=== PATIENT | female | born 1955 | race Caucasian/White ===

== ENCOUNTER 2019-03-11 16:09 | Emergency (ER) | payer MEDICARE, SELFPAY ==
[2019-03-11 16:10] VITALS: BP 128/76; PULSE 90; RESP 16; TEMP 36.8; O2SAT 97; BMI 31.4
[2019-03-11 16:19] VITALS: TEMP 36.8
--- NOTE | 2019-03-11 16:22 | ED.VIS.GEN ---
History of Present Illness Chief Complaint: Cough Detail of Chief Complaint: Respiratory illness Informant: Patient, Friend Onset: Days - Onset of symptoms March 08 Context: Sudden Onset Timing: Continuous, Waxes and wanes Quality: Nasal congestion, cough, wheezing Location: Respiratory Current Severity: Mild Maximum Severity: Moderate Worsened by: Nothing Relieved by: Nothing Associated Symptoms: Malaise Narrative: Patient is an elderly woman who presents with nasal congestion, postnasal drainage, change in voice and productive cough. She states she did not look at the sputum because that will make her sick. She also complains of wheezing. She has history of mild asthma on chronic medication. She denies chest pain of any type. She denies GI symptoms. She denies leg pain, swelling discoloration. There is no history of PE or DVT. Prior similar symptoms: Yes Recent Illness/Hospitalization: No - Past Medical History (1) History of asthma Status: Acute (2) History of hypertension Status: Acute Past Medical History - Allergies and Home Meds Allergies/Adverse Reactions: Allergies hydrochlorothiazide Adverse Reaction (Verified 03/11/19 16:15) Nausea/Vom/Diarrhea Primary Care Physician: Papa Johnson MD [Primary Care Provider] - Prior records reviewed: Yes Lives: Alone Smoking Status: Never smoker Alcohol: Rare Drugs: None Review of Systems General: Reports: Chills, Fever - Subjective fever, Malaise, Subjective. Denies: Sweats Eyes: Denies: Visual changes - bilaterally, Diplopia ENT: Reports: Rhinorrhea Cardiovascular: Denies: Chest pain, Palpitations Respiratory: Reports: Dyspnea, Cough, Sputum, Dyspnea on exertion. Denies: Orthopnea, Paroxysmal nocturnal dyspnea Gastrointestinal: Denies: Abdominal pain, Nausea, Vomiting, Diarrhea, Melena, Hematochezia Genitourinary: Denies: Dysuria, Hematuria, Frequency Musculoskeletal: Denies: Myalgias, Arthralgias, Neck pain, Back pain, Swelling, Extremity Pain Skin: Denies: Rash, Wounds Neurological: Denies: Headache, Weakness, Numbness Hematologic: Denies: Easy bruising, Easy bleeding Allergy: Denies: Uticaria, Swelling of the mouth Physical Exam Vital Signs/Narrative: Vital Signs Temp Pulse Resp BP Pulse Ox 03/11/19 16:10 98.2 F 90 16 128/76 H 97 Inital Vital Signs reviewed: Yes General: Well nourished, Well developed, No Acute Distress Head: Normocephalic, Atraumatic Eyes: Perrl, EOMI. Negative for: Pale conjunctiva, Scleral icterus ENT: Moist mucous membranes, TM's clear, Nasal congestion Neck: Supple, Nontender, No lymphadenopathy, No JVD Cardiovascular: Regular rate, Regular rhythm, No murmurs, Normal S1, Normal S2 Respiratory: No distress, Wheezing, Decreased Air Movement. Negative for: Chest nontender Abdomen: Soft, Nontender, Nondistended, Normal bowel sounds Back: Nontender, Normal Inspection Extremities: Nontender, No edema Skin: Normal color, No rash, No Trauma. Negative for: Cyanosis, Diaphoresis, Jaundice Neurological: Alert, Oriented x3, Cranial nerves II-XII grossly intact, Normal Strength, Normal Sensation, Normal Gait Psychological: Normal affect, Normal Mood Diagnostic/Tx/Re-eval Chest X-Ray - ED: 2 View, Read by ED Physician, Normal, Heart, Lungs, Mediastinum, Bony Structures, No Acute Disease 03/11/19 16:30 Chest PA and Lateral [RAD] Stat - Rhythm Strip Rhythm Strip: Sinus Rhythm Rate: 88 Ectopy: None - Medical Decision Making Patient has exacerbation of asthma in all likelihood secondary to acute viral upper restaurant infection. Will obtain chest x-ray to evaluate for pneumonia. Chest x-ray is normal. Patient was informed she has a viral upper restaurant infection. Recommended using her inhaler every 2-4 hours while awake for the next 2 to 3 days. 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 ED Disposition - Plan for ED Patient: Disposition: Home or Assisted Living Diagnosis: Acute bronchitis with asthma with acute exacerbation Instructions: BRONCHITIS with Wheezing (Adult) Referrals: Papa Johnson MD [Primary Care Provider] - 1 Week if not improving Additional Instructions: 2 puffs of your inhaler every 2-4 hours while awake for the next 2 to 3 days and every 4-6 hours as needed for cough or wheezing. You may be ill for another 7 to 10 days.
--- NOTE | 2019-03-11 16:30 | RAD_ITS ---
STUDY: X-RAY CHEST REASON FOR EXAM: Female, 63 years old. Cough and wheezing TECHNIQUE: PA and lateral views of the chest. COMPARISON: None. FINDINGS: The lungs are clear and expanded. There is no demonstrated pleural abnormality. Normal size heart. Normal mediastinum and anny. Normal visualized pulmonary arteries. Normal visualized aortic arch and descending thoracic aorta. Normal visualized thoracic spine. Normal visualized ribs, clavicles, and shoulders. There is no demonstrated abnormality of the visualized soft tissue structures of the upper abdomen. RAD/Chest PA and Lateral IMPRESSION: Normal x-ray examination of the chest. Electronically Signed: Long Gann DO at 17:10 EST Tel , Service support ,
[2019-03-11 17:09] VITALS: PULSE 87; RESP 17; O2SAT 96
== END 2019-03-11 17:10 | disposition home or self-care (01) ==
PROVIDERS: Emergency Provider Emergency Medicine; Family Provider Family Medicine; PCP Family Medicine
DX: J20.9 Acute bronchitis, unspecified (principal); J45.901 Unspecified asthma with (acute) exacerbation; I10 Essential (primary) hypertension; Z79.51 Long term (current) use of inhaled steroids; Z79.899 Other long term (current) drug therapy
CPT/HCPCS: 71046; 99282

== ENCOUNTER → 2019-11-26 | Outpatient (CLI) | payer MEDICARE, SELFPAY | END | disposition home or self-care (01) | LOC: MTDU 09:59 | PROVIDERS: PCP Family Medicine; Referring Provider Family Medicine; Visit Provider Family Medicine | DX: Z20.828 Contact with and (suspected) exposure to other viral communicable diseases (principal) | CPT/HCPCS: 87635; 94799; U0003 ==

== ENCOUNTER → 2019-11-27 | Outpatient (CLI) | payer MEDICARE, SELFPAY ==
[2019-11-26 13:37] VITALS: BMI 31.4
[2019-11-27 09:56] LABS: Mucous, Urine 0 SEEN /hpf (<or=2+)
[2019-11-27 10:06] LABS: Color, Urine Yellow (Yellow); Glucose, Dipstick Normal (Normal); Ketone-Dipstick Negative (Negative); Leukocyte Esterase-Dipstick 100 /ul (Negative); Nitrite-Dipstick Negative (Negative); Occult Blood-Urine 150 /ul (Negative); Protein-Dipstick 15 mg/dl (Negative); Specific Gravity, Urine 1.015 (1.002-1.030); Urine Bilirubin Dipstick Negative (Negative); Urine Clarity Sl. Cloudy (Clear); Urine Urobilinogen Normal (Normal)
[2019-11-27 10:14] LABS: Bacteria 1+ /hpf (None Seen); Red Blood Cells-Urine 10-25 SEEN /hpf (0-5); Squamous Epithelial Cells - UA 0-5 SEEN /hpf (5-10); White Blood Cells 10-25 SEEN /hpf (0-5)
== END | disposition home or self-care (01) ==
PROVIDERS: PCP Family Medicine; Referring Provider Physician Assistant Medical; Visit Provider Physician Assistant Medical
DX: N39.0 Urinary tract infection, site not specified (principal); R30.0 Dysuria
CPT/HCPCS: 81001; 87077; 87086; 87088; 87186

== ENCOUNTER → 2019-12-21 | Outpatient (CLI) | payer MEDICARE, SELFPAY ==
[2019-12-06 11:10] VITALS: BMI 35.4
--- NOTE | 2019-12-21 14:58 | ECHOD_ITS ---
Reason For Study: Dyspnea/SOB Procedure This was a 2D Doppler, Color Flow transthoracic echocardiogram. Exam performed in department. Left Ventricle Normal LV size. Left ventricular systolic function is normal. The estimated ejection fraction is 55 %. Stage 1 diastolic dysfunction. No regional wall motion abnormalities noted. Right Ventricle Normal RV size. Normal systolic function. Atria Normal left atrium. Normal right atrium. Mitral Valve Normal mitral valve. Tricuspid Valve Normal tricuspid valve. Mild tricuspid valve insufficiency. Aortic Valve Trisinus/trileaflet aortic valve. Pulmonic Valve The pulmonic valve is not well visualized. Great Vessels Normal aortic root. The pulmonary artery is normal size. Normal inferior vena cava. Pericardium/Pleural No pericardial effusion. MMode/2D Measurements & Calculations LVIDd: 4.7 cm IVSd: 1.0 cm Ao root diam: 2.8 cm LVIDs: 2.5 cm LVPWd: 1.0 cm RVDd: 3.3 cm FS: 46.9 % LAV(MOD-bp): 38.0 ml LVAd ap4: 19.8 cm2 SV(MOD-sp4): 30.3 ml LAV(MOD-bp) Indexed: 20.3 ml/m2 EDV(MOD-sp4): 43.7 ml LAV(MOD-sp2): 39.1 ml EDV(sp4-el): 44.1 ml LAV(MOD-sp4): 30.8 ml LVAs ap4: 9.5 cm2 ESV(MOD-sp4): 13.4 ml ESV(sp4-el): 13.5 ml EF(MOD-sp4): 69.3 % EF(sp4-el): 69.4 % SV(sp4-el): 30.6 ml LA A4 area: 13.8 cm2 LA dimension(2D): 3.9 cm RA A4 area: 11.3 cm2 Doppler Measurements & Calculations MV E max amol: 72.5 cm/sec Lat Peak E' Amol: 7.3 cm/sec Med Peak E' Amol: 6.5 cm/sec MV A max amol: 86.8 cm/sec E/E' lat: 9.9 E/E' med: 11.2 MV E/A: 0.83 Ao V2 max: 133.9 cm/sec LV V1 max: 117.4 cm/sec PA V2 max: 76.8 cm/sec Ao max P.2 mmHg LV V1 max P.5 mmHg Ao V2 mean: 90.7 cm/sec Ao mean P.6 mmHg Ao V2 VTI: 25.2 cm TR max amol: 166.6 cm/sec TR max P.1 mmHg Interpretation Summary Normal LV size. Left ventricular systolic function is normal. The estimated ejection fraction is 55 %. Stage 1 diastolic dysfunction. Mild tricuspid valve insufficiency. Ordering Physician: James Bone Referring Physician: Papa Johnson Performed By: Carline Mohr, REJI, RVT
== END | disposition home or self-care (01) ==
LOC: CVS 14:58
PROVIDERS: PCP Family Medicine; Referring Provider Internal Medicine Cardiovascular Disease; Visit Provider Internal Medicine Cardiovascular Disease
DX: I51.81 Takotsubo syndrome (principal); R06.00 Dyspnea, unspecified; R06.02 Shortness of breath
CPT/HCPCS: 93306

== ENCOUNTER 2020-09-20 23:36 | Emergency (ER) | payer MEDICARE, SELFPAY ==
[2020-09-12 13:23] VITALS: BMI 37.7
[2020-09-20 23:37] VITALS: BP 137/66; PULSE 57; RESP 18; TEMP 36.6; O2SAT 100; BMI 37.1
[2020-09-21 00:26] VITALS: RESP 16
[2020-09-21] MEDS: HYDROcodone Bitartrate/Apap 5/325 Tablet PO (00:28)
--- NOTE | 2020-09-21 03:10 | EX.ED.DYSGE1 ---
HPI History of Present Illness Chief Complaint: Ear Problem Narrative Narrative: 65-year-old female who sees Dr. Moser for hearing loss. She does wear bilateral hearing aids. She reports that she has sharp pain in her right ear that began 10 days ago. [facility] and was placed on clindamycin and Cortisporin otic drops. States that she began having pain in her left ear 1 week ago. Patient describes the pain in her ears as a sharp pain is 10-10 at worst 9-10 currently. Is worsened by chewing. She taken tramadol with minimal relief. She denies any fever or chills. She denies any sinus congestion or drainage. [facility] Medical History Acute otitis externa of right ear Acute sinusitis, unspecified Anxiety Asthma Atherosclerosis of coronary artery of [place] heart without angina pectoris Depression Difficulty balancing Essential hypertension Fatigue Fibromyalgia GERD (gastroesophageal reflux disease) Heart disease Hypothyroidism Insomnia NSTEMI (non-ST elevated myocardial infarction) (11/16/19) TADEO (obstructive sleep apnea) Right bundle branch block (RBBB) Takotsubo cardiomyopathy Urinary tract infection Vitamin D deficiency Home Medications bupropion HCl 1 tab PO BID 03/11/19 [History Last Taken Unknown] cyclobenzaprine 5 mg PO TID PRN 03/11/19 [History Last Taken Unknown] loratadine 10 mg PO DAILY 03/11/19 [History Last Taken Unknown] Lactobacillus rhamnosus GG 5 billion cell oral powder packet PO 12/05/19 [History Last Taken Unknown] albuterol sulfate 90 mcg/actuation aerosol inhaler 2 puff INHALATION Q4H PRN g 12/05/19 [History Last Taken Unknown] buspirone 15 mg tablet 15 mg PO BID 12/05/19 [History Last Taken Unknown] cholecalciferol (vitamin D3) 25 mcg (1,000 unit) tablet 25 mcg PO DAILY 12/05/19 [History Last Taken Unknown] cyanocobalamin (vitamin B-12) 1,000 mcg capsule 1,000 mcg PO DAILY 12/05/19 [History Last Taken Unknown] fluticasone propionate 50 mcg/actuation nasal spray,suspension 1 spray INTRANASAL DAILY 12/05/19 [History Last Taken Unknown] hydroxyzine HCl 25 mg tablet 25 mg PO TID PRN 12/05/19 [History Last Taken Unknown] levothyroxine 125 mcg tablet 125 mcg PO DAILY 12/05/19 [History Last Taken Unknown] montelukast 10 mg tablet 10 mg PO QHS 12/05/19 [History Last Taken Unknown] pregabalin 75 mg capsule 75 mg PO BID 12/05/19 [History Last Taken Unknown] sertraline 50 mg tablet 50 mg PO DAILY 12/05/19 [History Last Taken Unknown] sucralfate 1 gram tablet 1 g PO TID PRN tab 12/05/19 [History Last Taken Unknown] tramadol 50 mg tablet 100 mg PO Q6H PRN tab 12/05/19 [History Last Taken Unknown] omeprazole 20 mg capsule,delayed release 20 mg PO BID cap 12/06/19 [History Last Taken Unknown] trazodone 50 mg tablet 50 mg PO DAILY 12/06/19 [History Last Taken Unknown] lisinopril 5 mg tablet 5 mg PO DAILY #30 tab 02/06/20 [Rx Last Taken Unknown] metoprolol succinate 25 mg tablet,extended release 24 hr 25 mg PO DAILY #30 tab 02/06/20 [Rx Last Taken Unknown] clindamycin HCl 300 mg capsule 300 mg PO TID #30 cap 09/12/20 [Rx Last Taken Unknown] mudagpzc-vuhxysepc-glnmjofkn 3.5 mg-10,000 unit/mL-1 % ear drops,susp 4 drp OTIC (EAR) Q8H 10 Days #10 ml 09/12/20 [Rx Last Taken Unknown] ciprofloxacin-dexamethasone [Ciprodex] 4 drp EACH EAR BID 7 Days #7.5 ml 09/21/20 [Rx Last Taken Unknown] hydrocodone-acetaminophen 1 tab PO Q6H PRN 3 Days #10 tab 09/21/20 [Rx Last Taken Unknown] sennosides [senna] 8.6 mg PO DAILY #7 cap 09/21/20 [Rx Last Taken Unknown] Allergy/AdvReac Type Severity Reaction Status Date / Time adhesive tape Allergy Intermediate rash Verified 09/20/20 23:37 amoxicillin [From Augmentin] Allergy Intermediate Unknown Verified 09/20/20 23:37 carvedilol Allergy Intermediate Intense Verified 09/20/20 23:37 itching all over clavulanic acid Allergy Intermediate Unknown Verified 09/20/20 23:37 [From Augmentin] hydrochlorothiazide AdvReac Nausea/Vom/ Verified 09/20/20 23:37 Diarrhea Family History Mother Heart disease Father CAD (coronary artery disease) Heart disease Hypertension Emphysema, unspecified Grandmother CAD (coronary artery disease) Grandfather CAD (coronary artery disease) Brother Hypertension Heart disease Sister Heart disease Surgical History History of cholecystectomy History of left heart catheterization (11/17/19) History of tonsillectomy and adenoidectomy Social History Smoking Status: Never smoker alcohol intake: current alcohol intake frequency: a few times a week substance use type: does not use ROS ROS ED Constitutional Constitutional ED: Denies chills, fever(s) or sweats Eyes Eyes: Denies change in vision ENT ENT ED: Reports ear pain; Denies sore throat Cardiovascular Cardiovascular: Denies chest pain Respiratory/Chest Respiratory/Chest: Denies cough, dyspnea or dyspnea on exertion Gastrointestinal Gastrointestinal: Denies abdominal pain, diarrhea, melena, nausea or vomiting Genitourinary Genitourinary ED: Denies dysuria or urinary frequency Musculoskeletal Musculoskeletal: Denies myalgias Integumentary Denies rash Neurologic Neurologic: Denies headache(s), paresthesias or weakness EXAM Physical Exam Const Vital Signs: 09/20/20 23:37 09/21/20 00:26 Temperature 97.9 F Temperature Source Temporal Pulse Rate 57 L Respiratory Rate 18 16 Blood Pressure 137/66 H Blood Pressure Mean 89 Pulse Ox 100 Oxygen Delivery Method Room Air Positive well nourished and well developed General Appearance ED: well developed HEENT Reports normocephalic and head/scalp atraumatic HEENT Narrative: Mild pain with movement of the tragus bilaterally. There is very minimal swelling of the external auditory canal bilaterally. There is no exudate present. TMs are within normal limits bilaterally. Eyes PERRL Neck no lymphadenopathy, supple and no JVD General: Negative for tenderness Resp normal respiratory effort and clear to auscultation bilaterally Cardio regular rate, regular rhythm and no murmurs GI normal to inspection, nondistended, normoactive bowel sounds and non-tender GI Narrative: No guarding, rebound, or peritoneal signs. Palpation: soft Back/Spine Back/Spine Narrative: Nontender. Extremity General Extremety ED: Negative for edema or tenderness General Extremity: Negative for edema Neuro oriented x3, CN's II-XII intact bilaterally and no sensory deficits noted Sensorium / Orientation: alert Motor Exam: strength 5/5 throughout Psych mental status grossly normal Skin no rashes or lesions noted [facility] Treatment and Re-Evaluation Comments:: Emergency department course: Patient was treated with [place] p.o. As she has been using Cortisporin otic without relief she will be switched to Ciprodex. Treatment plan: Patient does not have otitis media. She is instructed to stop the clindamycin. She is instructed to begin Ciprodex. She is given [place] for pain. Instructed to follow-up Dr. Moser this week for repeat evaluation. Return to the emergency department for any worsening symptoms. Disposition: To home in improved and stable condition. Discharge Plan Triage Chief Complaint: Ear Problem ED Provider: Martín Esteves Dx/Rx/DC Orders Clinical Impression: Otalgia, bilateral Instructions: ED External Ear Infection (Adult) Prescriptions: New hydrocodone-acetaminophen 5-325 mg tablet 1 tab PO Q6H PRN (Reason: pain) 3 Days Qty: 10 RF: 0 senna 8.6 mg capsule 8.6 mg PO DAILY Qty: 7 RF: 0 ciprofloxacin-dexamethasone [Ciprodex] 0.3-0.1 % drops,suspension 4 drp EACH EAR BID 7 Days Qty: 7.5 RF: 0 No Action omeprazole 20 mg capsule,delayed release(DR/EC) 20 mg PO BID RF: 0 trazodone 50 mg tablet 50 mg PO DAILY RF: 0 levothyroxine 125 mcg tablet 125 mcg PO DAILY RF: 0 tramadol 50 mg tablet 100 mg PO Q6H PRNRF: 0 sucralfate 1 gram tablet 1 g PO TID PRNRF: 0 buspirone 15 mg tablet 15 mg PO BID RF: 0 pregabalin 75 mg capsule 75 mg PO BID RF: 0 fluticasone propionate [Allergy Relief (fluticasone)] 50 mcg/actuation spray,suspension 1 spray INTRANASAL DAILY RF: 0 montelukast 10 mg tablet 10 mg PO QHS RF: 0 albuterol sulfate 90 mcg/actuation HFA aerosol inhaler 2 puff INHALATION Q4H PRNRF: 0 [employer] 5 billion cell powder in packet PO RF: 0 cyanocobalamin (vitamin B-12) 1,000 mcg capsule 1,000 mcg PO DAILY RF: 0 cholecalciferol (vitamin D3) 25 mcg (1,000 unit) tablet 25 mcg PO DAILY RF: 0 hydroxyzine HCl 25 mg tablet 25 mg PO TID PRNRF: 0 sertraline 50 mg tablet 50 mg PO DAILY RF: 0 lisinopril 5 mg tablet 5 mg PO DAILY Qty: 30 RF: 11 metoprolol succinate 25 mg tablet extended release 24 hr 25 mg PO DAILY Qty: 30 RF: 11 clindamycin HCl 300 mg capsule 300 mg PO TID Qty: 30 RF: 0 ixgychjc-avpryusqb-KO 3.5-10,000-1 mg/mL-unit/mL-% drops,suspension 4 drp otic (ear) Q8H 10 Days Qty: 10 RF: 0 bupropion HCl 150 MG tablet sustained-release 12 hr 1 tab PO BID RF: 0 loratadine 10 MG tablet 10 mg PO DAILY RF: 0 cyclobenzaprine 5 MG tablet 5 mg PO TID PRN (Reason: Muscle Spasm) RF: 0 Primary Care Provider: Papa Johnson Referrals: Simon Moser MD [STAFF PHYSICIAN] - Keep Wes appointment Papa Johnson MD [Primary Care Provider] - Disposition Disposition: Home, self care Discharge Date/Time: 09/21/20 00:29
== END 2020-09-21 00:29 | disposition home or self-care (01) ==
PROVIDERS: Emergency Provider Emergency Medicine; PCP Family Medicine
DX: H92.03 Otalgia, bilateral (principal); F41.9 Anxiety disorder, unspecified; J45.909 Unspecified asthma, uncomplicated; K21.9 Gastro-esophageal reflux disease without esophagitis; E03.9 Hypothyroidism, unspecified; Z79.51 Long term (current) use of inhaled steroids; Z79.899 Other long term (current) drug therapy
CPT/HCPCS: 99283

== ENCOUNTER 2020-12-21 15:47 | Emergency (ER) | payer MEDICARE, SELFPAY ==
[2020-12-21 15:48] VITALS: TEMP 35.6; BMI 38.1
[2020-12-21 15:53] VITALS: BP 154/104; PULSE 76; RESP 22; TEMP 35.6
--- NOTE | 2020-12-21 16:18 | RAD_ITS ---
STUDY: X-RAY CHEST REASON FOR EXAM: Female, 65 years old. Chest pain TECHNIQUE: Single AP portable view of the chest. COMPARISON: 03/11/2019 FINDINGS: The lungs are clear and expanded. There is no demonstrated pleural abnormality. Normal size heart. Normal mediastinum and anny. Normal visualized pulmonary arteries. Normal visualized aortic arch and descending thoracic aorta. Normal visualized thoracic spine. Normal visualized ribs, clavicles, and shoulders. There is no demonstrated abnormality of the visualized soft tissue structures of the upper abdomen. RAD/Chest 1 View (Portable) IMPRESSION: Normal x-ray examination of the chest. Electronically Signed: Dylan Messina MD at 17:42 EDT Tel , Service support ,
--- NOTE | 2020-12-21 16:18 | CT_ITS ---
STUDY: CT BRAIN WITHOUT CONTRAST REASON FOR EXAM: Female, 65 years old. Headache RADIATION DOSAGE (If Supplied By Facility): CTDIvol = ( 44.99 ) mGy, DLP = ( 779.24 ) mGycm TECHNIQUE: Transaxial CT imaging of the brain was performed without administration of intravenous contrast material. Individualized dose optimization techniques were used for this CT. COMPARISON: No relevant priors. FINDINGS: Normal soft tissue structures. Normal calvarium. Normal size ventricles and extra-axial spaces for the patient''s age. Normal white matter tracts of the cerebral hemispheres. Normal basal ganglia and thalami. Normal brainstem. Normal cerebellum. There is no intracranial hemorrhage. There are no findings of an acute ischemic infarction. Normal visualized paranasal sinuses. CT/Brain/Head without Contrast IMPRESSION: Normal unenhanced CT scan of the brain. Electronically Signed: Dylan Messina MD at 17:40 EDT Tel , Service support ,
--- NOTE | 2020-12-21 16:19 | EKG12_ITS ---
Test Reason : DIZZINESS Blood Pressure : / mmHG Vent. Rate : 063 BPM Atrial Rate : 063 BPM P-R Int : 204 ms QRS Dur : 104 ms QT Int : 454 ms P-R-T Axes : 058 -34 041 degrees QTc Int : 464 ms Normal sinus rhythm Left axis deviation Abnormal ECG Confirmed by HEIDI PARRISH, DIRK ([id number]), publications editor GINA PANDYA ([id number]) on 12/25/2020 9:01:59 AM Referred By: HIEN Confirmed By:DIRK GORDON MD
--- NOTE | 2020-12-21 16:23 | EDS_ITS ---
HPI History of Present Illness Chief Complaint: Dizziness Informant: patient Onset/Context/Timing Onset: Today Context: Sudden Onset Timing: Continuous Quality: Off balance Location: Head Worsened by: Opening her eyes Relieved by: Closing her eyes Narrative Narrative: Patient presents with dizziness, nausea, and vomiting that began today. Patient states it began suddenly approximately 45 minutes prior to arrival. Patient states her dizziness feels like she is off balance. Patient states it is worse whenever she opens her eyes and better whenever she closes her eyes. Patient states she had similar symptoms 1 year ago in [place] and was diagnosed with stress cardiomyopathy. Patient denies any chest pain. Patient admits to some nausea and vomiting and has some epigastric pain. Patient admits to some shortness of breath but denies any cough. Patient denies any palpitations. [facility] Medical History Acute otitis externa of right ear Acute sinusitis, unspecified Anxiety Asthma Atherosclerosis of coronary artery of [place] heart without angina pectoris Depression Difficulty balancing Essential hypertension Fatigue Fibromyalgia GERD (gastroesophageal reflux disease) Heart disease History of non-ST elevation myocardial infarction (NSTEMI) (11/16/19) Hypothyroidism Insomnia TADEO (obstructive sleep apnea) Otalgia, bilateral Right bundle branch block (RBBB) Takotsubo cardiomyopathy Urinary tract infection Vitamin D deficiency Home Medications bupropion HCl 1 tab PO BID 03/11/19 [History Last Taken Unknown] cyclobenzaprine 5 mg PO TID PRN 03/11/19 [History Last Taken Unknown] loratadine 10 mg PO DAILY 03/11/19 [History Last Taken Unknown] Lactobacillus rhamnosus GG 5 billion cell oral powder packet PO 12/05/19 [History Last Taken Unknown] albuterol sulfate 90 mcg/actuation aerosol inhaler 2 puff INHALATION Q4H PRN g 12/05/19 [History Last Taken Unknown] buspirone 15 mg tablet 15 mg PO BID 12/05/19 [History Last Taken Unknown] cholecalciferol (vitamin D3) 25 mcg (1,000 unit) tablet 25 mcg PO DAILY 12/05/19 [History Last Taken Unknown] cyanocobalamin (vitamin B-12) 1,000 mcg capsule 1,000 mcg PO DAILY 12/05/19 [History Last Taken Unknown] fluticasone propionate 50 mcg/actuation nasal spray,suspension 1 spray INTRANASAL DAILY 12/05/19 [History Last Taken Unknown] hydroxyzine HCl 25 mg tablet 25 mg PO TID PRN 12/05/19 [History Last Taken Unknown] montelukast 10 mg tablet 10 mg PO QHS 12/05/19 [History Last Taken Unknown] pregabalin 75 mg capsule 75 mg PO BID 12/05/19 [History Last Taken Unknown] sertraline 50 mg tablet 50 mg PO DAILY 12/05/19 [History Last Taken Unknown] sucralfate 1 gram tablet 1 g PO TID PRN tab 12/05/19 [History Last Taken Unkno wn] tramadol 50 mg tablet 100 mg PO Q6H PRN tab 12/05/19 [History Last Taken Unknown] omeprazole 20 mg capsule,delayed release 20 mg PO BID cap 12/06/19 [History Last Taken Unknown] clindamycin HCl 300 mg capsule 300 mg PO TID #30 cap 09/12/20 [Rx Last Taken Unknown] ciprofloxacin-dexamethasone [Ciprodex] 4 drp EACH EAR BID 7 Days #7.5 ml 09/21/20 [Rx Last Taken Unknown] hydrocodone-acetaminophen 1 tab PO Q6H PRN 3 Days #10 tab 09/21/20 [Rx Last Taken Unknown] sennosides [senna] 8.6 mg PO DAILY #7 cap 09/21/20 [Rx Last Taken Unknown] levothyroxine 112 mcg tablet 112 mcg PO DAILY tab 11/19/20 [History Last Taken Unknown] lisinopril 10 mg tablet 10 mg PO DAILY #90 tab 11/19/20 [Rx Last Taken Unknown] trazodone 100 mg tablet 100 mg PO DAILY tab 11/19/20 [History Last Taken Unknown] diazepam 2 mg PO TID PRN PRN #10 tablet 12/21/20 [Rx Last Taken Unknown] Allergy/AdvReac Type Severity Reaction Status Date / Time adhesive tape Allergy Intermediate rash Verified 11/19/20 12:49 amoxicillin [From Augmentin] Allergy Intermediate Unknown Verified 11/19/20 12:49 carvedilol Allergy Intermediate Intense Verified 11/19/20 12:49 itching all over clavulanic acid Allergy Intermediate Unknown Verified 11/19/20 12:49 [From Augmentin] hydrochlorothiazide AdvReac Nausea/Vom/ Verified 11/19/20 12:49 Diarrhea Family History Mother Heart disease Father CAD (coronary artery disease) Heart disease Hypertension Emphysema, unspecified Grandmother CAD (coronary artery disease) Grandfather CAD (coronary artery disease) Brother Hypertension Heart disease Sister Heart disease Surgical History History of cholecystectomy History of left heart catheterization (11/17/19) History of tonsillectomy and adenoidectomy Social History Smoking Status: Never smoker alcohol intake: current alcohol intake frequency: a few times a week substance use type: does not use ROS ROS ED Constitutional Constitutional ED: Reports sweats; Denies chills or fever(s) Eyes Eyes: Denies blurry vision or change in vision ENT ENT ED: Reports rhinorrhea; Denies sore throat Cardiovascular Cardiovascular: Denies chest pain or palpitations Respiratory/Chest Respiratory/Chest: Reports dyspnea; Denies cough Gastrointestinal Gastrointestinal: Reports abdominal pain, nausea and vomiting Genitourinary Genitourinary ED: Denies dysuria or hematuria Musculoskeletal Musculoskeletal: Denies back pain or neck pain Integumentary Denies abscess or rash Neurologic Neurologic: Reports paresthesias; Denies headache(s) or weakness Allergic/Immunologic Allergic/Immunologic ED: Denies mouth swelling or urticaria EXAM Physical Exam Const Vital Signs: 12/21/20 15:48 12/21/20 15:53 12/21/20 17:49 Temperature 96.0 F L 96.0 F L Temperature Source Temporal Temporal Pulse Rate 76 Pulse Rate [Lying] 61 Pulse Rate [Sitting] 64 Pulse Rate [Standing] 66 Respiratory Rate 22 H Respiratory Pattern Normal Blood Pressure 154/104 H Blood Pressure [Lying] 128/57 H Blood Pressure [Sitting] 106/73 Blood Pressure [Standing] 165/76 H Blood Pressure Mean 120 Blood Pressure Mean [Lying] 80 Blood Pressure Mean [Sitting] 84 Blood Pressure Mean [Standing] 105 Pulse Ox 12/21/20 18:22 Temperature Temperature Source Pulse Rate 66 Pulse Rate [Lying] Pulse Rate [Sitting] Pulse Rate [Standing] Respiratory Rate 14 Respiratory Pattern Blood Pressure 138/104 H Blood Pressure [Lying] Blood Pressure [Sitting] Blood Pressure [Standing] Blood Pressure Mean 115 Blood Pressure Mean [Lying] Blood Pressure Mean [Sitting] Blood Pressure Mean [Standing] Pulse Ox 99 Positive well nourished, well developed and obese General Appearance ED: well developed Nutritional Appearance: obese HEENT Reports moist mucous membranes Neck supple and no JVD Resp normal respiratory effort and clear to auscultation bilaterally Cardio regular rate, regular rhythm and no murmurs GI normal to inspection, nondistended, normoactive bowel sounds and non-tender Palpation: soft Extremity normal to inspection General Extremety ED: Negative for edema or tenderness General Extremity: Negative for edema Neuro oriented x3, CN's II-XII intact bilaterally and no sensory deficits noted Sensorium / Orientation: alert Motor Exam: strength 5/5 throughout Psych mental status grossly normal Skin no rashes or lesions noted MDM MDM MDM Narrative Medical decision making narrative: Patient was given IV fluids, Zofran, and Valium. EKG was obtained. On my interpretation, it showed a normal sinus rhythm with a rate of 63. NH interval, QRS interval, and QTc intervals were all normal. There is left axis deviation at -34. There are no acute ST or T wave changes. CT scan of the brain was obtained. There is no acute intracranial abnormality. This was interpreted by the radiologist and reviewed by myself. CBC and comprehensive metabolic profile were obtained were essentially within normal limits. Creatinine was slightly elevated at 1.34 and BUN was 19. High- sensitivity troponin was normal. Portable 1 view chest x-ray was obtained. On my interpretation, lung davidson are clear. There is normal cardiac silhouette. Bony thorax is normal. There is no acute process noted. Radiologist also interpreted the x-ray and agrees. Patient is feeling better on reevaluation. Patient states her dizziness is almost completely resolved. Patient was advised that this most likely is from vertigo. Patient was given a prescription for a short course of Valium. Patient was instructed to follow-up with her primary care physician in 3 to 5 days for reevaluation. Patient understood and was agreeable with the plan. All questions were answered. Lab Data Attestation: I reviewed the patient's lab results. Labs: Laboratory Results - last 24 hr 12/21/20 12/21/20 16:00 16:00 WBC 8.7 RBC 4.44 Hgb 13.5 Hct 41.2 MCV 92.8 MCH 30.4 MCHC 32.8 RDW Std Deviation 42.9 RDW Coeff of [place] 12.5 Plt Count 299 MPV 9.2 Immature Gran % (Auto) 0.500 Neut % (Auto) 55.0 Lymph % (Auto) 31.8 [place] % (Auto) 10.8 H Eos % (Auto) 1.3 Baso % (Auto) 0.6 Absolute Neuts (auto) 4.8 Absolute Lymphs (auto) 2.76 Nucleated RBC % 0 Sodium 139 Potassium 4.0 Chloride 104 Carbon Dioxide 24.0 Anion Gap 11 BUN 19 H Creatinine 1.34 H Estim Creat Clear Calc 32.22 Est GFR (MDRD) Af Amer 51 L Est GFR (MDRD) Non-Af 42 L BUN/Creatinine Ratio 14.2 Glucose 112 H Calcium 9.0 Total Bilirubin 0.40 AST 22 ALT 22 Alkaline Phosphatase 75 Troponin I High Sens 4 Total Protein 7.1 Albumin 3.8 Globulin 3.3 Albumin/Globulin Ratio 1.2 Radiography Chest X-Ray - ED: 1 View, Read by ED Physician, Read by Radiologist and Normal Diagnostic Testing: Radiology Impression Brain CT 12/21/20 16:18 IMPRESSION: Normal unenhanced CT scan of the brain. Electronically Signed: Dylan Messina MD at 17:40 EDT Tel , Service support , Chest X-Ray 12/21/20 16:18 IMPRESSION: Normal x-ray examination of the chest. Electronically Signed: Dylan Messina MD at 17:42 EDT Tel , Service support , EKG Initial EKG: Attestation: I personally reviewed and interpreted this EKG as follows: Interpretation: Sinus Rhythm (63) and No Acute Injury Pattern Discharge Plan Triage Chief Complaint: Dizziness ED Provider: Simon Mcdaniel Dx/Rx/DC Orders Clinical Impression: Vertigo Instructions: ED Vertigo, Unspecified Prescriptions: New diazepam [diazepam] 2 MG tablet 2 mg PO TID PRN PRN (Reason: Vertigo) Qty: 10 RF: 0 No Action omeprazole 20 mg capsule,delayed release(DR/EC) 20 mg PO BID RF: 0 tramadol 50 mg tablet 100 mg PO Q6H PRNRF: 0 sucralfate 1 gram tablet 1 g PO TID PRNRF: 0 buspirone 15 mg tablet 15 mg PO BID RF: 0 pregabalin 75 mg capsule 75 mg PO BID RF: 0 fluticasone propionate [Allergy Relief (fluticasone)] 50 mcg/actuation spray,suspension 1 spray INTRANASAL DAILY RF: 0 montelukast 10 mg tablet 10 mg PO QHS RF: 0 albuterol sulfate 90 mcg/actuation HFA aerosol inhaler 2 puff INHALATION Q4H PRNRF: 0 [employer] 5 billion cell powder in packet PO RF: 0 cyanocobalamin (vitamin B-12) 1,000 mcg capsule 1,000 mcg PO DAILY RF: 0 cholecalciferol (vitamin D3) 25 mcg (1,000 unit) tablet 25 mcg PO DAILY RF: 0 hydroxyzine HCl 25 mg tablet 25 mg PO TID PRNRF: 0 sertraline 50 mg tablet 50 mg PO DAILY RF: 0 levothyroxine 112 mcg tablet 112 mcg PO DAILY RF: 0 trazodone 100 mg tablet 100 mg PO DAILY RF: 0 lisinopril 10 mg tablet 10 mg PO DAILY Qty: 90 RF: 11 clindamycin HCl 300 mg capsule 300 mg PO TID Qty: 30 RF: 0 bupropion HCl 150 MG tablet sustained-release 12 hr 1 tab PO BID RF: 0 loratadine 10 MG tablet 10 mg PO DAILY RF: 0 cyclobenzaprine 5 MG tablet 5 mg PO TID PRN (Reason: Muscle Spasm) RF: 0 hydrocodone-acetaminophen 5-325 mg tablet 1 tab PO Q6H PRN (Reason: pain) 3 Days Qty: 10 RF: 0 senna 8.6 mg capsule 8.6 mg PO DAILY Qty: 7 RF: 0 ciprofloxacin-dexamethasone [Ciprodex] 0.3-0.1 % drops,suspension 4 drp EACH EAR BID 7 Days Qty: 7.5 RF: 0 Primary Care Provider: Papa Johnson Referrals: Papa Johnson MD [Primary Care Provider] - 3-5 Days Disposition Disposition: Home, Self Care
[2020-12-21 16:36] LABS: Absolute Lymphocyte Count 2.76 X10^3/uL (0.83-4.51); Absolute Neutrophil Count 4.8 X10^3/uL (2.0-7.7); Basophil# 0.05 X10^3/uL; Basophil% 0.6 % (0-1); Eosinophil# 0.11 X10^3/uL; Eosinophils% 1.3 % (0-5); Hematocrit 41.2 % (37-47); Hemoglobin 13.5 g/dL (12.0-15.0); Lymphocyte # 2.76 X10^3/ul (0.83-4.51); Lymphocyte % 31.8 % (19-41); Mean Corp Hgb Conc 32.8 g/dL (32-36); Mean Corpuscular Hgb 30.4 pg (27.0-32.0); Mean Corpuscular Volume 92.8 fL (81-99); Mean Platelet Vol. 9.2 fl (6.2-12.0); Monocyte# 0.94 X10^3/uL; Monocyte% 10.8 % (0-10); NRBC Flagged by Analyzer 0 % (0-5); Neutrophil # 4.77 X10^3/uL (2.7-7.7); Platelet Count 299 K/mm3 (150-450); RBC Distribution Width CV 12.5 % (11.6-14.6); RBC Distribution Width SD 42.9 fl (35.1-43.9); Red Blood Count 4.44 M/mm3 (4.2-5.4); White Blood Count 8.7 K/mm3 (4.4-11.0)
[2020-12-21 16:51] LABS: ALB/GLOB Ratio 1.2 RATIO (0.9-2.4); AST(SGOT) 22 U/L (15-37); Alanine Aminotransfer ALT/SGPT 22 U/L (13-56); Albumin, Serum 3.8 g/dL (3.2-5.0); Alkaline Phosphatase 75 U/L (45-117); Anion Gap 11 (5-15); BUN 19 mg/dL (7-18); BUN/Creat Ratio 14.2 RATIO (10-20); Chloride 104 mmol/L (98-107); Creatinine, Serum 1.34 mg/dL (0.55-1.02); EST Glomerular Filtration Rate 42 mL/min (>60); Est Glom Filt Rate - Afr Amer 51 mL/min (>60); Estimated Creatinine Clearance 32.22 ml/min; Globulin 3.3 g/dL (2.2-4.2); Glucose 112 mg/dL (74-106); Protein, Total 7.1 g/dL (6.4-8.2); Sodium Level 139 mmol/L (136-145); Troponin-I HS 4 pg/mL (3.0-54.0)
[2020-12-21] MEDS: Ondansetron 4 MG/2 ML Vial IV (16:53)
[2020-12-21] MEDS: diazePAM 5 MG Tablet 2.5 MG PO (16:53)
[2020-12-21 17:49] VITALS: BP 106/73; BP 128/57; BP 165/76; PULSE 61; PULSE 64; PULSE 66
[2020-12-21 18:22] VITALS: BP 138/104; PULSE 66; RESP 14; O2SAT 99
[2020-12-21 20:26] VITALS: BP 158/75; PULSE 86; RESP 16; O2SAT 100
== END 2020-12-21 21:29 | disposition home or self-care (01) ==
PROVIDERS: Emergency Provider Emergency Medicine; PCP Family Medicine
DX: R42 Dizziness and giddiness (principal); R11.2 Nausea with vomiting, unspecified; R10.13 Epigastric pain; I25.10 Atherosclerotic heart disease of native coronary artery without angina pectoris; I25.2 Old myocardial infarction
CPT/HCPCS: 70450; 71045; 80053; 84484; 85025; 93005; 96374; 99285; J2405

== ENCOUNTER 2021-02-22 12:52 | Emergency (ER) | payer MEDICARE, SELFPAY ==
[2021-02-22 12:53] VITALS: BP 145/72; PULSE 80; RESP 16; TEMP 35.7; O2SAT 100; BMI 37.1
--- NOTE | 2021-02-22 16:03 | EDS_ITS ---
HPI History of Present Illness Chief Complaint: Upper Extremity Injury Detail of Chief Complaint: Pain radial side right wrist and thumb Informant: patient Onset/Context/Timing Onset: Today Context: Sudden Onset Timing: Continuous Quality of Pain: Dull, Aching and Throbbing Current Severity: Mild Maximum Severity: Severe Worsened by: Certain movements Relieved by: Rest Associated Symptoms Associated Symptoms: Negative for Parasthesia and Weakness Narrative Narrative: Patient is a 65-year-old [id number] woman who was sent to the emergency department because of redness noted over the radial side of the right wrist. She uses her thumb to text. There is no history of gardening. There is no history of trauma. She denies fever, chills night sweats. She is not on immunosuppressive meds. Tetanus Immunization: 5-10 years Prior similar symptoms: No Recent Illness/Hospitalization: No PFSH PFSH Medical History Acute otitis externa of right ear Acute sinusitis, unspecified Anxiety Asthma Atherosclerosis of coronary artery of [place] heart without angina pectoris Depression Difficulty balancing Essential hypertension Fatigue Fibromyalgia GERD (gastroesophageal reflux disease) Heart disease History of non-ST elevation myocardial infarction (NSTEMI) (11/16/19) Hypothyroidism Insomnia TADEO (obstructive sleep apnea) Otalgia, bilateral Right bundle branch block (RBBB) Takotsubo cardiomyopathy Urinary tract infection Vitamin D deficiency Home Medications bupropion HCl 1 tab PO BID 03/11/19 [History Last Taken Unknown] cyclobenzaprine 5 mg PO TID PRN 03/11/19 [History Last Taken Unknown] loratadine 10 mg PO DAILY 03/11/19 [History Last Taken Unknown] albuterol sulfate 90 mcg/actuation aerosol inhaler 2 puff INHALATION Q4H PRN g 12/05/19 [History Last Taken Unknown] buspirone 15 mg tablet 15 mg PO BID 12/05/19 [History Last Taken Unknown] cholecalciferol (vitamin D3) 25 mcg (1,000 unit) tablet 25 mcg PO DAILY 12/05/19 [History Last Taken Unknown] cyanocobalamin (vitamin B-12) 1,000 mcg capsule 1,000 mcg PO DAILY 12/05/19 [History Last Taken Unknown] fluticasone propionate 50 mcg/actuation nasal spray,suspension 1 spray INTRANASAL DAILY 12/05/19 [History Last Taken Unknown] montelukast 10 mg tablet 10 mg PO QHS 12/05/19 [History Last Taken Unknown] sertraline 50 mg tablet 50 mg PO DAILY 12/05/19 [History Last Taken Unknown] sucralfate 1 gram tablet 1 g PO TID PRN tab 12/05/19 [History Last Taken Unknown] tramadol 50 mg tablet 100 mg PO Q6H PRN tab 12/05/19 [History Last Taken Unknown] omeprazole 20 mg capsule,delayed release 20 mg PO BID cap 12/06/19 [History Last Taken Unknown] sennosides [senna] 8.6 mg PO DAILY #7 cap 09/21/20 [Rx Last Taken Unknown] levothyroxine 112 mcg tablet 112 mcg PO DAILY tab 11/19/20 [History Last Taken Unknown] lisinopril 10 mg tablet 10 mg PO DAILY #90 tab 11/19/20 [Rx Last Taken Unknown] trazodone 100 mg tablet 100 mg PO DAILY tab 11/19/20 [History Last Taken Unknown] diazepam 2 mg PO TID PRN PRN #10 tablet 12/21/20 [Rx Last Taken Unknown] prednisone 40 mg PO DAILY #10 tablet 02/22/21 [Rx Last Taken Unknown] Allergy/AdvReac Type Severity Reaction Status Date / Time adhesive tape Allergy Intermediate rash Verified 11/19/20 12:49 amoxicillin [From Augmentin] Allergy Intermediate Unknown Verified 11/19/20 12:49 carvedilol Allergy Intermediate Intense Verified 11/19/20 12:49 itching all over clavulanic acid Allergy Intermediate Unknown Verified 11/19/20 12:49 [From Augmentin] hydrochlorothiazide AdvReac Nausea/Vom/ Verified 11/19/20 12:49 Diarrhea Family History Mother Heart disease Father CAD (coronary artery disease) Heart disease Hypertension Emphysema, unspecified Grandmother CAD (coronary artery disease) Grandfather CAD (coronary artery disease) Brother Hypertension Heart disease Sister Heart disease Surgical History History of cholecystectomy History of left heart catheterization (11/17/19) History of tonsillectomy and adenoidectomy Social History (Updated 10/23/21 @ 16:[address] Bill Roger MD) household members: none Smoking Status: Never smoker alcohol intake: current alcohol intake frequency: a few times a week substance use type: does not use ROS ROS ED Constitutional Constitutional ED: Denies chills, fever(s), subjective, sweats or weight loss Gastrointestinal Gastrointestinal: Denies nausea or vomiting Integumentary Reports rash; Denies abscess or Abrasions Neurologic Neurologic: Denies paresthesias or weakness Hematologic/Lymphatic Hematologic/Lymphatic: Denies easy bleeding or easy bruising EXAM Physical Exam Const Vital Signs: 02/22/21 12:53 Temperature 96.3 F L Temperature Source Temporal Pulse Rate 80 Respiratory Rate 16 Blood Pressure 145/72 H Blood Pressure Mean 96 Pulse Ox 100 Oxygen Delivery Method Room Air Positive well nourished, well developed and obese General Appearance ED: well developed and NAD Nutritional Appearance: obese HEENT normocephalic and atraumatic Eyes PERRL and EOMs intact bilaterally Resp normal respiratory effort Cardio regular rate and regular rhythm Extremity Negative for normal to inspection or full ROM Extremity Narrative: There is redness over the right wrist radial side. Patient has a positive Salty test. There is pain no patient over the extensor tendon. There is no lymphangitis. There is no epitrochlear extra lymphadenopathy. There is no induration or warmth. Median, radial and ulnar function intact. There is no pain with passive flexion extension of the wrist. There is no effusion. General Extremety ED: Yes other findings; Negative for edema General Extremity: other findings; Negative for edema Neuro oriented x3 and CN's II-XII intact bilaterally Sensorium / Orientation: alert MDM MDM MDM Narrative Medical decision making narrative: Patient's history and physical exam is consistent with De[place]ivene tenosynovitis. Patient was treated with cock-up splint and since she has significant GERD she was treated with prednisone. She is to follow-up with her primary care provider Dr. Johnson and physician assistant community manager Jose Petersen. Discharge Plan Triage Chief Complaint: Upper Extremity Injury ED Provider: Bill Roger Dx/Rx/DC Orders Clinical Impression: Tenosynovitis Instructions: ED Tendonitis Prescriptions: New prednisone 20 MG tablet 40 mg PO DAILY Qty: 10 RF: 0 No Action omeprazole 20 mg capsule,delayed release(DR/EC) 20 mg PO BID RF: 0 tramadol 50 mg tablet 100 mg PO Q6H PRN (Reason: Pain) RF: 0 sucralfate 1 gram tablet 1 g PO TID PRN (Reason: Heartburn) RF: 0 buspirone 15 mg tablet 15 mg PO BID RF: 0 fluticasone propionate [Allergy Relief (fluticasone)] 50 mcg/actuation spray,suspension 1 spray INTRANASAL DAILY RF: 0 montelukast 10 mg tablet 10 mg PO QHS RF: 0 albuterol sulfate 90 mcg/actuation HFA aerosol inhaler 2 puff INHALATION Q4H PRN (Reason: Wheezing) RF: 0 cyanocobalamin (vitamin B-12) 1,000 mcg capsule 1,000 mcg PO DAILY RF: 0 cholecalciferol (vitamin D3) 25 mcg (1,000 unit) tablet 25 mcg PO DAILY RF: 0 sertraline 50 mg tablet 50 mg PO DAILY RF: 0 levothyroxine 112 mcg tablet 112 mcg PO DAILY RF: 0 trazodone 100 mg tablet 100 mg PO DAILY RF: 0 lisinopril 10 mg tablet 10 mg PO DAILY Qty: 90 RF: 11 bupropion HCl 150 MG tablet sustained-release 12 hr 1 tab PO BID RF: 0 loratadine 10 MG tablet 10 mg PO DAILY RF: 0 cyclobenzaprine 5 MG tablet 5 mg PO TID PRN (Reason: Muscle Spasm) RF: 0 senna 8.6 mg capsule 8.6 mg PO DAILY Qty: 7 RF: 0 diazepam [diazepam] 2 MG tablet 2 mg PO TID PRN PRN (Reason: Vertigo) Qty: 10 RF: 0 Primary Care Provider: Papa Johnson Referrals: Papa Johnson MD [Primary Care Provider] - 3-5 Days if not improving Activity Restrictions/Additional Instructions: 1. If you develop a temperature greater than 100 and have shaking chills return to the emergency department 2. If you develop a red streak up to your elbow return to the emergency department 3. Wear splint during the day and at work Disposition Disposition: Home, Self Care
[2021-02-22] MEDS: predniSONE 20 MG Tablet 60 MG PO (16:31)
[2021-02-22 16:34] VITALS: BP 136/85; PULSE 83; RESP 15; O2SAT 97
== END 2021-02-22 16:35 | disposition home or self-care (01) ==
PROVIDERS: Emergency Provider Emergency Medicine; PCP Family Medicine
DX: M65.9 Synovitis and tenosynovitis, unspecified (principal); F41.9 Anxiety disorder, unspecified; J45.909 Unspecified asthma, uncomplicated; I25.10 Atherosclerotic heart disease of native coronary artery without angina pectoris; F32.A Depression, unspecified; I10 Essential (primary) hypertension; M79.7 Fibromyalgia; K21.9 Gastro-esophageal reflux disease without esophagitis; E03.9 Hypothyroidism, unspecified; E66.9 Obesity, unspecified; Z79.51 Long term (current) use of inhaled steroids; Z79.899 Other long term (current) drug therapy
CPT/HCPCS: 99283

== ENCOUNTER 2021-05-09 19:35 | Emergency (ER) | payer MEDICARE, SELFPAY ==
[2021-05-09 19:37] VITALS: BP 159/70; PULSE 60; RESP 21; TEMP 36.4; O2SAT 100; BMI 38.0
[2021-05-09 19:45] VITALS: BP 154/89; PULSE 70; RESP 23; O2SAT 99
--- NOTE | 2021-05-09 20:36 | EKG12_ITS ---
Test Reason : VERTIGO Blood Pressure : / mmHG Vent. Rate : 058 BPM Atrial Rate : 058 BPM P-R Int : 204 ms QRS Dur : 108 ms QT Int : 454 ms P-R-T Axes : 059 -33 045 degrees QTc Int : 445 ms Sinus bradycardia Left axis deviation Abnormal ECG Confirmed by HEIDI PARRISH, DIRK ([id number]), tape editor GINA PANDYA ([id number]) on 05/14/2021 11:20:48 AM Referred By: ANTONIO Confirmed By:DIRK GORDON MD
[2021-05-09] MEDS: Ondansetron 4 MG/2 ML Vial IV (20:47)
[2021-05-09] MEDS: 0.9% Normal Saline 1,000 ML 150 ML IV (20:47)
[2021-05-09] MEDS: diazePAM 5 MG Tablet 2.5 MG PO (20:47)
[2021-05-09 20:55] VITALS: BP 107/90; PULSE 61; RESP 17; O2SAT 99
[2021-05-09 21:00] LABS: Absolute Neutrophil Count 6.8 X10^3/uL (2.0-7.7); Basophil# 0.06 X10^3/uL; Basophil% 0.6 % (0-1); Eosinophil# 0.19 X10^3/uL; Eosinophils% 1.9 % (0-5); Hematocrit 41.1 % (37-47); Hemoglobin 13.5 g/dL (12.0-15.0); Lymphocyte % 23.2 % (19-41); Mean Corp Hgb Conc 32.8 g/dL (32-36); Mean Corpuscular Hgb 29.4 pg (27.0-32.0); Mean Corpuscular Volume 89.5 fL (81-99); Mean Platelet Vol. 9.2 fl (6.2-12.0); Monocyte# 0.48 X10^3/uL; Monocyte% 4.8 % (0-10); NRBC Flagged by Analyzer 0 % (0-5); Neutrophil # 6.84 X10^3/uL (2.7-7.7); Platelet Count 288 K/mm3 (150-450); RBC Distribution Width SD 42.8 fl (35.1-43.9); Red Blood Count 4.59 M/mm3 (4.2-5.4); White Blood Count 9.9 K/mm3 (4.4-11.0)
--- NOTE | 2021-05-09 21:19 | EDS_ITS ---
HPI History of Present Illness Chief Complaint: Dizziness Informant: patient Onset/Context/Timing Onset: Today Context: Gradual Onset Current Severity: Mild Maximum Severity: Moderate Narrative Narrative: Patient present secondary to vertigo with nausea and vomiting. She states around 530 this evening she was on her phone texting with a friend when she started not feeling well. She states she had vertigo a year or so ago and symptoms feel the exact same. Her daughter was try to help her walk and she was staggering about. She did fall but did not injure herself. She had nausea and vomiting. She denies headache. She denies chest pain, shortness of breath, or cough. She did develop some chills after arriving to the emergency room. [facility] Medical History Acute sinusitis, unspecified Anxiety Asthma Atherosclerosis of coronary artery of [place] heart without angina pectoris Depression Difficulty balancing Essential hypertension Fatigue Fibromyalgia GERD (gastroesophageal reflux disease) Heart disease History of non-ST elevation myocardial infarction (NSTEMI) (11/16/19) Hypothyroidism Insomnia TADEO (obstructive sleep apnea) Right bundle branch block (RBBB) Takotsubo cardiomyopathy Vitamin D deficiency Home Medications bupropion HCl 1 tab PO BID 03/11/19 [History Last Taken Unknown] cyclobenzaprine 5 mg PO TID PRN 03/11/19 [History Last Taken Unknown] loratadine 10 mg PO DAILY 03/11/19 [History Last Taken Unknown] albuterol sulfate 90 mcg/actuation aerosol inhaler 2 puff INHALATION Q4H PRN g 12/05/19 [History Last Taken Unknown] buspirone 15 mg tablet 15 mg PO BID 12/05/19 [History Last Taken Unknown] cholecalciferol (vitamin D3) 25 mcg (1,000 unit) tablet 25 mcg PO DAILY 12/05/19 [History Last Taken Unknown] cyanocobalamin (vitamin B-12) 1,000 mcg capsule 1,000 mcg PO DAILY 12/05/19 [History Last Taken Unknown] fluticasone propionate 50 mcg/actuation nasal spray,suspension 1 spray INTRANASAL DAILY 12/05/19 [History Last Taken Unknown] montelukast 10 mg tablet 10 mg PO QHS 12/05/19 [History Last Taken Unknown] sertraline 50 mg tablet 50 mg PO DAILY 12/05/19 [History Last Taken Unknown] sucralfate 1 gram tablet 1 g PO TID PRN tab 12/05/19 [History Last Taken Unknown] tramadol 50 mg tablet 100 mg PO Q6H PRN tab 12/05/19 [History Last Taken Unknown] omeprazole 20 mg capsule,delayed release 20 mg PO BID cap 12/06/19 [History Last Taken Unknown] sennosides [senna] 8.6 mg PO DAILY #7 cap 09/21/20 [Rx Last Taken Unknown] levothyroxine 112 mcg tablet 112 mcg PO DAILY tab 11/19/20 [History Last Taken Unknown] lisinopril 10 mg tablet 10 mg PO DAILY #90 tab 11/19/20 [Rx Last Taken Unknown] trazodone 100 mg tablet 100 mg PO DAILY tab 11/19/20 [History Last Taken Unknown] diazepam 2 mg PO TID PRN PRN #10 tablet 12/21/20 [Rx Last Taken Unknown] prednisone 40 mg PO DAILY #10 tablet 02/22/21 [Rx Last Taken Unknown] diazepam [Valium] 2 mg PO TID PRN #20 tab 05/09/21 [Rx Last Taken Unknown] Allergy/AdvReac Type Severity Reaction Status Date / Time adhesive tape Allergy Intermediate rash Verified 11/19/20 12:49 amoxicillin [From Augmentin] Allergy Intermediate Unknown Verified 11/19/20 12:49 carvedilol Allergy Intermediate Intense Verified 11/19/20 12:49 itching all over clavulanic acid Allergy Intermediate Unknown Verified 11/19/20 12:49 [From Augmentin] hydrochlorothiazide AdvReac Nausea/Vom/ Verified 11/19/20 12:49 Diarrhea Family History Mother Heart disease Father CAD (coronary artery disease) Heart disease Hypertension Emphysema, unspecified Grandmother CAD (coronary artery disease) Grandfather CAD (coronary artery disease) Brother Hypertension Heart disease Sister Heart disease Surgical History History of cholecystectomy History of left heart catheterization (11/17/19) History of tonsillectomy and adenoidectomy Social History household members: none Smoking Status: Never smoker alcohol intake: current alcohol intake frequency: a few times a week substance use type: does not use ROS ROS ED Constitutional Constitutional ED: Reports chills; Denies fever(s) Eyes Eyes: Denies change in vision ENT ENT ED: Denies sore throat Cardiovascular Cardiovascular: Denies chest pain Respiratory/Chest Respiratory/Chest: Denies cough or dyspnea Gastrointestinal Gastrointestinal: Reports nausea and vomiting; Denies abdominal pain or diarrhea Genitourinary Genitourinary ED: Denies dysuria Musculoskeletal Musculoskeletal: Denies back pain Integumentary Denies rash Neurologic Neurologic: Denies headache(s) or weakness Allergic/Immunologic Allergic/Immunologic ED: Denies urticaria EXAM Physical Exam Const Vital Signs: 05/09/21 19:37 05/09/21 19:43 05/09/21 19:45 Temperature 97.5 F L Temperature Source Oral Pulse Rate 60 70 Respiratory Rate 21 H 23 H Respiratory Effort Normal Respiratory Pattern Normal Blood Pressure 159/70 H 154/89 H Blood Pressure Mean 99 110 Pulse Ox 100 99 Oxygen Delivery Method Room Air Room Air 05/09/21 20:55 Temperature Temperature Source Pulse Rate 61 Respiratory Rate 17 Respiratory Effort Respiratory Pattern Blood Pressure 107/90 H Blood Pressure Mean 95 Pulse Ox 99 Oxygen Delivery Method Room Air Positive well nourished and well developed General Appearance ED: well developed HEENT Reports normocephalic and head/scalp atraumatic Eyes PERRL and EOMs intact bilaterally Neck supple Chest Wall inspection of chest normal and palpation of chest normal Resp normal respiratory effort and clear to auscultation bilaterally Cardio regular rate and regular rhythm GI non-tender Auscultation: hypoactive bowel sounds Palpation: soft Extremity normal to inspection Neuro oriented x3 and no sensory deficits noted Sensorium / Orientation: alert Motor Exam: strength 5/5 throughout Psych mental status grossly normal Skin no rashes or lesions noted MDM MDM MDM Narrative Medical decision making narrative: Patient was given Zofran and p.o. Valium. Lab work and EKG obtained. Lab Data Attestation: I reviewed the patient's lab results. Labs: Laboratory Results - last 24 hr 05/09/21 05/09/21 19:50 19:50 WBC 9.9 RBC 4.59 Hgb 13.5 Hct 41.1 MCV 89.5 MCH 29.4 MCHC 32.8 RDW Std Deviation 42.8 RDW Coeff of Ana Paula 13.0 Plt Count 288 MPV 9.2 Immature Gran % (Auto) 0.500 Neut % (Auto) 69.0 Lymph % (Auto) 23.2 Wirt % (Auto) 4.8 Eos % (Auto) 1.9 Baso % (Auto) 0.6 Absolute Neuts (auto) 6.8 Absolute Lymphs (auto) 2.30 Nucleated RBC % 0 Sodium 138 Potassium 4.4 Chloride 102 Carbon Dioxide 24.0 Anion Gap 12 BUN 22 H Creatinine 1.43 H Estim Creat Clear Calc 30.19 Est GFR (MDRD) Af Amer 47 L Est GFR (MDRD) Non-Af 39 L BUN/Creatinine Ratio 15.4 Glucose 165 H Calcium 9.5 EKG Initial EKG: Attestation: I personally reviewed and interpreted this EKG as follows: Interpretation: Sinus Bradycardia (Sinus bradycardia at 58 bpm. No acute ischemia) Treatment and Re-Evaluation Comments:: On repeat evaluation patient is resting comfortably. She feels significantly improved. She is able to ambulate to the restroom and back without difficulty. She does feel that the symptoms started after she is home from work and change close. She states that after she bent over to take her shoes off she felt a little funny. We discussed the possibility of this being secondary to stroke. She believes this is all positional in nature. She has had an MRI for this in the past that was unremarkable. She would prefer not to have another stroke work-up at this time. Patient be given a prescription for Valium as needed. Return instructions are provided. Discharge Plan Triage Chief Complaint: Dizziness ED Provider: Aruna Yen Dx/Rx/DC Orders Clinical Impression: Peripheral vertigo Instructions: ED BPV Vertigo Prescriptions: New diazepam [Valium] 2 mg tablet 2 mg PO TID PRN (Reason: vertigo) Qty: 20 RF: 0 No Action omeprazole 20 mg capsule,delayed release(DR/EC) 20 mg PO BID RF: 0 tramadol 50 mg tablet 100 mg PO Q6H PRN (Reason: Pain) RF: 0 sucralfate 1 gram tablet 1 g PO TID PRN (Reason: Heartburn) RF: 0 buspirone 15 mg tablet 15 mg PO BID RF: 0 fluticasone propionate [Allergy Relief (fluticasone)] 50 mcg/actuation spray,suspension 1 spray INTRANASAL DAILY RF: 0 montelukast 10 mg tablet 10 mg PO QHS RF: 0 albuterol sulfate 90 mcg/actuation HFA aerosol inhaler 2 puff INHALATION Q4H PRN (Reason: Wheezing) RF: 0 cyanocobalamin (vitamin B-12) 1,000 mcg capsule 1,000 mcg PO DAILY RF: 0 cholecalciferol (vitamin D3) 25 mcg (1,000 unit) tablet 25 mcg PO DAILY RF: 0 sertraline 50 mg tablet 50 mg PO DAILY RF: 0 levothyroxine 112 mcg tablet 112 mcg PO DAILY RF: 0 trazodone 100 mg tablet 100 mg PO DAILY RF: 0 lisinopril 10 mg tablet 10 mg PO DAILY Qty: 90 RF: 11 bupropion HCl 150 MG tablet sustained-release 12 hr 1 tab PO BID RF: 0 loratadine 10 MG tablet 10 mg PO DAILY RF: 0 cyclobenzaprine 5 MG tablet 5 mg PO TID PRN (Reason: Muscle Spasm) RF: 0 senna 8.6 mg capsule 8.6 mg PO DAILY Qty: 7 RF: 0 diazepam [diazepam] 2 MG tablet 2 mg PO TID PRN PRN (Reason: Vertigo) Qty: 10 RF: 0 prednisone 20 MG tablet 40 mg PO DAILY Qty: 10 RF: 0 Primary Care Provider: Papa Johnson Referrals: Papa Johnson MD [Primary Care Provider] - 1-2 Weeks Disposition Disposition: Home, Self Care
[2021-05-09 21:31] LABS: Anion Gap 12 (5-15); BUN 22 mg/dL (7-18); BUN/Creat Ratio 15.4 RATIO (10-20); Calcium,Total 9.5 mg/dL (8.5-10.1); Chloride 102 mmol/L (98-107); Creatinine, Serum 1.43 mg/dL (0.55-1.02); EST Glomerular Filtration Rate 39 mL/min (>60); Est Glom Filt Rate - Afr Amer 47 mL/min (>60); Estimated Creatinine Clearance 30.19 ml/min; Glucose 165 mg/dL (74-106); Potassium 4.4 mmol/L (3.5-5.1); Sodium Level 138 mmol/L (136-145)
[2021-05-09 22:21] VITALS: BP 151/69; PULSE 85; RESP 20; O2SAT 100
== END 2021-05-09 22:56 | disposition home or self-care (01) ==
PROVIDERS: Emergency Provider Emergency Medicine; PCP Family Medicine; Visit Provider Emergency Medicine
DX: H81.399 Other peripheral vertigo, unspecified ear (principal); I25.10 Atherosclerotic heart disease of native coronary artery without angina pectoris; I10 Essential (primary) hypertension; J45.909 Unspecified asthma, uncomplicated; M79.7 Fibromyalgia; K21.9 Gastro-esophageal reflux disease without esophagitis; I25.2 Old myocardial infarction; E03.9 Hypothyroidism, unspecified; G47.33 Obstructive sleep apnea (adult) (pediatric); I51.81 Takotsubo syndrome; E55.9 Vitamin D deficiency, unspecified; Z79.899 Other long term (current) drug therapy
CPT/HCPCS: 80048; 85025; 93005; 99285; J7030; A4216; J2405

== ENCOUNTER 2022-02-01 14:02 | Emergency (ER) | payer MEDICARE, SELFPAY ==
[2022-02-01 14:03] VITALS: BP 185/72; PULSE 70; RESP 16; TEMP 35.8; O2SAT 96; BMI 34.0
--- NOTE | 2022-02-01 14:28 | EDS_ITS ---
HPI <ANKUR Adams - Last Filed: 02/01/22 16:48> History of Present Illness Chief Complaint: Dizziness Narrative Narrative: 66-year-old female with history of vertigo who has had it for the last multiple years and has had 4 separate exacerbations, hypertension, presents to the emergency department with vertigo attack. Patient states that around 2 and half hours ago, she did not feel right, she laid in her bed, was moving around to get a book and then the room started spinning, she had multiple episodes of nausea and vomiting. Patient states that she continues to have nausea vomiting with movement of her head. She has had symptoms like this before and states that this is her vertigo. She does have medication at home however she vomited them up. She denies any other injury [facility] <ANKUR Adams - Last Filed: 02/01/22 16:48> [facility] Medical History Acute sinusitis, unspecified Anxiety Asthma Atherosclerosis of coronary artery of [place] heart without angina pectoris Depression Difficulty balancing Essential hypertension Fatigue Fibromyalgia GERD (gastroesophageal reflux disease) Heart disease History of non-ST elevation myocardial infarction (NSTEMI) (11/16/19) Hypothyroidism Insomnia TADEO (obstructive sleep apnea) Right bundle branch block (RBBB) Takotsubo cardiomyopathy Vitamin D deficiency Home Medications bupropion HCl 150 mg tablet,12 hr sustained-release 1 tab PO BID 03/11/19 [History Last Taken Unknown] cyclobenzaprine 5 mg tablet 5 mg PO TID PRN Muscle Spasm 03/11/19 [History Last Taken Unknown] loratadine 10 mg tablet 10 mg PO DAILY 03/11/19 [History Last Taken Unknown] albuterol sulfate 90 mcg/actuation aerosol inhaler 2 puff inhalation Q4H PRN Wheezing 12/05/19 [History Last Taken Unknown] buspirone 15 mg tablet 15 mg PO BID 12/05/19 [History Last Taken Unknown] cholecalciferol (vitamin D3) 25 mcg (1,000 unit) tablet 25 mcg PO DAILY 12/05/19 [History Last Taken Unknown] cyanocobalamin (vitamin B-12) 1,000 mcg capsule 1,000 mcg PO DAILY 12/05/19 [History Last Taken Unknown] fluticasone propionate 50 mcg/actuation nasal spray,suspension (Allergy Relief (fluticasone)) 1 spray intranasal DAILY 12/05/19 [History Last Taken Unknown] montelukast 10 mg tablet 10 mg PO QHS 12/05/19 [History Last Taken Unknown] sertraline 50 mg tablet 50 mg PO DAILY 12/05/19 [History Last Taken Unknown] sucralfate 1 gram tablet 1 g PO TID PRN Heartburn 12/05/19 [History Last Taken Unknown] tramadol 50 mg tablet 100 mg PO Q6H PRN Pain 12/05/19 [History Last Taken Unknown] omeprazole 20 mg capsule,delayed release 20 mg PO BID 12/06/19 [History Last Taken Unknown] sennosides 8.6 mg capsule (senna) 8.6 mg PO DAILY #7 caps 09/21/20 [Rx Last Taken Unknown] levothyroxine 112 mcg tablet 112 mcg PO DAILY 11/19/20 [History Last Taken Unknown] trazodone 100 mg tablet 100 mg PO DAILY 11/19/20 [History Last Taken Unknown] lisinopril 10 mg tablet 10 mg PO DAILY #90 tabs 11/24/21 [Rx Last Taken Unknown] meclizine 25 mg chewable tablet (Bonine) 25 mg PO TID #20 tabs 02/01/22 [Rx Last Taken Unknown] ondansetron 4 mg disintegrating tablet 4 mg PO Q8H PRN nausea and vomiting #10 tabs 02/01/22 [Rx Last Taken Unknown] Allergy/AdvReac Type Severity Reaction Status Date / Time adhesive tape Allergy Intermediate rash Verified 11/19/20 12:49 amoxicillin [From Augmentin] Allergy Intermediate Unknown Verified 11/19/20 12:49 carvedilol Allergy Intermediate Intense Verified 11/19/20 12:49 itching all over clavulanic acid Allergy Intermediate Unknown Verified 11/19/20 12:49 [From Augmentin] hydrochlorothiazide AdvReac Nausea/Vom/ Verified 11/19/20 12:49 Diarrhea Family History Mother Heart disease Father CAD (coronary artery disease) Heart disease Hypertension Emphysema, unspecified Grandmother CAD (coronary artery disease) Grandfather CAD (coronary artery disease) Brother Hypertension Heart disease Sister Heart disease Surgical History History of cholecystectomy History of left heart catheterization (11/17/19) History of tonsillectomy and adenoidectomy Social History household members: none Smoking Status: Never smoker alcohol intake: current alcohol intake frequency: a few times a week substance use type: does not use ROS <ANKUR Adams - Last Filed: 02/01/22 16:48> ROS ED ROS Narrative Constitutional: Negative for fever, chills, weight loss, weakness Eyes: Negative for vision loss, vision change, double vision ENT: Negative for any sore throat, ear pain, congestion Cardiovascular: Negative for any chest pain, tightness, palpitations Respiratory: Negative for any cough, sputum production, hemoptysis, dyspnea, dyspnea on exertion, orthopnea Gastrointestinal: Negative for any abdominal pain, diarrhea, constipation, blood in stool, blood in vomit. Positive for nausea and vomiting : Negative for any urinary frequency, dysuria, retention, blood in urine Muscle skeletal: Negative for any muscle joint pain, stiffness, myalgias, arthralgias, neck pain, back pain Neurological: Negative for any headache, syncope, numbness or tingling,. Positive for a feeling of dizziness which she describes as room spinning. Skin: Negative for any rashes, lumps, itching, abrasions, lacerations Psychiatric: Negative for any depression, anxiety, stress, suicidal ideation, homicidal ideation Hematologic: Negative for any easy bruising, excessive bruising, easy bleeding Allergies: Negative for any eczema, hives, rash EXAM <ANKUR Adams - Last Filed: 02/01/22 16:48> Physical Exam Narrative Exam Narrative: Vital signs reviewed. HEET: Head normocephalic atraumatic, TMs clear bilaterally. Posterior pharynx is clear, moist mucous membranes. Nares clear bilaterally. Neck: Supple with no lymphadenopathy or tenderness. No signs of meningismus, negative jolt sign. Cardiac: Regular rate and rhythm no murmurs gallops or rubs, equal peripheral pulses bilaterally. Respiratory: Lungs clear to auscultation bilaterally. No chest tenderness. Abdomen: Soft, nontender, nondistended. No abdominal bruit or pulsatile masses. No hepatosplenomegaly Extremities: No peripheral edema, no signs of gross trauma or deformity. Active full range of motion of all extremities. Neuro: Cranial nerves II through XII intact, no focal neurological deficits. [place]-Hallpike maneuver was completed, patient did have some horizontal nystagmus for 2 to 3 seconds, this did elicit nausea and vomiting. This is consistent with benign positional peripheral vertigo Skin: Clean dry and intact with no rash, purpura, petechiae, vesicles or pustules. Backs/flank: No CVA tenderness, no midline spinal tenderness, no deformity. Psych: Normal mood and affect. No SI, HI or acute psychosis. Const Vital Signs: 02/01/22 14:03 02/01/22 15:43 Temperature 96.5 F L Temperature Source Temporal Pulse Rate 70 60 Respiratory Rate 16 14 Blood Pressure 185/72 H 141/73 H Blood Pressure Mean 109 95 Pulse Ox 96 99 Oxygen Delivery Method Room Air Room Air <Dr. Rony Guadarrama MD - Last Filed: 02/01/22 16:47> Physical Exam Const Vital Signs: 02/01/22 14:03 02/01/22 15:43 Temperature 96.5 F L Temperature Source Temporal Pulse Rate 70 60 Respiratory Rate 16 14 Blood Pressure 185/72 H 141/73 H Blood Pressure Mean 109 95 Pulse Ox 96 99 Oxygen Delivery Method Room Air Room Air MDM <ANKUR Adams - Last Filed: 02/01/22 16:48> [facility] Lab Data Labs: Laboratory Results - last 24 hr 02/01/22 02/01/22 14:30 14:30 WBC 10.0 RBC 4.56 Hgb 13.7 Hct 40.4 MCV 88.6 MCH 30.0 MCHC 33.9 RDW Std Deviation 42.1 RDW Coeff of Ana Paula 12.8 Plt Count 246 MPV 9.0 Immature Gran % (Auto) 0.200 Neut % (Auto) 77.4 H Lymph % (Auto) 14.3 L [place] % (Auto) 6.6 Eos % (Auto) 1.1 Baso % (Auto) 0.4 Absolute Neuts (auto) 7.8 H Absolute Lymphs (auto) 1.43 Nucleated RBC % 0 Sodium 142 Potassium 4.4 Chloride 108 H Carbon Dioxide 26.0 Anion Gap 8 BUN 16 Creatinine 1.13 H Estim Creat Clear Calc 44.61 Est GFR (MDRD) Af Amer 62 Est GFR (MDRD) Non-Af 51 L BUN/Creatinine Ratio 14.2 Glucose 135 H Calcium 9.1 EKG EKG shows a sinus bradycardia, rate of 58 bpm, RI interval 198 ms, QRS duration 4 ms, no acute ST elevation, no acute infarct noted.: Attestation: I personally reviewed and interpreted this EKG as follows: Treatment and Re-Evaluation Narrative: Patient appears to be in minor distress secondary to vertiginous symptoms, nausea and vomiting. Patient's physical examination is consistent with benign positional peripheral vertigo. I was able to do a [place]-Hallpike maneuver and exacerbate symptoms. Patient has had the symptoms before, I do not believe that a CT of the brain is necessary. Physical examination shows no signs or symptoms of stroke/TIA. Patient did receive some basic laboratory values which were grossly unremarkable. Patient's EKG was unremarkable. Patient was given IV fluids, IV Zofran, by mouth Antivert. After 1 hour, the patient was able to get up, walk to the bathroom, she feels much better. At this time, I believe the patient be stable for discharge, she will be instructed to take Antivert 3 times a day as needed as well as nausea medicine. She will also be followed up with ENT. Patient is happy with the plan of care and is stable for discharge. <Dr. Rony Guadarrama MD - Last Filed: 02/01/22 16:47> [facility] Narrative Medical decision making narrative: I have personally performed a face to face assessment of the patient and have reviewed the PHONG Note. I performed a substantive portion of the visit including all aspects of the following. My palmer findings include: History is [67-year-old female history of vertigo. Similar symptoms today. Associated nausea vomiting. Room spinning dizziness. No headache or chest pain. No abdominal pain. Feels similar to her prior vertigo episodes.] Exam is [66-year-old female no acute distress. Vital signs are stable afebrile. HEENT exam unremarkable. No facial droop. Normal speech. Pupils round reactive light. Lungs clear. Heart regular rhythm. Abdomen soft. Neurologic exam normal. Positive Hallpike she gets finally feel with that and starts retching.] Medical Decision Making [patient's labs were unremarkable. She was treated with nausea medication and Zofran. Antivert. She will be discharged home on An tivert. Her repeat exam she is doing well at 4:45 PM.] Other additions or changes: [None] Lab Data Attestation: I reviewed the patient's lab results. Lab results narrative: CBC unremarkable. Electrolytes unremarkable gap of 8. Normal BUN and creatinine. Glucose 135. Labs: Laboratory Results - last 24 hr 02/01/22 02/01/22 14:30 14:30 WBC 10.0 RBC 4.56 Hgb 13.7 Hct 40.4 MCV 88.6 MCH 30.0 MCHC 33.9 RDW Std Deviation 42.1 RDW Coeff of Ana Paula 12.8 Plt Count 246 MPV 9.0 Immature Gran % (Auto) 0.200 Neut % (Auto) 77.4 H Lymph % (Auto) 14.3 L [place] % (Auto) 6.6 Eos % (Auto) 1.1 Baso % (Auto) 0.4 Absolute Neuts (auto) 7.8 H Absolute Lymphs (auto) 1.43 Nucleated RBC % 0 Sodium 142 Potassium 4.4 Chloride 108 H Carbon Dioxide 26.0 Anion Gap 8 BUN 16 Creatinine 1.13 H Estim Creat Clear Calc 44.61 Est GFR (MDRD) Af Amer 62 Est GFR (MDRD) Non-Af 51 L BUN/Creatinine Ratio 14.2 Glucose 135 H Calcium 9.1 Discharge Plan Triage Chief Complaint: Dizziness ED Midlevel Provider: Umang Gómez ED Provider: Rony Guadarrama Dx/Rx/DC Orders Clinical Impression: Vertigo, Increased nausea and vomiting Instructions: Vertigo Inner Ear Problems, ED Vertigo, Unspecified Prescriptions: New meclizine [Bonine] 25 mg tablet,chewable 25 mg PO TID Qty: 20 0RF ondansetron 4 mg tablet,disintegrating 4 mg PO Q8H PRN (Reason: nausea and vomiting) Qty: 10 0RF No Action omeprazole 20 mg capsule,delayed release(DR/EC) 20 mg PO BID tramadol 50 mg tablet 100 mg PO Q6H PRN (Reason: Pain) sucralfate 1 gram tablet 1 g PO TID PRN (Reason: Heartburn) buspirone 15 mg tablet 15 mg PO BID fluticasone propionate [Allergy Relief (fluticasone)] 50 mcg/actuation spray,suspension 1 spray INTRANASAL DAILY Rx Instructions: administer into each nostril montelukast 10 mg tablet 10 mg PO QHS albuterol sulfate 90 mcg/actuation HFA aerosol inhaler 2 puff INHALATION Q4H PRN (Reason: Wheezing) cyanocobalamin (vitamin B-12) 1,000 mcg capsule 1,000 mcg PO DAILY cholecalciferol (vitamin D3) 25 mcg (1,000 unit) tablet 25 mcg PO DAILY sertraline 50 mg tablet 50 mg PO DAILY levothyroxine 112 mcg tablet 112 mcg PO DAILY trazodone 100 mg tablet 100 mg PO DAILY bupropion HCl 150 MG tablet sustained-release 12 hr 1 tab PO BID Label Comments: Take 1 tablet by mouth twice daily. loratadine 10 MG tablet 10 mg PO DAILY Label Comments: TAKE 1 TABLET EVERY DAY cyclobenzaprine 5 MG tablet 5 mg PO TID PRN (Reason: Muscle Spasm) senna 8.6 mg capsule 8.6 mg PO DAILY Qty: 7 0RF lisinopril 10 mg tablet 10 mg PO DAILY Qty: 90 11RF Primary Care Provider: Paap Johnson Referrals: Lonnie Davis MD [Med Staff - Active Staff] - Papa Johnson MD [Primary Care Provider] - Activity Restrictions/Additional Instructions: Please take medicines as prescribed. The Antivert as needed you can do to 3 times a day. Nausea medicine Disposition Disposition: Home, Self Care
[2022-02-01] MEDS: 0.9% Normal Saline 1,000 ML 1000 ML IV (14:38)
[2022-02-01] MEDS: Ondansetron 4 MG/2 ML Vial IV (14:39)
[2022-02-01] MEDS: Meclizine HCl 25 MG Tablet PO (14:40)
[2022-02-01 14:41] LABS: Absolute Lymphocyte Count 1.43 X10^3/uL (0.83-4.51); Absolute Neutrophil Count 7.8 X10^3/uL (2.0-7.7); Basophil# 0.04 X10^3/uL; Basophil% 0.4 % (0-1); Eosinophil# 0.11 X10^3/uL; Eosinophils% 1.1 % (0-5); Hematocrit 40.4 % (37-47); Hemoglobin 13.7 g/dL (12.0-15.0); Lymphocyte # 1.43 X10^3/ul (0.83-4.51); Lymphocyte % 14.3 % (19-41); Mean Corp Hgb Conc 33.9 g/dL (32-36); Mean Corpuscular Volume 88.6 fL (81-99); Monocyte# 0.66 X10^3/uL; Monocyte% 6.6 % (0-10); NRBC Flagged by Analyzer 0 % (0-5); Neutrophil # 7.76 X10^3/uL (2.7-7.7); Neutrophil % 77.4 % (47-70); Platelet Count 246 K/mm3 (150-450); RBC Distribution Width CV 12.8 % (11.6-14.6); RBC Distribution Width SD 42.1 fl (35.1-43.9); Red Blood Count 4.56 M/mm3 (4.2-5.4)
[2022-02-01 14:54] LABS: Anion Gap 8 (5-15); BUN 16 mg/dL (7-18); BUN/Creat Ratio 14.2 RATIO (10-20); Calcium,Total 9.1 mg/dL (8.5-10.1); Chloride 108 mmol/L (98-107); Creatinine, Serum 1.13 mg/dL (0.55-1.02); EST Glomerular Filtration Rate 51 mL/min (>60); Est Glom Filt Rate - Afr Amer 62 mL/min (>60); Estimated Creatinine Clearance 44.61 ml/min; Glucose 135 mg/dL (74-106); Potassium 4.4 mmol/L (3.5-5.1); Sodium Level 142 mmol/L (136-145)
[2022-02-01 15:43] VITALS: BP 141/73; PULSE 60; RESP 14; O2SAT 99
== END 2022-02-01 17:59 | disposition home or self-care (01) ==
PROVIDERS: Nurse Practitioner; Emergency Provider Emergency Medicine; PCP Family Medicine; Visit Provider Emergency Medicine
DX: R42 Dizziness and giddiness (principal); R11.2 Nausea with vomiting, unspecified; I25.10 Atherosclerotic heart disease of native coronary artery without angina pectoris; I10 Essential (primary) hypertension; F41.9 Anxiety disorder, unspecified; Z79.899 Other long term (current) drug therapy
CPT/HCPCS: 80048; 85025; 93005; 96361; 96374; 99285; J7030; A4216; J2405

== ENCOUNTER → 2022-03-03 | Outpatient (CLI) | payer MEDICARE, SELFPAY ==
--- NOTE | 2022-03-03 13:45 | MRI_ITS ---
STUDY: MRI BRAIN WITH AND WITHOUT CONTRAST REASON FOR EXAM: Female, 66 years old. DIZZINESS, HEARING LOSS TECHNIQUE: Standardized multiplanar fat and water weighted pulse sequences were obtained. IV Yes YES was administered for the contrast portion of the examination. COMPARISON: None. FINDINGS: Mild ventricular asymmetry slightly larger on the left likely normal developmental variant.. Normal white matter tracts of the supratentorial brain. Normal bilateral basal ganglia. Normal thalami. There is no extra-axial fluid accumulation. Normal flow voids within the major intracranial circulation suggesting patency by spin echo criteria however, the bilateral vertebral and basilar arteries are diminutive and could contribute to vascular insufficiency.. Normal venous enhancement. There is no enhancing intra-axial or extra-axial abnormality. Partial empty sella deformity likely of no significance., infundibular stalk, optic chiasm and hypothalamus. Normal tectal plate and pineal gland. Normal midbrain, angélica and medulla. Normal cerebellum. Normal basal cisterns. Normal bilateral temporal bones. Normal bilateral internal auditory canals. No demonstrated orbital abnormality, within the constraints of a routine brain study. Normal visualized paranasal sinuses. Normal calvarium and skull base. Normal visualized soft tissue structures. Normal visualized upper cervical spine. MRI/Brain W/WO Contrast IMPRESSION: No evidence for acute infarct or vestibular or acoustic schwannoma. 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 Clinical correlation is recommended Electronically Signed: Marvin Araujo MD at 17:55 EDT ,
== END | disposition home or self-care (01) ==
PROVIDERS: PCP Family Medicine; Referring Provider Otolaryngology; Visit Provider Otolaryngology
DX: R42 Dizziness and giddiness (principal); H91.90 Unspecified hearing loss, unspecified ear
CPT/HCPCS: 70553; A9575

== ENCOUNTER 2022-05-10 22:24 | Emergency (ER) | payer MEDICARE, SELFPAY ==
[2022-05-10 22:29] VITALS: BP 179/74; PULSE 68; RESP 18; TEMP 36.1; O2SAT 98; BMI 39.2
--- NOTE | 2022-05-10 22:59 | CT_ITS ---
EXAM: CT HEAD WITHOUT INTRAVENOUS CONTRAST CLINICAL INDICATION: vertigo TECHNIQUE: Multiple axial images were obtained of the head without intravenous contrast. This CT exam was performed using one or more of the following dose reduction techniques: automated exposure control, adjustment of the mA and/or kV according to patient size, and/or use of iterative reconstruction technique. This report was created using [employer] report generation technology. COMPARISON: 12/21/2020 FINDINGS: BRAIN AND EXTRA-AXIAL SPACES: Unremarkable. No intra- or extra-axial hemorrhage. No evidence of acute infarct. No intracranial mass or mass effect. There is preservation of the camargo/white matter interface. Posterior fossa structures are unremarkable. Ventricles are appropriate for age. No hydrocephalus. Basal cisterns are patent. BONES/JOINTS: Unremarkable. No discrete lytic or blastic abnormalities. SINUSES: Unremarkable as visualized. Clear. MASTOID AIR CELLS: Unremarkable. Clear. ORBITS: Visualized globes, extraocular muscles, optic nerves and retrobulbar fat appear unremarkable. CT/Brain/Head without Contrast IMPRESSION: Negative head/brain CT without intravenous contrast. Electronically Signed: Suresh Caraballo MD at 0:02 [facility] ,
[2022-05-10] MEDS: LORazepam 2 MG/ML Syringe 1 MG IV (23:05)
[2022-05-10 23:21] LABS: Absolute Lymphocyte Count 2.49 X10^3/uL (0.83-4.51); Basophil# 0.04 X10^3/uL; Basophil% 0.4 % (0-1); Eosinophil# 0.12 X10^3/uL; Eosinophils% 1.2 % (0-5); Hematocrit 42.9 % (37-47); Lymphocyte # 2.49 X10^3/ul (0.83-4.51); Mean Corp Hgb Conc 32.6 g/dL (32-36); Mean Platelet Vol. 9.3 fl (6.2-12.0); Monocyte# 0.69 X10^3/uL; Monocyte% 6.7 % (0-10); NRBC Flagged by Analyzer 0 % (0-5); Neutrophil # 6.98 X10^3/uL (2.7-7.7); Neutrophil % 67.3 % (47-70); Platelet Count 270 K/mm3 (150-450); RBC Distribution Width CV 13.8 % (11.6-14.6); RBC Distribution Width SD 44.9 fl (35.1-43.9); Red Blood Count 4.82 M/mm3 (4.2-5.4); White Blood Count 10.4 K/mm3 (4.4-11.0)
[2022-05-10 23:27] LABS: Anion Gap 7 (5-15); BUN 19 mg/dL (7-18); BUN/Creat Ratio 15.3 RATIO (10-20); Calcium,Total 9.2 mg/dL (8.5-10.1); Chloride 104 mmol/L (98-107); Creatinine, Serum 1.24 mg/dL (0.55-1.02); EST Glomerular Filtration Rate 46 mL/min (>60); Est Glom Filt Rate - Afr Amer 55 mL/min (>60); Estimated Creatinine Clearance 32.77 ml/min; Glucose 110 mg/dL (74-106); Potassium 3.6 mmol/L (3.5-5.1); Sodium Level 139 mmol/L (136-145)
[2022-05-11 00:38] VITALS: BP 137/52; PULSE 69; RESP 16; O2SAT 98
--- NOTE | 2022-05-11 01:35 | EDS_ITS ---
HPI History of Present Illness Chief Complaint: Dizziness Informant: patient Onset/Context/Timing Onset: Hours (3) Context: Sudden Onset Timing: Intermittent Quality: Movement/spinning vertigo Location: Head Current Severity: Mild Maximum Severity: Severe Worsened by: Certain movements unclear which ones Relieved by: Remaining still, possibly better with Zofran she took earlier Narrative Narrative: Patient states she has a history of recurrent vertigo and is having another episode. She states they do not know what it is she has had imaging including MRI that was unremarkable. She has seen specialist including ENT that has done vestibular therapy on her. She has been having episodes off and on last couple days and another severe 1 tonight. The episodes are intermittent. She denies any recent illness. Denies any new changes in her hearing or ringing, earache, diplopia. No lateralizing neurologic symptoms. She states she was looking down at her phone tonight playing a game, and something went across the screen and she remembers at least moving her eyes and having the symptoms started suddenly. She states prior to coming here by EMS she took a Zofran and meclizine. They may be helping as well. [facility] Medical History Acute sinusitis, unspecified Anxiety Asthma Atherosclerosis of coronary artery of [place] heart without angina pectoris Depression Difficulty balancing Essential hypertension Fatigue Fibromyalgia GERD (gastroesophageal reflux disease) Heart disease History of non-ST elevation myocardial infarction (NSTEMI) (11/16/19) Hypothyroidism Insomnia TADEO (obstructive sleep apnea) Right bundle branch block (RBBB) Takotsubo cardiomyopathy Vitamin D deficiency Home Medications bupropion HCl 150 mg tablet,12 hr sustained-release 1 tab PO BID 03/11/19 [History Last Taken Unknown] cyclobenzaprine 5 mg tablet 5 mg PO TID PRN Muscle Spasm 03/11/19 [History Last Taken Unknown] loratadine 10 mg tablet 10 mg PO DAILY 03/11/19 [History Last Taken Unknown] albuterol sulfate 90 mcg/actuation aerosol inhaler 2 puff inhalation Q4H PRN Wheezing 12/05/19 [History Last Taken Unknown] buspirone 15 mg tablet 15 mg PO BID 12/05/19 [History Last Taken Unknown] cholecalciferol (vitamin D3) 25 mcg (1,000 unit) tablet 25 mcg PO DAILY 12/05/19 [History Last Taken Unknown] cyanocobalamin (vitamin B-12) 1,000 mcg capsule 1,000 mcg PO DAILY 12/05/19 [History Last Taken Unknown] fluticasone propionate 50 mcg/actuation nasal spray,suspension (Allergy Relief (fluticasone)) 1 spray intranasal DAILY 12/05/19 [History Last Taken Unknown] montelukast 10 mg tablet 10 mg PO QHS 12/05/19 [History Last Taken Unknown] sertraline 50 mg tablet 50 mg PO DAILY 12/05/19 [History Last Taken Unknown] sucralfate 1 gram tablet 1 g PO TID PRN Heartburn 12/05/19 [History Last Taken Unknown] tramadol 50 mg tablet 100 mg PO Q6H PRN Pain 12/05/19 [History Last Taken Unknown] omeprazole 20 mg capsule,delayed release 20 mg PO BID 12/06/19 [History Last Taken Unknown] sennosides 8.6 mg capsule (senna) 8.6 mg PO DAILY #7 caps 09/21/20 [Rx Last Taken Unknown] levothyroxine 112 mcg tablet 112 mcg PO DAILY 11/19/20 [History Last Taken Unknown] trazodone 100 mg tablet 100 mg PO DAILY 11/19/20 [History Last Taken Unknown] lisinopril 10 mg tablet 10 mg PO DAILY #90 tabs 11/24/21 [Rx Last Taken Unknown] meclizine 25 mg chewable tablet (Bonine) 25 mg PO TID #20 tabs 02/01/22 [Rx Last Taken Unknown] ondansetron 4 mg disintegrating tablet 4 mg PO Q8H PRN nausea and vomiting #10 tabs 02/01/22 [Rx Last Taken Unknown] Allergy/AdvReac Type Severity Reaction Status Date / Time adhesive tape Allergy Intermediate rash Verified 11/19/20 12:49 amoxicillin [From Augmentin] Allergy Intermediate Unknown Verified 11/19/20 12:49 carvedilol Allergy Intermediate Intense Verified 11/19/20 12:49 itching all over clavulanic acid Allergy Intermediate Unknown Verified 11/19/20 12:49 [From Augmentin] hydrochlorothiazide AdvReac Nausea/Vom/ Verified 11/19/20 12:49 Diarrhea Family History Mother Heart disease Father CAD (coronary artery disease) Heart disease Hypertension Emphysema, unspecified Grandmother CAD (coronary artery disease) Grandfather CAD (coronary artery disease) Brother Hypertension Heart disease Sister Heart disease Surgical History History of cholecystectomy History of left heart catheterization (11/17/19) History of tonsillectomy and adenoidectomy Social History household members: none Smoking Status: Never smoker alcohol intake: current alcohol intake frequency: a few times a week substance use type: does not use ROS ROS ED Constitutional Constitutional ED: Denies chills or fever(s) Eyes Eyes: Denies change in vision or diplopia ENT ENT ED: Reports vertigo; Denies rhinorrhea or sore throat Cardiovascular Cardiovascular: Denies chest pain or palpitations Respiratory/Chest Respiratory/Chest: Denies cough or dyspnea Gastrointestinal Gastrointestinal: Reports nausea; Denies abdominal pain, diarrhea or vomiting Genitourinary Genitourinary ED: Denies dysuria or hematuria Musculoskeletal Musculoskeletal: Denies back pain or neck pain Integumentary Denies abscess or rash Neurologic Neurologic: Denies headache(s), paresthesias or weakness Psychiatric Psychiatric: Denies anxiety or suicidal thoughts EXAM Physical Exam Const Vital Signs: 05/10/22 22:29 05/10/22 22:36 05/11/22 00:38 Temperature 96.9 F L Temperature Source Temporal Pulse Rate 68 69 Respiratory Rate 18 16 Respiratory Effort Normal Blood Pressure 179/74 H 137/52 H Blood Pressure Mean 109 80 Pulse Ox 98 98 Oxygen Delivery Method Room Air Room Air Positive well nourished and well developed General Appearance ED: well developed and NAD HEENT Reports moist mucous membranes normocephalic and atraumatic Eyes PERRL and EOMs intact bilaterally Neck full ROM and supple Resp normal respiratory effort and clear to auscultation bilaterally Cardio regular rate, regular rhythm and no murmurs GI non-tender and non-distended Auscultation: normoactive bowel sounds Palpation: soft Back/Spine no CVA tenderness General Back: other FROM Extremity normal to inspection General Extremety ED: Negative for edema, pulses abnormal or tenderness General Extremity: Negative for edema or pulses abnormal Neuro oriented x3, CN's II-XII intact bilaterally and no sensory deficits noted Neuro Narrative: Normal [id number] and [id number] bilaterally. Normal response to jolt test but patient not actively vertiginous during it. Sensorium / Orientation: awake and alert Motor Exam: strength 5/5 throughout Skin no rashes or lesions noted and no wounds MDM MDM MDM Narrative Medical decision making narrative: I did a CT scan, and interpreting the images they appear normal. Radiology in agreement, my interpretation is in agreement with his. Basic labs are normal with several chronic renal insufficiency which is no worse than usual. She was given some fluids and IV Ativan. She felt better. She was able to walk to and from the bathroom without feeling severely dizzy, she was a little off balance but she said it was much better compared to what she was and she is comfortable going home. Discussed with a family member as well, she will follow-up as an outpatient. Lab Data Attestation: I reviewed the patient's lab results. Labs: Laboratory Results - last 24 hr 05/10/22 05/10/22 23:00 23:00 WBC 10.4 RBC 4.82 Hgb 14.0 Hct 42.9 MCV 89.0 MCH 29.0 MCHC 32.6 RDW Std Deviation 44.9 H RDW Coeff of Ana Paula 13.8 Plt Count 270 MPV 9.3 Immature Gran % (Auto) 0.400 Neut % (Auto) 67.3 Lymph % (Auto) 24.0 [place] % (Auto) 6.7 Eos % (Auto) 1.2 Baso % (Auto) 0.4 Absolute Neuts (auto) 7.0 Absolute Lymphs (auto) 2.49 Nucleated RBC % 0 Sodium 139 Potassium 3.6 Chloride 104 Carbon Dioxide 28.0 Anion Gap 7 BUN 19 H Creatinine 1.24 H Estim Creat Clear Calc 32.77 Est GFR (MDRD) Af Amer 55 L Est GFR (MDRD) Non-Af 46 L BUN/Creatinine Ratio 15.3 Glucose 110 H Calcium 9.2 Radiography Diagnostic Testing: Clinical Impression(s) from Imaging Studies Brain CT 05/10/22 22:59 IMPRESSION: Negative head/brain CT without intravenous contrast. Electronically Signed: Suresh Caraballo MD at 0:02 EST , Discharge Plan Triage Chief Complaint: Dizziness ED Provider: Valentino Jorge Dx/Rx/DC Orders Clinical Impression: Episodic peripheral vertigo Instructions: ED Vertigo, Unspecified Prescriptions: No Action omeprazole 20 mg capsule,delayed release(DR/EC) 20 mg PO BID tramadol 50 mg tablet 100 mg PO Q6H PRN (Reason: Pain) sucralfate 1 gram tablet 1 g PO TID PRN (Reason: Heartburn) buspirone 15 mg tablet 15 mg PO BID fluticasone propionate [Allergy Relief (fluticasone)] 50 mcg/actuation spray,suspension 1 spray INTRANASAL DAILY Rx Instructions: administer into each nostril montelukast 10 mg tablet 10 mg PO QHS albuterol sulfate 90 mcg/actuation HFA aerosol inhaler 2 puff INHALATION Q4H PRN (Reason: Wheezing) cyanocobalamin (vitamin B-12) 1,000 mcg capsule 1,000 mcg PO DAILY cholecalciferol (vitamin D3) 25 mcg (1,000 unit) tablet 25 mcg PO DAILY sertraline 50 mg tablet 50 mg PO DAILY levothyroxine 112 mcg tablet 112 mcg PO DAILY trazodone 100 mg tablet 100 mg PO DAILY bupropion HCl 150 MG tablet sustained-release 12 hr 1 tab PO BID Label Comments: Take 1 tablet by mouth twice daily. loratadine 10 MG tablet 10 mg PO DAILY Label Comments: TAKE 1 TABLET EVERY DAY cyclobenzaprine 5 MG tablet 5 mg PO TID PRN (Reason: Muscle Spasm) senna 8.6 mg capsule 8.6 mg PO DAILY Qty: 7 0RF meclizine [Bonine] 25 mg tablet,chewable 25 mg PO TID Qty: 20 0RF ondansetron 4 mg tablet,disintegrating 4 mg PO Q8H PRN (Reason: nausea and vomiting) Qty: 10 0RF lisinopril 10 mg tablet 10 mg PO DAILY Qty: 90 11RF Primary Care Provider: Papa Johnson Referrals: Papa Johnson MD [Primary Care Provider] - 3-5 Days if not improving (Or your ENT physician) Disposition Disposition: Home, Self Care
== END 2022-05-11 01:56 | disposition home or self-care (01) ==
PROVIDERS: Emergency Provider Emergency Medicine; PCP Family Medicine; Visit Provider Emergency Medicine
DX: R42 Dizziness and giddiness (principal); I25.10 Atherosclerotic heart disease of native coronary artery without angina pectoris; N18.9 Chronic kidney disease, unspecified; I12.9 Hypertensive chronic kidney disease with stage 1 through stage 4 chronic kidney disease, or unspecified chronic kidney disease
CPT/HCPCS: 70450; 80048; 85025; 96374; 99284; A4216

== ENCOUNTER 2022-05-15 17:29 | Emergency (ER) | payer MEDICARE, SELFPAY ==
[2022-05-15 17:31] VITALS: BP 115/87; PULSE 64; RESP 17; TEMP 35.6; O2SAT 100; BMI 37.8
--- NOTE | 2022-05-15 18:39 | EDS_ITS ---
HPI History of Present Illness Chief Complaint: Dizziness Narrative Narrative: 66-year-old female past medical history of episodic vertigo, presents with the same symptoms that she has had. She states that she has been to [facility] where there is someone who does crystals there. She states that she thinks that the crystals are in position. However, she has been to the emergency department and other emergency departments multiple times for these episodes of vertigo. She states she has medication at home that she took 2 hours ago, but she was not nauseated then. She states that she has been vomiting and the room started spinning. She also endorses photophobia with this. She has an appointment with someone on Wednesday, 3 days from now with another specialist to see if she has Meinere's disease. She states when this happens, she already has difficulty hearing, but she gets hard of hearing more so on the left side. She states she will take her medicine at home which I believe is meclizine, and she will not have vertigo for 2 hours, but then it returns. She states that whenever she comes to the emergency department, they give her medication, she feels improved and they sent her home. When asked at this time what can be done for her today, she states do not send me home. [facility] Medical History Acute sinusitis, unspecified Anxiety Asthma Atherosclerosis of coronary artery of [place] heart without angina pectoris Depression Difficulty balancing Essential hypertension Fatigue Fibromyalgia GERD (gastroesophageal reflux disease) Heart disease History of non-ST elevation myocardial infarction (NSTEMI) (11/16/19) Hypothyroidism Insomnia TADEO (obstructive sleep apnea) Right bundle branch block (RBBB) Takotsubo cardiomyopathy Vitamin D deficiency Home Medications bupropion HCl 150 mg tablet,12 hr sustained-release 1 tab PO BID 03/11/19 [History Last Taken Unknown] cyclobenzaprine 5 mg tablet 5 mg PO TID PRN Muscle Spasm 03/11/19 [History Last Taken Unknown] loratadine 10 mg tablet 10 mg PO DAILY 03/11/19 [History Last Taken Unknown] albuterol sulfate 90 mcg/actuation aerosol inhaler 2 puff inhalation Q4H PRN Wheezing 12/05/19 [History Last Taken Unknown] buspirone 15 mg tablet 15 mg PO BID 12/05/19 [History Last Taken Unknown] cholecalciferol (vitamin D3) 25 mcg (1,000 unit) tablet 25 mcg PO DAILY 12/05/19 [History Last Taken Unknown] cyanocobalamin (vitamin B-12) 1,000 mcg capsule 1,000 mcg PO DAILY 12/05/19 [History Last Taken Unknown] fluticasone propionate 50 mcg/actuation nasal spray,suspension (Allergy Relief (fluticasone)) 1 spray intranasal DAILY 12/05/19 [History Last Taken Unknown] montelukast 10 mg tablet 10 mg PO QHS 12/05/19 [History Last Taken Unknown] sertraline 50 mg tablet 50 mg PO DAILY 12/05/19 [History Last Taken Unknown] sucralfate 1 gram tablet 1 g PO TID PRN Heartburn 12/05/19 [History Last Taken Unknown] tramadol 50 mg tablet 100 mg PO Q6H PRN Pain 12/05/19 [History Last Taken Unknown] omeprazole 20 mg capsule,delayed release 20 mg PO BID 12/06/19 [History Last Taken Unknown] sennosides 8.6 mg capsule (senna) 8.6 mg PO DAILY #7 caps 09/21/20 [Rx Last Taken Unknown] levothyroxine 112 mcg tablet 112 mcg PO DAILY 11/19/20 [History Last Taken Unknown] trazodone 100 mg tablet 100 mg PO DAILY 11/19/20 [History Last Taken Unknown] lisinopril 10 mg tablet 10 mg PO DAILY #90 tabs 11/24/21 [Rx Last Taken Unknown] meclizine 25 mg chewable tablet (Bonine) 25 mg PO TID #20 tabs 02/01/22 [Rx Last Taken Unknown] ondansetron 4 mg disintegrating tablet 4 mg PO Q8H PRN nausea and vomiting #10 tabs 02/01/22 [Rx Last Taken Unknown] diazepam 2 mg tablet (Valium) 2 mg PO BID PRN vertigo #6 tabs 05/15/22 [Rx Last Taken Unknown] Allergy/AdvReac Type Severity Reaction Status Date / Time adhesive tape Allergy Intermediate rash Verified 05/15/22 17:30 amoxicillin [From Augmentin] Allergy Intermediate Unknown Verified 05/15/22 17:30 carvedilol Allergy Intermediate Intense Verified 05/15/22 17:30 itching all over clavulanic acid Allergy Intermediate Unknown Verified 05/15/22 17:30 [From Augmentin] hydrochlorothiazide AdvReac Nausea/Vom/ Verified 05/15/22 17:30 Diarrhea Family History Mother Heart disease Father CAD (coronary artery disease) Heart disease Hypertension Emphysema, unspecified Grandmother CAD (coronary artery disease) Grandfather CAD (coronary artery disease) Brother Hypertension Heart disease Sister Heart disease Surgical History History of cholecystectomy History of left heart catheterization (11/17/19) History of tonsillectomy and adenoidectomy Social History household members: none Smoking Status: Never smoker alcohol intake: current alcohol intake frequency: a few times a week substance use type: does not use ROS ROS ED ROS Narrative Constitutional: No fever, no chills. HEENT: No sore throat. No neck pain. No loss of vision. No rhinorrhea. Cardiovascular: No chest pain. No palpitations. No pedal edema. Respiratory: No cough, no shortness of breath. Abdominal: No abdominal pain. Positive nausea. Positive vomiting. Genitourinary: No dysuria. No hematuria. Musculoskeletal: No myalgias. No arthralgias. Neurologic: No headaches. Positive dizziness. No lightheadedness. Skin: No rash. No change in color. Psychiatric: No depression. No anxiety. EXAM Physical Exam Narrative Exam Narrative: Afebrile. Vital signs noted. HEENT: Normocephalic. Atraumatic. PERRL, EOMI. Neck soft and supple. No point tenderness or step off. Cardiovascular: Regular rate and rhythm. No murmurs, rubs, or gallops appreciated. Respiratory: No tachypnea. Lungs clear to auscultation bilaterally. Gastrointestinal: Abdomen soft, nontender, with normoactive bowel sounds. No rebound or guarding. Neurological: Awake. Alert. Nonfocal, nonlateralizing. No nystagmus. Patellar DTRs +1 and equal, symmetric. Skin: No rash. Normal color. No pallor. Musculoskeletal: No pedal edema. Full range of motion extremities. Const Vital Signs: 05/15/22 17:31 Temperature 96.0 F L Temperature Source Temporal Pulse Rate 64 Respiratory Rate 17 Blood Pressure 115/87 H Blood Pressure Mean 96 Pulse Ox 100 Oxygen Delivery Method Room Air MDM MDM MDM Narrative Medical decision making narrative: I reviewed the patient's outpatient notes. She was just here 4 days ago. She had a CT of the brain at that time which was unremarkable. She had MRIs in the past. Patient stated she was currently unsure whether or not she wanted to be hospitalized to be placed in a halfway. She will be bolused IV fluids again. She requested the medication that they gave me last time that helped. I looked and she had Ativan. She was administered Ativan 1 mg intravenously. I will check a BMP which was also unremarkable last time. I do feel that she is having episodic vertigo. She has meclizine at home. I do not feel that repeat imaging is indicated. This is a same vertiginous type symptoms and nausea with vomiting that she has had in the past. BMP shows chronic kidney disease with creatinine 1.22, around her baseline with her chronic kidney disease. Upon repeat examination after Ativan, she states she feels improved. I did discuss with her initially if she wanted to be admitted to go to a halfway. She was able to speak with a social insurance adviser. In discussion with social work, they stated that the patient wanted to speak to me regarding different medication to take at home. I reviewed her prior outpatient records. I further found that she was here for vertigo about the same time last year. She was discharged on Valium to help with her dizziness. I had a discussion with the patient regarding the use of benzodiazepines. She was told that these need to be titrated for long-term use and should be written by a primary care physician, but we agree that she would receive a prescription for a short course of therapy, namely 6 tablets, to get her through the weekend. She can take 1 tablet of 2 mg twice a day as needed for dizziness as she already has meclizine and ondansetron at home. This should get her through until she sees her specialist on Wednesday. I feel she can be discharged safely home with follow-up. Return instructions to the emergency department were reviewed. Disposition is discharged home in stable condition. Lab Data Attestation: I reviewed the patient's lab results. Labs: Laboratory Results - last 24 hr 05/15/22 19:10 Sodium 138 Potassium 3.7 Chloride 104 Carbon Dioxide 27.0 Anion Gap 7 BUN 18 Creatinine 1.22 H Estim Creat Clear Calc 33.30 Est GFR (MDRD) Af Amer 56 L Est GFR (MDRD) Non-Af 47 L BUN/Creatinine Ratio 14.8 Glucose 113 H Calcium 9.1 Discharge Plan Triage Chief Complaint: Dizziness ED Provider: José Luis Chavez Dx/Rx/DC Orders Clinical Impression: Vertigo, Nausea and vomiting, CKD (chronic kidney disease) Instructions: ED Vertigo, Unspecified Prescriptions: New diazepam [Valium] 2 mg tablet 2 mg PO BID PRN (Reason: vertigo) Qty: 6 0RF No Action omeprazole 20 mg capsule,delayed release(DR/EC) 20 mg PO BID tramadol 50 mg tablet 100 mg PO Q6H PRN (Reason: Pain) sucralfate 1 gram tablet 1 g PO TID PRN (Reason: Heartburn) buspirone 15 mg tablet 15 mg PO BID fluticasone propionate [Allergy Relief (fluticasone)] 50 mcg/actuation spray,suspension 1 spray INTRANASAL DAILY Rx Instructions: administer into each nostril montelukast 10 mg tablet 10 mg PO QHS albuterol sulfate 90 mcg/actuation HFA aerosol inhaler 2 puff INHALATION Q4H PRN (Reason: Wheezing) cyanocobalamin (vitamin B-12) 1,000 mcg capsule 1,000 mcg PO DAILY cholecalciferol (vitamin D3) 25 mcg (1,000 unit) tablet 25 mcg PO DAILY sertraline 50 mg tablet 50 mg PO DAILY levothyroxine 112 mcg tablet 112 mcg PO DAILY trazodone 100 mg tablet 100 mg PO DAILY bupropion HCl 150 MG tablet sustained-release 12 hr 1 tab PO BID Label Comments: Take 1 tablet by mouth twice daily. loratadine 10 MG tablet 10 mg PO DAILY Label Comments: TAKE 1 TABLET EVERY DAY cyclobenzaprine 5 MG tablet 5 mg PO TID PRN (Reason: Muscle Spasm) senna 8.6 mg capsule 8.6 mg PO DAILY Qty: 7 0RF meclizine [Bonine] 25 mg tablet,chewable 25 mg PO TID Qty: 20 0RF ondansetron 4 mg tablet,disintegrating 4 mg PO Q8H PRN (Reason: nausea and vomiting) Qty: 10 0RF lisinopril 10 mg tablet 10 mg PO DAILY Qty: 90 11RF Primary Care Provider: Papa Johnson Referrals: Papa Johnson MD [Primary Care Provider] - As soon as possible Activity Restrictions/Additional Instructions: Follow-up with your specialist/provider on Wednesday as scheduled Disposition Disposition: Home, Self Care
[2022-05-15] MEDS: 0.9% Normal Saline 1,000 ML 1000 ML IV (19:14)
[2022-05-15] MEDS: LORazepam 2 MG/ML Syringe 1 MG IV (19:15)
--- NOTE | 2022-05-15 19:26 | CM.ED ---
SW Note Referral Source: MD Chavez Referral Reason: D/C Planning MD Chavez met with SW and reviewed patient's symptoms and concerns about discharge. explained the patient wasn't sure if she could go home with her current symptoms. 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 MD request for SW to review resources. SW met with patient and introduced herself and role as [facility] [employer]. SW inquired about patient's current living situation and needs at discharge. Patient briefly reviewed symptoms and explained she had a follow-up appointment Wednesday for additional testing. Patient stated she wanted to return home if she was able to with medications that would help manage her symptoms until she had her appointment on Wednesday. SW provided patient with information on [facility] as well as [facility] [employer] for patient to review if other living arrangements or other services in home were needed. Patient was receptive towards information and explained she would review information when she was home and had her reading glasses. Patient states she is not interested in information regarding SNF or Assisted Living. No other needs voiced at this time. ERIC met with MD Chavez and reviewed resources provided as well as patient's wishes to return home with medications that will help manage her symptoms until her appointment on Wednesday. Plan: D/C home with medication to manage symptoms as determined by , resources provided ROBERT Bruno
[2022-05-15 19:39] LABS: Anion Gap 7 (5-15); BUN 18 mg/dL (7-18); BUN/Creat Ratio 14.8 RATIO (10-20); Calcium,Total 9.1 mg/dL (8.5-10.1); Chloride 104 mmol/L (98-107); Creatinine, Serum 1.22 mg/dL (0.55-1.02); EST Glomerular Filtration Rate 47 mL/min (>60); Est Glom Filt Rate - Afr Amer 56 mL/min (>60); Glucose 113 mg/dL (74-106); Potassium 3.7 mmol/L (3.5-5.1); Sodium Level 138 mmol/L (136-145)
[2022-05-15 20:21] VITALS: BP 156/54
== END 2022-05-15 20:22 | disposition home or self-care (01) ==
PROVIDERS: Emergency Provider Emergency Medicine; PCP Family Medicine; Referring Provider Emergency Medicine; Visit Provider Emergency Medicine
DX: R11.2 Nausea with vomiting, unspecified (principal); R42 Dizziness and giddiness; N18.9 Chronic kidney disease, unspecified; I12.9 Hypertensive chronic kidney disease with stage 1 through stage 4 chronic kidney disease, or unspecified chronic kidney disease; I25.10 Atherosclerotic heart disease of native coronary artery without angina pectoris
CPT/HCPCS: 80048; 96361; 96374; 99285; J7030

== ENCOUNTER 2022-05-18 14:26 | Outpatient (RCR) | payer MEDICARE, SELFPAY ==
--- NOTE | 2022-05-18 15:32 | HP.PTEVAL_ITS ---
Patient's Visit Information LYNETTE CASAS is a 66 year old F referred to Physical Therapy by Dr. Papa Castellano MD with a diagnosis of Vertigo. Date of Evaluation: 05/18/22 Physical Therapist: Simon Ferreira, MARTINT, OCS, CSCS - Visit Plan Frequency: 1x/Week Duration: 2-4 Weeks Plan: weekly as needed to monitor any progress with VOR and journalling of salty meals effects. No obvious evidence of vestibular problems today that would lead to bad vomitting and dizzyness, but pt will look for patterns in her diet at home and try adaptation ex for a week. - Subjective Two years ago had attack of vertigo, infrequently. Forceful vomitting. Becomi ng more frequent now and in ER two times in a week. Has not been able to work or drive car since 04/15 due to vertigo. medicine helps 40% of time. prior to April was every few months. When it happens it starts with stomach ache and has to lie down on bed. usually after eating. Then spins and vomits. Position has no effect on it. Vomits for long time and then dry heaves.Often to ER for IV medicine. Eyes closed helps, Spinning lasts until medicine. Saw ENT and no obvious new problems but maybe some small vessel. Virtual appt with Nona ordered MRI and PT for vestibular check. Had episode last night but got medicine in quick. In between episodes feels pretty normal without much problem, no falls. Employed [employer] but off since apr 15. basic ADLs are OK in between episodes. Saw therapist for crystals 3 weeks ago. - Objective VOR walking is challenging, walking is safe and I, trasnfers are I bed and chair. Steps reciprocal with one rail. Cervical aROM symmetrically limited and no pain in rotations or extension.,. UE AROM WFL. reflexes bi and tri 2/3. - B hallpike gerardo, - roll test. Oculaomotor: no dizzyness with head shake or no nystagmus with turns or gaze. - skew eye deviation. - ocular tilt. - head thrust. Pursuit and saccades are normal adn not symptomatic. VOR is slightly symptomatic shortly after 30 seconds H, recovers quickly. Overall no big signs of vestibular dysfunction with this eval... due to happening shortly after eating, looking for patterns of big dizzy episodes. - Balance/Special Test Scores Functional Gait Assessment Score: 25 % Disability: 16.6700 Dizziness Score: 60 - Goals Goal 1:: VOR 60 seconds without dizzyness Goal Time Frame: 2-4 Weeks Goal 2:: No big vertigo episodes for 2 weeks. Goal Time Frame: 2-4 Weeks - Rehabilitation Potential Physical Therapy Diagnosis: Unknown etiology, vestibular looks normal today for the most part Rehabilitation Potential: Questionable - Anticipated Interventions Patient/Client Instruction: Educate patient on: Condition, Plan of Care For the Purpose of:: To increase tolerance to activity/condition/position, To improve ability of physical actions for home/community/work/leisure Comment: adaptation For the Purpose of:: To increase tolerance to activity/condition/position Thank you for the opportunity to evaluate your patient. For Medicare and Medicare HMO plans, please review the plan of care and approve it. It will need to be FAXED BACK to us at [phone] for Medicare purposes. For Medicare only, by signing this I certify the plan of care. Please let me know if there are questions or concerns regarding this plan of care. Physician Signature: Date:
--- NOTE | 2022-07-13 08:40 | HP.PT.NRP ---
LYNETTE CASAS was seen in my office for initial evaluation on 05/18/22. The following Plan of Care was established for this patient: Initial Frequency: 1x/Week Initial Duration: 2-4 Weeks Patient/Client Instruction: Educate patient on: Condition, Plan of Care For the Purpose of:: To increase tolerance to activity/condition/position, To improve ability of physical actions for home/community/work/leisure For the Purpose of:: To increase tolerance to activity/condition/position This patient was last seen in our office 05/18/22. Pertinent comments regarding their Physical therapy will appear below: Pt seen for initial evaluation and home ex instruct. She cancelled her f/u and did not reschedule./ At this time, it has been over 6 weeks and I will discontinue due to nonattendance. At this point I will be discontinuing this patient from physical therapy. I would be happy to see this patient again in the future if found appropriate by the physician. Thank you! Simon Ferreira, DPT, OCS, CSCS Balance/Gait/Functional tests - Balance/Special Test Scores Functional Gait Assessment Score: 25 % Disability: 16.6700 Dizziness Score: 60
== END 2022-05-18 19:00 | disposition home or self-care (01) ==
LOC: PT 14:26
PROVIDERS: PCP Family Medicine; Referring Provider Psychiatry & Neurology Sleep Medicine; Visit Provider Psychiatry & Neurology Sleep Medicine
DX: R42 Dizziness and giddiness (principal)
CPT/HCPCS: 97162

== ENCOUNTER → 2023-01-05 | Outpatient (CLI) | payer MEDICARE, SELFPAY ==
--- NOTE | 2023-01-05 12:37 | BI_ITS ---
MAMMOGRAPHY - BILATERAL SCREENING REASON FOR EXAM: Female, 67 years old. Routine annual screening examination. PERTINENT HISTORY: Non-contributory. TECHNIQUE: Digital bilateral breast pina (3D mammographic acquisition) in the CC and MLO projections. 2-D mediolateral oblique (MLO) and craniocaudad (CC) views of both breasts were obtained. CAD: Full Field Digital Mammography with Computer Added Detection was performed. COMPARISON: Comparison is made with prior study dated October 23, 2015 and June 26, 2014. FINDINGS: Breast Composition: The breasts are almost entirely fatty. There are no dominant masses or suspicious calcifications. No other significant abnormalities are identified. There has been no significant change since the prior study. BI/SCRN MAMM (CAD)W/PINA BILAT IMPRESSION: Stable bilateral screening mammogram. Yearly follow-up mammogram recommended. (A) ASSESSMENT CATEGORY: BIRADS Category 1: Negative. A letter regarding these results will be sent to the patient by the facility within 30 days. Approximately 10% of breast cancers are not detected by mammography. A normal mammogram should not delay biopsy of a clinically suspicious abnormality. [id number] Electronically Signed: Brayan Carrington MD at 14:25 EDT ,
== END | disposition home or self-care (01) ==
LOC: OPBI 12:36
PROVIDERS: PCP Family Medicine; Referring Provider Family Medicine; Visit Provider Family Medicine
DX: Z12.31 Encounter for screening mammogram for malignant neoplasm of breast (principal)
CPT/HCPCS: 77063; 77067

== ENCOUNTER 2023-07-14 15:47 | Emergency (ER) | payer MEDICARE, SELFPAY ==
[2023-07-14 15:48] VITALS: BP 137/73; PULSE 82; RESP 14; TEMP 36.3; O2SAT 99; BMI 40.2
--- NOTE | 2023-07-14 16:27 | EDS_ITS ---
HPI History of Present Illness Chief Complaint: Asthma Informant: patient Narrative Narrative: Patient is 67-year-old female with history of asthma, hypertension, NSTEMI and Takotsubo cardiomyopathy presenting for asthma exacerbation. Patient states that she has been seen 2-3 times by her primary care office over the past 2 weeks for similar complaints. On her second or third visit she was put on antibiotic (Z-Deni) as well as Medrol Dosepak and a chest x-ray. She notes that she had she seemed to improve until a couple days ago when her cough seem to return. She notes that she has had decreased urine production since being on antibiotics. She states her chest x-ray was normal. She just feels like her asthma exacerbations and she often gets flares like this in the winter and fall. She notes that the nebulizer was ordered however there is an issue with it and it has been delayed. She is been using her albuterol inhaler every 2 hours. She is also on loratadine, Fartun and Flonase. She denies any new fever, chest pain [place] she has a little bit of a burning discomfort in her chest from all the coughing. She denies any swelling of her legs. No other complaints or concerns verbalized at this time. [facility] Medical History Acute sinusitis, unspecified Anxiety Asthma Atherosclerosis of coronary artery of [place] heart without angina pectoris Depression Difficulty balancing Essential hypertension Fatigue Fibromyalgia GERD (gastroesophageal reflux disease) Heart disease History of non-ST elevation myocardial infarction (NSTEMI) (11/16/19) Hypothyroidism Insomnia TADEO (obstructive sleep apnea) Right bundle branch block (RBBB) Takotsubo cardiomyopathy Vitamin D deficiency Home Medications bupropion HCl 150 mg tablet,12 hr sustained-release 1 tab PO BID 03/11/19 [History Last Taken Unknown] cyclobenzaprine 5 mg tablet 5 mg PO TID PRN Muscle Spasm 03/11/19 [History Last Taken Unknown] loratadine 10 mg tablet 10 mg PO DAILY 03/11/19 [History Last Taken Unknown] albuterol sulfate 90 mcg/actuation aerosol inhaler 2 puff inhalation Q4H PRN Wheezing 12/05/19 [History Last Taken Unknown] buspirone 15 mg tablet 15 mg PO BID 12/05/19 [History Last Taken Unknown] cholecalciferol (vitamin D3) 25 mcg (1,000 unit) tablet 25 mcg PO DAILY 12/05/19 [History Last Taken Unknown] cyanocobalamin (vitamin B-12) 1,000 mcg capsule 1,000 mcg PO DAILY 12/05/19 [History Last Taken Unknown] fluticasone propionate 50 mcg/actuation nasal spray,suspension (Allergy Relief (fluticasone)) 1 spray intranasal DAILY 12/05/19 [History Last Taken Unknown] montelukast 10 mg tablet 10 mg PO QHS 12/05/19 [History Last Taken Unknown] sertraline 50 mg tablet 50 mg PO DAILY 12/05/19 [History Last Taken Unknown] sucralfate 1 gram tablet 1 g PO TID PRN Heartburn 12/05/19 [History Last Taken Unknown] tramadol 50 mg tablet 100 mg PO Q6H PRN Pain 12/05/19 [History Last Taken Un known] omeprazole 20 mg capsule,delayed release 20 mg PO BID 12/06/19 [History Last Taken Unknown] sennosides 8.6 mg capsule (senna) 8.6 mg PO DAILY #7 caps 09/21/20 [Rx Last Taken Unknown] levothyroxine 112 mcg tablet 112 mcg PO DAILY 11/19/20 [History Last Taken Unknown] trazodone 100 mg tablet 100 mg PO DAILY 11/19/20 [History Last Taken Unknown] meclizine 25 mg chewable tablet (Bonine) 25 mg PO TID #20 tabs 02/01/22 [Rx Last Taken Unknown] diazepam 2 mg tablet (Valium) 2.5 mg (1.25 x 2 mg) PO BID PRN vertigo #6 tabs 05/15/22 [Rx Last Taken Unknown] lisinopril 10 mg tablet 10 mg PO DAILY #90 tabs 12/01/22 [Rx Last Taken Unknown] fluticasone propionate 44 mcg/actuation HFA aerosol inhaler 1 inh inhalation BID #10.6 grams 07/14/23 [Rx Last Taken Unknown] ipratropium 0.5 mg-albuterol 3 mg (2.5 mg base)/3 mL nebulization soln 3 ml inhalation Q4H PRN shortness of breath or wheezing #90 mL 07/14/23 [Rx Last Taken Unknown] methylprednisolone 4 mg tablets in a dose pack (Medrol (Deni)) 4 mg PO DAILY #21 tabs 07/14/23 [Rx Last Taken Unknown] Allergy/AdvReac Type Severity Reaction Status Date / Time adhesive tape Allergy Intermediate rash Verified 07/14/23 15:49 amoxicillin [From Augmentin] Allergy Intermediate Unknown Verified 07/14/23 15:49 carvedilol Allergy Intermediate Intense Verified 07/14/23 15:49 itching all over clavulanic acid Allergy Intermediate Unknown Verified 07/14/23 15:49 [From Augmentin] hydrochlorothiazide AdvReac Nausea/Vom/ Verified 07/14/23 15:49 Diarrhea Family History Mother Heart disease Father CAD (coronary artery disease) Heart disease Hypertension Emphysema, unspecified Grandmother CAD (coronary artery disease) Grandfather CAD (coronary artery disease) Brother Hypertension Heart disease Sister Heart disease Surgical History History of cholecystectomy History of left heart catheterization (11/17/19) History of tonsillectomy and adenoidectomy Social History household members: none Smoking Status: Never smoker alcohol intake: current alcohol intake frequency: a few times a week substance use type: does not use ROS ROS ED Constitutional Constitutional ED: Denies chills, fever(s) or sweats ENT ENT ED: Denies rhinorrhea or sore throat Cardiovascular Cardiovascular: Denies chest pain or palpitations Respiratory/Chest Respiratory/Chest: Reports cough and sputum; Denies dyspnea or dyspnea on exertion Gastrointestinal Gastrointestinal: Denies abdominal pain, nausea or vomiting Musculoskeletal Musculoskeletal: Denies arthralgias or myalgias Integumentary Denies rash Neurologic Neurologic: Denies headache(s) EXAM Physical Exam Const Vital Signs: 07/14/23 15:48 07/14/23 16:12 07/14/23 16:34 Temperature 97.3 F L Temperature Source Temporal Pulse Rate 82 Respiratory Rate 14 Respiratory Effort Short of Breath Respiratory Depth Normal Respiratory Pattern Tachypnea Blood Pressure 137/73 H Blood Pressure Mean 94 Pulse Ox 99 99 Oxygen Delivery Method Room Air Room Air Room Air 07/14/23 16:34 07/14/23 17:00 07/14/23 17:31 Temperature 98.2 F Temperature Source Pulse Rate 76 74 74 Respiratory Rate 18 21 H 21 H Respiratory Effort Respiratory Depth Respiratory Pattern Blood Pressure 130/79 H Blood Pressure Mean 96 Pulse Ox 97 97 Oxygen Delivery Method Positive well nourished and well developed General Appearance ED: well developed and NAD HEENT Reports moist mucous membranes atraumatic Eyes PERRL Resp normal respiratory effort Resp Narrative: Scattered is return expiratory wheezing present. Breath sounds throughout. Patient does have intermittent coughing fits that are consistent with bronchospasm. Auscultation: wheezes; Negative for diminished lung sounds Cardio regular rate, regular rhythm and no murmurs Extremity normal to inspection General Extremety ED: Negative for edema General Extremity: Negative for edema Neuro oriented x3 Sensorium / Orientation: alert Motor Exam: Negative for general weakness Psych mental status grossly normal Skin no wounds MDM MDM MDM Narrative Medical decision making narrative: Patient is evaluated for worsening cough, wheezing and what sounds like bronchospasm after finishing steroids. She overall is well-appearing. She is not hypoxic or have any increased O2 demands. Is a well-known history of asthma. As she has not had any acute fever or worsening of her sputum production since her chest x-ray did I think needs to be repeated. She does not appear to be any respiratory distress. Is given a DuoNeb with significant improvement of symptoms. Will be placed back on another Medrol dose pack as she does not tolerate high doses of prednisone but did seem to respond to the Medrol Dosepak. I do not think she requires further antibiotics. Is also given a prescription for fluticasone to hopefully help better control her reactive airway/asthma. Is given a paper prescription for DuoNeb for when her nebulizer machine is able to be filled. She is not sure if she has a prescription for aerosols or not. I will be discharged home. Given return precautions. Discharged home in stable and improved condition. Discharge Plan Triage Chief Complaint: Asthma ED Provider: Fannie Crane Dx/Rx/DC Orders Clinical Impression: Asthma exacerbation Instructions: ED Asthma, Acute (Adult) Prescriptions: New methylprednisolone [Medrol (Deni)] 4 mg tablets,dose pack 4 mg PO DAILY Qty: 21 0RF fluticasone propionate 44 mcg/actuation HFA aerosol inhaler 1 inh inhalation BID Qty: 10.6 0RF Rx Instructions: administer with spacer ipratropium-albuterol 0.5 mg-3 mg(2.5 mg base)/3 mL solution for nebulization 3 ml inhalation Q4H PRN (Reason: shortness of breath or wheezing) Qty: 90 0RF Rx Instructions: until breathing returns to target peak flow/parameters No Action omeprazole 20 mg capsule,delayed release(DR/EC) 20 mg PO BID tramadol 50 mg tablet 100 mg PO Q6H PRN (Reason: Pain) sucralfate 1 gram tablet 1 g PO TID PRN (Reason: Heartburn) buspirone 15 mg tablet 15 mg PO BID fluticasone propionate [Allergy Relief (fluticasone)] 50 mcg/actuation spray,suspension 1 spray INTRANASAL DAILY Rx Instructions: administer into each nostril montelukast 10 mg tablet 10 mg PO QHS albuterol sulfate 90 mcg/actuation HFA aerosol inhaler 2 puff INHALATION Q4H PRN (Reason: Wheezing) cyanocobalamin (vitamin B-12) 1,000 mcg capsule 1,000 mcg PO DAILY cholecalciferol (vitamin D3) 25 mcg (1,000 unit) tablet 25 mcg PO DAILY sertraline 50 mg tablet 50 mg PO DAILY levothyroxine 112 mcg tablet 112 mcg PO DAILY trazodone 100 mg tablet 100 mg PO DAILY bupropion HCl 150 MG tablet sustained-release 12 hr 1 tab PO BID Patient Comments: Take 1 tablet by mouth twice daily. loratadine 10 MG tablet 10 mg PO DAILY Patient Comments: TAKE 1 TABLET EVERY DAY cyclobenzaprine 5 MG tablet 5 mg PO TID PRN (Reason: Muscle Spasm) senna 8.6 mg capsule 8.6 mg PO DAILY Qty: 7 0RF meclizine [Bonine] 25 mg tablet,chewable 25 mg PO TID Qty: 20 0RF diazepam [Valium] 2 mg tablet 2.5 mg PO BID PRN (Reason: vertigo) Qty: 6 0RF lisinopril 10 mg tablet 10 mg PO DAILY Qty: 90 3RF Primary Care Provider: Papa Johnson Referrals: Papa Johnson MD [Primary Care Provider] - Disposition Disposition: Home, Self Care Discharge Date/Time: 07/14/23 17:58
[2023-07-14] MEDS: Ipratropium/Albuterol Sulfate 3 ML AMPUL.NEB INHALATION (16:32)
[2023-07-14 16:34] VITALS: PULSE 76; RESP 18; O2SAT 99
[2023-07-14 17:00] VITALS: PULSE 74; RESP 21; O2SAT 97
[2023-07-14 17:31] VITALS: BP 130/79; PULSE 74; RESP 21; TEMP 36.8; O2SAT 97
--- OUTSIDE RECORDS SUMMARY | 2023-07-14 22:36 | XMS RPT_ITS | CCD ---
Author Name Unknown Address [address] [place] [address] Organization [facility] Care Team Providers Care Jewelry Coater Name Role Phone TANO MONTOYA Unavailable Unavailable Papa Moser Unavailable Unavailable TANO MONTOYA Unavailable Unavailable TANO MONTOYA Unavailable Unavailable Papa Moser Unavailable Unavailable Papa Moser MD Primary Care Provider Papa Moser MD Primary Care Provider Papa Moser MD Primary Care Provider Papa Moser MD Primary Care Provider PAPA MOSER Attending Unavailable PAPA MOSER Primary Care Unavailable PAPA MOSER Referring Unavailable EHSAN, PAPA Villasenor Primary Care Unavailable PAPA MOSER Referring Unavailable PAPA MOSER Primary Care Unavailable Steffen PETERSEN Attending Unavailable PAPA MOSER Primary Care Unavailable VIVIANA DECKER Attending Unavailable PAPA MOSER Primary Care Unavailable VIVIANA DECKER Attending Unavailable PAPA MOSER Primary Care Unavailable PAPA MOSER Primary Care Unavailable MERRILL DONOVAN Attending Unavailable Steffen PETERSEN Referring Unavailable MERRILL DONOVAN Attending Unavailable PAPA MOSER Referring Unavailable PAPA MOSER Primary Care Unavailable MERRILL DONOVAN Attending Unavailable PAPA MOSER Referring Unavailable EHSAN, PAPA Villasenor Primary Care Unavailable MERRILL DONOVAN Attending Unavailable PAPA MOSER Referring Unavailable EHSAN, PAPA Villasenor Primary Care Unavailable MERRILL DONOVAN Attending Unavailable PAPA MOSER Referring Unavailable EHSAN, PAPA Villasenor Primary Care Unavailable EHSAN, PAPA Villasenor Primary Care Unavailable Steffen PETERSEN Referring Unavailable EHSAN, PAPA Villasenor Primary Care Unavailable Steffen PETERSEN Attending Unavailable EHSAN, PAPA Villasenor Primary Care Unavailable Steffen PETERSEN Attending Unavailable PAPA MOSER Primary Care Unavailable SAVANNA CRAFT Attending Unavailable PAPA MOSER Primary Care Unavailable SAVANNA CRAFT Referring Unavailable SHERITA OBRIEN Attending Unavailable PAPA MOSER Primary Care Unavailable Allergies Allergy Classification Reported Allergen(s) Allergy Type Date of Onset Reaction(s) Facility (20 sources) Adhesive Tape; Translations: [ADHESIVE TAPE (ROSINS)] Propensity to adverse reactions (disorder) 1 Rash [facility] (20 sources) hydroCHLOROthiaz jessica; Translations: [HYDROCHLOROTHIA ZIDE] Drug Allergy 5 Hives [facility] (20 sources) AMOXICILLIN-POT CLAVULANATE; Translations: [AMOXICILLIN-POT CLAVULANATE] Propensity to adverse reactions (disorder) 4 GI Upset [facility] Medications Current Medications Medication Drug Class(es) Dates Sig (Normalized) Sig (Original) azithromycin 250 mg oral tablet (3 sources) Macrolide Antimicrobial Start: 06-25-2023 End: 06-30-2023 azithromycin (ZITHROMAX Z-NILS) 250 mg tablet Indications: Sinobronchitis Take 2 tablets day one, then, 1 tablet daily until gone. 6 tablet 0 06/25/2023 06/30/2023 Active Completed/Discontinued Medications Medication Drug Class(es) Dates Sig (Normalized) Sig (Original) [id number] 200 actuat albuterol 0.09 mg/actuat metered dose inhaler (20 sources) beta2-Adrenergic Agonist Start: 09-30-2021 End: 10-15-2022 take 2 puff(s) by inhalation every four hours as needed albuterol HFA (VENTOLIN HFA) 90 mcg/actuation inhaler Indications: Mild intermittent asthma without complication Inhale 2 Puffs as instructed every 4 hours as needed. 1 Each 3 10/15/2022 Active Problems Active Problems Problem Classification Problem Date Documented Date Episodic/Chronic Acquired foot deformities (1 source) Acquired deformity of joint of big toe; Translations: [Other deformities of toe(s) (acquired), unspecified foot] Episodic Adjustment disorders (20 sources) Prolonged depressive adjustment reaction; Translations: [Adjustment disorder with depressed mood] Onset: 09-08-2005 09-02-2017 Chronic Anxiety disorders (20 sources) Anxiety; Translations: [Anxiety disorder, unspecified] Onset: 04-11-2014 04-11-2014 Chronic Asthma (20 sources) Asthma; Translations: [Unspecified asthma, uncomplicated] Onset: 01-21-2006 03-11-2015 Chronic Chronic kidney disease (20 sources) Chronic kidney disease stage 3; Translations: [Chronic renal insufficiency, stage 3 (moderate)] Onset: 06-21-2019 06-21-2019 Chronic Chronic obstructive pulmonary disease and bronchiectasis (3 sources) Bronchitis; Translations: [Bronchitis, not specified as acute or chronic] Onset: 02-16-2023 02-16-2023 Episodic Coronary atherosclerosis and other heart disease (20 sources) Atherosclerotic heart disease of [place] coronary artery without angina pectoris; Translations: [Coronary arteriosclerosis] Onset: 09-02-2012 04-28-2021 Chronic Deficiency and other anemia (1 source) Iron deficiency anemia, unspecified; Translations: [Iron deficiency anemia, unspecified iron deficiency anemia type] Onset: 06-17-2023 Episodic Diabetes mellitus with complications (9 sources) 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; Translations: [Type 2 diabetes mellitus with diabetic chronic kidney disease] Onset: 02-01-2023 Chronic Disorders of lipid metabolism (1 source) Mixed hyperlipidemia; Translations: [Mixed hyperlipidemia] Chronic Esophageal disorders (20 sources) Gastroesophageal reflux disease; Translations: [Gastro-esophageal reflux disease without esophagitis] Onset: 10-29-2005 01-21-2006 Chronic Gastritis and duodenitis (1 source) Gastritis; Translations: [Gastritis, unspecified, without bleeding] Episodic Genitourinary symptoms and ill-defined conditions (3 sources) Moe hematuria; Translations: [Gross hematuria] Episodic Headache; including migraine (20 sources) Refractory migraine without aura; Translations: [Migraine without aura, intractable, without status migrainosus] Onset: 07-13-2008 01-01-2020 Chronic Immunizations and screening for infectious disease (3 sources) Patient encounter status; Translations: [Encounter for immunization] Onset: 06-21-2023 Episodic Menopausal disorders (4 sources) Postmenopausal bleeding; Translations: [Postmenopausal bleeding] Chronic Nutritional deficiencies (20 sources) Vitamin D deficiency; Translations: [Vitamin D deficiency, unspecified] Onset: 04-03-2010 04-03-2010 Chronic Osteoarthritis (20 sources) Degenerative joint disease of thumb; Translations: [Primary osteoarthritis, unspecified hand] Onset: 05-31-2012 08-17-2019 Chronic Other aftercare (1 source) Drug therapy finding; Translations: [Other ticket clerk (current) drug therapy] Episodic Other aftercare (1 source) Encounter for therapeutic drug level monitoring; Translations: [Medication monitoring encounter] Onset: 05-05-2023 Episodic Other and ill-defined heart disease (20 sources) Takotsubo cardiomyopathy; Translations: [Takotsubo syndrome] Onset: 11-23-2019 11-23-2019 Chronic Other and ill-defined heart disease (1 source) Takotsubo syndrome; Translations: [Takotsubo cardiomyopathy] Onset: 09-30-2021 Chronic Other and unspecified benign neoplasm (1 source) Melanocytic nevus; Translations: [Melanocytic nevi, unspecified] 06-21-2023 Episodic Other connective tissue disease (20 sources) Fibromyalgia; Translations: [Fibromyalgia] Onset: 09-08-2005 04-28-2021 Episodic Other connective tissue disease (2 sources) Pain in both feet; Translations: [Pain in right foot] Episodic Other connective tissue disease (1 source) Dysfunction of posterior tibial tendon; Translations: [Posterior tibial tendinitis, unspecified leg] Episodic Other female genital disorders (1 source) Abnormal uterine bleeding; Translations: [Abnormal uterine and vaginal bleeding, unspecified] Chronic Other female genital disorders (1 source) Burning sensation of vulva; Translations: [Other specified conditions associated with female genital organs and menstrual cycle] Episodic Other female genital disorders (1 source) Burning sensation of vagina; Translations: [Unspecified condition associated with female genital organs and menstrual cycle] Episodic Other non-traumatic joint disorders (1 source) Multiple joint pain; Translations: [Pain in unspecified joint] Episodic Other non-traumatic joint disorders (1 source) Pain in left shoulder; Translations: [Pain in joint, shoulder region] 06-07-2023 Episodic Other nutritional; endocrine; and metabolic disorders (20 sources) Obesity; Translations: [Obesity, unspecified] Onset: 09-08-2005 09-08-2005 Chronic Other upper respiratory infections (2 sources) Chronic sinusitis, unspecified; Translations: [Chronic sinusitis] Onset: 06-25-2023 06-25-2023 Chronic Residual codes; unclassified (20 sources) Sleep apnea; Translations: [Sleep apnea, unspecified] Onset: 10-29-2005 04-28-2021 Chronic Residual codes; unclassified (1 source) Menopause present; Translations: [Asymptomatic menopausal state] 06-21-2023 Episodic Residual codes; unclassified (1 source) Asymptomatic menopausal state; Translations: [Asymptomatic menopause] Onset: 06-21-2023 Episodic Respiratory failure; insufficiency; arrest (adult) (2 sources) Respiratory failure; insufficiency; arrest (adult); Translations: [Chronic renal insufficiency, stage 3 (moderate) ([facility])] Onset: 05-10-2023 Spondylosis; intervertebral disc disorders; other back problems (20 sources) Cervical spondylosis without myelopathy; Translations: [Spondylosis without myelopathy or radiculopathy, cervical region] Onset: 05-31-2012 05-31-2012 Chronic Spondylosis; intervertebral disc disorders; other back problems (20 sources) Neck pain; Translations: [Cervicalgia] Onset: 07-23-2022 Episodic Thyroid disorders (20 sources) Hypothyroidism; Translations: [Hypothyroidism, unspecified] Onset: 10-29-2005 03-27-2015 Chronic Transient cerebral ischemia (20 sources) Vertebrobasilar artery syndrome; Translations: [Vertebro-basilar artery syndrome] Onset: 07-14-2022 Chronic Unclassified (1 source) Unknown / UNK(Unknown) Onset: 04-14-2017 Urinary tract infections (1 source) Acute cystitis; Translations: [Acute cystitis with hematuria] Episodic Viral infection (1 source) Disease caused by 2019-nCoV; Translations: [COVID-19] Episodic Past or Other Problems Problem Classification Problem Date Documented Date Episodic/Chronic Conditions associated with dizziness or vertigo (20 sources) Benign paroxysmal positional vertigo; Translations: [Benign paroxysmal vertigo, unspecified ear] Onset: 12-26-2020 12-26-2020 Episodic Diabetes mellitus without complication (20 sources) Hyperglycemia; Translations: [Hyperglycemia, unspecified] Onset: 09-09-2021 09-09-2021 Episodic Malaise and fatigue (20 sources) Malaise and fatigue; Translations: [Other malaise] Onset: 09-08-2005 09-08-2005 Episodic Other and unspecified benign neoplasm (20 sources) Gastric polyp; Translations: [Polyp of stomach and duodenum] Onset: 12-26-2020 12-26-2020 Episodic Other circulatory disease (20 sources) H/O: cardiovascular disease; Translations: [Personal history of other diseases of the circulatory system] Onset: 09-12-2013 09-12-2013 Episodic Other circulatory disease (1 source) Personal history of other diseases of the circulatory system; Translations: [History of coronary vasospasm] Onset: 09-12-2013 Episodic Other connective tissue disease (1 source) Fibromyalgia; Translations: [Fibromyalgia] Onset: 04-28-2021 Episodic Other screening for suspected conditions (not mental disorders or infectious disease) (20 sources) Blood chemistry abnormal; Translations: [Other specified abnormal findings of blood chemistry] Onset: 01-21-2006 11-23-2019 Episodic Other upper respiratory disease (20 sources) Voice finding; Translations: [Other voice and resonance disorders] Onset: 01-21-2006 01-21-2006 Episodic Other upper respiratory infections (3 sources) Acute rhinosinusitis; Translations: [Acute sinusitis, unspecified] Onset: 02-01-2023 02-01-2023 Episodic Residual codes; unclassified (20 sources) Memory impairment; Translations: [Other amnesia] Onset: 04-11-2014 04-11-2014 Episodic Results Test Name Value Interpretation Reference Range Facil ity Vital Signs Date Time Vital Sign Value Performing Clinician Nicole renee 06-25-2023 13:40-0500 Body weight 94.8 kg Savanna Craft DESIGN COORDINATOR.LESA Work Phone: [facility] 06-25-2023 13:40-0500 Diastolic blood pressure 64 mm[Hg] Savanna Craft DESIGN COORDINATOR.ADMISSION SPECIALIST Work Phone: [facility] 06-25-2023 13:40-0500 Heart rate 84 /min Savanna Craft DESIGN COORDINATOR.ADMISSION SPECIALIST Work Phone: [facility] 06-25-2023 13:40-0500 Respiratory rate 14 /min Savanna Craft DESIGN COORDINATOR.ADMISSION SPECIALIST Work Phone: [facility] 06-25-2023 13:40-0500 Systolic blood pressure 138 mm[Hg] Savanna Craft DESIGN COORDINATOR.ADMISSION SPECIALIST Work Phone: [facility] 06-21-2023 11:33-0500 Body height 156.3 cm NA Petersen PA-C Work Phone: [facility] 06-21-2023 11:33-0500 Body weight 92.99 kg NA Petersen PA-C Work Phone: [facility] 06-21-2023 11:33-0500 Diastolic blood pressure 80 mm[Hg] NA Petersen PA-C Work Phone: [facility] 06-21-2023 11:33-0500 Heart rate 78 /min NA Petersen PA-C Work Phone: [facility] 06-21-2023 11:33-0500 Respiratory rate 16 /min NA Petersen PA-C Work Phone: [facility] 06-21-2023 11:33-0500 SaO2% (BldA) [Mass fraction] 97 % NA Petersen PA-C Work Phone: [facility] 06-21-2023 11:33-0500 Systolic blood pressure 130 mm[Hg] NA Petersen PA-C Work Phone: [facility] 06-07-2023 17:34-0500 Body weight 94.21 kg Viviana Decker MD Work Phone: [facility] 06-07-2023 17:34-0500 Diastolic blood pressure 74 mm[Hg] Viviana Decker MD Work Phone: [facility] 06-07-2023 17:34-0500 Heart rate 84 /min Viviana Decker MD Work Phone: [facility] 06-07-2023 17:34-0500 Respiratory rate 18 /min Viviana Decker MD Work Phone: [facility] 06-07-2023 17:34-0500 Systolic blood pressure 130 mm[Hg] Viviana Decker MD Work Phone: [facility] 02-16-2023 15:58-0400 Body height 154.9 cm Papa Moser MD Work Phone: [facility] 02-16-2023 15:58-0400 Body weight 91.9 kg Papa Moser MD Work Phone: [facility] 02-16-2023 15:58-0400 Diastolic blood pressure 78 mm[Hg] Papa Moser MD Work Phone: [facility] 02-16-2023 15:58-0400 Heart rate 80 /min Papa Moser MD Work Phone: [facility] 02-16-2023 15:58-0400 SaO2% (BldA) [Mass fraction] 99 % Papa Moser MD Work Phone: [facility] 02-16-2023 15:58-0400 Systolic blood pressure 130 mm[Hg] Papa Moser MD Work Phone: [facility] 02-01-2023 12:46-0400 Body temperature 99.1 [degF] Sherita Obrien DESIGN COORDINATOR.ADMISSION SPECIALIST Work Phone: [facility] 02-01-2023 12:46-0400 Body weight 91.17 kg Sherita Obrien DESIGN COORDINATOR.ADMISSION SPECIALIST Work Phone: [facility] 02-01-2023 12:46-0400 Diastolic blood pressure 74 mm[Hg] Sherita Obrien DESIGN COORDINATOR.ADMISSION SPECIALIST Work Phone: [facility] 02-01-2023 12:46-0400 Heart rate 100 /min Sherita Obrien DESIGN COORDINATOR.ADMISSION SPECIALIST Work Phone: [facility] 02-01-2023 12:46-0400 Respiratory rate 16 /min Sherita Obrien DESIGN COORDINATOR.ADMISSION SPECIALIST Work Phone: [facility] 02-01-2023 12:46-0400 SaO2% (BldA) [Mass fraction] 98 % Sherita Obrien DESIGN COORDINATOR.ADMISSION SPECIALIST Work Phone: [facility] 02-01-2023 12:46-0400 Systolic blood pressure 122 mm[Hg] Sherita Orbien DESIGN COORDINATOR.ADMISSION SPECIALIST Work Phone: [facility] 07-14-2022 15:22-0400 Body weight 92.99 kg NA Petersen PA-C Work Phone: [facility] 07-14-2022 15:22-0400 Diastolic blood pressure 74 mm[Hg] NA Petersen PA-C Work Phone: [facility] 07-14-2022 15:22-0400 Heart rate 85 /min NA Petersen PA-C Work Phone: [facility] 07-14-2022 15:22-0400 Respiratory rate 16 /min NA Petersen PA-C Work Phone: [facility] 07-14-2022 15:22-0400 SaO2% (BldA) [Mass fraction] 98 % NA Petersen PA-C Work Phone: [facility] 07-14-2022 15:22-0400 Systolic blood pressure 116 mm[Hg] NA Petersen PA-C Work Phone: [facility] 04-07-2022 13:14-0500 Body weight 91.17 kg NA Petersen PA-C Work Phone: [facility] 04-07-2022 13:14-0500 Diastolic blood pressure 72 mm[Hg] NA Petersen PA-C Work Phone: [facility] 04-07-2022 13:14-0500 Heart rate 63 /min NA Petersen PA-C Work Phone: [facility] 04-07-2022 13:14-0500 Respiratory rate 16 /min NA Petersen PA-C Work Phone: [facility] 04-07-2022 13:14-0500 SaO2% (BldA) [Mass fraction] 99 % NA Petersen PA-C Work Phone: [facility] 04-07-2022 13:14-0500 Systolic blood pressure 128 mm[Hg] NA Petersen PA-C Work Phone: [facility] 12-26-2021 17:40-0400 Body temperature 97.11 [degF] Prisca Luigi HAINESN.ADMISSION SPECIALIST Work Phone: [facility] 12-26-2021 17:40-0400 Body weight 91.26 kg Prisca Luigi DESIGN COORDINATOR.ADMISSION SPECIALIST Work Phone: [facility] 12-26-2021 17:40-0400 Diastolic blood pressure 78 mm[Hg] Prisca Luigi DESIGN COORDINATOR.ADMISSION SPECIALIST Work Phone: [facility] 12-26-2021 17:40-0400 Heart rate 89 /min Prisca Luigi DESIGN COORDINATOR.ADMISSION SPECIALIST Work Phone: [facility] 12-26-2021 17:40-0400 Respiratory rate 18 /min Prisca Luigi DESIGN COORDINATOR.ADMISSION SPECIALIST Work Phone: [facility] 12-26-2021 17:40-0400 SaO2% (BldA) [Mass fraction] 98 % Prisca Luigi DESIGN COORDINATOR.ADMISSION SPECIALIST Work Phone: [facility] 12-26-2021 17:40-0400 Systolic blood pressure 132 mm[Hg] Prisca Luigi DESIGN COORDINATOR.ADMISSION SPECIALIST Work Phone: [facility] 12-03-2021 14:35-0400 Diastolic blood pressure 84 mm[Hg] Billie Tellez DESIGN COORDINATOR.ADMISSION SPECIALIST Work Phone: [facility] 12-03-2021 14:35-0400 Heart rate 68 /min Billie Tellez DESIGN COORDINATOR.ADMISSION SPECIALIST Work Phone: [facility] 12-03-2021 14:35-0400 Respiratory rate 16 /min Billie Tellez DESIGN COORDINATOR.ADMISSION SPECIALIST Work Phone: [facility] 12-03-2021 14:35-0400 SaO2% (BldA) [Mass fraction] 98 % Billie Tellez DESIGN COORDINATOR.ADMISSION SPECIALIST Work Phone: [facility] 12-03-2021 14:35-0400 Systolic blood pressure 142 mm[Hg] Billie Tellez DESIGN COORDINATOR.ADMISSION SPECIALIST Work Phone: [facility] 12-03-2021 14:07-0400 Body weight 91.63 kg Billie Tellez DESIGN COORDINATOR.ADMISSION SPECIALIST Work Phone: [facility] 11-20-2021 15:27-0400 Body weight 90.27 kg Billie Lunaary TOM.ADMISSION SPECIALIST Work Phone: [facility] 11-20-2021 15:27-0400 Diastolic blood pressure 74 mm[Hg] Billie Tellez DESIGN COORDINATOR.ADMISSION SPECIALIST Work Phone: [facility] 11-20-2021 15:27-0400 Systolic blood pressure 122 mm[Hg] Billie Tellez APRN.ADMISSION SPECIALIST Work Phone: [facility] 11-13-2021 16:07-0400 Body temperature 99.19 [degF] Jale Athy PA-C Work Phone: [facility] 11-13-2021 [id number] Body weight 91.17 kg Jael Athy PA-C Work Phone: [facility] 11-13-2021 16:07-0400 Diastolic blood pressure 90 mm[Hg] Jael Athy PA-C Work Phone: [facility] 11-13-2021 16:07-0400 Heart rate 100 /min Jael Athy PA-C Work Phone: [facility] 11-13-2021 16:07-0400 Respiratory rate 21 /min Jael Athy PA-C Work Phone: [facility] 11-13-2021 16:07-0400 SaO2% (BldA) [Mass fraction] 100 % Jael Athy PA-C Work Phone: [facility] 11-13-2021 16:07-0400 Systolic blood pressure 140 mm[Hg] Jael Athy PA-C Work Phone: [facility] 09-09-2021 16:35-0400 Body weight 90.72 kg NA Petersen PA-C Work Phone: [facility] 09-09-2021 16:35-0400 Respiratory rate 16 /min NA Petersen PA-C Work Phone: [facility] 09-09-2021 16:35-0400 SaO2% (BldA) [Mass fraction] 98 % NA Petersen PA-C Work Phone: [facility] Encounters Encounter Date Encounter Type Care Provider Facility Start: 07-12-2023 Refill Papa Msoer MD Work Phone: [facility] Procedures Date Procedure Procedure Detail Performing Clinician Start: 01-05-2023 Mammography Papa Cohn MD Work Phone: Start: 06-26-2022 Lipid 1996 panel - S marissa or Plasma Layla Garcia MA Start: 04-20-2022 Ct angiography head w/contrast/noncontrast Papa Castellano MD Work Phone: Start: 04-20-2022 Ct angiography neck w/contrast/noncontrast Papa Castellano MD Work Phone: Start: 04-07-2022 INFLUENZA SEASONAL QUADRIVALENT HIGH DOSE AGE 65+ M Moise Petersen PA-C Work Phone: Start: 12-26-2021 Urnls dip stick/tabl et rgnt auto w/o microscopy Prisca Meyers DESIGN COORDINATOR.ADMISSION SPECIALIST Work Phone: Start: 11-20-2021 Urnls dip stick/tabl et rgnt auto w/o microscopy Billie Tlelez DESIGN COORDINATORKanchanADMISSION SPECIALIST Work Phone: Start: 11-13-2021 Urnls dip stick/tabl et rgnt auto w/o microscopy Jael Medrano PA-C Work Phone: Start: 10-16-2021 Radex foot complete minimum 3 views Ger Orquidea Work Phone: Start: 09-30-2021 Adult depression scr eening assessment NA Nicola ROWE Work Phone: Start: 12-29-2019 Adult depression scr eening assessment Papa Moser MD Work Phone: Start: 10-23-2015 Mammography Papa Cohn MD Work Phone: Start: 10-10-2013 Colonoscopy Papa Cohn MD Work Phone: Plan of Treatment Date Care Activity Detail Author Start: 06-26-2027 Lipid 1996 panel - S marissa or Plasma Lipid Screening [facility] Start: 06-26-2027 LIPID SCREEN LIPID SCREEN [facility] Start: 10-07-2026 LIPID SCREEN LIPID SCREEN [facility] Start: 11-12-2025 LIPID SCREEN LIPID SCREEN [facility] Start: 06-26-2025 DIABETES SCREEN DIABETES SCREEN [facility] Start: 06-26-2025 Diabetes Screening Diabetes Screenin g [facility] Start: 10-07-2024 DIABETES SCREEN DIABETES SCREEN [facility] Start: 06-25-2024 Annual PCP Team Pet Sitter radha Disease Visit Annual PCP Team Chronic Disease Visit [facility] Start: 06-21-2024 Annual PCP Team Pet Sitter radha Disease Visit Annual PCP Team Chronic Disease Visit [facility] Start: 06-17-2024 Complete blood count Hemoglobin/Deonte tocrit [facility] Start: 06-17-2024 Creatinine measurement Serum Creatin ine [facility] Start: 06-17-2024 Hepatitis B surface antibody level LDL Cholesterol [facility] Start: 06-07-2024 Annual PCP Team Pet Sitter radha Disease Visit Annual PCP Team Chronic Disease Visit [facility] Start: 05-10-2024 RSV Vaccine (1 - 1-d ose 60+ series) RSV Vaccine (1 - 1-dose 60+ series) [facility] Immunizations Immunization Date Immunization Notes Care Provider Justen kraft 04-07-2022 influenza, high-dose , quadrivalent vaccine (FLUZONE HIGH DOSE QUADRIVALENT) Papa Moser MD Work Phone: [facility] 04-07-2022 pneumococcal (PCV20) vaccine, 20 valent (PREVNAR 20) Papa Moser MD Work Phone: [facility] 04-07-2022 pneumococcal Conjuga te, unspecified formulation MARIA INES Petersen PA-C Work Phone: [facility] Work Phone: 04-07-2022 influenza virus vaccine, unspecified formulation Layla Garcia MA [facility] 03-28-2020 influenza, seasonal, injectable Papa Moser MD Work Phone: [facility] Work Phone: 01-03-2020 zoster vaccine recombinant Papa Moser MD Work Phone: [facility] Work Phone: 06-15-2019 pneumococcal conjuga te vaccine, 13 valent Papa Moser MD Work Phone: [facility] 02-01-2019 influenza, seasonal, injectable Papa Moser MD Work Phone: [facility] Work Phone: 03-18-2017 influenza, injectabl e, quadrivalent, contains preservative Papa Moser MD Work Phone: [facility] 03-18-2017 pneumococcal polysaccharide vaccine, 23 valent Papa Moser MD Work Phone: [facility] 03-27-2015 influenza, injectabl e, quadrivalent, contains preservative Papa Moser MD Work Phone: [facility] 03-27-2015 influenza, seasonal, injectable Papa Moser MD Work Phone: [facility] 02-12-2014 influenza, seasonal, injectable Papa Moser MD Work Phone: [facility] 02-22-2013 influenza virus vaccine, unspecified formulation Papa Moser MD Work Phone: [facility] 01-27-2012 influenza virus vaccine, unspecified formulation Papa Moser MD Work Phone: [facility] Work Phone: 04-07-2011 influenza virus vaccine, unspecified formulation Papa Moser MD Work Phone: [facility] Work Phone: 02-19-2009 influenza virus vaccine, unspecified formulation Papa Moser MD Work Phone: [facility] Work Phone: 04-16-2007 influenza virus vaccine, unspecified formulation Papa Moser MD Work Phone: [facility] 01-01-2006 tetanus and diphther ia toxoids, adsorbed, preservative free, for adult use (2 Lf of tetanus toxoid and 2 Lf of diphtheria toxoid) Papa Moser MD Work Phone: [facility] Work Phone: 04-15-2005 influenza virus vaccine, unspecified formulation Papa Moser MD Work Phone: [facility] Work Phone: NEGATED: Highlighted row has not occurred!04-03-2021 influenza, high-dose, quadrivalent vaccine (FLUZONE HIGH DOSE QUADRIVALENT) Papa Moser MD Work Phone: [facility] Payers Date Payer Category Payer Medicare UHC AAR MEDICAR E UHC AARP MEDICARE HMO [id number] 2019-Present [phone] [address] [address] [place] [address] O [id number] 2019 Medicare UHC AARP MEDICAR E UHC AARP MEDICARE HMO [id number] 2019-Present [phone] [address] [address] [place] [address] O [id number] 2019 Medicare [id number] Social History Date Type Detail Facility Start: 12-03-2010 Tobacco smoking stat [facility] Never smoked tobacco [facility] Start: 06-11-2021 End: 06-25-2023 Alcohol intake Current drinker of alcohol (finding) [facility] Start: 12-30-2019 History SDOH Alcohol Frequency 2 [facility] Start: 12-30-2019 History SDOH Alcohol Std Drinks 1 [facility] Start: 12-30-2019 History SDOH Social Connections Phone 4 [facility] Start: 12-30-2019 End: 05-21-2022 History SDOH Social Connections Get Together 3 [facility] Start: 12-30-2019 History SDOH Social Connections Living 5 [facility] Start: 12-29-2019 Education 12 [facility] Start: 1955 Sex Assigned At Female C [facility] Start: 08-29-2021 End: 03-05-2022 Exposure to SARS-CoV-2 (event) Not sure [facility] Work Phone: Start: 12-03-2010 Tobacco use and exposure Smoke less tobacco non-user [facility] Start: 05-21-2022 History SDOH Physica l Activity DPW 0 [facility] Start: 05-20-2022 End: 09-07-2022 History of Social function [facility] Start: 05-20-2022 End: 09-07-2022 Social connection and isolation panel [facility] In a typical week, h ow many times do you talk on the telephone with family, friends, or neighbors? Patient refused [facility] Are you now , , , , never or living with a partner? Refused [facility] (I/We) worried wheth er (my/our) food would run out before (I/we) got money to buy more. DK or Refused [facility] Start: 06-02-2021 Gender identity Identifies as female gender (finding) [facility] Do you belong to any clubs or organizations such as protestant groups, [employer], [employer] or athletic groups, or school groups? Yes [facility] Are you now , , , , never or living with a partner? [facility] How often to you hav e a drink containing alcohol? Monthly or less [facility] How many standard dr inks containing alcohol do you have on a typical day? 1 or 2 [facility] How often do you hav e 6 or more drinks on 1 occasion? Never [facility] How hard is it for y ou to pay for the very basics like food, housing, medical care, and heating Somewhat hard [facility] Do you feel stress - tense, restless, nervous, or anxious, or unable to sleep at night because your mind is troubled all the time - these days [OSQ] To some extent [facility] (I/We) worried wheth er (my/our) food would run out before (I/we) got money to buy more. Never true [facility] In the past 12 month s, was there a time when you were not able to pay the mortgage or rent on time? No [facility] Clinical Notes 01-23-2013 to 07-12-2023 Telephone Encounter - Moni Heredia - 07/12/2023 12:22 PM EDTTelephone Encounter - America Welch LPN - 06/30/2023 9:25 AM ESTTelephone Encounter - Savanna Craft APRN.LESA - 06/30/2023 7:44 AM EST Note Date & Type Note [facility] 07-12-2023 Miscellaneous Notes Patient has been identified by name and date of : Yes Patient phones for refill(s): Requested Prescriptions Pending Prescriptions Disp Refills loratadine (ALLERGY RELIEF, LORATADINE,) 10 mg tablet 90 tablet 3 Sig: Take 1 tablet by mouth once daily. cyclobenzaprine (FLEXERIL) 5 mg tablet 30 tablet 0 Sig: TAKE ONE TABLET BY MOUTH EVERY 8 HOURS NEEDED FOR MUSCLE SPASMS Date of last office visit in primary care: 06/25/2023 Date of next office visit in primary care: 11/08/2023 Please advise. Thank you. Moni Heredia. documented in this encounter [facility] 06-30-2023 Miscellaneous Notes Faxed script as requested. Printed and signed. Please fax. This is in my outbox. Thank you, Savanna Craft APRN.ADMISSION SPECIALIST Raysa from [facility] [place] pharmacy calling asking for new order for the nebulizer with compressor to be sent to her please. Pending order. Fax number is [phone]. Please advise documented in this encounter [facility] 06-25-2023 Note HNO ID: [id number] Author: COLTON MURRAY RT(R) Service: Radiology Author Type: Technologist Type: Progress Notes Filed: 06/25/2023 14:15 Note Text: Radiology Service Progress Note PATIENT NAME: Miguelito Mari DATE OF SERVICE: June 25, 2023 TIME: 2:06 PM PATIENT IDENTITY VERIFICATION COMPLETED USING TWO (2) IDENTIFIERS: Name and Date of confirmed by patient verbally. FALL SCREENING: Has the patient had 2 falls in the last year or 1 fall with injury or currently using an Ambulatory Assistive Device (Walker, Cane, Wheelchair, Crutches, etc.)? No PATIENT GENDER DATA: Female. status: : No status: NO. PATIENT RELEVANT IMPLANT DATA REVIEWED: Yes PATIENT PRESENTS WITH AN IMPLANTABLE OR ATTACHED CLUB CONCIERGE: No RADIOLOGY DEPARTMENT: General X-ray: Exam(s) Completed: Chest X-Ray PERIPHERAL IV DATA: Not applicable SIGNED BY: RT Apple(R) June 25, 2023 2:06 PM [facility] 06-25-2023 Note HNO ID: [id number] Author: SAVANNA CRAFT APRN.ADMISSION SPECIALIST Service: ? Author Type: Nurse Practitioner Type: Progress Notes Filed: 06/25/2023 14:06 Note Text: Chief Complaint Patient presents with: cough/asthma: States was seen in May by Dr. Decker was given steroids but as soon as finished came back HPI Miguelito Mari is a 67 year old female who presents here today for Above Complaints. Miguelito is an established patient of Dr. Ehsan MD. She is a new patient to me today. Concerns today... Cough-- Pt reports cough and wheezing since COVID + 5 weeks ago. Was seen by Dr. Decker at the end of May, dx with asthma exacerbation, and given low dose prednisone burst. Symptoms slightly improved but never resolved and now symptoms are back just as bad. Stopped steroid about 4-5 days ago. Pt reports sinus pressure and congestion as well. Using inhaler every 2 hours without much relief. Cough is non-productive but pt reports she can feel stuff in her chest that she can't get up. No other concerns or complaints. Past medical history, appointments, medications, allergies reviewed. Previous Medical History PAST MEDICAL HISTORY Diagnosis Date Abdominal pain, epigastric Abdominal pain, left upper quadrant Arthritis Asthma CAD (coronary artery disease) coronary artery spasm - stress heart attch 04/13 Depression Fibromyalgia Hypertension Insomnia with sleep apnea, unspecified Malaise and fatigue Myalgia and myositis, unspecified Obesity, unspecified Obstructive sleep apnea cant use cpap Reflux esophagitis Right bundle branch block (RBBB) on electrocardiogram (ECG) Unspecified asthma, with status asthmaticus Unspecified hypothyroidism Hypothyroidism Variants of migraine, not elsewhere classified, without mention of intractable migraine without mention of status migrainosus Previous Surgical History PAST SURGICAL HISTORY Procedure Laterality Date ABDOMINAL SURGERY HX ADENOIDECTOMY PRIMARY Adenoidectomy CHOLECYSTECTOMY 2008 COLONOSCOPY FLX DX W/COLLJ SPEC WHEN PFRMD 10/10/13 normal - 10 year follow up EGD 06/22/2016 esophagitis and gastritis, repeat in 2-3 years d/t family history EGD TRANSORAL BIOPSY SINGLE/MULTIPLE 10/11/09 EGD TRANSORAL BIOPSY SINGLE/MULTIPLE 10/10/13 mild duodenitis, gastritis, gastric polyp ESOPHAGOGASTRODUODENOSCOPY TRANSORAL DIAGNOSTIC 04/12/00 AND 12/09/06 EGD HEART CATHETERIZATION 04/09/12 TONSILLECTOMY HX TONSILLECTOMY PRIMARY/SECONDARY Tonsillectomy Family History FAMILY HISTORY Problem Relation Age of Onset Cancer Mother bladder, esophageal,stomach/ Hypertension Mother Stroke Mother Heart Mother Coronary Artery Disease Father Emphysema Father Hypertension Father Heart Father Heart Sister other (chf) Brother Hypertension Brother Heart Brother Coronary Artery Disease Maternal Grandmother Coronary Artery Disease Maternal Grandfather Cancer Maternal Aunt Coronary Artery Disease Maternal Aunt Coronary Artery Disease Maternal Uncle Coronary Artery Disease Maternal Uncle Coronary Artery Disease Maternal Uncle Coronary Artery Disease Maternal Uncle Breast Cancer Other maternal cousins x3 Cancer Other maternal cousin stomach cancer Patient Allergies ALLERGIES Allergen Reactions Adhesive Tape (Stephanie* Rash Augmentin [Amoxicil* GI Upset Hydrochlorothiazide Hives Current Medications Current Outpatient Medications on File Prior to Visit Medication Sig cyclobenzaprine (FLEXERIL) 5 mg tablet TAKE ONE TABLET BY MOUTH EVERY 8 HOURS NEEDED FOR MUSCLE SPASMS predniSONE (DELTASONE) 10 mg tablet Take 1 tablet 1-2 times a day levothyroxine (LEVOXYL) 125 mcg tablet Take 1 tablet by mouth once daily. Take on empty stomach. For thyroid. meclizine (ANTIVERT) 12.5 mg tab Take 1 tablet by mouth every 6 hours as needed (dizziness). ondansetron orally disintegrating (ZOFRAN ODT) 4 mg disintegrating tablet Take 1 tablet by mouth every 6 hours as needed for nausea/vomiting. diazePAM (VALIUM) 5 mg tablet 1/2 to 1 tab only as needed for vertigo if persists despite other measures traMADol (ULTRAM) 50 mg tablet Take 2 tablets by mouth every 6 hours as needed for pain for up to 90 days. fluticasone (FLONASE) 50 mcg/actuation nasal spray Use 1 Vega in each nostril daily at bedtime. traZODone (DESYREL) 100 mg tablet Take 1 tablet by mouth daily at bedtime. buPROPion SR (ZYBAN SR; WELLBUTRIN SR) 150 mg 12 hr tablet Take 1 tablet by mouth two times a day. busPIRone (BUSPAR) 15 mg tablet Take 1 tablet by mouth two times a day. sertraline (ZOLOFT) 50 mg tablet Take 1 tablet by mouth once daily. montelukast (SINGULAIR) 10 mg tablet Take 1 tablet by mouth daily at bedtime. sucralfate (CARAFATE) 1 gram tablet Take 1 tablet by mouth three times daily as needed. albuterol HFA (VENTOLIN HFA) 90 mcg/actuation inhaler Inhale 2 Puffs as instructed every 4 hours as needed. loratadine (ALL (more content not included)... [facility] 06-25-2023 History of Present illness Narrative Chief Complaint Patient presents with: cough/asthma: States was seen in May by Dr. Decker was given steroids but as soon as finished came back HPI Miguelito Mari is a 67 year old female who presents here today for Above Complaints. Miguelito is an established patient of Dr. Ehsan MD. She is a new patient to me today. Concerns today... Cough-- Pt reports cough and wheezing since COVID + 5 weeks ago. Was seen by Dr. Decker at the end of May, dx with asthma exacerbation, and given low dose prednisone burst. Symptoms slightly improved but never resolved and now symptoms are back just as bad. Stopped steroid about 4-5 days ago. Pt reports sinus pressure and congestion as well. Using inhaler every 2 hours without much relief. Cough is non-productive but pt reports she can feel stuff in her chest that she can't get up. No other concerns or complaints. Past medical history, appointments, medications, allergies reviewed. Previous Medical History PAST MEDICAL HISTORY Diagnosis Date Abdominal pain, epigastric Abdominal pain, left upper quadrant Arthritis Asthma CAD (coronary artery disease) coronary artery spasm - stress heart attch 04/13 Depression Fibromyalgia Hypertension Insomnia with sleep apnea, unspecified Malaise and fatigue Myalgia and myositis, unspecified Obesity, unspecified Obstructive sleep apnea cant use cpap Reflux esophagitis Right bundle branch block (RBBB) on electrocardiogram (ECG) Unspecified asthma, with status asthmaticus Unspecified hypothyroidism Hypothyroidism Variants of migraine, not elsewhere classified, without mention of intractable migraine without mention of status migrainosus Previous Surgical History PAST SURGICAL HISTORY Procedure Laterality Date ABDOMINAL SURGERY HX ADENOIDECTOMY PRIMARY <AGE 10 Adenoidectomy CHOLECYSTECTOMY 2008 COLONOSCOPY FLX DX W/COLLJ SPEC WHEN PFRMD 10/10/13 normal - 10 year follow up EGD 06/22/2016 esophagitis and gastritis, repeat in 2-3 years d/t family history EGD TRANSORAL BIOPSY SINGLE/MULTIPLE 10/11/09 EGD TRANSORAL BIOPSY SINGLE/MULTIPLE 10/10/13 mild duodenitis, gastritis, gastric polyp ESOPHAGOGASTRODUODENOSCOPY TRANSORAL DIAGNOSTIC 04/12/00 & 12/09/06 EGD HEART CATHETERIZATION 04/09/12 TONSILLECTOMY HX TONSILLECTOMY PRIMARY/SECONDARY <AGE 10 Tonsillectomy Family History FAMILY HISTORY Problem Relation Age of Onset Cancer Mother bladder, esophageal,stomach/ Hypertension Mother Stroke Mother Heart Mother Coronary Artery Disease Father Emphysema Father Hypertension Father Heart Father Heart Sister other (chf) Brother Hypertension Brother Heart Brother Coronary Artery Disease Maternal Grandmother Coronary Artery Disease Maternal Grandfather Cancer Maternal Aunt Coronary Artery Disease Maternal Aunt Coronary Artery Disease Maternal Uncle Coronary Artery Disease Maternal Uncle Coronary Artery Disease Maternal Uncle Coronary Artery Disease Maternal Uncle Breast Cancer Other maternal cousins x3 Cancer Other maternal cousin stomach cancer Patient Allergies ALLERGIES Allergen Reactions Adhesive Tape (Stephanie* Rash Augmentin [Amoxicil* GI Upset Hydrochlorothiazide Hives Current Medications Current Outpatient Medications on File Prior to Visit Medication Sig cyclobenzaprine (FLEXERIL) 5 mg tablet TAKE ONE TABLET BY MOUTH EVERY 8 HOURS NEEDED FOR MUSCLE SPASMS predniSONE (DELTASONE) 10 mg tablet Take 1 tablet 1-2 times a day levothyroxine (LEVOXYL) 125 mcg tablet Take 1 tablet by mouth once daily. Take on empty stomach. For thyroid. meclizine (ANTIVERT) 12.5 mg tab Take 1 tablet by mouth every 6 hours as needed (dizziness). ondansetron orally disintegrating (ZOFRAN ODT) 4 mg disintegrating tablet Take 1 tablet by mouth every 6 hours as needed for nausea/vomiting. diazePAM (VALIUM) 5 mg tablet 1/2 to 1 tab only as needed for vertigo if persists despite other measures traMADol (ULTRAM) 50 mg tablet Take 2 tablets by mouth every 6 hours as needed for pain for up to 90 days. fluticasone (FLONASE) 50 mcg/actuation nasal spray Use 1 Vega in each nostril daily at bedtime. traZODone (DESYREL) 100 mg tablet Take 1 tablet by mouth daily at bedtime. buPROPion SR (ZYBAN SR; WELLBUTRIN SR) 150 mg 12 hr tablet Take 1 tablet by mouth two times a day. busPIRone (BUSPAR) 15 mg tablet Take 1 tablet by mouth two times a day. sertraline (ZOLOFT) 50 mg tablet Take 1 tablet by mouth once daily. montelukast (SINGULAIR) 10 mg tablet Take 1 tablet by mouth daily at bedtime. sucralfate (CARAFATE) 1 gram tablet Take 1 tablet by mouth three times daily as needed. albuterol HFA (VENTOLIN HFA) 90 mcg/actuation inhaler Inhale 2 Puffs as instructed every 4 hours as needed. loratadine (ALLERGY RELIEF, LORATADINE,) 10 mg tablet Take 1 tablet by mouth once daily. omeprazole (PRILOSEC) 20 mg capsule TAKE 2 CAPSULES BY MOUTH TWICE DAILY 1/2 HOUR BEFORE A MEAL clotrimazole-betamethasone (LOTRISONE) cream Apply 1 application to affected area twice daily. lisinopril (ZESTRIL, PRINIVIL) 5 mg tablet Take 0.5 tablets by mouth once daily. (Patient taking differently: Take 10 mg by mouth once daily.) fexofenadine (FARTUN) 180 mg tablet Take 1 tablet by mouth once daily. L. RHAMNOSUS GG/INULIN (CULTURELLE PROBIOTICS ORAL) Take 1 tablet by mouth once daily. cyanocobalamin (VITAMIN B-12) 1,000 mcg tab Take 1 tablet by mouth once daily. Cholecalciferol, Vitamin D3, 1,000 unit cap Take 1 capsule by mouth once daily. Peak Flow Meter Monica Check peak flows as directed No current facility-administered medications on file prior to visit. Social History Social History Tobacco Use Smoking status: Never Smokeless tobacco: Never Vaping Use Vaping Use: Never used Substance Use Topics Alcohol use: Yes Comment: 2 drinks per week Drug use: No REVIEW OF SYSTEMS: as above Reviewed relevant PMHx, PSHx, Social Hx, current medications and allergies. Review of Symptoms REVIEW OF SYSTEMS See HPI. EXAM: BP 138/64 (BP Site: Left Arm, BP Position: Sitting, BP Cuff Size: Large Adult) Pulse 84 Resp 14 Wt 94.8 kg (209 lb) BMI 38.81 kg/m General Appearance: Well appearing, alert, in no acute distress, well-hydrated, well nourished.. Skin: Skin color, texture, turgor normal, no suspicious rashes or lesions. Head: Normocephalic, no masses, lesions, tenderness or abnormalities. Oropharynx: Lips, mucosa, and tongue normal, teeth and gums normal, oropharynx normal. Lungs: Unlabored on room air Positive findings: wheezing on exhale. Cough. Heart: RRR without murmur, gallop, or rubs. No ectopy. Health Maintenance List Urine Albumin:Creatinine Ratio Never done Dilated Retinal Exam Never done Diabetic Foot Exam Never done Bone Density Screening Never done Influenza Vaccine(1) due on 01/01/2023 Covid-19 Vaccine(4 - 2022- season) due on 01/01/2023 DTaP,Tdap,Td Vaccine(1 - Tdap) due on 05/10/2024 RSV Vaccine(1 - 1-dose 60+ series) due on 05/10/2024 Shingrix Vaccine(2 of 2) due on 05/10/2024 Colorectal Cancer Screening due on 10/11/2023 HbA1C due on 12/16/2023 Mammogram Screening due on 01/06/2024 LDL Cholesterol due on 06/17/2024 Serum Creatinine due on 06/17/2024 Hemoglobin/Hematocrit due on 06/17/2024 Annual PCP Team Chronic Disease Visit due on 06/21/2024 Advance Directive Discussion Completed Depression Assessment Completed Hepatitis C Screening Completed Pneumococcal Vaccine: 65+ Completed Spirometry Discontinued ASSESSMENT/PLAN: 1. Sinobronchitis - ICD9: 473.9, 490, ICD10: J32.9, J40 (primary diagnosis) - CXR to rule out pneumonia. - Will begin treatment with as per antibiotic as written, see orders - use nebulizer every 4-6 hours as needed. - The patient should also be given OTC decongestants prn, OTC cough and cold meds as needed, warm salt water gargles, throat lozenges and/or OTC throat spray as needed, and nasal saline gtts and suction prn for the first 5-7 days of treatment. - Supportive care with plenty of fluids, rest, and analgesia prn. - Follow up in 3-5 days if symptoms persist or worsen. - XR CHEST 2V FRONTAL/LAT - AZITHROMYCIN 250 MG TABLET - NEBULIZER - NEBULIZER ADMINISTRATION SET - NEBULIZER INHALATION TREATMENT - METHYLPREDNISOLONE 4 MG TABLETS IN A DOSE PACK 2. Mild intermittent asthma with acute exacerbation - ICD9: 493.92, ICD10: J45.21 - Continue current medications - Exacerbation treatment of methylprednisolone dose pack if no improvement within 2 days. - Avoidance of triggers recommended - NEBULIZER - NEBULIZER ADMINISTRATION SET - NEBULIZER INHALATION TREATMENT - METHYLPREDNISOLONE 4 MG TABLETS IN A DOSE PACK RTO as needed if no improvement. Prescription instructions reviewed with patient as applicable. Potential red flag symptoms discussed with the patient. Reviewed appropriate action plan to take if red flag symptoms occur. Patient agreeable to treatment plan. Savanna Bonilla APRN.ADMISSION SPECIALIST [address] [place] [address] documented in this encounter [facility] 06-25-2023 Miscellaneous Notes Pt with hx of asthma. Pt states gets an exacerbation about once or twice a year. Has had a cough since end of May. Was see by Dr. Decker on 05/31 and was prescribed Prednisone. Pt thinks she needs more Prednisone. Pt is unable to take high doses as it makes her heart race. She took some starting on the and took 1-2 per day for approximately 8 days. She states it helped but after a couple of days being off of the Prednisone, it returned. She states she just saw Jose Petersen on Wednesday and mentioned the cough. He told her her lungs were clear. She really didn't pursue the cough and breathing. Today feels it is worse. Per protocol, pt to be seen within 24 hours. Appt given today with Savanna Craft at 140 pm. Reason for Disposition [1] Known COPD or other severe lung disease (i.e., bronchiectasis, cystic fibrosis, lung surgery) AND [2] worsening symptoms (i.e., increased sputum purulence or amount, increased breathing difficulty Answer Assessment - Initial Assessment Questions 1. ONSET: has had since the end of May. Pt states she has asthma and about 1- 2 times per year she will have a flare up and it takes a while to get over it. 2. SEVERITY: mod-severe. Pt coughing during coversation-sounds dry and hacky-sounds like some wheezing with it. 3. SPUTUM: Pt states she swallows it because if she tries to spit it out, she gags. 4. HEMOPTYSIS: denies 5. DIFFICULTY BREATHING: mild to moderate-SOB when walking up and down steps. Maybe some wheezy off and on. States last night she woke up and thought she was making squeaking sounds when she was exhaling. - MILD: No SOB at rest, mild SOB with walking, speaks normally in sentences, can lie down, no retractions, pulse < 100. - MODERATE: SOB at rest, SOB with minimal exertion and prefers to sit, cannot lie down flat, speaks in phrases, mild retractions, audible wheezing, pulse 100-120. - SEVERE: Very SOB at rest, speaks in single words, struggling to breathe, sitting hunched forward, retractions, pulse > 120 6. FEVER: denies 7. CARDIAC HISTORY:CAD and cardiomyopathy 8. LUNG HISTORY: asthma 9. PE RISK FACTORS: n/a 10. OTHER SYMPTOMS: denies chest pain but some wheezing off and on 11. : n/a 12. TRAVEL: denies Protocols used: Cough - Acute [id number] documented in this encounter [facility] 06-25-2023 Miscellaneous Notes Can we triage this. May well need seen here or urgent care Patient Comment: Im coughing an awful lot. Using my inhaler too often. I feel like I may need more prednisone. Th Moe you. Last seen 06/21/2023 Next appointment scheduled 11/08/2023 documented in this encounter [facility] 06-23-2023 Miscellaneous Notes Pt viewed her results in [employer]: Last viewed in [facility]: 06/19/2023 2:48 PM By: Miguelito Mari Called and left a voicemail for the patient to call back and ask for a nurse to receive the providers message. Results sent to [employer]. Called and left a voicemail for the patient to call back and ask for a nurse to receive the below providers message. Urine for microalbumin/creatinine ration is normal. per Bandar rUibe NP documented in this encounter [facility] 06-21-2023 Note HNO ID: [id number] Author: Steffen PETERSEN PA-C Service: ? Author Type: Physician Sign Maker Type: Progress Notes Filed: 06/21/2023 15:11 Note Text: 67 year old female with c/o Medicare wellness exam Was just seen for follow up 1 month ago Miguelito Will Mari is a 67 year old female here for a Medicare wellness visit. Medicare Health Risk Assessment General Health Fair Exercise: Minutes/Day 0 min Exercise: Days/Week 0 days Alcohol: Daily Use Monthly or less Alcohol: Drinks/Day Alcohol: 6 or more drinks Never Feel off balance Yes Concerns: Teeth/Dentures No Concerns: Sexual function No Troubled by feelings Anxious; Stressed; Irritable; Lonely Frequency: Eating healthy diet Several days ADLs requiring help None of the above Safety precautions in home/vehicle No Smoke, vape, chews tobacco No Difficulty hearing Yes, I wear a hearing aid Difficulty seeing Yes Current Providers Specialists: I have reviewed specialist-related care of the patient in the medical record. Cardiology Dr Bone Neurologist: Dr. Castellano Medical/Family history review Reviewed and updated problem list, medical/surgical/family/social history, medications, and allergies. Living with aunt and cousin, taking care of aunt. Opioid use review Opioid Medications (last 90 days) Some values may be hidden. Unless noted otherwise, only the newest values recorded on each date are displayed. Opioid Medications traMADol (ULTRAM) 50 mg tablet Dose: 100 mg EVERY 6 HOURS NEEDED Starting date: 12/31/2022 Ending date: 05/03/2023 (Discontinued) traMADol (ULTRAM) 50 mg tablet Dose: 100 mg EVERY 6 HOURS NEEDED Starting date: 05/04/2023 Ending date: 05/10/2023 (Discontinued) traMADol (ULTRAM) 50 mg tablet Dose: 100 mg EVERY 6 HOURS NEEDED Starting date: 05/10/2023 Ending date: 08/08/2023 Medication marked as long-term Prescribed tramadol HCl (last 90 days) Does patient have risk factors for opioid abuse? Yes Pain overview Pain Scales: Verbal (Numeric Rating or Visual Analog Scale) Pain Level: 7 Pain Location: Shoulder-Left Description: Dull, Aching, Tingling Duration Amount of Time: 2 Duration Units: Weeks Frequency: Continuous Current pain concerns and treatment plan reviewed. Patient pain if moves . Depression screening Depression Screening PHQ-2 Score PHQ-9 Score MEG-2 Total Score MEG-7 Total Score 06/21/2023 1 - - - Depression screening tool completed and reviewed. Based on score and interview, patient is not at risk for depression. Screening tool discussed with patient, and I recommended no further intervention at this time. Cognitive screening Cognitive screening reviewed and no further action needed (score 3-5) 2/3 x 2 Functional Observation Was the patient's Timed Up AND Go test unsteady or ? 12 seconds? No Advance Care Planning Patient did not wish or was not able to name a surrogate decision maker or provide an advance care plan Fritz Zapatater is contact Measurements BP 130/80 Pulse 78 Resp 16 Ht 5' 1.535 (1.56m) Wt 205 lb (93.0kg) SpO2 97% BMI 38.06 kg/(m2). Wears haring aides Has appointment with optometry this week ([place]) Prescribed tramadol HCl (last 90 days) Does patient have risk factors for opioid abuse? Yes Pain overview Pain Scales: Verbal (Numeric Rating or Visual Analog Scale) Pain Level: 7 Pain Location: Shoulder-Left Description: Dull, Aching, Tingling Duration Amount of Time: 2 Duration Units: Weeks Frequency: Continuous Current pain concerns and treatment plan reviewed. Patient under the care of a specialist. Depression screening Depression Screening PHQ-2 Score PHQ-9 Score MEG-2 Total Score MEG-7 Total Score 04/15/2022 0 2 2 3 Depression screening tool completed and reviewed. Based on score and interview, patient is not at risk for depression. Screening tool discussed with patient, and I recommended no further intervention at this time. Cognitive screening Cognitive screening reviewed and no further action needed (score 3-5) Functional Observation Was the patient's Timed Up AND Go test unsteady or ? 12 seconds? No Advance Care Planning Patient did not wish or was not able to name a surrogate decision maker or provide an advance care plan Given booklet to complete MDPOA and LW Measurements BP 130/80 Pulse 78 Resp 16 Ht 5' 1.535 (1.56m) Wt 205 lb (93.0kg) SpO2 97% BMI 38.06 kg/(m2). Additional concerns discussed this visit: Type 2 diabetes mellitus with stage 3a chronic kidney disease, without long-term current use of insulin ([facility]) - ICD9: 250.40, 585.3, ICD10: E11.22, N18.31 (primary diagnosis) Current medications: DIET CONTROLLED Taking medication as directed consistently? Yes Medication side effects: Medical Issues / Complications: hypertension, hyperlipidemia, and cardiovascular disease Checking blood sugars at home? No. Watching diet? Somewhat, not overly cautious Physical Activity: Sedent (more content not included)... [facility] 06-21-2023 History of Present illness Narrative Images from the original note were not included. 67 year old female with c/o Medicare wellness exam Was just seen for follow up 1 month ago Miguelito Mari is a 67 year old female here for a Medicare wellness visit. Medicare Health Risk Assessment General Health Fair Exercise: Minutes/Day 0 min Exercise: Days/Week 0 days Alcohol: Daily Use Monthly or less Alcohol: Drinks/Day Alcohol: 6 or more drinks Never Feel off balance Yes Concerns: Teeth/Dentures No Concerns: Sexual function No Troubled by feelings Anxious; Stressed; Irritable; Lonely Frequency: Eating healthy diet Several days ADLs requiring help None of the above Safety precautions in home/vehicle No Smoke, vape, chews tobacco No Difficulty hearing Yes, I wear a hearing aid Difficulty seeing Yes Current Providers Specialists: I have reviewed specialist-related care of the patient in the medical record. Cardiology Dr Bone Neurologist: Dr. Castellano Medical/Family history review Reviewed and updated problem list, medical/surgical/family/social history, medications, and allergies. Living with aunt and cousin, taking care of aunt. Opioid use review Opioid Medications (last 90 days) Some values may be hidden. Unless noted otherwise, only the newest values recorded on each date are displayed. Opioid Medications traMADol (ULTRAM) 50 mg tablet Dose: 100 mg EVERY 6 HOURS NEEDED Starting date: 12/31/2022 Ending date: 05/03/2023 (Discontinued) traMADol (ULTRAM) 50 mg tablet Dose: 100 mg EVERY 6 HOURS NEEDED Starting date: 05/04/2023 Ending date: 05/10/2023 (Discontinued) traMADol (ULTRAM) 50 mg tablet Dose: 100 mg EVERY 6 HOURS NEEDED Starting date: 05/10/2023 Ending date: 08/08/2023 Medication marked as long-term Prescribed tramadol HCl (last 90 days) Does patient have risk factors for opioid abuse? Yes Pain overview Pain Scales: Verbal (Numeric Rating or Visual Analog Scale) Pain Level: 7 Pain Location: Shoulder-Left Description: Dull, Aching, Tingling Duration Amount of Time: 2 Duration Units: Weeks Frequency: Continuous Current pain concerns and treatment plan reviewed. Patient pain if moves . Depression screening Depression Screening PHQ-2 Score PHQ-9 Score MEG-2 Total Score MEG-7 Total Score 06/21/2023 1 - - - Depression screening tool completed and reviewed. Based on score and interview, patient is not at risk for depression. Screening tool discussed with patient, and I recommended no further intervention at this time. Cognitive screening Cognitive screening reviewed and no further action needed (score 3-5) 2/ x 2 Functional Observation Was the patient's Timed Up & Go test unsteady or ? 12 seconds? No Advance Care Planning Patient did not wish or was not able to name a surrogate decision maker or provide an advance care plan Fritz Starkey is contact Measurements BP 130/80 Pulse 78 Resp 16 Ht 5' 1.535 (1.56m) Wt 205 lb (93.0kg) SpO2 97% BMI 38.06 kg/(m^2). Wears [employer] aides Has appointment with optometry this week ([place]abel) Prescribed tramadol HCl (last 90 days) Does patient have risk factors for opioid abuse? Yes Pain overview Pain Scales: Verbal (Numeric Rating or Visual Analog Scale) Pain Level: 7 Pain Location: Shoulder-Left Description: Dull, Aching, Tingling Duration Amount of Time: 2 Duration Units: Weeks Frequency: Continuous Current pain concerns and treatment plan reviewed. Patient under the care of a specialist. Depression screening Depression Screening PHQ-2 Score PHQ-9 Score MEG-2 Total Score MEG-7 Total Score 04/15/2022 0 2 2 3 Depression screening tool completed and reviewed. Based on score and interview, patient is not at risk for depression. Screening tool discussed with patient, and I recommended no further intervention at this time. Cognitive screening Cognitive screening reviewed and no further action needed (score 3-5) Functional Observation Was the patient's Timed Up & Go test unsteady or ? 12 seconds? No Advance Care Planning Patient did not wish or was not able to name a surrogate decision maker or provide an advance care plan Given booklet to complete MDPOA and LW Measurements BP 130/80 Pulse 78 Resp 16 Ht 5' 1.535 (1.56m) Wt 205 lb (93.0kg) SpO2 97% BMI 38.06 kg/(m^2). Additional concerns discussed this visit: Type 2 diabetes mellitus with stage 3a chronic kidney disease, without long-term current use of insulin ([facility]) - ICD9: 250.40, 585.3, ICD10: E11.22, N18.31 (primary diagnosis) Current medications: DIET CONTROLLED Taking medication as directed consistently? Yes Medication side effects: Medical Issues / Complications: hypertension, hyperlipidemia, and cardiovascular disease Checking blood sugars at home? No. Watching diet? Somewhat, not overly cautious Physical Activity: Sedentary Hypoglycemic spells? No Any visual disturbance? No Chest pain? No New numbness, tingling or loss of sensation? No Any recent foot problems, sores or rashes? No Any recent or sudden weight loss? No Change in urination? No. If yes: Any recent illness? No Last eye exam: due. Last foot exam: due. HBA1C: Hemoglobin A1C (%) Date Value 06/17/2023 5.5 11/12/2020 5.3 10/24/2012 5.3 ) CMP: Glucose 88 06/17/2023 BUN 19 06/17/2023 Creatinine 1.14 06/17/2023 Sodium 141 06/17/2023 Potassium 3.9 06/17/2023 Chloride 103 06/17/2023 CO2 28 06/17/2023 Protein, Total 6.7 06/17/2023 Albumin 4.1 06/17/2023 Calcium 9.5 06/17/2023 Alkaline Phosphatase 79 06/17/2023 Bilirubin, Total 0.4 06/17/2023 AST 22 06/17/2023 ALT 19 06/17/2023 Last 2 Encounter Wt Readings: Date: Wt: 06/21/2023 93 kg (205 lb) 06/07/2023 94.2 kg (207 lb 11.2 oz) BBPV Chronic vertigo: Current medications: Ondansetron ODT 4mg q6h prn Doing well, last episode 4 weeks Stopped exercise due to causing pain in neck and shoulders 03/03/2022 MRI brain with and without contrast: Mild ventricular asymmetry slightly larger on left likely normal variant, normal white matter tracts. Partial empty sella deformity likely no significance. Note made of bilateral vertebral and basilar arteries being diminutive which could contribute to vascular insufficiency. Takotsubo cardiomyopathy (primary encounter diagnosis) History of coronary vasospasm Hyperlipidemia, mixed No new data in last month Cardiovascular interval hx: no new visits or procedures. 09/09/2021 ECG NSR, let axis deviation 11/19/[address] last [address] visit with Dr. Bone: Stable, no changes. 12/21/2019 echo: LV size and LVSF NL, EF 55%, stage 1 LVDD, no regional wall motion abn. RV size and RVSF NL. Mild TVI. Normal great vessels. 11/2019 in [place] chest pain, heart cath normal coronaries, EF 25-30%, dx Takotsubo cadrdiomyopathy 10/15/2017 echocardiogram: LV size small, LV SF WNL, EF 69%, grade 1 LVDD, RV normal size, RVSF WNL, RVSP not measurable, LA size WNL, RA size WNL. No significant valvular heart disease. Aorta WNL. Pulmonary arteries not visualized. Pericardium no effusion. 2011 NSTEMI heart cath showed no significant disease Current meds: Lisinopril 5mg daily Use of NTG: n/a Chest pain, arm, jaw pain, neck, or upper back pain suggestive of angina: No chest pain since last visit, from adjusted from prior visit: has had some pains in upper chest muscles bilaterally which lasted 6-8 minutes. Occurred a few times last 2-3 minutes and then gone, occurred while sitting in chair reading. Not similar to anginal pain which was mid sternum. Identifies close to fibromyalgia spots that are always tender. SOB: No Dyspnea with exertion: No orthopnea: No. Slept with three pillows due asthma but has settled Cough : Yes. racing or irregular heartbeats: No palpitations: No syncopal sx: No Headache: No Unexplainable fatigue: energy level is poor, retired Leg swelling: No Nausea: At times, not associated with vertigo. diaphoresis: No Heartburn: No Claudication: No Smoking: No Following Low cholesterol, high fiber diet? Yes If on statin: muscle aches? No If on statin: GI sx or diarrhea? No Additional history none. Lab review: Component Latest Ref Rng & Units 10/07/2021 06/26/2022 Protein, Total 6.3 - 8.0 g/dL 6.8 6.5 Albumin 3.9 - 4.9 g/dL 4.3 4.2 Calcium 8.5 - 10.2 mg/dL 9.5 9.1 Bilirubin, Total 0.2 - 1.3 mg/dL 0.4 0.3 Alkaline Phosphatase 34 - 123 U/L 76 75 AST 13 - 35 U/L 17 17 ALT 7 - 38 U/L 11 10 Glucose 74 - 99 mg/dL 103 (H) 106 (H) BUN 7 - 21 mg/dL 17 14 Creatinine 0.58 - 0.96 mg/dL 1.24 (H) 1.23 (H) Sodium 136 - 144 mmol/L 140 139 Potassium 3.7 - 5.1 mmol/L 4.7 4.1 Chloride 97 - 105 mmol/L 103 103 CO2 22 - 30 mmol/L 28 27 Anion Gap 9 - 18 mmol/L 9 9 eGFR >=60 mL/min/1.73m 48 (L) 48 (L) WBC 3.70 - 11.00 k/uL 6.08 6.57 RBC 3.90 - 5.20 m/uL 4.72 4.54 Hemoglobin 11.5 - 15.5 g/dL 13.7 13.3 Hematocrit 36.0 - 46.0 % 43.7 41.1 MCV 80.0 - 100.0 fL 92.6 90.5 MCH 26.0 - 34.0 pg 29.0 29.3 MCHC 30.5 - 36.0 g/dL 31.4 32.4 RDW-CV 11.5 - 15.0 % 14.0 13.7 Platelet Count 150 - 400 k/uL 253 242 MPV 9.0 - 12.7 fL 9.6 9.0 Absolute nRBC <0.01 k/uL <0.01 <0.01 Cholesterol, Total <200 mg/dL 209 (H) 197 Triglyceride <150 mg/dL 168 (H) 186 (H) HDL Cholesterol >39 mg/dL 52 51 Non HDL Cholesterol <130 mg/dL 157 (H) 146 (H) Fasting Time hrs 12 12 VLDL Cholesterol <30 mg/dL 34 (H) 37 (H) TC:HDL Ratio <5.10 4.02 3.86 LDL Cholesterol <100 mg/dL 123 (H) 109 (H) LDL:HDL Ratio <2.54 2.37 2.14 Magnesium 1.7 - 2.3 mg/dL 2.2 Hyperglycemia Hemoglobin A1C (%) Date Value 11/12/2020 5.3 10/24/2012 5.3 ) Component Latest Ref Rng & Units 10/24/2012 11/12/2020 06/17/2023 Hemoglobin A1C 4.3 - 5.6 % 5.3 5.3 5.5 Estimated Average Glucose mg/dL 105 105 111 Acquired hypothyroidism Current medication: Levothyroxine 125mcg daily Taking as directed on an empty stomach? No. Thyroid pain: No. Mass effect: No. Change in energy level/ fatigue? No. Always tired. Sleep disturbance ?No. Temperature Intolerance: cold No, hot No. In females, menstrual cycle issues? No, If yes: Change in bowel habits? No. If yes: Weight changes?No. Memory issues: worries about memory loss, name recal mostly. Diaphoresis: No. Numbness, tingling no. Change in hair or skin? No. If yes: Other symptoms: Last 2 Encounter Wt Readings: Date: Wt: 03/05/2022 92.6 kg (204 lb 3.2 oz) 12/26/2021 91.3 kg (201 lb 3.2 oz) Last thyroid labs: TSH Date Value 12/26/2021 1.200 mIU/L 10/07/2021 5.120 mIU/L 11/12/2020 2.370 uU/mL 01/01/2020 0.098 uU/mL ) Component Latest Ref Rng & Units 10/07/2021 12/26/2021 06/17/2023 TSH 0.270 - 4.200 mIU/L 5.120 (H) 1.200 0.941 Chronic renal insufficiency, stage 3 (moderate) (hcc) See above: 3a GERD Current medication: Omeprazole 20mg AC daily Sucralfate 1gm thee times daily as needed (not currently), verifies today Current symptoms: none. Last Mg level if on PPI chronically: 2.2 06/26/2022. Heartburn is controlled: Yes. Dysphagia: No. Bloody or black stools: No. Bowel changes: No. Usually once a day, occasional strain, no bleeding or black or tarry stools. Last EGD and/or colonoscopy: . 06/22/2016 EGD Impression: - Normal examined jejunum. - Normal examined duodenum. - Gastritis. Biopsied. - A few mucosal papules (nodules) found in the stomach. Biopsied. - Normal lower third of esophagus. Biopsied. - Normal middle third of esophagus. 10/10/2013 EGD,colonoscopy: Colon WNL, no specimens 1. Duodenum, biopsy (A) - Duodenal mucosa with no diagnostic alteration. 2. Stomach, antrum, biopsy (B) - Chronic inactive gastritis with reactive changes. - No morphologic evidence of Helicobacter pylori. 3. Stomach, polypectomy (C) - Fundic gland polyp. AEB/mal/10/11/2013 Adjustment with prolonged depressive reaction Anxiety Current medications: Bupropion SR q12h Buspar 15mg two times a day Sertraline 50mg daily Trazedone 100mg qHS Very stressed with work environment, hearing loss: resolved with custodial. Was stressed with daughter (hx drug use intermittently) who was living with her: moved out. promotions officer recommended safe house. Would like to wean Sertraline, started taking Mild intermittent asthma without complication Roll Examiner: none. Interval history: current illness recently, flared for 2-3 weeks Took prednisone which helped. Back to using inhaler 2-3 times a day for last 2 weeks Current medications: Albuterol 90mcg 2 puffs q4h prn Fexofenadine 180mg daily Fluticasone NS 50mcg 2 sprays each side daily Loratadine 10mg daily Montelukast 10mg daily Worsening shortness of breath: No. Cough: Yes. Wheezing: No. Smoking: No. Compliant with medications: Yes. Associates with poor air quality. Using rescue inhaler: none in summer, 10 times over last 3 months. Fibromyalgia Cervical spondylosis without myelopathy Current medications: Tramadol 50mg 2 tabs q6h prn pain Cyclobenzaprine 5mg q8h prn muscle pain Winter is always worse. About the same. Feet at night get very painful. Verifies same today Left shoulder pain since June Tingles over dorsal arm to hand, tingly in index finger this morning Was started on meloxicam Dr. Carballo which initially helped for 3 days and then came back. Stopped taking meloxicam. Started taking Advil 2 tabs 200mg twice a day which helps. Started in posterior scapular upper left back Cyanocobalamin 1000mcg daily: continues to take HISTORIES FAMILY HISTORY Problem Relation Age of Onset Cancer Mother bladder, esophageal,stomach/ Hypertension Mother Stroke Mother Heart Mother Coronary Artery Disease Father Emphysema Father Hypertension Father Heart Father Coronary Artery Disease Maternal Grandmother Coronary Artery Disease Maternal Grandfather Breast Cancer Other maternal cousins x3 Cancer Other maternal cousin stomach cancer Hypertension Brother Coronary Artery Disease Maternal Uncle Coronary Artery Disease Maternal Uncle Coronary Artery Disease Maternal Uncle Coronary Artery Disease Maternal Uncle Cancer Maternal Aunt Coronary Artery Disease Maternal Aunt Heart Brother Heart Sister PAST MEDICAL HISTORY Diagnosis Date Abdominal pain, epigastric Abdominal pain, left upper quadrant Arthritis Asthma CAD (coronary artery disease) coronary artery spasm - stress heart attch 12/12 Depression Fibromyalgia Hypertension Insomnia with sleep apnea, unspecified Malaise and fatigue Myalgia and myositis, unspecified Obesity, unspecified Obstructive sleep apnea cant use cpap Reflux esophagitis Right bundle branch block (RBBB) on electrocardiogram (ECG) Unspecified asthma, with status asthmaticus Unspecified hypothyroidism Hypothyroidism Variants of migraine, not elsewhere classified, without mention of intractable migraine without mention of status migrainosus PAST SURGICAL HISTORY Procedure Laterality Date ABDOMINAL SURGERY HX ADENOIDECTOMY PRIMARY <AGE 10 Adenoidectomy CHOLECYSTECTOMY 2008 COLONOSCOPY FLX DX W/COLLJ SPEC WHEN PFRMD 10/10/13 normal - 10 year follow up EGD 06/22/2016 esophagitis and gastritis, repeat in 2-3 years d/t family history EGD TRANSORAL BIOPSY SINGLE/MULTIPLE 10/11/09 EGD TRANSORAL BIOPSY SINGLE/MULTIPLE 10/10/13 mild duodenitis, gastritis, gastric polyp ESOPHAGOGASTRODUODENOSCOPY TRANSORAL DIAGNOSTIC 04/12/00 & 12/09/06 EGD HEART CATHETERIZATION 04/09/12 TONSILLECTOMY HX TONSILLECTOMY PRIMARY/SECONDARY <AGE 10 Tonsillectomy Social History Tobacco Use Smoking status: Never Smokeless tobacco: Never Vaping Use Vaping Use: Never used Substance Use Topics Alcohol use: Yes Comment: 2 drinks per week Drug use: No ACTIVE PROBLEM LIST OVERWEIGHT Fibromyalgia Other Malaise and Fatigue Adjustment Reaction With Prolonged Depressive Reaction Esophageal Reflux Hypothyroidism Unspecified Sleep Apnea HOARSENESS Asthma Other Specified Abnormal Findings of Blood Chemistry Intractable Migraine Without Aura Vitamin D Deficiency Osteoarthrosis, Hand Cervical Spondylosis Without Myelopathy Other and Unspecified Nonspecific Immunological Findings Cad (Coronary Artery Disease) Gastroesophageal Reflux Disease Without Esophagitis History of Coronary Vasospasm Migraine Memory Difficulties Anxiety Chronic Renal Failure, Stage 3a (Hcc) Takotsubo Cardiomyopathy Hyperplastic Polyp of Stomach Bppv (Benign Paroxysmal Positional Vertigo), Unspecified Laterality Hyperglycemia Vertigo Cervicalgia Vertebrobasilar Artery Insufficiency Current Outpatient Medications Medication Sig Dispense Refill cyclobenzaprine (FLEXERIL) 5 mg tablet TAKE ONE TABLET BY MOUTH EVERY 8 HOURS NEEDED FOR MUSCLE SPASMS 30 tablet 0 meloxicam (MOBIC) 15 mg tablet Take 1 tablet by mouth once daily. With food. 30 tablet 1 predniSONE (DELTASONE) 10 mg tablet Take 1 tablet 1-2 times a day 12 tablet 0 levothyroxine (LEVOXYL) 125 mcg tablet Take 1 tablet by mouth once daily. Take on empty stomach. For thyroid. 30 tablet 5 meclizine (ANTIVERT) 12.5 mg tab Take 1 tablet by mouth every 6 hours as needed (dizziness). 15 tablet 1 ondansetron orally disintegrating (ZOFRAN ODT) 4 mg disintegrating tablet Take 1 tablet by mouth every 6 hours as needed for nausea/vomiting. 10 tablet 1 diazePAM (VALIUM) 5 mg tablet 1/2 to 1 tab only as needed for vertigo if persists despite other measures 60 tablet 0 traMADol (ULTRAM) 50 mg tablet Take 2 tablets by mouth every 6 hours as needed for pain for up to 90 days. 240 tablet 0 fluticasone (FLONASE) 50 mcg/actuation nasal spray Use 1 Vega in each nostril daily at bedtime. 1 Each 6 traZODone (DESYREL) 100 mg tablet Take 1 tablet by mouth daily at bedtime. 90 tablet 3 buPROPion SR (ZYBAN SR; WELLBUTRIN SR) 150 mg 12 hr tablet Take 1 tablet by mouth two times a day. 180 tablet 3 busPIRone (BUSPAR) 15 mg tablet Take 1 tablet by mouth two times a day. 60 tablet 3 sertraline (ZOLOFT) 50 mg tablet Take 1 tablet by mouth once daily. 90 tablet 3 montelukast (SINGULAIR) 10 mg tablet Take 1 tablet by mouth daily at bedtime. 30 tablet 11 sucralfate (CARAFATE) 1 gram tablet Take 1 tablet by mouth three times daily as needed. 270 tablet 3 albuterol HFA (VENTOLIN HFA) 90 mcg/actuation inhaler Inhale 2 Puffs as instructed every 4 hours as needed. 1 Each 3 loratadine (ALLERGY RELIEF, LORATADINE,) 10 mg tablet Take 1 tablet by mouth once daily. 90 tablet 3 omeprazole (PRILOSEC) 20 mg capsule TAKE 2 CAPSULES BY MOUTH TWICE DAILY 1/2 HOUR BEFORE A MEAL 360 capsule 3 clotrimazole-betamethasone (LOTRISONE) cream Apply 1 application to affected area twice daily. 30 g 2 lisinopril (ZESTRIL, PRINIVIL) 5 mg tablet Take 0.5 tablets by mouth once daily. (Patient taking differently: Take 10 mg by mouth once daily.) 90 tablet 5 fexofenadine (FARTUN) 180 mg tablet Take 1 tablet by mouth once daily. 30 tablet 3 L. RHAMNOSUS GG/INULIN (CULTURELLE PROBIOTICS ORAL) Take 1 tablet by mouth once daily. cyanocobalamin (VITAMIN B-12) 1,000 mcg tab Take 1 tablet by mouth once daily. 30 tablet 2 Cholecalciferol, Vitamin D3, 1,000 unit cap Take 1 capsule by mouth once daily. 0 Peak Flow Meter Monica Check peak flows as directed 1 Device 0 No current facility-administered medications for this visit. Urine Albumin:Creatinine Ratio Never done Dilated Retinal Exam Never done Diabetic Foot Exam Never done Bone Density Screening Never done Influenza Vaccine(1) due on 01/01/2023 Covid-19 Vaccine( season) due on 01/01/2023 Depression Assessment due on 05/03/2023 EXAM: BP 130/80 Pulse 78 Resp 16 Ht 156.3 cm (5' 1.54 ) Wt 93 kg (205 lb) SpO2 97% BMI 38.06 kg/m Pleasant overweight adult woman in no acute distress. Alert and oriented all spheres. Normal affect and cognition. Speech normal. No deficits to learning or comprehension. Skin warm, dry, pink to lips and nailbeds. Normal turgor. Multiple benign appearing keratoses. Mid thoracic back with 3 mm well circumscribed uniformly black lesion, slightly raised, soft Respirations regular and unlabored. HEENT: NCAT. No scleral icterus or conjunctival injection. TM's clear. Nose and oropharynx free from injection or lesion. Oral membranes moist and pink. No cervical lymph nodes. Thyroid non-tender, no masses, or enlargement. Carotids pulses 2+/4+ without bruits. No JVD with HOB at 30 degrees. Chest is normal shape. Lungs are clear to all davidson with good air exchange through out. HRRR without murmur or gallop. No lifts, heaves, or rubs. Abdomen: active bowel sounds throughout, soft, nontender, no masses or organomegaly. No CVAT. No abdominal bruits, axillary or inguinal nodes. Femoral pulses 2/4+ without bruit. ASSESSMENT/PLAN: 1. Type 2 diabetes mellitus with stage 3a chronic kidney disease, without long-term current use of insulin (HCC) - ICD9: 250.40, 585.3, ICD10: E11.22, N18.31 (primary diagnosis) - Controlled - Continue current medications - Counseled on healthy diet and regular exercise - Discussed need for and benefit of weight loss. BMI 38.06 kg/(m^2) - eGFR: 52 Stable - Counseled on avoiding NSAIDs, adequate hydration 2. Screening for diabetic retinopathy - ICD9: V80.2, ICD10: Z13.5 - Pt is scheduled for an exam outside [facility] [place] 3. Screening for osteoporosis - ICD9: V82.81, ICD10: Z13.820 Due for recheck - DXA-AXIAL SKELETON 4. Asymptomatic menopause - ICD9: V49.81, ICD10: Z78.0 - DXA-AXIAL SKELETON 5. Encounter for immunization - ICD9: V03.89, ICD10: Z23 - Pt declined 6. Atypical mole - ICD9: 216.9, ICD10: D22.9 - CONSULT TO DERMATOLOGY Some of this note may have been copied and pasted for the purpose of history context and comparison and has been adjusted for changes in prior data. Former data italicized. Steffen Petersen PA-C documented in this encounter [facility] 06-21-2023 Instructions Steffen Petersen PA-C - 06/21/2023 6:58 AM EST BONE MINERAL DENSITY PATIENT INSTRUCTIONS ======== Bone mineral density testing measures the amount of calcium in certain parts of your bones. This information determines how strong your bones are. The test is used to detect osteoporosis, a disease in which the bone's mineral content and density are low, increasing a person's risk of fractures. The lumbar spine (lower back) and the hip are the skeletal sites usually examined. For the test, remember that: 1. You cannot take this test if you are . 2. Eat a normal diet on the day of the test. 3. Take your medications as you normally would. 4. DO NOT take calcium supplements (such as Tums) for 24 hours before the test. 5. On the day of the test, leave valuables (jewelry or credit cards) at home. 6. The test should be performed prior to oral, rectal or IV contrast studies, or at least 7 days after any of these studies. For the test, you may be asked to wear a hospital gown. You will lie on your back, on a padded table, in a comfortable position. Generally, you can resume your usual activities immediately. 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 ----- Message from Mindy Tijerina sent at 06/17/2023 5:09 PM EST ----- Please place a new order for Urine creatinine, if clinically indicated. This notification serves toinform you that a test(s) have been canceled for reason(s) denoted on the result report within the Epic chart. Thank you. If any questions, please contact Laboratory Client Services. DO NOT REPLY TO THIS MESSAGE. [facility] Evaluation note* Diagnosis Stage 3a chronic kidney disease (HCC)- Primary documented in this encounter [facility]02-09-2024 Miscellaneous Notes* Telephone Encounter - Margie Saul LPN - 06/11/2023 8:04 AM EST Spoke with pt and information listed below given. Pt verbalizes understanding. Margie Saul LPN * Telephone Encounter - Milady Leal LPN - 06/10/2023 3:17 PM EST Left message to return call * Telephone Encounter - Papa Moser MD - 06/10/2023 2:53 PM EST Rx sent. Limit using same time as tramadol * Telephone Encounter - Milady Leal LPN - 06/10/2023 1:48 PM EST Patient seen by Dr. Decker on 06/07/2023 Patient Comment: Jose BREWER. I saw Dr. Decker 3 or 4 days ago for terrible pain started on left side of back went up to shoulder then a day later it went all the way around shoulder and down 1/2 was arm. He put me on Motrin and said take your muscle relaxers. Thus the need for flexeril. Itsa little better but improving very slowly. To be total be out of pain I have to lay flat snd bearlymove my left arm. Plus Im left handed....Any thoughts? Thank you. [facility] NoteHNO ID: [id number] Author: VIVIANA DECKER MD Service: ? Author Type: Physician Type: Progress Notes Filed: 06/07/2023 17:51 Note Text: Chief Complaint Patient presents with: Pain (Shoulder Pain): left HPI Miguelito Mari is a 67 year old female who presents here today for pain. Pt of Dr. Garcia. The asthma is doing better since taking the Prednisone. She has not needed to use the inhaler today. Left shoulder pain, difficulty moving x 3 days constant. Pt was see last week for asthma and treated with prednisone, the pain started the last day of her Prednisone dosage. Pt is also taking Valium 5 mg 1/2 to 1 pill prn, Flexeril 5 mg 1 pill TID prn, and Tramadol 50 mg 2 pills every 6 hours prn. Pt states that normally she takes 2 tramadol in the AM and 2 in PM, but can take up to 6 pills a day. She thought she was having fibro pain as the pain was in the upper back and left side neck, but the pain has now gone into the left shoulder and is moving down the arm. No numbness/tingling of arm. She rated pain 8.5/10, sharp shooting pain. She has been using Aleve along with the Tramadol which takes the edge off. She gets pain with all movement, laying down is the only time she can get the pain to reduce. She has used heat which helps. No injury to the arm. The morning is the best time of the day for her. She takes the Flexeril at night before bed, doesn't like to use it during the day as it makes her sleepy. Pt has used Celebrex in the past but thought it may have caused stomach issues after taking it for a few days. Has never used mobic. Past medical history, appointments, medications, allergies reviewed. Previous Medical History PAST MEDICAL HISTORY Diagnosis Date Abdominal pain, epigastric Abdominal pain, left upper quadrant Arthritis Asthma CAD (coronary artery disease) coronary artery spasm - stress heart attch 04/13 Depression Fibromyalgia Hypertension Insomnia with sleep apnea, unspecified Malaise and fatigue Myalgia and myositis, unspecified Obesity, unspecified Obstructive sleep apnea cant use cpap Reflux esophagitis Right bundle branch block (RBBB) on electrocardiogram (ECG) Unspecified asthma, with status asthmaticus Unspecified hypothyroidism Hypothyroidism Variants of migraine, not elsewhere classified, without mention of intractable migraine without mention of status migrainosus Previous Surgical History PAST SURGICAL HISTORY Procedure Laterality Date ABDOMINAL SURGERY HX ADENOIDECTOMY PRIMARY Adenoidectomy CHOLECYSTECTOMY 2008 COLONOSCOPY FLX DX W/COLLJ SPEC WHEN PFRMD 10/10/13 normal - 10 year follow up EGD 06/22/2016 esophagitis and gastritis, repeat in 2-3 years d/t family history EGD TRANSORAL BIOPSY SINGLE/MULTIPLE 10/11/09 EGD TRANSORAL BIOPSY SINGLE/MULTIPLE 10/10/13 mild duodenitis, gastritis, gastric polyp ESOPHAGOGASTRODUODENOSCOPY TRANSORAL DIAGNOSTIC 04/12/00 AND 12/09/06 EGD HEART CATHETERIZATION 04/09/12 TONSILLECTOMY HX TONSILLECTOMY PRIMARY/SECONDARY Tonsillectomy Family History FAMILY HISTORY Problem Relation Age of Onset Cancer Mother bladder, esophageal,stomach/ Hypertension Mother Stroke Mother Heart Mother Coronary Artery Disease Father Emphysema Father Hypertension Father Heart Father Coronary Artery Disease Maternal Grandmother Coronary Artery Disease Maternal Grandfather Breast Cancer Other maternal cousins x3 Cancer Other maternal cousin stomach cancer Hypertension Brother Coronary Artery Disease Maternal Uncle Coronary Artery Disease Maternal Uncle Coronary Artery Disease Maternal Uncle Coronary Artery Disease Maternal Uncle Cancer Maternal Aunt Coronary Artery Disease Maternal Aunt Heart Brother Heart Sister Patient Allergies ALLERGIES Allergen Reactions Adhesive Tape (Stephanie* Rash Augmentin [Amoxicil* GI Upset Hydrochlorothiazide Hives Current Medications Current Outpatient Medications on File Prior to Visit Medication Sig predniSONE (DELTASONE) 10 mg tablet Take 1 tablet 1-2 times a day levothyroxine (LEVOXYL) 125 mcg tablet Take 1 tablet by mouth once daily. Take on empty stomach. For thyroid. meclizine (ANTIVERT) 12.5 mg tab Take 1 tablet by mouth every 6 hours as needed (dizziness). ondansetron orally disintegrating (ZOFRAN ODT) 4 mg disintegrating tablet Take 1 tablet by mouth every 6 hours as needed for nausea/vomiting. diazePAM (VALIUM) 5 mg tablet 1/2 to 1 tab only as needed for vertigo if persists despite other measures traMADol (ULTRAM) 50 mg tablet Take 2 tablets by mouth every 6 hours as needed for pain for up to 90 days. fluticasone (FLONASE) 50 mcg/actuation nasal spray Use 1 Vega in each nostril daily at bedtime. traZODone (DESYREL) 100 mg tablet Take 1 tablet by mouth daily at bedtime. buPROPion SR (ZYBAN SR; WELLBUTRIN SR) 150 mg 12 hr tablet Take 1 tablet by mouth two times a day. busPIRone (BUSPAR) 15 mg (more content not included)...[facility]02-05-2024 History of Present illness Narrative* Viviana Decker MD - 06/07/2023 5:40 PM EST Chief Complaint Patient presents with: Pain (Shoulder Pain): left HPI Miguelito Mari is a 67 year old female who presents here today for pain. Pt of Dr. Garcia. The asthma is doing better since taking the Prednisone. She has not needed to use the inhaler today. Left shoulder pain, difficulty moving x 3 days constant. Pt was see last week for asthma and treated with prednisone, the pain started the last day of her Prednisone dosage. Pt is also taking Valium 5 mg 1/2 to 1 pill prn, Flexeril 5 mg 1 pill TID prn, and Tramadol 50 mg 2 pills every 6 hours prn. Pt states that normally she takes 2 tramadol in the AM and 2 in PM, but can take up to 6 pills a day. She thought she was having fibro pain as the pain was in the upper back and left side neck, but the pain has now gone into the left shoulder and is moving down the arm. No numbness/tingling of arm. She rated pain 8.5/10, sharp shooting pain. She has been using Aleve along with the Tramadol which takes the edge off. She gets pain with all movement, laying down is the only time she can get the pain to reduce. She has used heat which helps. No injury to the arm. The morning is the best time of the day for her. She takes the Flexeril at night before bed, doesn't like to use it during the day as it makes her sleepy. Pt has used Celebrex in the past but thought it may have caused stomach issues after taking it for a few days. Has never used mobic. Past medical history, appointments, medications, allergies reviewed. Previous Medical History PAST MEDICAL HISTORY Diagnosis Date Abdominal pain, epigastric Abdominal pain, left upper quadrant Arthritis Asthma CAD (coronary artery disease) coronary artery spasm - stress heart attch 04/13 Depression Fibromyalgia Hypertension Insomnia with sleep apnea, unspecified Malaise and fatigue Myalgia and myositis, unspecified Obesity, unspecified Obstructive sleep apnea cant use cpap Reflux esophagitis Right bundle branch block (RBBB) on electrocardiogram (ECG) Unspecified asthma, with status asthmaticus Unspecified hypothyroidism Hypothyroidism Variants of migraine, not elsewhere classified, without mention of intractable migraine without mention of status migrainosus Previous Surgical History PAST SURGICAL HISTORY Procedure Laterality Date ABDOMINAL SURGERY HX ADENOIDECTOMY PRIMARY <AGE 10 Adenoidectomy CHOLECYSTECTOMY 2008 COLONOSCOPY FLX DX W/COLLJ SPEC WHEN PFRMD 10/10/13 normal - 10 year follow up EGD 06/22/2016 esophagitis and gastritis, repeat in 2-3 years d/t family history EGD TRANSORAL BIOPSY SINGLE/MULTIPLE 10/11/09 EGD TRANSORAL BIOPSY SINGLE/MULTIPLE 10/10/13 mild duodenitis, gastritis, gastric polyp ESOPHAGOGASTRODUODENOSCOPY TRANSORAL DIAGNOSTIC 04/12/00 & 12/09/06 EGD HEART CATHETERIZATION 04/09/12 TONSILLECTOMY HX TONSILLECTOMY PRIMARY/SECONDARY <AGE 10 Tonsillectomy Family History FAMILY HISTORY Problem Relation Age of Onset Cancer Mother bladder, esophageal,stomach/ Hypertension Mother Stroke Mother Heart Mother Coronary Artery Disease Father Emphysema Father Hypertension Father Heart Father Coronary Artery Disease Maternal Grandmother Coronary Artery Disease Maternal Grandfather Breast Cancer Other maternal cousins x3 Cancer Other maternal cousin stomach cancer Hypertension Brother Coronary Artery Disease Maternal Uncle Coronary Artery Disease Maternal Uncle Coronary Artery Disease Maternal Uncle Coronary Artery Disease Maternal Uncle Cancer Maternal Aunt Coronary Artery Disease Maternal Aunt Heart Brother Heart Sister Patient Allergies ALLERGIES Allergen Reactions Adhesive Tape (Stephanie* Rash Augmentin [Amoxicil* GI Upset Hydrochlorothiazide Hives Current Medications Current Outpatient Medications on File Prior to Visit Medication Sig predniSONE (DELTASONE) 10 mg tablet Take 1 tablet 1-2 times a day levothyroxine (LEVOXYL) 125 mcg tablet Take 1 tablet by mouth once daily. Take on empty stomach. For thyroid. meclizine (ANTIVERT) 12.5 mg tab Take 1 tablet by mouth every 6 hours as needed (dizziness). ondansetron orally disintegrating (ZOFRAN ODT) 4 mg disintegrating tablet Take 1 tablet by mouth every 6 hours as needed for nausea/vomiting. diazePAM (VALIUM) 5 mg tablet 1/2 to 1 tab only as needed for vertigo if persists despite other measures traMADol (ULTRAM) 50 mg tablet Take 2 tablets by mouth every 6 hours as needed for pain for up to 90 days. fluticasone (FLONASE) 50 mcg/actuation nasal spray Use 1 Vega in each nostril daily at bedtime. traZODone (DESYREL) 100 mg tablet Take 1 tablet by mouth daily at bedtime. buPROPion SR (ZYBAN SR; WELLBUTRIN SR) 150 mg 12 hr tablet Take 1 tablet by mouth two times a day. busPIRone (BUSPAR) 15 mg tablet Take 1 tablet by mouth two times a day. cyclobenzaprine (FLEXERIL) 5 mg tablet TAKE ONE TABLET BY MOUTH EVERY 8 HOURS NEEDED FOR MUSCLE SPASMS sertraline (ZOLOFT) 50 mg tablet Take 1 tablet by mouth once daily. montelukast (SINGULAIR) 10 mg tablet Take 1 tablet by mouth daily at bedtime. sucralfate (CARAFATE) 1 gram tablet Take 1 tablet by mouth three times daily as needed. albuterol HFA (VENTOLIN HFA) 90 mcg/actuation inhaler Inhale 2 Puffs as instructed every 4 hours asneeded. loratadine (ALLERGY RELIEF, LORATADINE,) 10 mg tablet Take 1 tablet by mouth once daily. omeprazole (PRILOSEC) 20 mg capsule TAKE 2 CAPSULES BY MOUTH TWICE DAILY 1/2 HOUR BEFORE A MEAL clotrimazole-betamethasone (LOTRISONE) cream Apply 1 application to affected area twice daily. lisinopril (ZESTRIL, PRINIVIL) 5 mg tablet Take 0.5 tablets by mouth once daily. (Patient taking differently: Take 10 mg by mouth once daily.) fexofenadine (FARTUN) 180 mg tablet Take 1 tablet by mouth once daily. L. RHAMNOSUS GG/INULIN (CULTURELLE PROBIOTICS ORAL) Take 1 tablet by mouth once daily. cyanocobalamin (VITAMIN B-12) 1,000 mcg tab Take 1 tablet by mouth once daily. Cholecalciferol, Vitamin D3, 1,000 unit cap Take 1 capsule by mouth once daily. Peak Flow Meter Monica Check peak flows as directed No current facility-administered medications on file prior to visit. Social History Social History Tobacco Use Smoking status: Never Smokeless tobacco: Never Vaping Use Vaping Use: Never used Substance Use Topics Alcohol use: Yes Comment: 2 drinks per week Drug use: No EXAM: BP 130/74 Pulse 84 Resp 18 Wt 94.2 kg (207 lb 11.2 oz) BMI 39.24 kg/m General Appearance: Well appearing, alert, in no acute distress, well-hydrated, well nourished. andOverweight. Neck: no pain on palpation. Back:no pain to palpation of vertebrae, no muscle tenderness Extremities: Left shoulder; good ROM, tenderness on palpation, mild zander with impingement and rotator strength testing Health Maintenance List Urine Albumin:Creatinine Ratio Never done Dilated Retinal Exam Never done Diabetic Foot Exam Never done Bone Density Screening Never done HbA1C due on 05/15/2021 Influenza Vaccine(1) due on 01/01/2023 Covid-19 Vaccine( - season) due on 01/01/2023 Depression Assessment due on 05/03/2023 LDL Cholesterol due on 06/26/2023 DTaP,Tdap,Td Vaccine(1 - Tdap) due on 05/10/2024 RSV Vaccine(1 - 1-dose 60+ series) due on 05/10/2024 Shingrix Vaccine(2 of 2) due on 05/10/2024 Serum Creatinine due on 06/26/2023 Hemoglobin/Hematocrit due on 06/26/2023 Colorectal Cancer Screening due on 10/11/2023 Mammogram Screening due on 01/06/2024 Annual PCP Team Chronic Disease Visit due on 05/31/2024 Advance Directive Discussion Completed Hepatitis C Screening Completed Pneumococcal Vaccine: 65+ Completed Spirometry Discontinued Data reviewed None ASSESSMENT/PLAN: 1. Acute pain of left shoulder - ICD9: 719.41, ICD10: M25.512 Start Mobic 15 mg daily Continue with prescription pain meds Continue with heat Follow up with PCP if not improving. I agree with the Chief Complaint, ROS, and Past Histories independently gathered by the clinical health support specialist and the remaining scribed note accurately describes my personal service to the patient. Medical Decision Making: Problems: Low: Acute, uncomplicated illness or injury Risk: Moderate: Drug management Medical Decision Making Level: 3 - Low Viviana Decker MD The documentation for this note was completed by Bea Melendrez Ma acting as scribe for Viviana Decker MD. June 07, 2023 5:42 PM. Bea Melendrez Ma [facility] NoteHNO ID: [id number] Author: VIVIANA DECKER MD Service: ? Author Type: Physician Type: Progress Notes Filed: 05/31/2023 15:01 Note Text: Chief Complaint Patient presents with: Asthma HPI Miguelito Mari is a 67 year old female who presents here today for asthma. Pt of Dr. Moser. Pt here today with complaints of a flare up with her asthma. Reports symptoms worsening over the past 7-8 days ago. Generally around this time of year she seems to have a flare up, occurring generally twice a year. Symptoms okay during the day but worse at night. When she takes a deep breath out, will experience a deep cough and causes her to see spots. This doesn't occur every time but on occasion. When she has a coughing fit and is trying to stop to use her inhaler she does have some burning in chest, denies any tightness. Is propping herself up when she's sleeping. Doesn't like to take Prednisone, but generally when symptoms are exacerbated she is put on this it does help her. The higher dosage of Prednisone 20 mg makes her heart palpate or feel like it's pounding hard. Is taking Singulair 10 mg daily, Loratadine 10 mg daily and Fartun 180 mg once daily and uses Albuterol inhaler prn. Her regimen does help her. Past medical history, appointments, medications, allergies reviewed. Previous Medical History PAST MEDICAL HISTORY Diagnosis Date Abdominal pain, epigastric Abdominal pain, left upper quadrant Arthritis Asthma CAD (coronary artery disease) coronary artery spasm - stress heart attch 04/13 Depression Fibromyalgia Hypertension Insomnia with sleep apnea, unspecified Malaise and fatigue Myalgia and myositis, unspecified Obesity, unspecified Obstructive sleep apnea cant use cpap Reflux esophagitis Right bundle branch block (RBBB) on electrocardiogram (ECG) Unspecified asthma, with status asthmaticus Unspecified hypothyroidism Hypothyroidism Variants of migraine, not elsewhere classified, without mention of intractable migraine without mention of status migrainosus Previous Surgical History PAST SURGICAL HISTORY Procedure Laterality Date ABDOMINAL SURGERY HX ADENOIDECTOMY PRIMARY Adenoidectomy CHOLECYSTECTOMY 2008 COLONOSCOPY FLX DX W/COLLJ SPEC WHEN PFRMD 10/10/13 normal - 10 year follow up EGD 06/22/2016 esophagitis and gastritis, repeat in 2-3 years d/t family history EGD TRANSORAL BIOPSY SINGLE/MULTIPLE 10/11/09 EGD TRANSORAL BIOPSY SINGLE/MULTIPLE 10/10/13 mild duodenitis, gastritis, gastric polyp ESOPHAGOGASTRODUODENOSCOPY TRANSORAL DIAGNOSTIC 04/12/00 AND 12/09/06 EGD HEART CATHETERIZATION 04/09/12 TONSILLECTOMY HX TONSILLECTOMY PRIMARY/SECONDARY Tonsillectomy Family History FAMILY HISTORY Problem Relation Age of Onset Cancer Mother bladder, esophageal,stomach/ Hypertension Mother Stroke Mother Heart Mother Coronary Artery Disease Father Emphysema Father Hypertension Father Heart Father Coronary Artery Disease Maternal Grandmother Coronary Artery Disease Maternal Grandfather Breast Cancer Other maternal cousins x3 Cancer Other maternal cousin stomach cancer Hypertension Brother Coronary Artery Disease Maternal Uncle Coronary Artery Disease Maternal Uncle Coronary Artery Disease Maternal Uncle Coronary Artery Disease Maternal Uncle Cancer Maternal Aunt Coronary Artery Disease Maternal Aunt Heart Brother Heart Sister Patient Allergies ALLERGIES Allergen Reactions Adhesive Tape (Stephanie* Rash Augmentin [Amoxicil* GI Upset Hydrochlorothiazide Hives Current Medications Current Outpatient Medications on File Prior to Visit Medication Sig levothyroxine (LEVOXYL) 125 mcg tablet Take 1 tablet by mouth once daily. Take on empty stomach. For thyroid. meclizine (ANTIVERT) 12.5 mg tab Take 1 tablet by mouth every 6 hours as needed (dizziness). ondansetron orally disintegrating (ZOFRAN ODT) 4 mg disintegrating tablet Take 1 tablet by mouth every 6 hours as needed for nausea/vomiting. diazePAM (VALIUM) 5 mg tablet 1/2 to 1 tab only as needed for vertigo if persists despite other measures traMADol (ULTRAM) 50 mg tablet Take 2 tablets by mouth every 6 hours as needed for pain for up to 90 days. fluticasone (FLONASE) 50 mcg/actuation nasal spray Use 1 Vega in each nostril daily at bedtime. traZODone (DESYREL) 100 mg tablet Take 1 tablet by mouth daily at bedtime. buPROPion SR (ZYBAN SR; WELLBUTRIN SR) 150 mg 12 hr tablet Take 1 tablet by mouth two times a day. busPIRone (BUSPAR) 15 mg tablet Take 1 tablet by mouth two times a day. cyclobenzaprine (FLEXERIL) 5 mg tablet TAKE ONE TABLET BY MOUTH EVERY 8 HOURS NEEDED FOR MUSCLE SPASMS sertraline (ZOLOFT) 50 mg tablet Take 1 tablet by mouth once daily. montelukast (SINGULAIR) 10 mg tablet Take 1 tablet by mouth daily at bedtime. sucralfate (CARAFATE) 1 gram tablet Take 1 tablet by mouth three times daily as needed. albuterol HFA (ASA (more content not included)...[facility] 05-10-2023 NoteHNO ID: [id number] Author: Steffen PETERSEN PA-C Service: ? Author Type: Physician Sign Maker Type: Progress Notes Filed: 05/10/2023 16:57 Note Text: 67 year old female with c/o medication follow up URI sx with 1 person in house positive for Covid 19 but didn't check. Day 7, improving pretty steadily. No fever. BBPV Chronic vertigo: Current medications: Ondansetron ODT 4mg q6h prn Has been 2-3 weeks since last episode. Was 1-2/ week for awhile. Had consult with ENT Dr. Blas: Recommended he see cerebrovascular surgery. 03/03/2022 MRI brain with and without contrast: Mild ventricular asymmetry slightly larger on left likely normal variant, normal white matter tracts. Partial empty sella deformity likely no significance. Note made of bilateral vertebral and basilar arteries being diminutive which could contribute to vascular insufficiency. Takotsubo cardiomyopathy (primary encounter diagnosis) History of coronary vasospasm Hyperlipidemia, mixed Cardiovascular interval hx: no new visits or procedures. 11/19/[address] last [address] visit with Dr. Bone: Stable, no changes. 12/21/19/ echo: LV size and LVSF NL, EF 55%, stage 1 LVDD, no regional wall motion abn. RV size and RVSF NL. Mild TVI. Normal great vessels. 11/2019 in [place] chest pain, heart cath normal coronaries, EF 25-30%, dx Takotsubo cadrdiomyopathy 10/15/2017 echocardiogram: LV size small, LV SF WNL, EF 69%, grade 1 LVDD, RV normal size, RVSF WNL, RVSP not measurable, LA size WNL, RA size WNL. No significant valvular heart disease. Aorta WNL. Pulmonary arteries not visualized. Pericardium no effusion. 2011 NSTEMI heart cath showed no significant disease Current meds: Lisinopril 5mg daily Use of NTG: n/a Chest pain, arm, jaw pain, neck, or upper back pain suggestive of angina: has had some pains in upper chest muscles bilaterally which lasted 6-8 minutes. Occurred a few times last 2-3 minutes and then gone, occurred while sitting in chair reading. Not similar to anginal pain which was mid sternum. SOB: No Dyspnea with exertion: No orthopnea: No Cough : Yes. racing or irregular heartbeats: No palpitations: No syncopal sx: No Headache: No Unexplainable fatigue: energy level is poor, retired Leg swelling: No Nausea: At times, not associated with vertigo. diaphoresis: No Heartburn: No Claudication: No Smoking: No Following Low cholesterol, high fiber diet? Yes If on statin: muscle aches? No If on statin: GI sx or diarrhea? No Additional history none. Lab review: Component Latest Ref Rng AND Units 10/07/2021 06/26/2022 Protein, Total 6.3 - 8.0 g/dL 6.8 6.5 Albumin 3.9 - 4.9 g/dL 4.3 4.2 Calcium 8.5 - 10.2 mg/dL 9.5 9.1 Bilirubin, Total 0.2 - 1.3 mg/dL 0.4 0.3 Alkaline Phosphatase 34 - 123 U/L 76 75 AST 13 - 35 U/L 17 17 ALT 7 - 38 U/L 11 10 Glucose 74 - 99 mg/dL 103 (H) 106 (H) BUN 7 - 21 mg/dL 17 14 Creatinine 0.58 - 0.96 mg/dL 1.24 (H) 1.23 (H) Sodium 136 - 144 mmol/L 140 139 Potassium 3.7 - 5.1 mmol/L 4.7 4.1 Chloride 97 - 105 mmol/L 103 103 CO2 22 - 30 mmol/L 28 27 Anion Gap 9 - 18 mmol/L 9 9 eGFR >=60 mL/min/1.73mA? 48 (L) 48 (L) WBC 3.70 - 11.00 k/uL 6.08 6.57 RBC 3.90 - 5.20 m/uL 4.72 4.54 Hemoglobin 11.5 - 15.5 g/dL 13.7 13.3 Hematocrit 36.0 - 46.0 % 43.7 41.1 MCV 80.0 - 100.0 fL 92.6 90.5 MCH 26.0 - 34.0 pg 29.0 29.3 MCHC 30.5 - 36.0 g/dL 31.4 32.4 RDW-CV 11.5 - 15.0 % 14.0 13.7 Platelet Count 150 - 400 k/uL 253 242 MPV 9.0 - 12.7 fL 9.6 9.0 Absolute nRBC <0.01 k/uL <0.01 <0.01 Cholesterol, Total <200 mg/dL 209 (H) 197 Triglyceride <150 mg/dL 168 (H) 186 (H) HDL Cholesterol >39 mg/dL 52 51 Non HDL Cholesterol <130 mg/dL 157 (H) 146 (H) Fasting Time hrs 12 12 VLDL Cholesterol <30 mg/dL 34 (H) 37 (H) TC:HDL Ratio <5.10 4.02 3.86 LDL Cholesterol <100 mg/dL 123 (H) 109 (H) LDL:HDL Ratio <2.54 2.37 2.14 Magnesium 1.7 - 2.3 mg/dL 2.2 Hyperglycemia Hemoglobin A1C (%) Date Value 11/12/2020 5.3 10/24/2012 5.3 ) Acquired hypothyroidism Current medication: Levothyroxine 125mcg daily Taking as directed on an empty stomach? No. Thyroid pain: No. Mass effect: No. Change in energy level/ fatigue? No. Always tired. Sleep disturbance ?No. Temperature Intolerance: cold No, hot No. In females, menstrual cycle issues? No, If yes: Change in bowel habits? No. If yes: Weight changes?No. Memory issues: worries about memory loss, name recal mostly. Diaphoresis: No. Numbness, tingling no. Change in hair or skin? No. If yes: Other symptoms: Last 2 Encounter Wt Readings: Date: Wt: 03/05/2022 92.6 kg (204 lb 3.2 oz) 12/26/2021 91.3 kg (201 lb 3.2 oz) Last thyroid labs: TSH Date Value 12/26/2021 1.200 mIU/L 10/07/2021 5.120 mIU/L 11/12/2020 2.370 uU/mL 01/01/2020 0.098 uU/mL ) Chronic renal insufficiency, stage 3 (moderate) (hcc) See above: 3a GERD Current medication: Omeprazole 20mg AC daily Sucralfate 1gm thee times (more content not included)...[facility]12-12-2023 Miscellaneous Notes* Telephone Encounter - Milady Leal LPN - 04/13/2023 4:24 PM EST Patient has been identified by name and date of : Yes Patient phones for refill(s): Requested Prescriptions Pending Prescriptions Disp Refills fluticasone (FLONASE) 50 mcg/actuation nasal spray 1 Each 6 Sig: Use 1 Vega in each nostril daily at bedtime. Refused Prescriptions Disp Refills loratadine (ALLERGY RELIEF, LORATADINE,) 10 mg tablet 90 tablet 3 Sig: Take 1 tablet by mouth once daily. busPIRone (BUSPAR) 15 mg tablet 60 tablet 3 Sig: Take 1 tablet by mouth two times a day. Date of last office visit in primary care: 02/16/2023 Date of next office visit in primary care: Visit date not found Please advise. Thank you. Milady Leal LPN. [facility] Miscellaneous Notes* Telephone Encounter - Carline Mcnair MA - 03/15/2023 10:50 AM EST Patient has been identified by name and date of : Yes Requested Prescriptions Pending Prescriptions Disp Refills traZODone (DESYREL) 100 mg tablet 90 tablet 3 Sig: Take 1 tablet by mouth daily at bedtime. buPROPion SR (ZYBAN SR; WELLBUTRIN SR) 150 mg 12 hr tablet 180 tablet 3 Sig: Take 1 tablet by mouth two times a day. busPIRone (BUSPAR) 15 mg tablet 60 tablet 3 Sig: Take 1 tablet by mouth two times a day. RX INSTRUCTIONS: Patient aware RX will be sent to pharmacy. No need to notify patient. Patient last office visit: 02/16/23 Patient next office visit: none scheduled at this time Carline Mcnair MA documented in [facility]Del[facility]10-27-2023 Miscellaneous Notes* Telephone Encounter - Sara Pickett - 02/26/2023 8:14 AM EDT Patient has been identified by name and date of : Yes Requested Prescriptions Pending Prescriptions Disp Refills meclizine (ANTIVERT) 12.5 mg tab 15 tablet 1 Sig: Take 1 tablet by mouth every 6 hours as needed (dizziness). GERALD:02/16/23 No known appt made. RX INSTRUCTIONS: Patient aware RX will be sent to pharmacy. No need to notify patient. Sara Pickett documented in [facility]Del[facility]10-27-2023 Miscellaneous Notes* Telephone Encounter - Sara Pickett - 02/26/2023 8:12 AM EDT Patient has been identified by name and date of : Yes Requested Prescriptions Pending Prescriptions Disp Refills ondansetron orally disintegrating (ZOFRAN ODT) 4 mg disintegrating tablet 10 tablet 1 Sig: Take 1 tablet by mouth every 6 hours as needed for nausea/vomiting. GERALD:02/16/23 No known appt. RX INSTRUCTIONS: Patient aware RX will be sent to pharmacy. No need to notify patient. Sara Pickett documented in this encounterDel[facility]10-17-2023 NoteHNO ID: [id number] Author: Colton Murray RT(R) Service: Radiology Author Type: Technologist Type: Progress Notes Filed: 02/16/2023 4:50 PM Note Text: Radiology Service Progress Note PATIENT NAME: Miguelito Mari DATE OF SERVICE: February 16, 2023 TIME: 4:42 PM PATIENT IDENTITY VERIFICATION COMPLETED USING TWO (2) IDENTIFIERS: Name and Date of confirmed by patient verbally. FALL SCREENING: Has the patient had 2 falls in the last year or 1 fall with injury or currently using an Ambulatory Assistive Device (Walker, Cane, Wheelchair, Crutches, etc.)? No PATIENT GENDER DATA: Female. status: : No status: NO. PATIENT RELEVANT IMPLANT DATA REVIEWED: Yes RADIOLOGY DEPARTMENT: General X-ray: Exam(s) Completed: Chest X-Ray PERIPHERAL IV DATA: Not applicable SIGNED BY: RT Apple(R) February 16, 2023 4:42 [facility]10-17-2023 NoteHNO ID: [id number] Author: Papa Moser MD Service: ? Author Type: Physician Type: Progress Notes Filed: 02/16/2023 4:30 PM Note Text: Patient presents with: Asthma HPI: Patient presents today for office visit for asthma flare. Reports having to use her albuterol inhaler 4+ a day since being sick over the last month. Shortness of breath has progressed since last OV 02/01/23. Denies chest pain. Did improve after her doxycycline but has gotten a deep breath and feels wheezy. Her inhaler does help. No fever or chills. No sinus congestion. No gi issues. Has burning in her chest with burning. Some ear pain with her hearing aids. No sore throat. See last OV: Chief Complaint Patient presents with: Cough Head Congestion HPI Miguelito Mari is a 67 year old female who presents here today for Above Complaints.. Started with head congestion about 10 days ago. States she felt better around day 6 and then came back worse. Pt states she developed a cough about 5 days ago that is occassionally productive. Fevers at night that run around 101 starting 4 days ago. WILSON, sinus pressure, sore throat. Denies N/V/D. Has been taking advil for fever and using albuterol inhaler for wheezing and cough with relief. SOB with activity. MEDICATIONS: Current Outpatient Medications Medication Sig cyclobenzaprine (FLEXERIL) 5 mg tablet TAKE ONE TABLET BY MOUTH EVERY 8 HOURS NEEDED FOR MUSCLE SPASMS sertraline (ZOLOFT) 50 mg tablet Take 1 tablet by mouth once daily. traMADol (ULTRAM) 50 mg tablet Take 2 tablets by mouth every 6 hours as needed for pain for up to 30 days. busPIRone (BUSPAR) 15 mg tablet Take 1 tablet by mouth twice daily. montelukast (SINGULAIR) 10 mg tablet Take 1 tablet by mouth daily at bedtime. levothyroxine (LEVOXYL) 125 mcg tablet Take 1 tablet by mouth once daily. Take on empty stomach. For thyroid. sucralfate (CARAFATE) 1 gram tablet Take 1 tablet by mouth three times daily as needed. albuterol HFA (VENTOLIN HFA) 90 mcg/actuation inhaler Inhale 2 Puffs as instructed every 4 hours as needed. loratadine (ALLERGY RELIEF, LORATADINE,) 10 mg tablet Take 1 tablet by mouth once daily. omeprazole (PRILOSEC) 20 mg capsule TAKE 2 CAPSULES BY MOUTH TWICE DAILY 1/2 HOUR BEFORE A MEAL ondansetron orally disintegrating (ZOFRAN ODT) 4 mg disintegrating tablet Take 1 tablet by mouth every 6 hours as needed for nausea/vomiting. meclizine (ANTIVERT) 12.5 mg tab Take 1 tablet by mouth every 6 hours as needed (dizziness). traZODone (DESYREL) 100 mg tablet Take 1 tablet by mouth daily at bedtime. buPROPion SR (ZYBAN SR; WELLBUTRIN SR) 150 mg 12 hr tablet Take 1 tablet by mouth twice daily. clotrimazole-betamethasone (LOTRISONE) cream Apply 1 application to affected area twice daily. fluticasone (FLONASE) 50 mcg/actuation nasal spray Use 1 Vega in each nostril daily at bedtime. lisinopril (ZESTRIL, PRINIVIL) 5 mg tablet Take 0.5 tablets by mouth once daily. (Patient taking differently: Take 10 mg by mouth once daily.) fexofenadine (FARTUN) 180 mg tablet Take 1 tablet by mouth once daily. L. RHAMNOSUS GG/INULIN (CULTURELLE PROBIOTICS ORAL) Take 1 tablet by mouth once daily. cyanocobalamin (VITAMIN B-12) 1,000 mcg tab Take 1 tablet by mouth once daily. Cholecalciferol, Vitamin D3, 1,000 unit cap Take 1 capsule by mouth once daily. Peak Flow Meter Monica Check peak flows as directed No current facility-administered medications for this visit. ALLERGIES: ALLERGIES Allergen Reactions Adhesive Tape (Stephanie* Rash Augmentin [Amoxicil* GI Upset Hydrochlorothiazide Hives PAST MEDICAL HISTORY Diagnosis Date Abdominal pain, epigastric Abdominal pain, left upper quadrant Arthritis Asthma CAD (coronary artery disease) coronary artery spasm - stress heart attch 04/13 Depression Fibromyalgia Hypertension Insomnia with sleep apnea, unspecified Malaise and fatigue Myalgia and myositis, unspecified Obesity, unspecified Obstructive sleep apnea cant use cpap Reflux esophagitis Right bundle branch block (RBBB) on electrocardiogram (ECG) Unspecified asthma, with status asthmaticus Unspecified hypothyroidism Hypothyroidism Variants of migraine, not elsewhere classified, without mention of intractable migraine without mention of status migrainosus PAST SURGICAL HISTORY Procedure Laterality Date ABDOMINAL SURGERY HX ADENOIDECTOMY PRIMARY Adenoidectomy CHOLECYSTECTOMY 2008 COLONOSCOPY FLX DX W/COLLJ SPEC WHEN PFRMD 10/10/13 normal - 10 year follow up EGD 06/22/2016 esophagitis and gastritis, repeat in 2-3 years d/t family history EGD TRANSORAL BIOPSY SINGLE/MULTIPLE 10/11/09 EGD TRANSORAL BIOPSY SINGLE/MULTIPLE 10/10/13 mild duodenitis, gastritis, gastric polyp ESOPHAGOGASTRODUODENOSCOPY TRANSORAL DIAGNOSTIC 04/12/00 AND 12/09/06 EGD HEART CATHETERIZATION 04/09/12 TONSILLECTOMY HX TONSILLECTOMY PRIMARY/SECONDARY [place] (more content not included)...[facility]10-17-2023 History of Present illness Narrative* Papa Moser MD - 02/16/2023 3:58 PM EDT Patient presents with: Asthma HPI: Patient presents today for office visit for asthma flare. Reports having to use her albuterol inhaler 4+ a day since being sick over the last month. Shortness of breath has progressed since last OV 02/01/23. Denies chest pain. Did improve after her doxycycline but has gotten a deep breath and feels wheezy. Her inhaler does help. No fever or chills. No sinus congestion. No gi issues. Has burning in her chest with burning. Some ear pain with her hearing aids. No sore throat. See last OV: Chief Complaint Patient presents with: Cough Head Congestion HPI Miguelito Mari is a 67 year old female who presents here today for Above Complaints.. Started with head congestion about 10 days ago. States she felt better around day 6 and then came back worse. Pt states she developed a cough about 5 days ago that is occassionally productive. Feversat night that run around 101 starting 4 days ago. WILSON, sinus pressure, sore throat. Denies N/V/D. Has been taking advil for fever and using albuterol inhaler for wheezing and cough with relief. SOB with activity. MEDICATIONS: Current Outpatient Medications Medication Sig cyclobenzaprine (FLEXERIL) 5 mg tablet TAKE ONE TABLET BY MOUTH EVERY 8 HOURS NEEDED FOR MUSCLE SPASMS sertraline (ZOLOFT) 50 mg tablet Take 1 tablet by mouth once daily. traMADol (ULTRAM) 50 mg tablet Take 2 tablets by mouth every 6 hours as needed for pain for up to 30 days. busPIRone (BUSPAR) 15 mg tablet Take 1 tablet by mouth twice daily. montelukast (SINGULAIR) 10 mg tablet Take 1 tablet by mouth daily at bedtime. levothyroxine (LEVOXYL) 125 mcg tablet Take 1 tablet by mouth once daily. Take on empty stomach. For thyroid. sucralfate (CARAFATE) 1 gram tablet Take 1 tablet by mouth three times daily as needed. albuterol HFA (VENTOLIN HFA) 90 mcg/actuation inhaler Inhale 2 Puffs as instructed every 4 hours asneeded. loratadine (ALLERGY RELIEF, LORATADINE,) 10 mg tablet Take 1 tablet by mouth once daily. omeprazole (PRILOSEC) 20 mg capsule TAKE 2 CAPSULES BY MOUTH TWICE DAILY 1/2 HOUR BEFORE A MEAL ondansetron orally disintegrating (ZOFRAN ODT) 4 mg disintegrating tablet Take 1 tablet by mouth every 6 hours as needed for nausea/vomiting. meclizine (ANTIVERT) 12.5 mg tab Take 1 tablet by mouth every 6 hours as needed (dizziness). traZODone (DESYREL) 100 mg tablet Take 1 tablet by mouth daily at bedtime. buPROPion SR (ZYBAN SR; WELLBUTRIN SR) 150 mg 12 hr tablet Take 1 tablet by mouth twice daily. clotrimazole-betamethasone (LOTRISONE) cream Apply 1 application to affected area twice daily. fluticasone (FLONASE) 50 mcg/actuation nasal spray Use 1 Vega in each nostril daily at bedtime. lisinopril (ZESTRIL, PRINIVIL) 5 mg tablet Take 0.5 tablets by mouth once daily. (Patient taking differently: Take 10 mg by mouth once daily.) fexofenadine (FARTUN) 180 mg tablet Take 1 tablet by mouth once daily. L. RHAMNOSUS GG/INULIN (CULTURELLE PROBIOTICS ORAL) Take 1 tablet by mouth once daily. cyanocobalamin (VITAMIN B-12) 1,000 mcg tab Take 1 tablet by mouth once daily. Cholecalciferol, Vitamin D3, 1,000 unit cap Take 1 capsule by mouth once daily. Peak Flow Meter Monica Check peak flows as directed No current facility-administered medications for this visit. ALLERGIES: ALLERGIES Allergen Reactions Adhesive Tape (Stephanie* Rash Augmentin [Amoxicil* GI Upset Hydrochlorothiazide Hives PAST MEDICAL HISTORY Diagnosis Date Abdominal pain, epigastric Abdominal pain, left upper quadrant Arthritis Asthma CAD (coronary artery disease) coronary artery spasm - stress heart attch 04/13 Depression Fibromyalgia Hypertension Insomnia with sleep apnea, unspecified Malaise and fatigue Myalgia and myositis, unspecified Obesity, unspecified Obstructive sleep apnea cant use cpap Reflux esophagitis Right bundle branch block (RBBB) on electrocardiogram (ECG) Unspecified asthma, with status asthmaticus Unspecified hypothyroidism Hypothyroidism Variants of migraine, not elsewhere classified, without mention of intractable migraine without mention of status migrainosus PAST SURGICAL HISTORY Procedure Laterality Date ABDOMINAL SURGERY HX ADENOIDECTOMY PRIMARY <AGE 10 Adenoidectomy CHOLECYSTECTOMY 2008 COLONOSCOPY FLX DX W/COLLJ SPEC WHEN PFRMD 10/10/13 normal - 10 year follow up EGD 06/22/2016 esophagitis and gastritis, repeat in 2-3 years d/t family history EGD TRANSORAL BIOPSY SINGLE/MULTIPLE 10/11/09 EGD TRANSORAL BIOPSY SINGLE/MULTIPLE 10/10/13 mild duodenitis, gastritis, gastric polyp ESOPHAGOGASTRODUODENOSCOPY TRANSORAL DIAGNOSTIC 04/12/00 & 12/09/06 EGD HEART CATHETERIZATION 04/09/12 TONSILLECTOMY HX TONSILLECTOMY PRIMARY/SECONDARY <AGE 10 Tonsillectomy FAMILY HISTORY Problem Relation Age of Onset Cancer Mother bladder, esophageal,stomach/ Hypertension Mother Stroke Mother Heart Mother Coronary Artery Disease Father Emphysema Father Hypertension Father Heart Father Coronary Artery Disease Maternal Grandmother Coronary Artery Disease Maternal Grandfather Breast Cancer Other maternal cousins x3 Cancer Other maternal cousin stomach cancer Hypertension Brother Coronary Artery Disease Maternal Uncle Coronary Artery Disease Maternal Uncle Coronary Artery Disease Maternal Uncle Coronary Artery Disease Maternal Uncle Cancer Maternal Aunt Coronary Artery Disease Maternal Aunt Heart Brother Heart Sister Social History Tobacco Use Smoking status: Never Smokeless tobacco: Never Vaping Use Vaping Use: Never used Substance Use Topics Alcohol use: Yes Comment: 2 drinks per week Drug use: No Reviewed current medications, allergies, past medical history, surgical history, family history andsocial history today. REVIEW OF SYSTEMS All other reviewed and negative other than HPI. VITALS: BP 130/78 Pulse 80 Ht 154.9 cm (5' 1 ) Wt 91.9 kg (202 lb 9.6 oz) SpO2 99% BMI 38.28 kg/m Last 4 Encounter Wt Readings: Date: Wt: 02/01/2023 91.2 kg (201 lb) 07/14/2022 93 kg (205 lb) 04/07/2022 91.2 kg (201 lb) 03/05/2022 92.6 kg (204 lb 3.2 oz) PHYSICAL EXAMINATION: General appearance: Well appearing, alert, in no acute distress, well-hydrated, well nourished. Skin: Skin color, texture, turgor normal, no suspicious rashes or lesions Head: Normocephalic, no masses, lesions, tenderness or abnormalities Eyes: Anicteric sclera. Pupils are equally round and reactive to light. Extraocular movements are intact. Ears: External ears normal, canals clear Nose/Sinuses: Nares normal, septum midline, mucosa normal, no drainage or sinus tenderness Oropharynx: Lips, mucosa, and tongue normal, teeth and gums normal, oropharynx normal Neck: Negative findings: no adenopathy Lungs: audible cough, coarse breath sounds. No rales. Heart: RRR without murmur, gallop, or rubs. No ectopy Abdomen: Normal abdominal exam, Abdomen soft, non-tender. Bowel sounds normal. No masses, organomegaly Extremities: No deformities, edema, skin discoloration, clubbing or cyanosis. Good capillary refill. ASSESSMENT/PLAN: 1. Bronchitis - ICD9: 490, ICD10: J40 (primary diagnosis) - Discussed risks and benefits of new medication with the patient. Advised them to call if any sideeffects or questions. Red flags for re-assessment reviewed with patient in detail. Call if symptoms worsen at all or if not better in one to two weeks Reviewed diagnosis and treatment options in detail. Questions were answered. Patient expressed understanding of treatment plan. - XR CHEST 2V FRONTAL/LAT - CEFUROXIME AXETIL 250 MG TABLET - PREDNISONE 20 MG TABLET 2. Mild intermittent asthma without complication - ICD9: 493.90, ICD10: J45.20 - as above. - XR CHEST 2V FRONTAL/LAT - CEFUROXIME AXETIL 250 MG TABLET - PREDNISONE 20 MG TABLET Papa Moser MD RTO for check up. documented in [facility]10-[facility]23 NoteHNO ID: [id number] Author: Merrill Donovan, PT Service: ? Author Type: Physical Therapist Type: Progress Notes Filed: 02/09/2023 11:13 AM Note Text: 02/09/2023 [facility] PHYSICAL THERAPY DISCONTINUANCE OF CARE Plan of Care Period: Start of Care Date: 07/23/22 Last Visit Date: 09/15/2022 Therapy Program: The following is a summary of the interventions provided for this episode of care; Therapeutic exercise and Manual therapy Assessment: The following is the goal status: Goals updated 08/28/2022 Goals for Episode of Care: created on 07/23/22 through 10/15/22 Independent in a Home Exercise Program. - MET Restore pain free cervical ROM to WNL to allow for ease of driving and scanning the environment. - Minimal improvement, will continue Drive with no aggravation of pain/symptoms. - Not met Pt will report no longer feeling dizziness symptoms in 12 weeks or less - Not met Pt will report WILSON frequency of once a week or fewer in 12 weeks or less - Not met Patient Goals: Reduce dizziness and WILSON Based on the most recent progress report, patient was progressing slower than expected toward functional goals based on documented subjective information on progress. Reason for Discontinuation of Care: Patient has not returned to therapy or scheduled additional follow-up appointments. Merrill Donovan, [facility]10-02-2023 NoteHNO ID: [id number] Author: Sherita Obrien APRN.ADMISSION SPECIALIST Service: ? Author Type: Nurse Practitioner Type: Progress Notes Filed: 02/01/2023 1:06 PM Note Text: Chief Complaint Patient presents with: Cough Head Congestion HPI Miguelito Mari is a 67 year old female who presents here today for Above Complaints.. Started with head congestion about 10 days ago. States she felt better around day 6 and then came back worse. Pt states she developed a cough about 5 days ago that is occassionally productive. Fevers at night that run around 101 starting 4 days ago. WILSON, sinus pressure, sore throat. Denies N/V/D. Has been taking advil for fever and using albuterol inhaler for wheezing and cough with relief. SOB with activity. Past medical history, appointments, medications, allergies reviewed. Previous Medical History PAST MEDICAL HISTORY Diagnosis Date Abdominal pain, epigastric Abdominal pain, left upper quadrant Arthritis Asthma CAD (coronary artery disease) coronary artery spasm - stress heart attch 04/13 Depression Fibromyalgia Hypertension Insomnia with sleep apnea, unspecified Malaise and fatigue Myalgia and myositis, unspecified Obesity, unspecified Obstructive sleep apnea cant use cpap Reflux esophagitis Right bundle branch block (RBBB) on electrocardiogram (ECG) Unspecified asthma, with status asthmaticus Unspecified hypothyroidism Hypothyroidism Variants of migraine, not elsewhere classified, without mention of intractable migraine without mention of status migrainosus Previous Surgical History PAST SURGICAL HISTORY Procedure Laterality Date ABDOMINAL SURGERY HX ADENOIDECTOMY PRIMARY Adenoidectomy CHOLECYSTECTOMY 2008 COLONOSCOPY FLX DX W/COLLJ SPEC WHEN PFRMD 10/10/13 normal - 10 year follow up EGD 06/22/2016 esophagitis and gastritis, repeat in 2-3 years d/t family history EGD TRANSORAL BIOPSY SINGLE/MULTIPLE 10/11/09 EGD TRANSORAL BIOPSY SINGLE/MULTIPLE 10/10/13 mild duodenitis, gastritis, gastric polyp ESOPHAGOGASTRODUODENOSCOPY TRANSORAL DIAGNOSTIC 04/12/00 AND 12/09/06 EGD HEART CATHETERIZATION 04/09/12 TONSILLECTOMY HX TONSILLECTOMY PRIMARY/SECONDARY Tonsillectomy Family History FAMILY HISTORY Problem Relation Age of Onset Cancer Mother bladder, esophageal,stomach/ Hypertension Mother Stroke Mother Heart Mother Coronary Artery Disease Father Emphysema Father Hypertension Father Heart Father Coronary Artery Disease Maternal Grandmother Coronary Artery Disease Maternal Grandfather Breast Cancer Other maternal cousins x3 Cancer Other maternal cousin stomach cancer Hypertension Brother Coronary Artery Disease Maternal Uncle Coronary Artery Disease Maternal Uncle Coronary Artery Disease Maternal Uncle Coronary Artery Disease Maternal Uncle Cancer Maternal Aunt Coronary Artery Disease Maternal Aunt Heart Brother Heart Sister Patient Allergies ALLERGIES Allergen Reactions Adhesive Tape (Stephanie* Rash Augmentin [Amoxicil* GI Upset Hydrochlorothiazide Hives Current Medications Current Outpatient Medications on File Prior to Visit Medication Sig cyclobenzaprine (FLEXERIL) 5 mg tablet TAKE ONE TABLET BY MOUTH EVERY 8 HOURS NEEDED FOR MUSCLE SPASMS sertraline (ZOLOFT) 50 mg tablet Take 1 tablet by mouth once daily. traMADol (ULTRAM) 50 mg tablet Take 2 tablets by mouth every 6 hours as needed for pain for up to 30 days. busPIRone (BUSPAR) 15 mg tablet Take 1 tablet by mouth twice daily. montelukast (SINGULAIR) 10 mg tablet Take 1 tablet by mouth daily at bedtime. levothyroxine (LEVOXYL) 125 mcg tablet Take 1 tablet by mouth once daily. Take on empty stomach. For thyroid. sucralfate (CARAFATE) 1 gram tablet Take 1 tablet by mouth three times daily as needed. albuterol HFA (VENTOLIN HFA) 90 mcg/actuation inhaler Inhale 2 Puffs as instructed every 4 hours as needed. loratadine (ALLERGY RELIEF, LORATADINE,) 10 mg tablet Take 1 tablet by mouth once daily. omeprazole (PRILOSEC) 20 mg capsule TAKE 2 CAPSULES BY MOUTH TWICE DAILY 1/2 HOUR BEFORE A MEAL ondansetron orally disintegrating (ZOFRAN ODT) 4 mg disintegrating tablet Take 1 tablet by mouth every 6 hours as needed for nausea/vomiting. meclizine (ANTIVERT) 12.5 mg tab Take 1 tablet by mouth every 6 hours as needed (dizziness). traZODone (DESYREL) 100 mg tablet Take 1 tablet by mouth daily at bedtime. buPROPion SR (ZYBAN SR; WELLBUTRIN SR) 150 mg 12 hr tablet Take 1 tablet by mouth twice daily. clotrimazole-betamethasone (LOTRISONE) cream Apply 1 application to affected area twice daily. fluticasone (FLONASE) 50 mcg/actuation nasal spray Use 1 Vega in each nostril daily at bedtime. lisinopril (ZESTRIL, PRINIVIL) 5 mg tablet Take 0.5 tablets by mouth once daily. (Patient taking differently: Take 10 mg by mouth once daily.) fexofenadine (FARTUN) 180 mg tablet Take 1 tablet by mouth once daily. 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 2 diabetes mellitus (HCC) 02/01/202312/2023 Laryngitis 01/23/2013 08/25/2013 Osteoarthrosis, unspecified whether generalized or localized, ankle and foot 05/31/2012 05/01/2016 Abdominal pain, left upper quadrant 10/11/2009 08/25/2013 Abdominal pain, epigastric 10/11/2009 0 08/25/2013 Other general medical examin ation for administrative purposes 02/26/2009 08/25/2013 documented as of this encounter (statuses as of 06/08/2023) [address]02-2023 History of Past illness Narrative* Problem Noted Date Diagnosed Date Resolved Date 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 type 2 diabetes mellitus (HCC) 02/01/2023 01/0 12/2023 Laryngitis 01/23/2013 08/25/2013 Osteoarthrosis, unspecified whether generalized or localized, ankle and foot 05/31/2012 05/01/2016 Abdominal pain, left upper quadrant 10/11/2009 08/25/2013 Abdominal pain, epigastric 10/11/2009 0 08/25/2013 Other general medical examin ation for administrative purposes 02/26/2009 08/25/2013 documented as of this encounter (statuses as of 06/11/2023) [facility]10-02-2023 History of Past illness Narrative* Problem Noted Date Diagnosed Date Resolved Date 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 type 2 diabetes mellitus (HCC) 02/01/2023 01/0 12/2023 Laryngitis 01/23/2013 08/25/2013 Osteoarthrosis, unspecified whether generalized or localized, ankle and foot 05/31/2012 05/01/2016 Abdominal pain, left upper quadrant 10/11/2009 08/25/2013 Abdominal pain, epigastric 10/11/2009 0 08/25/2013 Other general medical examin ation for administrative purposes 02/26/2009 08/25/2013 documented as of this encounter (statuses as of 06/18/2023) [facility]10-02-2023 History of Past illness Narrative* Problem Noted Date Diagnosed Date Resolved Date 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 type 2 diabetes mellitus (HCC) 02/01/2023 01/0 12/2023 Laryngitis 01/23/2013 08/25/2013 Osteoarthrosis, unspecified whether generalized or localized, ankle and foot 05/31/2012 05/01/2016 Abdominal pain, left upper quadrant 10/11/2009 08/25/2013 Abdominal pain, epigastric 10/11/2009 0 08/25/2013 Other general medical examin ation for administrative purposes 02/26/2009 08/25/2013 documented as of this encounter (statuses as of 06/21/2023) [address]-2023 History of Past illness Narrative* Problem Noted Date Diagnosed Date Resolved Date 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 type 2 diabetes mellitus (HCC) 02/01/20230 12/2023 Laryngitis 01/23/2013 08/25/2013 Osteoarthrosis, unspecified whether generalized or localized, ankle and foot 05/31/2012 05/01/2016 Abdominal pain, left upper quadrant 10/11/2009 08/25/2013 Abdominal pain, epigastric 10/11/2009 0 08/25/2013 Other general medical examin ation for administrative purposes 02/26/2009 08/25/2013 documented as of this encounter (statuses as of 06/23/2023) [facility]10-02-2023 History of Past illness Narrative* Problem Noted Date Diagnosed Date Resolved Date 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 type 2 diabetes mellitus (HCC) 02/01/20230 12/2023 Laryngitis 01/23/2013 08/25/2013 Osteoarthrosis, unspecified whether generalized or localized, ankle and foot 05/31/2012 05/01/2016 Abdominal pain, left upper quadrant 10/11/2009 08/25/2013 Abdominal pain, epigastric 10/11/2009 0 08/25/2013 Other general medical examin ation for administrative purposes 02/26/2009 08/25/2013 documented as of this encounter (statuses as of 06/25/2023) [facility]10-02-2023 History of Past illness Narrative* Problem Noted Date Diagnosed Date Resolved Date 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 type 2 diabetes mellitus (HCC) 02/01/20230 12/2023 Laryngitis 01/23/2013 08/25/2013 Osteoarthrosis, unspecified whether generalized or localized, ankle and foot 05/31/2012 05/01/2016 Abdominal pain, left upper quadrant 10/11/2009 08/25/2013 Abdominal pain, epigastric 10/11/2009 0 08/25/2013 Other general medical examin ation for administrative purposes 02/26/2009 08/25/2013 documented as of this encounter (statuses as of 06/25/2023) [facility]10-02-2023 History of Past illness Narrative* Problem Noted Date Diagnosed Date Resolved Date 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 type 2 diabetes mellitus (HCC) 02/01/20230 12/2023 Laryngitis 01/23/2013 08/25/2013 Osteoarthrosis, unspecified whether generalized or localized, ankle and foot 05/31/2012 05/01/2016 Abdominal pain, left upper quadrant 10/11/2009 08/25/2013 Abdominal pain, epigastric 10/11/2009 0 08/25/2013 Other general medical examin ation for administrative purposes 02/26/2009 08/25/2013 documented as of this encounter (statuses as of 06/25/2023) [facility]10-02-2023 History of Past illness Narrative* Problem Noted Date Diagnosed Date Resolved Date 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 type 2 diabetes mellitus (HCC) 02/01/20230 12/2023 Laryngitis 01/23/2013 08/25/2013 Osteoarthrosis, unspecified whether generalized or localized, ankle and foot 05/31/2012 05/01/2016 Abdominal pain, left upper quadrant 10/11/2009 08/25/2013 Abdominal pain, epigastric 10/11/2009 0 08/25/2013 Other general medical examin ation for administrative purposes 02/26/2009 08/25/2013 documented as of this encounter (statuses as of 06/30/2023) [facility]10-02-2023 History of Past illness Narrative* Problem Noted Date Diagnosed Date Resolved Date 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 type 2 diabetes mellitus (HCC) 02/01/20230 12/2023 Laryngitis 01/23/2013 08/25/2013 Osteoarthrosis, unspecified whether generalized or localized, ankle and foot 05/31/2012 05/01/2016 Abdominal pain, left upper quadrant 10/11/2009 08/25/2013 Abdominal pain, epigastric 10/11/2009 0 08/25/2013 Other general medical examin ation for administrative purposes 02/26/2009 08/25/2013 documented as of this encounter (statuses as of 07/12/2023) [facility]10-02-2023 History of Present illness Narrative* Sherita Obrien, NEGRO.ADMISSION SPECIALIST - 02/01/2023 12:51 PM EDT Chief Complaint Patient presents with: Cough Head Congestion HPI Miguelito Mari is a 67 year old female who presents here today for Above Complaints.. Started with head congestion about 10 days ago. States she felt better around day 6 and then came back worse. Pt states she developed a cough about 5 days ago that is occassionally productive. Feversat night that run around 101 starting 4 days ago. WILSON, sinus pressure, sore throat. Denies N/V/D. Has been taking advil for fever and using albuterol inhaler for wheezing and cough with relief. SOB with activity. Past medical history, appointments, medications, allergies reviewed. Previous Medical History PAST MEDICAL HISTORY Diagnosis Date Abdominal pain, epigastric Abdominal pain, left upper quadrant Arthritis Asthma CAD (coronary artery disease) coronary artery spasm - stress heart attch 04/13 Depression Fibromyalgia Hypertension Insomnia with sleep apnea, unspecified Malaise and fatigue Myalgia and myositis, unspecified Obesity, unspecified Obstructive sleep apnea cant use cpap Reflux esophagitis Right bundle branch block (RBBB) on electrocardiogram (ECG) Unspecified asthma, with status asthmaticus Unspecified hypothyroidism Hypothyroidism Variants of migraine, not elsewhere classified, without mention of intractable migraine without mention of status migrainosus Previous Surgical History PAST SURGICAL HISTORY Procedure Laterality Date ABDOMINAL SURGERY HX ADENOIDECTOMY PRIMARY <AGE 10 Adenoidectomy CHOLECYSTECTOMY 2008 COLONOSCOPY FLX DX W/COLLJ SPEC WHEN PFRMD 10/10/13 normal - 10 year follow up EGD 06/22/2016 esophagitis and gastritis, repeat in 2-3 years d/t family history EGD TRANSORAL BIOPSY SINGLE/MULTIPLE 10/11/09 EGD TRANSORAL BIOPSY SINGLE/MULTIPLE 10/10/13 mild duodenitis, gastritis, gastric polyp ESOPHAGOGASTRODUODENOSCOPY TRANSORAL DIAGNOSTIC 04/12/00 & 12/09/06 EGD HEART CATHETERIZATION 04/09/12 TONSILLECTOMY HX TONSILLECTOMY PRIMARY/SECONDARY <AGE 10 Tonsillectomy Family History FAMILY HISTORY Problem Relation Age of Onset Cancer Mother bladder, esophageal,stomach/ Hypertension Mother Stroke Mother Heart Mother Coronary Artery Disease Father Emphysema Father Hypertension Father Heart Father Coronary Artery Disease Maternal Grandmother Coronary Artery Disease Maternal Grandfather Breast Cancer Other maternal cousins x3 Cancer Other maternal cousin stomach cancer Hypertension Brother Coronary Artery Disease Maternal Uncle Coronary Artery Disease Maternal Uncle Coronary Artery Disease Maternal Uncle Coronary Artery Disease Maternal Uncle Cancer Maternal Aunt Coronary Artery Disease Maternal Aunt Heart Brother Heart Sister Patient Allergies ALLERGIES Allergen Reactions Adhesive Tape (Stephanie* Rash Augmentin [Amoxicil* GI Upset Hydrochlorothiazide Hives Current Medications Current Outpatient Medications on File Prior to Visit Medication Sig cyclobenzaprine (FLEXERIL) 5 mg tablet TAKE ONE TABLET BY MOUTH EVERY 8 HOURS NEEDED FOR MUSCLE SPASMS sertraline (ZOLOFT) 50 mg tablet Take 1 tablet by mouth once daily. traMADol (ULTRAM) 50 mg tablet Take 2 tablets by mouth every 6 hours as needed for pain for up to 30 days. busPIRone (BUSPAR) 15 mg tablet Take 1 tablet by mouth twice daily. montelukast (SINGULAIR) 10 mg tablet Take 1 tablet by mouth daily at bedtime. levothyroxine (LEVOXYL) 125 mcg tablet Take 1 tablet by mouth once daily. Take on empty stomach. For thyroid. sucralfate (CARAFATE) 1 gram tablet Take 1 tablet by mouth three times daily as needed. albuterol HFA (VENTOLIN HFA) 90 mcg/actuation inhaler Inhale 2 Puffs as instructed every 4 hours asneeded. loratadine (ALLERGY RELIEF, LORATADINE,) 10 mg tablet Take 1 tablet by mouth once daily. omeprazole (PRILOSEC) 20 mg capsule TAKE 2 CAPSULES BY MOUTH TWICE DAILY 1/2 HOUR BEFORE A MEAL ondansetron orally disintegrating (ZOFRAN ODT) 4 mg disintegrating tablet Take 1 tablet by mouth every 6 hours as needed for nausea/vomiting. meclizine (ANTIVERT) 12.5 mg tab Take 1 tablet by mouth every 6 hours as needed (dizziness). traZODone (DESYREL) 100 mg tablet Take 1 tablet by mouth daily at bedtime. buPROPion SR (ZYBAN SR; WELLBUTRIN SR) 150 mg 12 hr tablet Take 1 tablet by mouth twice daily. clotrimazole-betamethasone (LOTRISONE) cream Apply 1 application to affected area twice daily. fluticasone (FLONASE) 50 mcg/actuation nasal spray Use 1 Vega in each nostril daily at bedtime. lisinopril (ZESTRIL, PRINIVIL) 5 mg tablet Take 0.5 tablets by mouth once daily. (Patient taking differently: Take 10 mg by mouth once daily.) fexofenadine (FARTUN) 180 mg tablet Take 1 tablet by mouth once daily. L. RHAMNOSUS GG/INULIN (CULTURELLE PROBIOTICS ORAL) Take 1 tablet by mouth once daily. cyanocobalamin (VITAMIN B-12) 1,000 mcg tab Take 1 tablet by mouth once daily. Cholecalciferol, Vitamin D3, 1,000 unit cap Take 1 capsule by mouth once daily. Peak Flow Meter Monica Check peak flows as directed No current facility-administered medications on file prior to visit. Social History Social History Tobacco Use Smoking status: Never Smokeless tobacco: Never Vaping Use Vaping Use: Never used Substance Use Topics Alcohol use: Yes Comment: 2 drinks per week Drug use: No Review of Symptoms REVIEW OF SYSTEMS EXAM: BP 122/74 Pulse 100 Temp 37.3 C (99.1 F) Resp 16 Wt 91.2 kg (201 lb) SpO2 98% BMI 37.95kg/m General Appearance: Well appearing, alert, in no acute distress, well-hydrated, well nourished. Skin: Skin color, texture, turgor normal, no suspicious rashes or lesions. Eyes: Anicteric sclera. Pupils are equally round and reactive to light. Extraocular movements are intact. Ears: External ears normal, canals clear. Nose/Sinuses: Positive findings: mucosa erythematous and swollen, frontal sinus tenderness. Oropharynx: Positive findings: mild oropharyngeal erythema. Lungs: Lungs clear to auscultation. No wheezing, rhonchi, rales.. Heart: RRR without murmur, gallop, or rubs. No ectopy. Health Maintenance List DTaP,Tdap,Td Vaccine(1 - Tdap) due on 01/02/2006 Bone Density Screening Never done Shingrix Vaccine(2 of 2) due on 02/28/2020 Covid-19 Vaccine(4 - Pfizer series) due on 06/02/2021 Advance Directive Discussion due on 05/03/2022 Depression Assessment due on 05/03/2022 Influenza Vaccine(1) due on 01/01/2023 LDL Cholesterol due on 06/26/2023 Serum Creatinine due on 06/26/2023 Hemoglobin/Hematocrit due on 06/26/2023 Annual PCP Team Chronic Disease Visit due on 07/15/2023 Colorectal Cancer Screening due on 10/11/2023 Mammogram Screening due on 01/06/2024 Diabetes Screening due on 06/26/2025 Lipid Screening due on 06/26/2027 Hepatitis C Screening Completed Pneumococcal Vaccine: 65+ Completed Spirometry Discontinued ASSESSMENT/PLAN: 1. Acute rhinosinusitis - ICD9: 461.9, ICD10: J01.90 - Will begin treatment with Doxycycline - DOXYCYCLINE HYCLATE 100 MG TABLET I have personally seen and examined the patient and performed the medical- decision making components. I have reviewed the Advanced Practice Registered Nurse (DESIGN COORDINATOR) student's documentation and verified the findings in the note as written. Any additions or changes are noted in bold/italics. Sherita Obrien APRN.ADMISSION SPECIALIST documented in [facility] encounterDel[facility]09[facility]23 Miscellaneous Notes* Telephone Encounter - Mena Currie Ma - 01/22/2023 12:22 PM EDT Patient has been identified by name and date of : Yes Requested Prescriptions Pending Prescriptions Disp Refills cyclobenzaprine (FLEXERIL) 5 mg tablet 30 tablet 3 Sig: TAKE ONE TABLET BY MOUTH EVERY 8 HOURS NEEDED FOR MUSCLE SPASMS GERALD 07/14/22 NOV none RX INSTRUCTIONS: Patient aware RX will be sent to pharmacy. No need to notify patient. Mena Currie Ma documented in this encounterDelaware [facility] Hospital09-21-2023 Miscellaneous Notes* Telephone Encounter - Steffen Hope RN - 01/21/2023 4:22 PM EDT Patient has been identified by name and date of : Yes, Provider [place] Date 01-21-23 Time 4:24 pm Pharmacy phones for refill(s): Requested Prescriptions Pending Prescriptions Disp Refills sertraline (ZOLOFT) 50 mg tablet 90 tablet 3 Sig: Take 1 tablet by mouth once daily. Date of last office visit with pcp: 07-14-22. Next appt: none Last 2 Encounter Wt Readings: Date: Wt: 07/14/2022 93 kg (205 lb) 04/07/2022 91.2 kg (201 lb) Previous labs/tests for medication: Blood Pressure: BUN (mg/dL) Date Value 06/26/2022 14 11/12/2020 18 Sodium (mmol/L) Date Value 06/26/2022 139 11/12/2020 141 Last 1 Encounter BP Readings: Date: BP: 07/14/2022 116/74 Liver Function: ALT (U/L) Date Value 06/26/2022 10 11/12/2020 9 AST (U/L) Date Value 06/26/2022 17 11/12/2020 19 Please advise. Thank you. Steffen Hope RN documented in this encounterDelaware County Hospital09-13-2023 NoteHNO ID: [id number] Author: Layla Garcia MA Service: ? Author Type: Water Resource Engineering Specialist Type: Progress Notes Filed: 01/13/2023 2:56 PM Note Text: POPULATION HEALTH NAVIGATION OUTREACH Action/FYI Called and left a message to call [phone], to discuss health maintenance items that are due. Sent My Chart message. PCP appt: wellness and follow up from 07/14/22 ov My chart activation: active Advance directive: needs info HM due: Wellness and follow up Flu AD Patient Identified by Name and : NO Outreach Outcome/Action Unable to reach patient: Left message MyChart message sent Did you use a PCP flex slot to schedule this appointment? N/A Reason for Outreach Care Gap or Scheduling/Wellness visits Payer: Payor: [facility] MEDICARE / Plan: [employer] MEDICARE HMO / Product Type: HMO / Care Gap Reviewed:: Annual Wellness visit Follow-up appointment Flu Vaccine Reminder: Reminder note to check Health Maintenance for items below Health Maintenance items due: DTaP,Tdap,Td Vaccine(1 - Tdap) due on 01/02/2006 Bone Density Screening Never done Shingrix Vaccine(2 of 2) due on 02/28/2020 Covid-19 Vaccine(4 - Pfizer series) due on 06/02/2021 Advance Directive Discussion due on 05/03/2022 Depression Assessment due on 05/03/2022 Influenza Vaccine(1) due on 01/01/2023 Navigation Signature: Layla Garcia MA January 13, 2023 2:56 [facility]09-13-2023 History of Present illness Narrative* Layla Garcia MA - 01/13/2023 2:54 PM EDT POPULATION HEALTH NAVIGATION OUTREACH Action/FYI Called and left a message to call [phone], to discuss health maintenance items that are due. Sent My Chart message. PCP appt: wellness and follow up from 07/14/22 ov My chart activation: active Advance directive: needs info HM due: Wellness and follow up Flu AD Patient Identified by Name and : NO Outreach Outcome/Action Unable to reach patient: Left message [employer] message sent Did you use a PCP flex slot to schedule this appointment? N/A Reason for Outreach Care Gap or Scheduling/Wellness visits Payer: Payor: [facility] MEDICARE / Plan: [employer] A[employer] MEDICARE HMO / Product Type: HMO / Care Gap Reviewed:: Annual Wellness visit Follow-up appointment Flu Vaccine Reminder: Reminder note to check Health Maintenance for items below Health Maintenance items due: DTaP,Tdap,Td Vaccine(1 - Tdap) due on 01/02/2006 Bone Density Screening Never done Shingrix Vaccine(2 of 2) due on 02/28/2020 Covid-19 Vaccine(4 - Pfizer series) due on 06/02/2021 Advance Directive Discussion due on 05/03/2022 Depression Assessment due on 05/03/2022 Influenza Vaccine(1) due on 01/01/2023 Navigation Signature: Layla Garcia MA January 13, 2023 2:56 PM documented in this encounterDelaware [facility] Hospital09-13-2023 NotePatient Outreach (NETNAV) MIGUELITO MARI ([id number]) 1955 F Date Time Provider Department 01/13/23 LAYLA GARCIA During your visit today, we recorded the following information about you: Layla Garcia MA 01/13/2023 2:56 PM Signed POPULATION HEALTH NAVIGATION OUTREACH Action/FYI Called and left a message to call [phone], to discuss health maintenance items that are due. Sent My Chart message. PCP appt: wellness and follow up from 07/14/22 ov My chart activation: active Advance directive: needs info HM due: Wellness and follow up Flu AD Patient Identified by Name and : NO Outreach Outcome/Action Unable to reach patient: Left message MyChart message sent Did you use a PCP flex slot to schedule this appointment? N/A Reason for Outreach Care Gap or Scheduling/Wellness visits Payer: Payor: [facility] MEDICARE / Plan: [employer] MEDICARE HMO / Product Type: HMO / Care Gap Reviewed:: Annual Wellness visit Follow-up appointment Flu Vaccine Reminder: Reminder note to check Health Maintenance for items below Health Maintenance items due: DTaP,Tdap,Td Vaccine(1 - Tdap) due on 01/02/2006 Bone Density Screening Never done Shingrix Vaccine(2 of 2) due on 02/28/2020 Covid-19 Vaccine(4 - Pfizer series) due on 06/02/2021 Advance Directive Discussion due on 05/03/2022 Depression Assessment due on 05/03/2022 Influenza Vaccine(1) due on 01/01/2023 Navigation Signature: Layla Garcia MA January 13, 2023 2:56 PM Allergies As of Date: 01/13/2023 Noted Allergy Reaction ADHESIVE TAPE (ROSINS) 07/14/2010 2 - Rash AUGMENTIN (AMOXICILLIN-POT CLAVUL*04/16/2014 8 - GI Upset HYDROCHLOROTHIAZIDE 03/04/2005 4 - Hives Date Reviewed: 07/14/2022 Reviewed by: Mena Currie Ma - Fully Assessed Reason for Visit: Population Health Navigation Outreach [3910] Cmt: [facility] care gaps Prescriptions as of 01/13/2023 - traMADol (ULTRAM) 50 mg tablet Take 2 tablets by mouth every 6 hours as needed for pain for up to 30 days. - busPIRone (BUSPAR) 15 mg tablet Take 1 tablet by mouth twice daily. - montelukast (SINGULAIR) 10 mg tablet Take 1 tablet by mouth daily at bedtime. - levothyroxine (LEVOXYL) 125 mcg tablet Take 1 tablet by mouth once daily. Take on empty stomach. For thyroid. - sucralfate (CARAFATE) 1 gram tablet Take 1 tablet by mouth three times daily as needed. - albuterol HFA (VENTOLIN HFA) 90 mcg/actuation inhaler Inhale 2 Puffs as instructed every 4 hours as needed. - cyclobenzaprine (FLEXERIL) 5 mg tablet TAKE ONE TABLET BY MOUTH EVERY 8 HOURS NEEDED FOR MUSCLE SPASMS - loratadine (ALLERGY RELIEF, LORATADINE,) 10 mg tablet Take 1 tablet by mouth once daily. - omeprazole (PRILOSEC) 20 mg capsule TAKE 2 CAPSULES BY MOUTH TWICE DAILY 1/2 HOUR BEFORE A MEAL - ondansetron orally disintegrating (ZOFRAN ODT) 4 mg disintegrating tablet Take 1 tablet by mouth every 6 hours as needed for nausea/vomiting. - meclizine (ANTIVERT) 12.5 mg tab Take 1 tablet by mouth every 6 hours as needed (dizziness). - traZODone (DESYREL) 100 mg tablet Take 1 tablet by mouth daily at bedtime. - buPROPion SR (ZYBAN SR; WELLBUTRIN SR) 150 mg 12 hr tablet Take 1 tablet by mouth twice daily. - sertraline (ZOLOFT) 50 mg tablet Take 1 tablet by mouth once daily. - clotrimazole-betamethasone (LOTRISONE) cream Apply 1 application to affected area twice daily. - fluticasone (FLONASE) 50 mcg/actuation nasal spray Use 1 Vega in each nostril daily at bedtime. - lisinopril (ZESTRIL, PRINIVIL) 5 mg tablet Take 0.5 tablets by mouth once daily. - fexofenadine (FARTUN) 180 mg tablet Take 1 tablet by mouth once daily. - L. RHAMNOSUS GG/INULIN (CULTURELLE PROBIOTICS ORAL) Take 1 tablet by mouth once daily. - cyanocobalamin (VITAMIN B-12) 1,000 mcg tab Take 1 tablet by mouth once daily. - Cholecalciferol, Vitamin D3, 1,000 unit cap Take 1 capsule by mouth once daily. - Peak Flow Meter Monica Check peak flows as directed Meds Comments as of 05/21/2010: Problem List As Of Date 01/13/2023 Noted Resolved OVERWEIGHT [E66.9] 09/08/2005 Fibromyalgia [M79.7] 09/08/2005 MALAISE AND FATIGUE NEC [R53.81, R53.83] 09/08/2005 Adjustment reaction with prolonged depressive r*09/08/2005 ESOPHAGEAL REFLUX [K21.9] 10/29/2005 Hypothyroidism [E03.9] 10/29/2005 Unspecified sleep apnea [G47.30] 10/29/2005 HOARSENESS [R49.8] 01/21/2006 Asthma [J45.909] 01/21/2006 Other specified abnormal findings of blood chem*01/21/2006 Intractable migraine without aura [G43.019] 07/13/2008 Other general medical examination for administr*02/26/2009 08/25/2013 Abdominal pain, left upper quadrant [R10.12] 10/11/2009 08/25/2013 Abdominal pain, epigastric [R10.13] 10/11/2009 08/25/2013 Vitamin D deficiency [E55.9] 04/03/2010 Osteoarthrosis, hand [M19.049] 05/31/2012 Osteoarthrosis, unspecified whether generali (more content not included)... [facility]09-07-2023 Miscellaneous Notes* Telephone Encounter - Milady Leal LPN - 01/07/2023 11:07 AM EDT [employer] message sent documented in this encounterDel[facility]08-31-2023 Miscellaneous Notes* Telephone Encounter - Milady Leal LPN - 12/31/2022 1:47 PM EDT Patient has been identified by name and date of : Yes Patient phones for refill(s): Requested Prescriptions Pending Prescriptions Disp Refills traMADol (ULTRAM) 50 mg tablet 240 tablet 1 Sig: Take 2 tablets by mouth every 6 hours as needed for pain for up to 30 days. Date of last office visit in primary care: 07/14/2022 Please advise. Thank you. Milady Leal LPN documented in this encounterDelaware County Hospital08-28-2023 Miscellaneous Notes* Telephone Encounter - Meme Tse Ma - 12/28/2022 8:27 AM EDT Order has been faxed with [facility] to [facility] at [phone]. Pt notified via [employer] to contact the hospital to schedule. Order expires January. Meme Tse Ma documented in this encounterDelaware County Hospital07-19-2023 NotePatient Outreach (NETNAV) MIGUELITO MARI ([id number]) 1955 F Date Time Provider Department 11/18/22 MENA SANCHEZ During your visit today, we recorded the following information about you: Mena Sanchez MA 11/18/2022 11:32 AM Signed POPULATION HEALTH NAVIGATION OUTREACH Action/FYI Left message with friend Fritz to have patient return my call. [employer] message sent. Patient is on [facility] for the following HM care gaps: Schedule follow up appointment with Moise Petersen PA-C MAMMOGRAM - Ordered 02/25/22. ADVANCE DIRECTIVE DISCUSSION Patient Identified by Name and : YES, via phone Outreach Outcome/Action Spoke to patient / parent / legal guardian: Patient will return the call or ask for return call Did you use a PCP flex slot to schedule this appointment? N/A Reason for Outreach Care Gap or Scheduling/Wellness visits Payer: Payor: [facility] MEDICARE / Plan: [facility] MEDICARE HMO / Product Type: HMO / Care Gap Reviewed:: Follow-up appointment Breast Cancer screening Reminder: Reminder note to check Health Maintenance for items below Health Maintenance items due: DTAP,TDAP,TD(1 - Tdap) due on 01/02/2006 MAMMOGRAM due on 10/22/2016 BONE DENSITY Never done SHINGRIX VACCINE(2 of 2) due on 02/28/2020 COVID-19 VACCINE(4 - Pfizer series) due on 06/02/2021 ADVANCE DIRECTIVE DISCUSSION due on 05/03/2022 DEPRESSION ASSESSMENT due on 05/03/2022 Navigation Signature: Mena Sanchez MA November 18, 2022 7:33 AM Allergies As of Date: 11/18/2022 Noted Allergy Reaction ADHESIVE TAPE (ROSINS) 07/14/2010 2 - Rash AUGMENTIN (AMOXICILLIN-POT CLAVUL*04/16/2014 8 - GI Upset HYDROCHLOROTHIAZIDE 03/04/2005 4 - Hives Date Reviewed: 07/14/2022 Reviewed by: Mena Currei Ma - Fully Assessed Reason for Visit: Population Health Navigation Outreach [3910] Cmt: [facility] Care Gaps Prescriptions as of 11/18/2022 - montelukast (SINGULAIR) 10 mg tablet Take 1 tablet by mouth daily at bedtime. - levothyroxine (LEVOXYL) 125 mcg tablet Take 1 tablet by mouth once daily. Take on empty stomach. For thyroid. - sucralfate (CARAFATE) 1 gram tablet Take 1 tablet by mouth three times daily as needed. - albuterol HFA (VENTOLIN HFA) 90 mcg/actuation inhaler Inhale 2 Puffs as instructed every 4 hours as needed. - cyclobenzaprine (FLEXERIL) 5 mg tablet TAKE ONE TABLET BY MOUTH EVERY 8 HOURS NEEDED FOR MUSCLE SPASMS - traMADol (ULTRAM) 50 mg tablet Take 2 tablets by mouth every 6 hours as needed for pain for up to 30 days. - loratadine (ALLERGY RELIEF, LORATADINE,) 10 mg tablet Take 1 tablet by mouth once daily. - omeprazole (PRILOSEC) 20 mg capsule TAKE 2 CAPSULES BY MOUTH TWICE DAILY 1/2 HOUR BEFORE A MEAL - busPIRone (BUSPAR) 15 mg tablet Take 1 tablet by mouth twice daily. - ondansetron orally disintegrating (ZOFRAN ODT) 4 mg disintegrating tablet Take 1 tablet by mouth every 6 hours as needed for nausea/vomiting. - meclizine (ANTIVERT) 12.5 mg tab Take 1 tablet by mouth every 6 hours as needed (dizziness). - traZODone (DESYREL) 100 mg tablet Take 1 tablet by mouth daily at bedtime. - buPROPion SR (ZYBAN SR; WELLBUTRIN SR) 150 mg 12 hr tablet Take 1 tablet by mouth twice daily. - sertraline (ZOLOFT) 50 mg tablet Take 1 tablet by mouth once daily. - clotrimazole-betamethasone (LOTRISONE) cream Apply 1 application to affected area twice daily. - fluticasone (FLONASE) 50 mcg/actuation nasal spray Use 1 Vega in each nostril daily at bedtime. - lisinopril (ZESTRIL, PRINIVIL) 5 mg tablet Take 0.5 tablets by mouth once daily. - fexofenadine (FARTUN) 180 mg tablet Take 1 tablet by mouth once daily. - L. RHAMNOSUS GG/INULIN (CULTURELLE PROBIOTICS ORAL) Take 1 tablet by mouth once daily. - cyanocobalamin (VITAMIN B-12) 1,000 mcg tab Take 1 tablet by mouth once daily. - Cholecalciferol, Vitamin D3, 1,000 unit cap Take 1 capsule by mouth once daily. - Peak Flow Meter Monica Check peak flows as directed Meds Comments as of 05/21/2010: Problem List As Of Date 11/18/2022 Noted Resolved OVERWEIGHT [E66.9] 09/08/2005 Fibromyalgia [M79.7] 09/08/2005 MALAISE AND FATIGUE NEC [R53.81, R53.83] 09/08/2005 Adjustment reaction with prolonged depressive r*09/08/2005 ESOPHAGEAL REFLUX [K21.9] 10/29/2005 Hypothyroidism [E03.9] 10/29/2005 Unspecified sleep apnea [G47.30] 10/29/2005 HOARSENESS [R49.8] 01/21/2006 Asthma [J45.909] 01/21/2006 Other specified abnormal findings of blood chem*01/21/2006 Intractable migraine without aura [G43.019] 07/13/2008 Other general medical examination for administr*02/26/2009 08/25/2013 Abdominal pain, left upper quadrant [R10.12] 10/11/2009 08/25/2013 Abdominal pain, epigastric [R10.13] 10/11/2009 08/25/2013 Vitamin D deficiency [E55.9] 04/03/2010 Osteoarthrosis, hand [M19.049] 05/31/2012 Osteoarthrosis, unspecified whether generalized*05/31/2012 05/01/2016 (more content not included)...[facility]07-19-2023 NoteHNO ID: [id number] Author: Mena Sanchez MA Service: ? Author Type: Water Resource Engineering Specialist Type: Progress Notes Filed: 11/18/2022 11:32 AM Note Text: POPULATION HEALTH NAVIGATION OUTREACH Action/FYI Left message with friend Fritz to have patient return my call. [employer] message sent. Patient is on [facility] for the following HM care gaps: Schedule follow up appointment with Moise Petersen PA-C MAMMOGRAM - Ordered 02/25/22. ADVANCE DIRECTIVE DISCUSSION Patient Identified by Name and : YES, via phone Outreach Outcome/Action Spoke to patient / parent / legal guardian: Patient will return the call or ask for return call Did you use a PCP flex slot to schedule this appointment? N/A Reason for Outreach Care Gap or Scheduling/Wellness visits Payer: Payor: [facility] MEDICARE / Plan: [employer] MEDICARE HMO / Product Type: HMO / Care Gap Reviewed:: Follow-up appointment Breast Cancer screening Reminder: Reminder note to check Health Maintenance for items below Health Maintenance items due: DTAP,TDAP,TD(1 - Tdap) due on 01/02/2006 MAMMOGRAM due on 10/22/2016 BONE DENSITY Never done SHINGRIX VACCINE(2 of 2) due on 02/28/2020 COVID-19 VACCINE(4 - Pfizer series) due on 06/02/2021 ADVANCE DIRECTIVE DISCUSSION due on 05/03/2022 DEPRESSION ASSESSMENT due on 05/03/2022 Navigation Signature: Mena Sanchez MA November 18, 2022 7:33 [facility]06-30-2023 Miscellaneous Notes* Telephone Encounter - Maty Butcher RN - 10/30/2022 10:05 AM EDT Last Office Visit: 07/14/2022 Future Office Visit: none Requested Prescriptions Pending Prescriptions Disp Refills montelukast (SINGULAIR) 10 mg tablet 30 tablet 11 Sig: Take 1 tablet by mouth daily at bedtime. levothyroxine (LEVOXYL) 125 mcg tablet 30 tablet 5 Sig: Take 1 tablet by mouth once daily. Take on empty stomach. For thyroid. Date of Last Labs: 12/26/2021 documented in this encounterDelaware [facility] Hospital06-15-2023 Miscellaneous Notes* Telephone Encounter - Zoey Mcnamara LPN - 10/15/2022 12:58 PM EDT Patient has been identified by name and date of : Yes Requested Prescriptions Pending Prescriptions Disp Refills sucralfate (CARAFATE) 1 gram tablet 270 tablet 3 Sig: Take 1 tablet by mouth three times daily as needed. albuterol HFA (VENTOLIN HFA) 90 mcg/actuation inhaler 1 Each 3 Sig: Inhale 2 Puffs as instructed every 4 hours as needed. cyclobenzaprine (FLEXERIL) 5 mg tablet 30 tablet 3 Sig: TAKE ONE TABLET BY MOUTH EVERY 8 HOURS NEEDED FOR MUSCLE SPASMS RX INSTRUCTIONS: Patient aware RX will be sent to pharmacy. No need to notify patient. Scheduled 10/20/22 Zoey Mcnamara LPN documented in this encounterDelaware County Hospital05-16-2023 NoteHNO ID: [id number] Author: Merrill Donovan PT Service: ? Author Type: Physical Therapist Type: Progress Notes Filed: 09/15/2022 2:17 PM Note Text: Episode Visit Count: 5 Therapist That Will Accept/Oversee The Plan Of Care: Merrill Donovan Start of Care Date: 07/23/22 Onset Date: 07/10/22 Plan of Care Certification Date: 08/28/22 Next Certification Due Date: 10/02/22 Patient Identified by Name and Date of : Yes REHABILITATION AND SPORTS THERAPY PHYSICAL THERAPY TREATMENT NOTE ASSESSMENT: Miguelito Mari tolerated the session with no issues. She demonstrated improvements in pain intensity per pt report. The patient will continue to benefit from ongoing skilled physical therapy to progress toward set goals. PLAN FOR NEXT VISIT: DNE strengthening as tolerated SUBJECTIVE: Patient Reason for Visit: Frustrated as the exercises aren't helping. She would like to try and find something that does help. Pain: Pain Pain Level: 5 Pain Location: Neck - Right, Neck - Left Post Treatment Pain Post Treatment Pain Level: Better Post Treatment Pain Location: Neck OBJECTIVE MEASURES WITH LEVEL OF FUNCTION: TTP deep neck extensors on the R Cervical ROM flexion WNL TREATMENT: Therapeutic Exercise: 1: DNE 5 sets holding 30-40 seconds each 2: Prone scapular retractions 2 x 5 reps holding 10 sec each 3: Discussed modifications to HEP to prevent further irritation of symptoms Skilled Intervention: Patient was educated in proper exercise technique and purpose for exercises. Correct performance of therapeutic exercises was facilitated with verbal and visual cuing. Billing Therapeutic Exercise Treatment Minutes: 30 Total Treatment Time Minutes (timed/untimed): 30 Pt arrived 8 min late to this appointment Merrill Donovan [facility]04-28-2023 NoteHNO ID: [id number] Author: Merrill Donovan PT Service: ? Author Type: Physical Therapist Type: Progress Notes Filed: 08/28/2022 1:16 PM Note Text: Episode Visit Count: 4 Therapist That Will Accept/Oversee The Plan Of Care: Merrill Donovan Start of Care Date: 07/23/22 Onset Date: 07/10/22 Plan of Care Certification Date: 08/28/22 Next Certification Due Date: 10/02/22 Patient Identified by Name and Date of : Yes REHABILITATION AND SPORTS THERAPY PHYSICAL THERAPY PROGRESS REPORT PLAN OF CARE UPDATE: Assessment: Miguelito Mari demonstrates difficulty with Cervical ROM, pain and dizziness. She has progressed towards 1 goal. Patient continues to present with impairments in joint mobility, overall function, range of motion, and symptom management that interfere with driving . Current prognosis is Good due to: current objective clinical presentation . She will benefit from continued skilled therapy services to meet the updated goals for this plan of care as noted below. Goals updated 08/28/2022 Goals for Episode of Care: created on 07/23/22 through 10/15/22 Independent in a Home Exercise Program. - MET Restore pain free cervical ROM to WNL to allow for ease of driving and scanning the environment. - Minimal improvement, will continue Drive with no aggravation of pain/symptoms. - Not met Pt will report no longer feeling dizziness symptoms in 12 weeks or less - Not met Pt will report WILSON frequency of once a week or fewer in 12 weeks or less - Not met Patient Goals: Reduce dizziness and WILSON Patient Goals: Reduce dizziness and WILSON Planned Interventions, Frequency, and Duration: 1x/week, 4 weeks Total Number of Visits Planned: 4 Patient to be seen for Therapeutic exercise (10802), Neuromuscular re-education (04602), Manual therapy (64349), Self-senior living management (21056), Patient/Family/Caregiver Education PLAN FOR NEXT VISIT: STM and joint play as needed in the C-spine. SUBJECTIVE: Patient Reason for Visit: Pt states she has not been feeling good lately. Had a lot of aching, burning, and pain. Pain with stretches but may be stretching too far. The room can spin if she gets up too fast out of bed. Patient Goals: Reduce dizziness and WILSON Functional Limitations: driving Prior Level of Function: Independent without limitations Intake Information: Prescription present Previous Treatment: Physical Therapy Falls Interview: No positive findings with falls interview Vestibular Dizziness: Yes Description: spinning (room), vertigo, dizziness Rating of current symptoms: 0/10 Frequency: Intermittent Duration: minutes Symptoms worsened by: bending Headache: Yes Pain: Pain Pain Level: 5 Pain Location: Neck - Right, Neck - Left PROMIS Scales Higher is Better 04/15/2022 Phys Func - Score 39 (moderate dysfunction) Phys Func - Percentile 14 % T-scores: mean of general population = 50. 5 points is clinically meaningfully difference Percentiles provide an indication of how the patient's score ranks in relation to the general population. Higher percentile rankings indicate better function/quality of life. 50th percentile is the average of the general population and indicates half of respondents had a worse score. OBJECTIVE MEASURES WITH LEVEL OF FUNCTION: Oculomotor Testing Fixation Present Spontaneous Nystagmus: No nystagmus Smooth pursuit: Horizontal, Vertical and Diagonal all WNL Positional Testing Right Gerardo-Hallpike: No nystagmus, Asymptomatic Left [place]-Hallpike: No nystagmus, Asymptomatic Cervical Spine ROM Cervical Flexion AROM: Normal, Increased pain Cervical Side-Bend Right AROM: Moderate limitation Cervical Side-Bend Left AROM: Moderate limitation Cervical Rotation Right AROM: Moderate limitation, Increased pain Cervical Rotation Left AROM: Moderate limitation, Increased pain UE AROM R UE AROM: WNL L UE AROM: WNL Spine Joint Mobility Upper Cervical Rotation : Bilateral restriction, Right more restricted than left, Increased pain UE and Cervical Strength R UE Strength: Grossly 5/5 L UE Strength: Grossly 5/5 TREATMENT: Therapeutic Exercise: 1: Discussed modification of stretching exercises to decrease pain response and allow elongation of muscle tissue to occur 2: All objective measures taken this session Skilled Intervention: Patient was educated in proper exercise technique and purpose for exercises. Correct performance of therapeutic exercises was facilitated with verbal and visual cuing. Billing Therapeutic Exercise Treatment Minutes: 28 Total Treatment Time Minutes (timed/untimed): 28 Pt arrived 12 min late to this appointment Merrill Donovan [facility]04-28-2023 History of Present illness Narrative* Merrill Donovan, PT - 08/28/2022 8:56 AM EDT Episode Visit Count: 4 Therapist That Will Accept/Oversee The Plan Of Care: Merrill Donovan Start of Care Date: 07/23/22 Onset Date: 07/10/22 Plan of Care Certification Date: 08/28/22 Next Certification Due Date: 10/02/22 Patient Identified by Name and Date of : Yes REHABILITATION AND SPORTS THERAPY PHYSICAL THERAPY PROGRESS REPORT PLAN OF CARE UPDATE: Assessment: Miguelito Mari demonstrates difficulty with Cervical ROM, pain and dizziness. She has progressed towards 1 goal. Patient continues to present with impairments in joint mobility, overall function, range of motion, and symptom management that interfere with driving . Current prognosis is Good due to: current objective clinical presentation . She will benefit from continued skilled therapy services to meet the updated goals for this plan of care as noted below. Goals updated 08/28/2022 Goals for Episode of Care: created on 07/23/22 through 10/15/22 Independent in a Home Exercise Program. - MET Restore pain free cervical ROM to WNL to allow for ease of driving and scanning the environment. - Minimal improvement, will continue Drive with no aggravation of pain/symptoms. - Not met Pt will report no longer feeling dizziness symptoms in 12 weeks or less - Not met Pt will report WILSON frequency of once a week or fewer in 12 weeks or less - Not met Patient Goals: Reduce dizziness and WILSON Patient Goals: Reduce dizziness and WILSON Planned Interventions, Frequency, and Duration: 1x/week, 4 weeks Total Number of Visits Planned: 4 Patient to be seen for Therapeutic exercise (26873), Neuromuscular re-education (94806), Manual therapy (97664), Self-senior living management (94131), Patient/Family/Caregiver Education PLAN FOR NEXT VISIT: STM and joint play as needed in the C-spine. SUBJECTIVE: Patient Reason for Visit: Pt states she has not been feeling good lately. Had a lot of aching, burning, and pain. Pain with stretches but may be stretching too far. The room can spin if she gets up too fast out of bed. Patient Goals: Reduce dizziness and WILSON Functional Limitations: driving Prior Level of Function: Independent without limitations Intake Information: Prescription present Previous Treatment: Physical Therapy Falls Interview: No positive findings with falls interview Vestibular Dizziness: Yes Description: spinning (room), vertigo, dizziness Rating of current symptoms: 0/10 Frequency: Intermittent Duration: minutes Symptoms worsened by: bending Headache: Yes Pain: Pain Pain Level: 5 Pain Location: Neck - Right, Neck - Left PROMIS Scales Higher is Better 04/15/2022 Phys Func - Score 39 (moderate dysfunction) Phys Func - Percentile 14 % T-scores: mean of general population = 50. 5 points is clinically meaningfully difference Percentiles provide an indication of how the patient's score ranks in relation to the general population. Higher percentile rankings indicate better function/quality of life. 50th percentile is the average of the general population and indicates half of respondents had a worse score. OBJECTIVE MEASURES WITH LEVEL OF FUNCTION: Oculomotor Testing Fixation Present Spontaneous Nystagmus: No nystagmus Smooth pursuit: Horizontal, Vertical and Diagonal all WNL Positional Testing Right Gerardo-Hallpike: No nystagmus, Asymptomatic Left Gerardo-Hallpike: No nystagmus, Asymptomatic Cervical Spine ROM Cervical Flexion AROM: Normal, Increased pain Cervical Side-Bend Right AROM: Moderate limitation Cervical Side-Bend Left AROM: Moderate limitation Cervical Rotation Right AROM: Moderate limitation, Increased pain Cervical Rotation Left AROM: Moderate limitation, Increased pain UE AROM R UE AROM: WNL L UE AROM: WNL Spine Joint Mobility Upper Cervical Rotation : Bilateral restriction, Right more restricted than left, Increased pain UE and Cervical Strength R UE Strength: Grossly 5/5 L UE Strength: Grossly 5/5 TREATMENT: Therapeutic Exercise: 1: Discussed modification of stretching exercises to decrease pain response and allow elongation ofmuscle tissue to occur 2: All objective measures taken this session Skilled Intervention: Patient was educated in proper exercise technique and purpose for exercises. Correct performance of therapeutic exercises was facilitated with verbal and visual cuing. Billing Therapeutic Exercise Treatment Minutes: 28 Total Treatment Time Minutes (timed/untimed): 28 Pt arrived 12 min late to this appointment Merrill Donovan PT documented in this encounterDelaware [facility] Hospital04-10-2023 NoteHNO ID: [id number] Author: Merrill Donovan PT Service: ? Author Type: Physical Therapist Type: Progress Notes Filed: 08/10/2022 3:27 PM Note Text: Episode Visit Count: 3 Therapist That Will Accept/Oversee The Plan Of Care: Merrill Donovan Start of Care Date: 07/23/22 Onset Date: 07/10/22 Plan of Care Certification Date: 07/23/22 Next Certification Due Date: 08/27/22 Patient Identified by Name and Date of : Yes REHABILITATION AND SPORTS THERAPY PHYSICAL THERAPY TREATMENT NOTE ASSESSMENT: Miguelito Mari tolerated the session with decreased symptoms. She demonstrated good tolerance to newly added therapeutic exercises. The patient will continue to benefit from ongoing skilled physical therapy to progress toward set goals. PLAN FOR NEXT VISIT: Stretch sub-occipitals and scalenes SUBJECTIVE: Patient Reason for Visit: Had a family crisis lately. Things are getting better now. Pain: Pain Pain Level: 5 Pain Location: Neck - Right, Neck - Left OBJECTIVE MEASURES WITH LEVEL OF FUNCTION: Cervical Spine ROM Cervical Side-Bend Right AROM: Moderate limitation Cervical Side-Bend Left AROM: Moderate limitation TREATMENT: Therapeutic Exercise: 1: Supine cervical rotations R 2 x 10 holding 5 sec each then L 2 x 10 holding 5 sec each 2: Supine scalene stretch 3 x 30 sec each side (providing the tension by using hands to pull on the head) 3: Pec corner stretch 3 x 30 sec Skilled Intervention: Patient was educated in proper exercise technique and purpose for exercises. Correct performance of therapeutic exercises was facilitated with verbal and visual cuing. Manual Therapy: 1: STM over bilat scalenes and sub-occipitals 2: S-O release in supine x 5 min' 3: Prone S-O stretch along base of skull x 60 seconds 4: General PA mobs over upper thoracic spine prayer position of hands Skilled Intervention: Manual skills to improve joint mobility, ROM, and decrease pain. Utilized anatomy knowledge of the therapist, and assessment of patient's response to intervention. Billing Therapeutic Exercise Treatment Minutes: 12 Manual TherapyTreatment Minutes: 28 Total Treatment Time Minutes (timed/untimed): 40 [place] [id number] History of Present illness Narrative* Merrill Donovan PT - 08/10/2022 2:40 PM EDT Episode Visit Count: 3 Therapist That Will Accept/Oversee The Plan Of Care: Merrill Donovan Start of Care Date: 07/23/22 Onset Date: 07/10/22 Plan of Care Certification Date: 07/23/22 Next Certification Due Date: 08/27/22 Patient Identified by Name and Date of : Yes REHABILITATION AND SPORTS THERAPY PHYSICAL THERAPY TREATMENT NOTE ASSESSMENT: Miguelito Mari tolerated the session with decreased symptoms. She demonstrated good tolerance to newly added therapeutic exercises. The patient will continue to benefit from ongoing skilled physical therapy to progress toward set goals. PLAN FOR NEXT VISIT: Stretch sub-occipitals and scalenes SUBJECTIVE: Patient Reason for Visit: Had a family crisis lately. Things are getting better now. Pain: Pain Pain Level: 5 Pain Location: Neck - Right, Neck - Left OBJECTIVE MEASURES WITH LEVEL OF FUNCTION: Cervical Spine ROM Cervical Side-Bend Right AROM: Moderate limitation Cervical Side-Bend Left AROM: Moderate limitation TREATMENT: Therapeutic Exercise: 1: Supine cervical rotations R 2 x 10 holding 5 sec each then L 2 x 10 holding 5 sec each 2: Supine scalene stretch 3 x 30 sec each side (providing the tension by using hands to pull on thehead) 3: Pec corner stretch 3 x 30 sec Skilled Intervention: Patient was educated in proper exercise technique and purpose for exercises. Correct performance of therapeutic exercises was facilitated with verbal and visual cuing. Manual Therapy: 1: STM over bilat scalenes and sub-occipitals 2: S-O release in supine x 5 min' 3: Prone S-O stretch along base of skull x 60 seconds 4: General PA mobs over upper thoracic spine prayer position of hands Skilled Intervention: Manual skills to improve joint mobility, ROM, and decrease pain. Utilized anatomy knowledge of the therapist, and assessment of patient's response to intervention. Billing Therapeutic Exercise Treatment Minutes: 12 Manual TherapyTreatment Minutes: 28 Total Treatment Time Minutes (timed/untimed): 40 Merrill Donovan PT [facility] Miscellaneous Notes* Telephone Encounter - Margie Saul LPN - 08/03/2022 2:51 PM EDT Patient has been identified by name and date of : Yes, Provider Dr. Moser Date 08/03/22 Time 2:52pm Pharmacy phones for refill(s): Requested Prescriptions Pending Prescriptions Disp Refills loratadine (ALLERGY RELIEF, LORATADINE,) 10 mg tablet 90 tablet 3 Sig: Take 1 tablet by mouth once daily. omeprazole (PRILOSEC) 20 mg capsule 360 capsule 3 Sig: TAKE 2 CAPSULES BY MOUTH TWICE DAILY 1/2 HOUR BEFORE A MEAL levothyroxine (LEVOXYL) 125 mcg tablet 30 tablet 2 Sig: Take 1 tablet by mouth once daily. Take on empty stomach. For thyroid. busPIRone (BUSPAR) 15 mg tablet 60 tablet 3 Sig: Take 1 tablet by mouth twice daily. Date of last office visit in primary care: 07/14/22 next apt 10/20/22 Last 2 Encounter Wt Readings: Date: Wt: 07/14/2022 93 kg (205 lb) 04/07/2022 91.2 kg (201 lb) Previous labs/tests for medication: Thyroid: TSH Date Value 12/26/2021 1.200 mIU/L 11/12/2020 2.370 uU/mL Thank you. Margie Saul LPN documented in [facility]Del[facility]03-28-[facility]23 NoteHNO ID: [id number] Author: Merrill Donovan PT Service: ? Author Type: Physical Therapist Type: Progress Notes Filed: 07/28/2022 1:30 PM Note Text: Episode Visit Count: 2 Therapist That Will Accept/Oversee The Plan Of Care: Merrill Donovan Start of Care Date: 07/23/22 Onset Date: 07/10/22 Plan of Care Certification Date: 07/23/22 Next Certification Due Date: 08/27/22 Patient Identified by Name and Date of : Yes REHABILITATION AND SPORTS THERAPY PHYSICAL THERAPY TREATMENT NOTE ASSESSMENT: Miguelito Mari tolerated the session with no issues. She demonstrated improvements in pain levels since last visit. The patient will continue to benefit from ongoing skilled physical therapy to progress toward set goals. PLAN FOR NEXT VISIT: Continue with manual techniques to improved SUBJECTIVE: Patient Reason for Visit: Had some pain with the stretch but no pain the neck. Feels the exercise is helpful overall. Pain: Pain Pain Location: Head - Right Post Treatment Pain Post Treatment Pain Level: 3 Post Treatment Pain Location: Head - Right, Head - Left OBJECTIVE MEASURES WITH LEVEL OF FUNCTION: Mod limitation R cerv rotation TREATMENT: Therapeutic Exercise: 1: Pec stretch on corner 3 x 30 sec 2: S-O stretch 3 x 30 sec Skilled Intervention: Patient was educated in proper exercise technique and purpose for exercises. Correct performance of therapeutic exercises was facilitated with verbal cuing. Manual Therapy: 1: Contract relax technique at C1-C2 R rotation x 5 sets then to the L x 5 (all holds are 8 seconds long) 2: S-O release in supine x 6 min hold 3: STM over sub-occipitals with firm pressure at fingertips 4: Pin and stretch to R Upper trap Skilled Intervention: Manual skills to improve joint mobility, ROM, and decrease pain. Utilized anatomy knowledge of the therapist, and assessment of patient's response to intervention. Billing Therapeutic Exercise Treatment Minutes: 5 Manual TherapyTreatment Minutes: 29 Total Treatment Time Minutes (timed/untimed): 34 Pt arrived 10 min late to this appointment Merrill Donovan [facility]03-28-2023 History of Present illness Narrative* Merrill Donovan, PT - 07/28/2022 12:55 PM EDT Episode Visit Count: 2 Therapist That Will Accept/Oversee The Plan Of Care: Merrill Donovan Start of Care Date: 07/23/22 Onset Date: 07/10/22 Plan of Care Certification Date: 07/23/22 Next Certification Due Date: 08/27/22 Patient Identified by Name and Date of : Yes REHABILITATION AND SPORTS THERAPY PHYSICAL THERAPY TREATMENT NOTE ASSESSMENT: Miguelito Mari tolerated the session with no issues. She demonstrated improvements in pain levels since last visit. The patient will continue to benefit from ongoing skilled physical therapy to progress toward set goals. PLAN FOR NEXT VISIT: Continue with manual techniques to improved SUBJECTIVE: Patient Reason for Visit: Had some pain with the stretch but no pain the neck. Feels the exercise is helpful overall. Pain: Pain Pain Location: Head - Right Post Treatment Pain Post Treatment Pain Level: 3 Post Treatment Pain Location: Head - Right, Head - Left OBJECTIVE MEASURES WITH LEVEL OF FUNCTION: Mod limitation R cerv rotation TREATMENT: Therapeutic Exercise: 1: Pec stretch on corner 3 x 30 sec 2: S-O stretch 3 x 30 sec Skilled Intervention: Patient was educated in proper exercise technique and purpose for exercises. Correct performance of therapeutic exercises was facilitated with verbal cuing. Manual Therapy: 1: Contract relax technique at C1-C2 R rotation x 5 sets then to the L x 5 (all holds are 8 secondslong) 2: S-O release in supine x 6 min hold 3: STM over sub-occipitals with firm pressure at fingertips 4: Pin and stretch to R Upper trap Skilled Intervention: Manual skills to improve joint mobility, ROM, and decrease pain. Utilized anatomy knowledge of the therapist, and assessment of patient's response to intervention. Billing Therapeutic Exercise Treatment Minutes: 5 Manual TherapyTreatment Minutes: 29 Total Treatment Time Minutes (timed/untimed): 34 Pt arrived 10 min late to this appointment Merrill Donovan PT documented in this encounterDel[facility]03-23-2023 NoteHNO ID: [id number] Author: Layla Garcia MA Service: ? Author Type: Water Resource Engineering Specialist Type: Progress Notes Filed: 07/23/2022 1:52 PM Note Text: POPULATION HEALTH NAVIGATION OUTREACH Action/FYI Called and left a message to call [phone], to discuss health maintenance items that are due. Sent My Chart message. PCP appt: 10/20/22 My chart activation: active Advance directive: needs info HM due: [facility]-Mammogram- already ordered- sent walk in locations via my chart. AD Patient Identified by Name and : NO Outreach Outcome/Action Unable to reach patient: Left message [employer] message sent Did you use a PCP flex slot to schedule this appointment? N/A Reason for Outreach Care Gap or Scheduling/Wellness visits Payer: Payor: [facility] MEDICARE / Plan: [facility] MEDICARE HMO / Product Type: HMO / Care Gap Reviewed:: Breast Cancer screening Reminder: Reminder note to check Health Maintenance for items below Health Maintenance items due: MAMMOGRAM due on 10/22/2016 BONE DENSITY Never done ADVANCE DIRECTIVE DISCUSSION due on 05/03/2022 DEPRESSION ASSESSMENT due on 05/03/2022 Navigation Signature: Layla TAMEKA Garcia July 23, 2022 1:51 [facility]03-23-2023 NoteHNO ID: [id number] Author: Merrill Donovan PT Service: ? Author Type: Physical Therapist Type: Progress Notes Filed: 07/23/2022 1:47 PM Note Text: Episode Visit Count: 1 Therapist That Will Accept/Oversee The Plan Of Care: Merrill Donovan Start of Care Date: 07/23/22 Onset Date: 07/10/22 Plan of Care Certification Date: 07/23/22 Next Certification Due Date: 08/27/22 Patient Identified by Name and Date of : Yes REHABILITATION AND SPORTS THERAPY PHYSICAL THERAPY EVALUATION PLAN OF CARE: Assessment: Miguelito Mari presents with chief complaint of WILSON, neck pain, and dizziness that interferes with driving . She presents with impairments in independence in exercise, joint mobility, overall function, and symptom management. Patient did not complete the PROMIS? (Patient Reported Outcome Measures Information System). Prognosis for therapy is Good due to: current objective clinical presentation . Pt demonstrates a positive CFRT to the R but limited to both sides. She will benefit from skilled therapy services to meet the goals established for this plan of care as noted below. Goals for Episode of Care: created on 07/23/22 through 10/15/22 Independent in a Home Exercise Program. Restore pain free cervical ROM to WNL to allow for ease of driving and scanning the environment. Drive with no aggravation of pain/symptoms. Pt will report no longer feeling dizziness symptoms in 12 weeks or less Pt will report WILSON frequency of once a week or fewer in 12 weeks or less Patient Goals: Reduce dizziness and WILSON Planned Interventions, Frequency, and Duration: Current Frequency: 2x/week Duration: 4 weeks Total Number of Visits Planned: 8 Planned Treatment Interventions: Therapeutic exercise (68026), Neuromuscular re-education (14434), Manual therapy (64894), Self-senior living management (06602), Patient/Family/Caregiver Education PLAN FOR NEXT VISIT: Assess reaction to HEP. Contract relax technique to improved C1-2 mobility. Segmentally assess cervical mobility in prone. Patient demonstrates good understanding of plan of care and treatment. The above goals and plan of care were discussed and agreed upon by patient/family. SUBJECTIVE: Miguelito Mari is a 66 year old female seen today for WILSON pain. Has knots in the neck. Wake up with pain in the morning even if massaging her muscles the night before. Pain in back of the head and goes to the R eye. Pain can go to the top of the R shoulder blade. Can be on the L but worse on the R. Has vertigo and can vomit due to this. MRI and cat scans have been done and nothing has been observed. Dizziness can last 30-40 min with meds. Originally bent doen and came up and got dizzy. Pt can have WILSON 4 days a week the past few weeks. Patient Goals: Reduce dizziness and WILSON Functional Limitations: driving Prior Level of Function: Independent without limitations Relevant History Employment: Retired Intake Information: Prescription present Previous Treatment: Physical Therapy Falls Interview: No positive findings with falls interview Spine History Symptoms Location at Onset: Neck, Headache Symptoms Since Onset: Worsening Vestibular Symptom onset: sudden Dizziness: Yes Description: spinning (room), vertigo, dizziness Frequency: Intermittent Duration: minutes (30-40) Symptoms worsened by: bending Headache: Yes Description: sharp Rating of current symptoms: 7/10 Location: occipital region, temporal region Frequency: Intermittent Pain: Pain Pain Level: 7 Pain Location: Head - Right Description: Sharp PROMIS Scales Higher is Better 04/15/2022 Phys Func - Score 39 (moderate dysfunction) Phys Func - Percentile 14 % T-scores: mean of general population = 50. 5 points is clinically meaningfully difference Percentiles provide an indication of how the patient's score ranks in relation to the general population. Higher percentile rankings indicate better function/quality of life. 50th percentile is the average of the general population and indicates half of respondents had a worse score. OBJECTIVE MEASURES WITH LEVEL OF FUNCTION: Posture / Alignment Posture: Forward head, Rounded shoulders Oculomotor Testing Fixation Removed Spontaneous Nystagmus: No nystagmus Positional Testing Right Ear Down: Asymptomatic Left Ear Down: Asymptomatic Cervical Spine ROM Cervical ROM : Limitation AROM Cervical Flexion AROM: Normal, Increased pain Cervical Extension AROM: Normal, Increased pain Cervical Side-Bend Right AROM: Moderate limitation Cervical Side-Bend Left AROM: Moderate limitation Cervical Rotation Right AROM: Moderate limitation (Wants to get dizzy mid way through) Cervical Rotation Left AROM: Moderate limitation (Wants to get dizzy during movement) UE AROM R UE AROM: WNL L UE AROM: WNL Spine Joint Mobility Spine Joint Mobility : Cervical/Thoracic Upper Cervical Rotation : Bilateral restriction, Right more (more content not included)...[facility]03-23-2023 NotePatient Outreach (NETNAV) MIGUELITO MARI ([id number]) 1955 F Date Time Provider Department 07/23/22 LAYLA GARCIA During your visit today, we recorded the following information about you: Layla Garcia MA 07/23/2022 1:52 PM Signed POPULATION HEALTH NAVIGATION OUTREACH Action/FYI Called and left a message to call [phone], to discuss health maintenance items that are due. Sent My Chart message. PCP appt: 10/20/22 My chart activation: active Advance directive: needs info due: [facility]-Mammogram- already ordered- sent walk in locations via my chart. AD Patient Identified by Name and : NO Outreach Outcome/Action Unable to reach patient: Left message [employer] message sent Did you use a PCP flex slot to schedule this appointment? N/A Reason for Outreach Care Gap or Scheduling/Wellness visits Payer: Payor: [facility] MEDICARE / Plan: [employer] MEDICARE HMO / Product Type: HMO / Care Gap Reviewed:: Breast Cancer screening Reminder: Reminder note to check Health Maintenance for items below Health Maintenance items due: MAMMOGRAM due on 10/22/2016 BONE DENSITY Never done ADVANCE DIRECTIVE DISCUSSION due on 05/03/2022 DEPRESSION ASSESSMENT due on 05/03/2022 Navigation Signature: Layla Garcia MA July 23, 2022 1:51 PM Allergies As of Date: 07/23/2022 Noted Allergy Reaction ADHESIVE TAPE (ROSINS) 07/14/2010 2 - Rash AUGMENTIN (AMOXICILLIN-POT CLAVUL*04/16/2014 8 - GI Upset HYDROCHLOROTHIAZIDE 03/04/2005 4 - Hives Date Reviewed: 07/14/2022 Reviewed by: Mena Currie Ma - Fully Assessed Reason for Visit: Population Health Navigation Outreach [3910] Cmt: [facility] care gaps Prescriptions as of 07/23/2022 - ondansetron orally disintegrating (ZOFRAN ODT) 4 mg disintegrating tablet Take 1 tablet by mouth every 6 hours as needed for nausea/vomiting. - diazePAM (VALIUM) 5 mg tablet 1/2 to 1 tab only as needed for vertigo if persists despite other measures - meclizine (ANTIVERT) 12.5 mg tab Take 1 tablet by mouth every 6 hours as needed (dizziness). - traMADol (ULTRAM) 50 mg tablet Take 2 tablets by mouth every 6 hours as needed for pain for up to 30 days. - cyclobenzaprine (FLEXERIL) 5 mg tablet TAKE ONE TABLET BY MOUTH EVERY 8 HOURS NEEDED FOR MUSCLE SPASMS - busPIRone (BUSPAR) 15 mg tablet Take 1 tablet by mouth twice daily. - levothyroxine (LEVOXYL) 125 mcg tablet Take 1 tablet by mouth once daily. Take on empty stomach. For thyroid. - traZODone (DESYREL) 100 mg tablet Take 1 tablet by mouth daily at bedtime. - buPROPion SR (ZYBAN SR; WELLBUTRIN SR) 150 mg 12 hr tablet Take 1 tablet by mouth twice daily. - sertraline (ZOLOFT) 50 mg tablet Take 1 tablet by mouth once daily. - clotrimazole-betamethasone (LOTRISONE) cream Apply 1 application to affected area twice daily. - montelukast (SINGULAIR) 10 mg tablet Take 1 tablet by mouth daily at bedtime. - albuterol HFA (VENTOLIN HFA) 90 mcg/actuation inhaler Inhale 2 Puffs as instructed every 4 hours as needed. - loratadine (ALLERGY RELIEF, LORATADINE,) 10 mg tablet Take 1 tablet by mouth once daily. - omeprazole (PRILOSEC) 20 mg capsule TAKE 2 CAPSULES BY MOUTH TWICE DAILY 1/2 HOUR BEFORE A MEAL - sucralfate (CARAFATE) 1 gram tablet Take 1 tablet by mouth three times daily as needed. - fluticasone (FLONASE) 50 mcg/actuation nasal spray Use 1 Vega in each nostril daily at bedtime. - lisinopril (ZESTRIL, PRINIVIL) 5 mg tablet Take 0.5 tablets by mouth once daily. - fexofenadine (FARTUN) 180 mg tablet Take 1 tablet by mouth once daily. - L. RHAMNOSUS GG/INULIN (CULTURELLE PROBIOTICS ORAL) Take 1 tablet by mouth once daily. - cyanocobalamin (VITAMIN B-12) 1,000 mcg tab Take 1 tablet by mouth once daily. - Cholecalciferol, Vitamin D3, 1,000 unit cap Take 1 capsule by mouth once daily. - Peak Flow Meter Monica Check peak flows as directed Meds Comments as of 05/21/2010: Problem List As Of Date 07/23/2022 Noted Resolved OVERWEIGHT [E66.9] 09/08/2005 Fibromyalgia [M79.7] 09/08/2005 MALAISE AND FATIGUE NEC [R53.81, R53.83] 09/08/2005 Adjustment reaction with prolonged depressive r*09/08/2005 ESOPHAGEAL REFLUX [K21.9] 10/29/2005 Hypothyroidism [E03.9] 10/29/2005 Unspecified sleep apnea [G47.30] 10/29/2005 HOARSENESS [R49.8] 01/21/2006 Asthma [J45.909] 01/21/2006 Other specified abnormal findings of blood chem*01/21/2006 Intractable migraine without aura [G43.019] 07/13/2008 Other general medical examination for administr*02/26/2009 08/25/2013 Abdominal pain, left upper quadrant [R10.12] 10/11/2009 08/25/2013 Abdominal pain, epigastric [R10.13] 10/11/2009 08/25/2013 Vitamin D deficiency [E55.9] 04/03/2010 Osteoarthrosis, hand [M19.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 Author Type: Physician Sign Maker Type: Progress Notes Filed: 07/14/2022 5:11 PM Note Text: 66 year old female with c/o f/u for vertigo, valium refill. Bitemporal headaches. Wonders if PT could help vertigo isf stemming from neck Also asked about reflux/ acid induced vertigo from a friend who read about it. She has GERD but is managed on omeprazole 20mg daily. Vertigo has improved, about twice a week, Valium helps nicely, once or twice a week. Still has to lay down with eyes closed for about 30-40 minutes, eventually passes. HISTORIES FAMILY HISTORY Problem Relation Age of Onset Cancer Mother bladder, esophageal,stomach/ Hypertension Mother Stroke Mother Heart Mother Coronary Artery Disease Father Emphysema Father Hypertension Father Heart Father Coronary Artery Disease Maternal Grandmother Coronary Artery Disease Maternal Grandfather Breast Cancer Other maternal cousins x3 Cancer Other maternal cousin stomach cancer Hypertension Brother Coronary Artery Disease Maternal Uncle Coronary Artery Disease Maternal Uncle Coronary Artery Disease Maternal Uncle Coronary Artery Disease Maternal Uncle Cancer Maternal Aunt Coronary Artery Disease Maternal Aunt Heart Brother Heart Sister PAST MEDICAL HISTORY Diagnosis Date Abdominal pain, epigastric Abdominal pain, left upper quadrant Arthritis Asthma CAD (coronary artery disease) coronary artery spasm - stress heart attch 04/13 Depression Fibromyalgia Hypertension Insomnia with sleep apnea, unspecified Malaise and fatigue Myalgia and myositis, unspecified Obesity, unspecified Obstructive sleep apnea cant use cpap Reflux esophagitis Right bundle branch block (RBBB) on electrocardiogram (ECG) Unspecified asthma, with status asthmaticus Unspecified hypothyroidism Hypothyroidism Variants of migraine, not elsewhere classified, without mention of intractable migraine without mention of status migrainosus PAST SURGICAL HISTORY Procedure Laterality Date ABDOMINAL SURGERY HX ADENOIDECTOMY PRIMARY Adenoidectomy CHOLECYSTECTOMY 2008 COLONOSCOPY FLX DX W/COLLJ SPEC WHEN PFRMD 10/10/13 normal - 10 year follow up EGD 06/22/2016 esophagitis and gastritis, repeat in 2-3 years d/t family history EGD TRANSORAL BIOPSY SINGLE/MULTIPLE 10/11/09 EGD TRANSORAL BIOPSY SINGLE/MULTIPLE 10/10/13 mild duodenitis, gastritis, gastric polyp ESOPHAGOGASTRODUODENOSCOPY TRANSORAL DIAGNOSTIC 04/12/00 AND 12/09/06 EGD HEART CATHETERIZATION 04/09/12 TONSILLECTOMY HX TONSILLECTOMY PRIMARY/SECONDARY Tonsillectomy Social History Tobacco Use Smoking status: Never Smokeless tobacco: Never Vaping Use Vaping Use: Never used Substance Use Topics Alcohol use: Yes Comment: 2 drinks per week Drug use: No ACTIVE PROBLEM LIST OVERWEIGHT Fibromyalgia Other Malaise and Fatigue Adjustment Reaction With Prolonged Depressive Reaction Esophageal Reflux Hypothyroidism Unspecified Sleep Apnea HOARSENESS Asthma Other Specified Abnormal Findings of Blood Chemistry Intractable Migraine Without Aura Vitamin D Deficiency Osteoarthrosis, Hand Cervical Spondylosis Without Myelopathy Other and Unspecified Nonspecific Immunological Findings Cad (Coronary Artery Disease) Gastroesophageal Reflux Disease Without Esophagitis History of Coronary Vasospasm Migraine Memory Difficulties Anxiety Chronic Renal Insufficiency, Stage 3 (Moderate) (Hcc) Takotsubo Cardiomyopathy Hyperplastic Polyp of Stomach Bppv (Benign Paroxysmal Positional Vertigo), Unspecified Laterality Hyperglycemia Vertigo Current Outpatient Medications Medication Sig Dispense Refill ondansetron orally disintegrating (ZOFRAN ODT) 4 mg disintegrating tablet Take 1 tablet by mouth every 6 hours as needed for nausea/vomiting. 10 tablet 1 meclizine (ANTIVERT) 12.5 mg tab Take 1 tablet by mouth every 6 hours as needed (dizziness). 15 tablet 1 traMADol (ULTRAM) 50 mg tablet Take 2 tablets by mouth every 6 hours as needed for pain for up to 30 days. 240 tablet 1 cyclobenzaprine (FLEXERIL) 5 mg tablet TAKE ONE TABLET BY MOUTH EVERY 8 HOURS NEEDED FOR MUSCLE SPASMS 30 tablet 3 busPIRone (BUSPAR) 15 mg tablet Take 1 tablet by mouth twice daily. 60 tablet 3 levothyroxine (LEVOXYL) 125 mcg tablet Take 1 tablet by mouth once daily. Take on empty stomach. For thyroid. 30 tablet 2 traZODone (DESYREL) 100 mg tablet Take 1 tablet by mouth daily at bedtime. 90 tablet 3 buPROPion SR (ZYBAN SR; WELLBUTRIN SR) 150 mg 12 hr tablet Take 1 tablet by mouth twice daily. 180 tablet 3 sertraline (ZOLOFT) 50 mg tablet Take 1 tablet by mouth once daily. 90 tablet 3 estradiol (ESTRACE) 0.01 % (0.1 mg/gram) vaginal cream Use 1 g vaginally as directed. 1 gm vaginally every night at bedtime x 14 nights then twice weekly. (Patient not taking: Reported on 1 (more content not included)... [facility]03-14-2023 History of Present illness Narrative* Steffen Petersen PA-C - 07/14/2022 3:20 PM EDT 66 year old female with c/o f/u for vertigo, valium refill. Bitemporal headaches. Wonders if PT could help vertigo isf stemming from neck Also asked about reflux/ acid induced vertigo from a friend who read about it. She has GERD but is managed on omeprazole 20mg daily. Vertigo has improved, about twice a week, Valium helps nicely, once or twice a week. Still has to lay down with eyes closed for about 30-40 minutes, eventually passes. HISTORIES FAMILY HISTORY Problem Relation Age of Onset Cancer Mother bladder, esophageal,stomach/ Hypertension Mother Stroke Mother Heart Mother Coronary Artery Disease Father Emphysema Father Hypertension Father Heart Father Coronary Artery Disease Maternal Grandmother Coronary Artery Disease Maternal Grandfather Breast Cancer Other maternal cousins x3 Cancer Other maternal cousin stomach cancer Hypertension Brother Coronary Artery Disease Maternal Uncle Coronary Artery Disease Maternal Uncle Coronary Artery Disease Maternal Uncle Coronary Artery Disease Maternal Uncle Cancer Maternal Aunt Coronary Artery Disease Maternal Aunt Heart Brother Heart Sister PAST MEDICAL HISTORY Diagnosis Date Abdominal pain, epigastric Abdominal pain, left upper quadrant Arthritis Asthma CAD (coronary artery disease) coronary artery spasm - stress heart attch 04/13 Depression Fibromyalgia Hypertension Insomnia with sleep apnea, unspecified Malaise and fatigue Myalgia and myositis, unspecified Obesity, unspecified Obstructive sleep apnea cant use cpap Reflux esophagitis Right bundle branch block (RBBB) on electrocardiogram (ECG) Unspecified asthma, with status asthmaticus Unspecified hypothyroidism Hypothyroidism Variants of migraine, not elsewhere classified, without mention of intractable migraine without mention of status migrainosus PAST SURGICAL HISTORY Procedure Laterality Date ABDOMINAL SURGERY HX ADENOIDECTOMY PRIMARY <AGE 10 Adenoidectomy CHOLECYSTECTOMY 2008 COLONOSCOPY FLX DX W/COLLJ SPEC WHEN PFRMD 10/10/13 normal - 10 year follow up EGD 06/22/2016 esophagitis and gastritis, repeat in 2-3 years d/t family history EGD TRANSORAL BIOPSY SINGLE/MULTIPLE 10/11/09 EGD TRANSORAL BIOPSY SINGLE/MULTIPLE 10/10/13 mild duodenitis, gastritis, gastric polyp ESOPHAGOGASTRODUODENOSCOPY TRANSORAL DIAGNOSTIC 04/12/00 & 12/09/06 EGD HEART CATHETERIZATION 04/09/12 TONSILLECTOMY HX TONSILLECTOMY PRIMARY/SECONDARY <AGE 10 Tonsillectomy Social History Tobacco Use Smoking status: Never Smokeless tobacco: Never Vaping Use Vaping Use: Never used Substance Use Topics Alcohol use: Yes Comment: 2 drinks per week Drug use: No ACTIVE PROBLEM LIST OVERWEIGHT Fibromyalgia Other Malaise and Fatigue Adjustment Reaction With Prolonged Depressive Reaction Esophageal Reflux Hypothyroidism Unspecified Sleep Apnea HOARSENESS Asthma Other Specified Abnormal Findings of Blood Chemistry Intractable Migraine Without Aura Vitamin D Deficiency Osteoarthrosis, Hand Cervical Spondylosis Without Myelopathy Other and Unspecified Nonspecific Immunological Findings Cad (Coronary Artery Disease) Gastroesophageal Reflux Disease Without Esophagitis History of Coronary Vasospasm Migraine Memory Difficulties Anxiety Chronic Renal Insufficiency, Stage 3 (Moderate) (Hcc) Takotsubo Cardiomyopathy Hyperplastic Polyp of Stomach Bppv (Benign Paroxysmal Positional Vertigo), Unspecified Laterality Hyperglycemia Vertigo Current Outpatient Medications Medication Sig Dispense Refill ondansetron orally disintegrating (ZOFRAN ODT) 4 mg disintegrating tablet Take 1 tablet by mouth every 6 hours as needed for nausea/vomiting. 10 tablet 1 meclizine (ANTIVERT) 12.5 mg tab Take 1 tablet by mouth every 6 hours as needed (dizziness). 15 tablet 1 traMADol (ULTRAM) 50 mg tablet Take 2 tablets by mouth every 6 hours as needed for pain for up to 30 days. 240 tablet 1 cyclobenzaprine (FLEXERIL) 5 mg tablet TAKE ONE TABLET BY MOUTH EVERY 8 HOURS NEEDED FOR MUSCLE SPASMS 30 tablet 3 busPIRone (BUSPAR) 15 mg tablet Take 1 tablet by mouth twice daily. 60 tablet 3 levothyroxine (LEVOXYL) 125 mcg tablet Take 1 tablet by mouth once daily. Take on empty stomach. For thyroid. 30 tablet 2 traZODone (DESYREL) 100 mg tablet Take 1 tablet by mouth daily at bedtime. 90 tablet 3 buPROPion SR (ZYBAN SR; WELLBUTRIN SR) 150 mg 12 hr tablet Take 1 tablet by mouth twice daily. 180 tablet 3 sertraline (ZOLOFT) 50 mg tablet Take 1 tablet by mouth once daily. 90 tablet 3 estradiol (ESTRACE) 0.01 % (0.1 mg/gram) vaginal cream Use 1 g vaginally as directed. 1 gm vaginally every night at bedtime x 14 nights then twice weekly. (Patient not taking: Reported on 04/28/2022)42.5 g 4 miSOPROStol (CYTOTEC) 200 mcg tablet Insert 2 tablets vaginally night prior to endometrial biopsy and 2 tablets morning of procedure. Each dose should be in vagina for 6-8 hours. (Patient not taking:Reported on 04/28/2022) 4 tablet 0 clotrimazole-betamethasone (LOTRISONE) cream Apply 1 application to affected area twice daily. 30 g2 montelukast (SINGULAIR) 10 mg tablet Take 1 tablet by mouth daily at bedtime. 90 tablet 3 albuterol HFA (VENTOLIN HFA) 90 mcg/actuation inhaler Inhale 2 Puffs as instructed every 4 hours asneeded. 3 Inhaler 3 loratadine (ALLERGY RELIEF, LORATADINE,) 10 mg tablet Take 1 tablet by mouth once daily. 90 tablet 3 omeprazole (PRILOSEC) 20 mg capsule TAKE 2 CAPSULES BY MOUTH TWICE DAILY 1/2 HOUR BEFORE A MEAL 360capsule 3 sucralfate (CARAFATE) 1 gram tablet Take 1 tablet by mouth three times daily as needed. 270 tablet 0 fluticasone (FLONASE) 50 mcg/actuation nasal spray Use 1 Vega in each nostril daily at bedtime. 1 Bottle 6 lisinopril (ZESTRIL, PRINIVIL) 5 mg tablet Take 0.5 tablets by mouth once daily. (Patient taking differently: Take 10 mg by mouth once daily.) 90 tablet 5 fexofenadine (FARTUN) 180 mg tablet Take 1 tablet by mouth once daily. 30 tablet 3 L. RHAMNOSUS GG/INULIN (CULTURELLE PROBIOTICS ORAL) Take 1 tablet by mouth once daily. cyanocobalamin (VITAMIN B-12) 1,000 mcg tab Take 1 tablet by mouth once daily. 30 tablet 2 Cholecalciferol, Vitamin D3, 1,000 unit cap Take 1 capsule by mouth once daily. 0 Peak Flow Meter Monica Check peak flows as directed 1 Device 0 No current facility-administered medications for this visit. MAMMOGRAM due on 10/22/2016 BONE DENSITY Never done ADVANCE DIRECTIVE DISCUSSION due on 05/03/2022 DEPRESSION ASSESSMENT due on 05/03/2022 EXAM: BP 116/74 Pulse 85 Resp 16 Wt 93 kg (205 lb) SpO2 98% BMI 38.70 kg/m Pleasant overweight adult woman in no acute distress. Alert and oriented all spheres. Normal affectand cognition. Speech normal. No deficits to learning or comprehension. Skin warm, dry, pink to lips and nailbeds. Normal turgor. Respirations regular and unlabored. HEENT: NCAT. No scleral icterus or conjunctival injection. TM's clear. Nose and oropharynx free from injection or lesion. Oral membranes moist and pink. No cervical lymph nodes. Thyroid non-tender, no masses, or enlargement. Carotids pulses 2+/4+ without bruits. No JVD with HOB at 30 degrees. + TTPs in bilateral TMJ and bilateral anterior and posterior cervical Extrem: no clubbing or cyanosis. Edema: none. Extremities are warm and pink with prompt capillary refill. ASSESSMENT/PLAN: 1. Cervicalgia - ICD9: 723.1, ICD10: M54.2 (primary diagnosis) - CONSULT TO PHYSICAL THERAPY 2. BPPV (benign paroxysmal positional vertigo), unspecified laterality - ICD9: 386.11, ICD10: H81.10 Continue diazepam cautiously, is improving over last 2 weeks. - ONDANSETRON 4 MG DISINTEGRATING TABLET - DIAZEPAM 5 MG TABLET 3. 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 Fibromyalgia - ICD9: 729.1, ICD10: M79.7 - CONSULT TO PHYSICAL THERAPY Steffen Petersen PA-C Some of this note may have been copied and pasted for the purpose of history context and comparison. documented in this encounterDelaware [facility]02-14-2023 Miscellaneous Notes* Telephone Encounter - Mena Currie Ma - 06/16/2022 5:15 PM EST Patient notified of provider message * Telephone Encounter - Steffen Petersen PA-C - 06/16/2022 4:56 PM EST Last lab orders were 04/20/[address] Castellano. Has outstanding hgba1c. I can place orders for magnesium is there is a concern. I don't see a scheduled appointment either. She has orders for hgba1c 07/23/2022. I will put in routine labs and magnesium if she wants to schedule in after. Telephone on 06/16/22 MAGNESIUM BLD CBC COMP METABOLIC PANEL LIPID PANEL BASIC Thanks, Jose Petersen PA-C * Telephone Encounter - Pham Dominguez LPN - 06/16/2022 2:18 PM EST Patient is calling for her Lab results, does not see her magnesium level. Please review & advise. Pham Dominguez LPN documented in this encounterDelaware County Hospital02-02-2023 Miscellaneous Notes* Telephone Encounter - Alina Davies - 06/04/2022 9:45 AM EST Called PT LVM to call back and reschedule due to not completing Vestibular Rehab. Alina MARSH * Telephone Encounter - JOSE GUADALUPE Aguilar - 06/03/2022 4:33 PM EST Patient has appointment scheduled with [facility] on 06/09 for a follow up on vestibular therapy. In [facility] records, patient has not yet scheduled or vestibular therapy. Please contact patient and assist in rescheduling for after testing completed. Thank you. JOSE GUADALUPE Aguilar documented in this encounterDelaware County Hospital01-20-2023 Miscellaneous Notes* Telephone Encounter - JOSE GUADALUPE Aguilar - 05/22/2022 9:56 AM EST Signed initial physical therapy evaluation faxed back to [facility] as requested. JOSE GUADALUPE Aguilar documented in this encounterDelaware County Hospital01-19-2023 Miscellaneous Notes* Telephone Encounter - Steffen Petersen PA-C - 05/21/2022 6:20 PM EST The following approved medication requests have been transmitted electronically. Requested Prescriptions Signed Prescriptions Disp Refills diazePAM (VALIUM) 5 mg tablet Sig: Take 1 tablet by mouth once daily as needed for up to 30 days. For vertigo Authorizing Provider: Steffen PETERSEN PA-C * Telephone Encounter - Ny Truong RN - 05/21/2022 1:32 PM EST [facility] calling and states they received pt's recent script for diazepam 5 mg. Pharmacy reports instructions state pt to take medication daily for 30 days, however only 15 pills were ordered. Please advise pharmacy. Thank you. documented in this encounterDelaware County Hospital01-18-2023 Miscellaneous Notes* Telephone Encounter - Maty Butcher RN - 05/20/2022 3:07 PM EST Called and left message for patient to call back and speak with a triage nurse regarding recommendations below. Maty Btucher RN * Telephone Encounter - Papa Moser MD - 05/20/2022 2:28 PM EST We are really not supposed to prescribe this with her tramadol due to risk of interaction-high rates of overdose and . * Telephone Encounter - Maty Butcher RN - 05/20/2022 1:51 PM EST Patient calls and is asking if PCP can prescribe diazepam for her. Patient was seen in [facility] ER and medication was prescribed by [facility] ER. Patient has tried to get medication from Dr. Castellano as well as Melany Adair. Patient has been advised multiple times that she needs to set up appointment with Dr. Hamilton who is a vertigo specialist. (See Dr. Castellano telephone encounter from 05/19/2022). Patient asking if PCP can order this? Patient still has not set up appointment with Dr. Hamilton as advised. Please review and advise, Maty Butcher RN documented in this encounterDelaware County Hospital01-17-2023 Miscellaneous Notes* Telephone Encounter - Larry Martel RN - 05/19/2022 4:56 PM EST Updated per CK that Mari in [place] will address patient needs. Larry Martel RN, BSN * Telephone Encounter - Mari Colon MA - 05/19/2022 4:22 PM EST TC to [facility] to clarify. Staff checking with therapist-to [facility]. Mari Colon MA * Telephone Encounter - Melany Adair PA-C - 05/19/2022 4:03 PM EST Hi Mari, Has patient had the vestibular battery done? She needs to get this done so we can determine a diagnosis. Additionally, given the severity of her vertigo, I am going to send her to a vertigo specialist . I am also going to send her to cerebrovascular given the persistence or her symptoms. I donot prescribe diazepam for vertigo. * Telephone Encounter - Mari Colon MA - 05/19/2022 3:15 PM EST GERALD: 04/28/22-with Ileana NOV: 06/09/22 with Ileana Scan on 05/18/2022 4:47 PM by External Provider: Consultation - PT/OT/Speech Copied results into encounter for review. Please advise. Mari Colon MA * Telephone Encounter - Margie Saul LPN - 05/19/2022 2:41 PM EST Pt called back to update you on what is going on and requesting a refill on medication below and what the next step is going to be. Pt reports the following, she has extreme vertigo and last time she was t the hospital they gave her diazepam 5 mg and she takes 1/2 tablet twice a day if needed. This is working as long as she is getting this in her quick enough before the symptom is to severe. Pt has 1/2 tablet left and the ER told her she would need to get this medication from Dr. Castellano. Please advise pt. Pt was seen yesterday and she does not have Meniere's disease. The doctor from yesterday told you Dr. Castellano would have to tell her where to go from here. Please advise pt. Okay to leave a detailed message if needed. Pt reports she is hard of hearing and sometimes will miss the calls. Margie Saul LPN documented in this encounterDelaware County Hospital01-11-2023 Miscellaneous Notes* Telephone Encounter - Mari Colon MA - 05/13/2022 9:40 AM EST Letter taken to Med Rec. Mari Colon MA * Telephone Encounter - Mari Colon MA - 05/12/2022 4:06 PM EST Unable to reach patient. Left VM to return call to office. Please read below and advise. Letter excused until 05/24. Printed off and will take to MED REC. shortly. Vestibular test battery order & consult to vestibular rehab PT is not to be completed at Dr. Ray Chowdhury's office. Dr. Chowdhury is another general neurologist provider located at [facility] that Dr. Castellano/Melany Adair are only through [facility]. These tests/consults just need to be completed at [facility]. Faxed orders to [facility] with patient's demographics, insurance & last OV note. Please advise these tests need to be completed before any further excuse from is given. Next OV is already scheduled for 06/09/22 post testing/consult completion. Mari Colon MA * Telephone Encounter - Mari Colon MA - 05/12/2022 3:59 PM EST Images from the original note were not included. * Telephone Encounter - Papa Castellano Jr., MD - 05/12/2022 2:23 PM EST Please have pt schedule follow up with [facility]. OK for virtual if necessary. Thank you, Papa Castellano MD * Telephone Encounter - Margie Saul LPN - 05/12/2022 1:42 PM EST Pt called for 2 reasons: 1)Has not been able to get apt with Dr. Rosario Chowdhury to get testing for Meniere's Disease (battery of tests needed). She keeps having vertigo attacks and has to call the squad because she can not get up. She has tried to reach their office left messages and no one calls her back. Asking for help to get apt made. 2)Pt is to return to work on 05-17-22 and will not be able to do this yet because she has not been able to get into see the doctor and get testing done to see what's going on. Pt states she barely leaves her house because of the dizziness. Asking for a letter to write her off longer from work till testing can be done. 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 Please advise pt. Margie Saul LPN documented in this encounterMichael Ville [address]-04-2023 History of Present illness Narrative* Paige Lopez, PT - 05/06/2022 12:58 PM EST Episode Visit Count: 2 Therapist That Will Accept/Oversee The Plan Of Care: Paige Lopez Start of Care Date: 04/28/22 Plan of Care Certification Date: 04/28/22 Next Certification Due Date: 06/09/22 REHABILITATION AND SPORTS THERAPY PHYSICAL THERAPY TREATMENT NOTE ASSESSMENT: Miguelito Mari tolerated the session with decreased symptoms. She demonstrated difficulty with VORx1 seated with plain back ground only able to tolerate 30 seconds. Negative gerardo hallpike bilaterally, negative ear down bilaterally, no dizziness reported with rolling, supine <> sitting, or sit <> stand positional changes. The patient will continue to benefit from ongoing skilled physical therapy to progress toward set goals. PLAN FOR NEXT VISIT: Continue VOR seated, progress to standing as tolerated. SUBJECTIVE: Patient Reason for Visit: Pt. reports she felt terrible yesterday but today is better. Vestibular Rating of current symptoms: 0/10 Duration: minutes Symptoms worsened by: sitting Symptoms improved by: being still Pain: OBJECTIVE MEASURES WITH LEVEL OF FUNCTION: Oculomotor Testing Fixation Removed Spontaneous Nystagmus: No nystagmus Gaze Evoked Nystagmus: Not present Positional Testing Right [place]-Hallpike: No nystagmus;Asymptomatic Left Gerardo-Hallpike: No nystagmus;Asymptomatic Right Ear Down: No nystagmus;Asymptomatic Left Ear Down: No nystagmus;Asymptomatic TREATMENT: Neuromuscular Re-Education: 1: Negative L gerardo hallipike re-test for posterior canalithiasis 1x 2: *VORx1 horrizontal 2x30 sec seated, plain back ground, 2 cm target 3' from wall 2 sets 5x/day 3: *VORx1 vertical 2x30 sec seated, plain back ground, 2 cm target 3' from wall 2 sets 5x/day Skilled Intervention: Skilled judgment used to assess appropriate program for balance and coordination activity. Ensured patient safety with use of seated exercises. Correct performance of home program was facilitated with verbal, visual, and tactile cueing. Patient education as noted. Self-Alf Management: 1: *discussed VOR and its role with gaze stability 2: *dicussed how VOR deficits are different than BPPV, but both can cause dizziness 3: *encouraged pt. to schedule the vestibular battery that was ordered by physician. Explained how PT during that process may be beneficial Skilled Intervention: Skilled judgment in the selection of proper modification for activity of daily living/home management based on clinical presentation, deficits, and needs. Educated the patient regarding recommendations and provided written instruction to facilitate compliance. Reviewed patient specific diagnosis in relation to activities of daily living/home management. Activity progression based on professional judgement. Reviewed and educated patient on additions/changes for home program as noted above with an (*). Provided written instruction for home program to facilitate proper performance and compliance. Correct performance of home program was facilitated with verbal, visual, and tactile cueing. Billing Neuromuscular Re-Education Treatment Minutes: 25 Self-Care/Home Management Treatment Minutes: 15 Total Treatment Time Minutes (timed/untimed): 40 Paige Lopez PT documented in this encounterDelaware County Hospital01-03-2023 Miscellaneous Notes* Telephone Encounter - Aspen Marsh - 05/05/2022 2:29 PM EST Patient has been identified by name and date of : Yes Requested Prescriptions Pending Prescriptions Disp Refills traMADol (ULTRAM) 50 mg tablet 360 tablet 1 Sig: Take 2 tablets by mouth every 6 hours as needed for pain for up to 30 days. RX INSTRUCTIONS: Per Patient she takes 4 tablets daily; requested 90 days to Mariam Brantley. Patient aware RX will be sent to pharmacy. No need to notify patient. Aspen Marsh documented in this encounterDelaware County Hospital12-27-2022 Miscellaneous Notes* Telephone Encounter - JOSE GUADALUPE Aguilar - 04/28/2022 12:12 PM EST Work excuse signed by provider for today's appointment, 04/28, faxed to [facility] at [phone] per patients request. JOSE GUADALUPE Aguilar documented in this encounterDelaware County Hospital12-27-2022 History of Present illness Narrative* Paige Lopez, PT - 04/28/2022 10:01 AM EST Episode Visit Count: 1 Therapist That Will Accept/Oversee The Plan Of Care: Paige Lopez Start of Care Date: 04/28/22 Plan of Care Certification Date: 04/28/22 Next Certification Due Date: 06/09/22 Patient Identified by Name and Date of : Yes REHABILITATION AND SPORTS THERAPY PHYSICAL THERAPY EVALUATION PLAN OF CARE: Assessment: Miguelito Mari presents with diagnosis of vertigo that interferes with bed mobility;Comments (dizziness with rolling over in the morning, intermittent dizziness with turning the head) . She presents with impairments in ADL's, balance, gait, independence in exercise, overall function, patient reported outcome measures, posture, sensation, and symptom management. Prognosis for therapy isGood due to: within-session changes . She will benefit from skilled therapy services to meet the goals established for this plan of care as noted below. Goals for Episode of Care: created on 04/28/22 through 06/09/22 Patient will be able to correct postural deviations independently in order to allow for normal mechanics, to decrease current pain and prevent future recurrence. Patient will have negative positional testing for BPPV. Patient will verbalize the understanding of the diagnosis BPPV, how to recognize symptoms and what to do if they return. Patient will demonstrate normal active cervical spine range of motion to restore posture and complete ADLS with trace report of dizziness/imbalance. Patient will be independent with home exercise program and progression. Patient will return to prior level of function with all activities of daily living with trace reports of dizziness. Patient will deny dizziness with rolling right, lying down, supine to sit, bending, turning , walking, driving, working, sitting, standing, and when on the move . Patient Goals: reduce dizziness and fall risk Planned Interventions, Frequency, and Duration: Current Frequency: 1x/week Duration: 6 weeks Total Number of Visits Planned: 6 Planned Treatment Interventions: Therapeutic exercise (90374);Neuromuscular re- education (41464);Self-senior living management (91427);Gait Training (38494);Patient/Family/Caregiver Education;Manual therapy (85284);Therapeutic activities (28807);Canalith Repositioning Maneuvers (68536) PLAN FOR NEXT VISIT: Re-assess as needed if symptoms return. Patient demonstrates good understanding of plan of care and treatment. The above goals and plan of care were discussed and agreed upon by patient/family. SUBJECTIVE: Miguelito Mari is a 66 year old female seen today for sudden vertigo and vomiting over the past few weeks.She has had intermittent severe vertigo over the past year. 9 years since initial onset of vertigo. She has been seen by neurology in the past for migraines which subsided following menopause. Pt. was taken from work to ED by squad after standing from a bent over position at work and falling due to dizziness and vomiting. Pt. 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 She takes meclizine and zofran which are effective. Symptom intensity is reducing but still present upon sitting from laying in bed in the morning. Being still and closing the eyes reduces symptoms. Patient Goals: reduce dizziness and fall risk Functional Limitations: bed mobility;Comments (dizziness with rolling over in the morning, intermittent dizziness with turning the head) Prior Level of Function: Independent without limitations Relevant History Past Relevant Medical Conditions: Fibromyalgia;Falls;Vertigo Preferred Language: [place] Right or Left Handed: Left Intake Information: Prescription present Previous Treatment: (meclizine and zofran) Falls Interview: Two or more falls in the last year Falls Intervention: More thorough falls assessment to be performed Vestibular Symptoms present for: weeks Symptom onset: sudden Dizziness: Yes Description: spinning (room);vertigo;dizziness Rating of current symptoms: 0/10 Frequency: Intermittent Duration: seconds (20) Symptoms worsened by: rolling right Symptoms improved by: sitting;being still Imbalance: Yes Imbalance triggered by: Turning;Bending;Walking;Head movement;Position changes Fall Assessment: History of falls Frequency of falls: Intermittent Did the fall occur inside or outside?: inside How did the fall occur?: standing from a bent position Injuries resulting from fall? : yes Dizziness during fall?: yes Nausea: not for the last week Motion Sickness: Current (with reading) Headache: No Neck Symptoms: Yes Description: aching Location: posterior neck Location comment: chronic Frequency: Intermittent Symptoms worsened by: rotational movements of the head Symptoms improved by: rest Ear Symptoms: No Hearing Changes: both ears, but worse in left ear Tinnitus: both ears equally Tinnitus Frequency: Constant History of Migraine: Yes (less since menopause) Pain: Post Treatment Pain Post Treatment Symptoms: denies dizziness following CRM PROMIS Scales Higher is Better 03/20/2015 12/29/2019 04/15/2022 Phys Func - Score - - 39 (moderate dysfunction) Phys Func - Percentile - - 14 % GH Physical - Score - 42.3 37.4 (Fair) GH Physical - Percentile 10 % 22 % 10 % GH Mental - Score - 41.1 45.8 (Good) GH Mental - Percentile 19 % 19 % 34 % T-scores: mean of general population = 50. 5 points is clinically meaningfully difference Percentiles provide an indication of how the patient's score ranks in relation to the general population. Higher percentile rankings indicate better function/quality of life. 50th percentile is the average of the general population and indicates half of respondents had a worse score. T-scores: mean of general population = 50. 5 points is clinically meaningfully difference Percentiles provide an indication of how the patient's score ranks in relation to the general population. Higher percentile rankings indicate better function/quality of life. 50th percentile is the average of the general population and indicates half of respondents had a worse score. OBJECTIVE MEASURES WITH LEVEL OF FUNCTION: Oculomotor Testing Fixation Present Ocular ROM: WNL Spontaneous Nystagmus: No nystagmus Gaze Evoked Nystagmus: Not Present Smooth pursuit: Horizontal, Vertical and Diagonal all WNL Saccadic eye movements: Horizontal, vertical and oblique all WNL. Head Thrusts: Negative VOR cancelation: Negative Cross Cover: Negative Oculomotor Testing Fixation Removed Spontaneous Nystagmus: No nystagmus Gaze Evoked Nystagmus: Not present Positional Testing Right Gerardo-Hallpike: No nystagmus;Asymptomatic Left [place]-Hallpike: Without delay;Less than 60 seconds;Symptomatic;Upbeat;Left Torsional / Counterclockwise Education: Education Learning Preferences: Demonstration;Explanation;Performance;Printed Materials Barriers: Hearing Deficit Learning/educational needs: Safety;Plan of Care;Home exercise program;Posture Education Provided: Yes, see treatment interventions for education provided Education Provided To: Patient Education Mode/Type: Demonstration;Explanation/Discussion;Performance Response to Education/Teach Back: States/Identifies;Return Demonstration TREATMENT: PT Treatment Interventions: Self-Alf Management;Canalith Repositioning;Neuromuscular Re-Education Evaluation Neuromuscular Re-Education: 1: Negative L gerardo hallipike re-test for posterior canalithiasis 1x Skilled Intervention: Reviewed and educated patient on additions/changes for home program as noted above with an (*). Provided written instruction for home program to facilitate proper performance and compliance. Patient education as noted. Self-Alf Management: 1: *discussed BPPV etiology 2: *discussed procedure purpose and precautions including maintaining upright head position for 2 hours following Abiodun, and sleeping on the opposite side this evening x1 night 3: *discussed residual symptoms of nausea, dizziness, and apprehension may occur with transitonal movements today and tomorrow, pt. may use medication as prescribed to manage sympoms of nausea and complete movements slolwy. Pt. to return to PT if symptoms continue to onset with positional changes after 24- 48 hours following procedure Skilled Intervention: Physical assistance was provided during education for modifications and patient safety. Activity progression based on professional judgement. Reviewed and educated patient on additions/changes for home program as noted above with an (*). Correct performance of home program was facilitated with verbal, visual, and tactile cueing. Canalith Repositionin: Abiodun CRM for L posterior canalithiasis 1x Skilled Intervention: Professional judgment was used to determine specific treatment interventions based on assessment of symptoms. Physically assisted patient through each step of repositioning. Verbal and tactile cues provided to patient to assist in moving between each position of maneuver in correct sequence. Patient education including handouts provided regarding self repostitioning techniques to be performed at home. Instructed patient in post repositioning procedures. Billing * Evaluation Low Complexity: 1 Unit Self-Care/Home Management Treatment Minutes: 10 * Canalith Repositionin unit Total Treatment Time Minutes (timed/untimed): 45 Paige Lopez PT documented in [facility] encounterDel[facility]12-21-2022 Miscellaneous Notes* Telephone Encounter - Mari Colon MA - 04/22/2022 3:59 PM EST RX INSTRUCTIONS: Patient aware RX will be sent to pharmacy. No need to notify patient. Last OV: 04/07/22 with PATY Follow up: 10/08/22-6 month F/U with GB Mari Colon MA documented in this encounterDelaware [facility]12-20-2022 Miscellaneous Notes* Telephone Encounter - JOSE GUADALUPE Aguilar - 04/21/2022 9:27 AM EST TC to patient who verbalizes understanding of providers message. Pt would like to hold off on further consults and will discuss at upcoming appointment on 04/28 with CK. Results also sent to patient over as requested. 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 Given pattern of symptoms still feel other possible etiologies, but if patient would like, we can place a referral to the CV clinic for a second opinion. Papa Castellano MD documented in this encounterDelaware [facility] Hospital12-19-2022 History of Present illness Narrative* Walter Paez Layla, RT(R) - 04/20/2022 1:40 PM EST Radiology Service Progress Note DATE OF SERVICE: April 20, 2022 TIME: 4:00 PM PATIENT IDENTITY VERIFICATION COMPLETED USING TWO (2) STANDARD IDENTIFIERS: Name and Date of confirmed by patient verbally. FALL SCREENING: Has the patient had 2 falls in the last year or 1 fall with injury or currently using an Ambulatory Assistive Device (Walker, Cane, Wheelchair, Crutches, etc.)? No PATIENT GENDER DATA: Female. status: : No status: NO. PATIENT RELEVANT IMPLANT DATA REVIEWED: Yes ALLERGIES: Reviewed and unchanged CONTRAST ALLERGY: NO. EXAM: CT -CONTRAST INDUCED NEPHROPATHY RISK FACTORS: Patient age > 60 years CREATININE: Creatinine Date Value Ref Range Status 04/20/2022 1.11 (H) 0.58 - 0.96 mg/dL Final 10/07/2021 1.24 (H) 0.58 - 0.96 mg/dL Final 11/12/2020 1.07 (H) 0.58 - 0.96 mg/dL Final Estimated Glomerular Filtration Rate Date Value Ref Range Status 04/20/2022 54 (L) >=60 mL/min/1.73m Final Comment: Estimated Glomerular Filtration Rate (eGFR) is calculated using the 2020 CKD-EPI creatinine equation. This equation utilizes serum creatinine, sex, and age as parameters. The creatinine assay has traceable calibration to isotope dilution- mass spectrometry. Refer to KDIGO guidelines for clinical interpretation. In patients with unstable renal function, e.g. those with acute kidney injury, the eGFRmay not accurately reflect actual GFR. eGFR- Date Value Ref Range Status 11/12/2020 >60 Final P.O.C.T. RESULTS: POC done: Yes, See Lab Tab April 20, 2022 TREATMENT: N/A PERIPHERAL IV DATA: Ambulatory: A peripheral IV was started in the Left antecubital site with a Angio cath: 18 gauge. RADIOLOGY DEPARTMENT: CT; Exam(s) Completed: Brain , CTA Brain , and CTA Neck SIGNATURE: RT Sharona(R) PATIENT NAME: Miguelito Mari DATE: April 20, 2022 TIME: 4:00 PM documented in this encounterDelaware [facility] Hospital12-14-2022 History of Present illness Narrative* Papa Castellano Jr., MD - 04/15/2022 12:23 PM EST NEW PATIENT (CONSULT) HISTORY AND PHYSICAL EXAM (Virtual Visit with Video) PRIMARY CARE PHYSICIAN: Papa Moser MD REASON FOR CONSULT: Vertigo REFERRING PHYSICIAN: Papa Moser MD For this virtual visit, the patient has been identified by name and (MRN and photo identification as well if available). Those taking part in visit: Patient and physician via [employer]. Consent for this visit received from patient. HISTORY OF PRESENT ILLNESS: Miguelito Mari is a 66 year old female, There were no vitals taken for this visit. with a PMH significant for that noted below. Seen by neurology in distant past for migraine and TADEO. Now presents with vertigo. Patient states that about 8-10 years ago I saw her at 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 Patient states she has had vertigo for the past year -- horrible per pt - falls down and vomits andperhaps the worse vomiting she has seen. 5 episodes in the past year. States when symptoms started this last Wednesday, describes as mild dizziness when she would sit up in bed. Currently Rx'd meclizineand zofran. States medication helps her symptoms for about 4-6 hours. MRI brain 03/03/22 completed at [facility] per report (images not available) was unremarkable except for possible hypoplastic posterior circulation . Note that a dedicated MRA was not performed. Current vertigo is similar to prior symptoms/episodes. States dizziness can sometimes be there if reading. However, no symptoms if sedentary and not moving. No diplopia. No dysarthria. No visual changes. No LOC. No change in speech. TANANA marjorie. No ear pain or irritation. Ringing in the ears for several years. CTA in 2010 results were found in Epic and ordered by me and per report all was normal in both headand neck vessels. At that time pt had dizziness and headaches. Throughout interview patient repeatedly loses connection and cannot communicate with her. She has never had vestibular therapy for symptoms. No family history of Meniere's disease. Note noton diuretic. Pt expresses she never had a vestibular battery. Pt states headaches now occur about once every 3 years and no headaches associated with dizziness. She denies photophobia with dizziness. Patient otherwise endorses no focal neuro symptoms including no weakness or numbness. REVIEW OF SYSTEMS GENERAL:No weight loss, malaise or fevers. HEENT:Negative for frequent or significant headaches, No changes in hearing or vision, no nose bleeds or other nasal problems NECK:Negative for lumps, goiter, pain and significant neck swelling RESPIRATORY: Negative for cough, wheezing or shortness of breath. CARDIOVASCULAR: Negative for chest pain, or palpitations. GASTROINTESTINAL: Negative for abdominal discomfort, blood in stools or black stools or change in bowel habits GENITOURINARY: No history of dysuria, frequency or incontinence MUSCULOSKELETAL: Negative for joint pain or swelling, back pain or muscle pain. NEUROLOGIC:Negative for focal numbness or weakness, headaches and dizziness or syncope, vision changes, speech/language changes, changes in gait or falls -- besides those complaints as above in HPI. SKIN:Negative for lesions, rash, and itching. LAB/IMAGING: Reviewed and include: WBC (k/uL) Date Value 10/07/2021 6.08 RBC (m/uL) Date Value 10/07/2021 4.72 Hemoglobin (g/dL) Date Value 10/07/2021 13.7 Hematocrit (%) Date Value 10/07/2021 43.7 MCV (fL) Date Value 10/07/2021 92.6 MCH (pg) Date Value 10/07/2021 29.0 MCHC (g/dL) Date Value 10/07/2021 31.4 RDW-CV (%) Date Value 10/07/2021 14.0 Platelet Count (k/uL) Date Value 10/07/2021 253 MPV (fL) Date Value 10/07/2021 9.6 Glucose (mg/dL) Date Value 10/07/2021 103 (H) BUN (mg/dL) Date Value 10/07/2021 17 Creatinine (mg/dL) Date Value 10/07/2021 1.24 (H) Sodium (mmol/L) Date Value 10/07/2021 140 Potassium (mmol/L) Date Value 10/07/2021 4.7 Chloride (mmol/L) Date Value 10/07/2021 103 CO2 (mmol/L) Date Value 10/07/2021 28 Protein, Total (g/dL) Date Value 10/07/2021 6.8 Albumin (g/dL) Date Value 10/07/2021 4.3 Calcium, Total (mg/dL) Date Value 10/07/2021 9.5 Alkaline Phosphatase (U/L) Date Value 10/07/2021 76 Bilirubin, Total (mg/dL) Date Value 10/07/2021 0.4 AST (U/L) Date Value 10/07/2021 17 ALT (U/L) Date Value 10/07/2021 11 ROSEY (no units) Date Value 10/05/2013 Negative Rheumatoid Factor (IU/mL) Date Value 10/05/2013 <10 Hep C Antibody IA (no units) Date Value 09/11/2015 Negative MEDICATIONS: busPIRone (BUSPAR) 15 mg tablet Take 1 tablet by mouth twice daily. traMADol (ULTRAM) 50 mg tablet Take 2 tablets by mouth every 6 hours as needed for pain for up to 30 days. levothyroxine (LEVOXYL) 125 mcg tablet Take 1 tablet by mouth once daily. Take on empty stomach. For thyroid. traZODone (DESYREL) 100 mg tablet Take 1 tablet by mouth daily at bedtime. buPROPion SR (ZYBAN SR; WELLBUTRIN SR) 150 mg 12 hr tablet Take 1 tablet by mouth twice daily. sertraline (ZOLOFT) 50 mg tablet Take 1 tablet by mouth once daily. estradiol (ESTRACE) 0.01 % (0.1 mg/gram) vaginal cream Use 1 g vaginally as directed. 1 gm vaginally every night at bedtime x 14 nights then twice weekly. miSOPROStol (CYTOTEC) 200 mcg tablet Insert 2 tablets vaginally night prior to endometrial biopsy and 2 tablets morning of procedure. Each dose should be in vagina for 6-8 hours. clotrimazole-betamethasone (LOTRISONE) cream Apply 1 application to affected area twice daily. montelukast (SINGULAIR) 10 mg tablet Take 1 tablet by mouth daily at bedtime. albuterol HFA (VENTOLIN HFA) 90 mcg/actuation inhaler Inhale 2 Puffs as instructed every 4 hours asneeded. cyclobenzaprine (FLEXERIL) 5 mg tablet TAKE ONE TABLET BY MOUTH EVERY 8 HOURS NEEDED FOR MUSCLE SPASMS ondansetron orally disintegrating (ZOFRAN ODT) 4 mg disintegrating tablet Take 1 tablet by mouth every 6 hours as needed for nausea/vomiting. meclizine (ANTIVERT) 12.5 mg tab Take 1 tablet by mouth every 6 hours as needed (dizziness). loratadine (ALLERGY RELIEF, LORATADINE,) 10 mg tablet Take 1 tablet by mouth once daily. omeprazole (PRILOSEC) 20 mg capsule TAKE 2 CAPSULES BY MOUTH TWICE DAILY 1/2 HOUR BEFORE A MEAL sucralfate (CARAFATE) 1 gram tablet Take 1 tablet by mouth three times daily as needed. fluticasone (FLONASE) 50 mcg/actuation nasal spray Use 1 Vega in each nostril daily at bedtime. lisinopril (ZESTRIL, PRINIVIL) 5 mg tablet Take 0.5 tablets by mouth once daily. (Patient taking differently: Take 10 mg by mouth once daily.) fexofenadine (FARTUN) 180 mg tablet Take 1 tablet by mouth once daily. L. RHAMNOSUS GG/INULIN (CULTURELLE PROBIOTICS ORAL) Take 1 tablet by mouth once daily. cyanocobalamin (VITAMIN B-12) 1,000 mcg tab Take 1 tablet by mouth once daily. Cholecalciferol, Vitamin D3, 1,000 unit cap Take 1 capsule by mouth once daily. Peak Flow Meter Monica Check peak flows as directed HISTORIES PAST MEDICAL HISTORY Diagnosis Date Abdominal pain, epigastric Abdominal pain, left upper quadrant Arthritis Asthma CAD (coronary artery disease) coronary artery spasm - stress heart attch 04/13 Depression Fibromyalgia Hypertension Insomnia with sleep apnea, unspecified Malaise and fatigue Myalgia and myositis, unspecified Obesity, unspecified Obstructive sleep apnea cant use cpap Reflux esophagitis Right bundle branch block (RBBB) on electrocardiogram (ECG) Unspecified asthma, with status asthmaticus Unspecified hypothyroidism Hypothyroidism Variants of migraine, not elsewhere classified, without mention of intractable migraine without mention of status migrainosus FAMILY HISTORY Problem Relation Age of Onset Cancer Mother bladder, esophageal,stomach/ Hypertension Mother Stroke Mother Heart Mother Coronary Artery Disease Father Emphysema Father Hypertension Father Heart Father Coronary Artery Disease Maternal Grandmother Coronary Artery Disease Maternal Grandfather Breast Cancer Other maternal cousins x3 Cancer Other maternal cousin stomach cancer Hypertension Brother Coronary Artery Disease Maternal Uncle Coronary Artery Disease Maternal Uncle Coronary Artery Disease Maternal Uncle Coronary Artery Disease Maternal Uncle Cancer Maternal Aunt Coronary Artery Disease Maternal Aunt Heart Brother Heart Sister SOCIAL HISTORY Social History Tobacco Use Smoking status: Never Smokeless tobacco: Never Vaping Use Vaping Use: Never used Substance Use Topics Alcohol use: Yes Comment: 2 drinks per week Drug use: No PHYSICAL EXAMINATION LIMITED EXAM SECONDARY TO POOR INTERNET CONNECTION FOR PATIENT There were no vitals taken for this visit. GENERAL EXAM: General appearance: NAD, pleasant. HEENT: NC/AT, nasal congestion absent NECK: ROM nml. Lungs: No audible cough, wheeze, sob. NEUROLOGICAL EXAM: General: Awake, alert, oriented x3 (person,place,time), speech fluent, no dysarthria; comprehension, naming, repetition intact. Fund of knowledge grossly nml. CN: EOMI but evidence of horizontal nystagmus on R lateral gaze, VF appear to be full, facial sensation and strength are normal and symmetric, hearing is impaired marjorie with pt wearing marjorie hearing aidspalate and tongue movements are intact and symmetric. SCM and trapezius strength symmetric. Motor: CRUZ equal and symmetric. Coordination: FNF, NURIA, intact. No tremors. Sensation: Could not obtain by video. No evidence of neglect. Gait: Stable. Assessment and Plan: ASSESSMENT/PLAN: 1. Vertigo - ICD9: 780.4, ICD10: R42 (primary diagnosis) 2. Abnormal finding on MRI of brain - ICD9: 793.0, ICD10: R90.89 3. VBI (vertebrobasilar insufficiency) - ICD9: 435.3, ICD10: G45.0 Patient with recurrent episodes of vertigo over past year. Reports followed by ENT who has made this referral. Note that MRI brain was performed with contrast raising question of hypoplastic posterior circulation but no dedicate vessel imaging performed. Prior CTA in 2010 of head and neck was normal per report. Currently symptoms not associated with other neurologic deficits or headaches. Patternand positional nature (as well as nystagmus on exam) more suggestive of vestibular (peripheral) etiology such as Meniere's given hearing loss and tinnitus vs BPPV. However, MRI brain raising concern for VBI. Ddx d/w pt. Pt agrees with plan as follows: -CTA head and neck to evaluate for VBI. -Vestibular battery test to further evaluate for cause of vertigo. -Referral to vestibular therapy. Await CTA results to determine if further workup needed. Will hold on additional head imaging for now with MRI brain being performed after 4 episodes of vertigo occurring this year. 4. Nephropathy screen - ICD9: V81.5, ICD10: Z13.89 CREATININE BLD prior to CTA. Papa Castellano MD I spent a total of 50+ minutes on the date of the service which included preparing to see the patient, [id number] patient care, completing clinical documentation, obtaining and/or reviewing separately obtained history, performing a medically appropriate examination, counseling and educating the pa tient/family/caregiver, ordering medications, tests, or procedures, independently interpreting results (not separately reported), and communicating results to the patient/family/caregiver. documented in this encounterDelaware [facility] Hospital12-10-2022 Miscellaneous Notes* Telephone Encounter - aZida Brown - 04/11/2022 1:11 PM EST Call patient to schedule appointment with Wes, spoke with patient, patient stated that she would like to see someone local and that she will be stopping by to picker feeder order. Zaida Brown 04/11/2022 * Telephone Encounter - Ny Donahue [facility] - 04/10/2022 8:45 AM EST 2 nd attempt left message for the patient to return call to schedule neurovascular consult ordered.Also see nurses note from 04/07 as patient is wanting [facility] location and has also been provided that information * Telephone Encounter - Ny Donahue [facility] - 04/09/2022 9:20 AM EST 1st attempt left message for the patient to return call to schedule neurovascular consult ordered. Also see nurses note from 04/07 as patient is wanting AG location and has also been provided that information * Telephone Encounter - Mena Currie Ma - 04/09/2022 8:23 AM EST Images from the original note were not included. Steffen Petersen PA-C P tr Vijay Cohen Please schedule neurovascular consult ordered, patient wishes to go to [place] because she feels that she can get there safely. Thanks, Jose Petersen PA-C documented in this encounterDelaware County Hospital12-07-2022 Miscellaneous Notes* Telephone Encounter - Papa Moser MD - 04/08/2022 9:57 AM EST done * Telephone Encounter - Tawana Busch Ma - 04/08/2022 8:46 AM EST Patient was called to schedule with Cerebrovascular ([facility]) and requested to not go to [facility] but [facility]. Called [facility] spoke to yannick who advised no providers there right now allat [facility]. In process hiring new Cerebrovascular doctor but she is doing training so can not schedule 4-6 weeks. Scheduling number for Cerebrovascular [phone] ext: [phone]. Patient was left detailed message and advised if adamant about [facility] than will need to call number in message an they will call to scheduleotherwise gave our scheduling number Dr. Moser please re-file numerology order with new dx so scheduled with correct providers Tawana Busch Ma documented in this encounterDelaware [facility] Hospital12-06-2022 History of Present illness Narrative* Steffen Petersen PA-C - 04/07/2022 1:20 PM EST 66 year old female with c/o here for follow up. BBPV Chronic vertigo: Had consult with ENT Dr. Blas: Recommended she see cerebrovascular surgery. 03/03/2022 MRI brain with and without contrast: Mild ventricular asymmetry slightly larger on left likely normal variant, normal white matter tracts. Partial empty sella deformity likely no significance. Note made of bilateral vertebral and basilar arteries being diminutive which could contribute to vascular insufficiency. Takotsubo cardiomyopathy (primary encounter diagnosis) History of coronary vasospasm Coronary artery disease due to lipid rich plaque Hyperlipidemia, mixed Cardiovascular interval hx: no new visits or procedures. 11/19/2020 last [address] visit with Dr. Bone: Stable, no changes. 12/21/19/ echo: LV size and LVSF NL, EF 55%, stage 1 LVDD, no regional wall motion abn. RV size and RVSF NL. Mild TVI. Normal great vessels. 11/2019 in [place] chest pain, heart cath normal coronaries, EF 25-30%, dx Takotsubo cadrdiomyopathy 10/15/2017 echocardiogram: LV size small, LV SF WNL, EF 69%, grade 1 LVDD, RV normal size, RVSF WNL,RVSP not measurable, LA size WNL, RA size WNL. No significant valvular heart disease. Aorta WNL. Pulmonary arteries not visualized. Pericardium no effusion. 2011 NSTEMI heart cath showed no significant disease Current meds: Lisinopril 5mg daily Use of NTG: n/a Chest pain, arm, jaw pain, neck, or upper back pain suggestive of angina: No. SOB: No Dyspnea with exertion: No orthopnea: No Cough : No racing or irregular heartbeats: No palpitations: No syncopal sx: No Headache: No Unexplainable fatigue energy level is poor, thinking about quitting job. Leg swelling: No Nausea: No diaphoresis: No Heartburn: No Claudication: No Smoking: No Following Low cholesterol, high fiber diet? Yes If on statin: muscle aches? No If on statin: GI sx or diarrhea? No Additional history none. Lab review: nothing new from last visit Component Latest Ref Rng & Units 06/15/2019 10/07/2021 WBC 3.70 - 11.00 k/uL 6.94 6.08 RBC 3.90 - 5.20 m/uL 4.46 4.72 Hemoglobin 11.5 - 15.5 g/dL 13.0 13.7 Hematocrit 36.0 - 46.0 % 40.7 43.7 MCV 80.0 - 100.0 fL 91.3 92.6 MCH 26.0 - 34.0 pg 29.1 29.0 MCHC 30.5 - 36.0 g/dL 31.9 31.4 RDW-CV 11.5 - 15.0 % 12.9 14.0 Platelet Count 150 - 400 k/uL 233 253 MPV 9.0 - 12.7 fL 10.1 9.6 Absolute nRBC <0.01 k/uL <0.01 <0.01 Component Latest Ref Rng & Units 10/30/2019 10/07/2021 Cholesterol, Total <200 mg/dL 172 209 (H) Triglyceride <150 mg/dL 231 (H) 168 (H) HDL Cholesterol >39 mg/dL 41 52 LDL Cholesterol <100 mg/dL 85 123 (H) Non HDL Cholesterol <130 mg/dL 131 (H) 157 (H) Fasting Time hrs 4 12 VLDL Cholesterol <30 mg/dL 46 (H) 34 (H) TC:HDL Ratio <5.10 4.20 4.02 LDL:HDL Ratio <2.54 2.07 2.37 Component Latest Ref Rng & Units 06/15/2019 10/07/2021 Protein, Total 6.3 - 8.0 g/dL 6.2 (L) 6.8 Albumin 3.9 - 4.9 g/dL 4.0 4.3 Calcium 8.5 - 10.2 mg/dL 9.0 9.5 Bilirubin, Total 0.2 - 1.3 mg/dL 0.3 0.4 Alkaline Phosphatase 34 - 123 U/L 84 76 AST 13 - 35 U/L 21 17 Glucose 74 - 99 mg/dL 78 103 (H) BUN 7 - 21 mg/dL 14 17 Creatinine 0.58 - 0.96 mg/dL 0.96 1.24 (H) Sodium 136 - 144 mmol/L 139 140 Potassium 3.7 - 5.1 mmol/L 3.8 4.7 Chloride 97 - 105 mmol/L 101 103 CO2 22 - 30 mmol/L 27 28 Anion Gap 9 - 18 mmol/L 11 9 ALT 7 - 38 U/L 12 11 eGFR- >60 eGFR-All Other Races . 58 eGFR >=60 mL/min/1.73m 48 (L) Hyperglycemia Hemoglobin A1C (%) Date Value 11/12/2020 5.3 10/24/2012 5.3 ) Acquired hypothyroidism Current medication: Levothyroxine 125mcg daily Taking as directed on an empty stomach? No. Thyroid pain: No. Mass effect: No. Change in energy level/ fatigue? No. Always tired. Sleep disturbance ?No. Temperature Intolerance: cold No, hot No. In females, menstrual cycle issues? No, If yes: Change in bowel habits? No. If yes: Weight changes?No. Memory issues: worries about memory loss, name recal mostly. Diaphoresis: No. Numbness, tingling no. Change in hair or skin? No. If yes: Other symptoms: Last 2 Encounter Wt Readings: Date: Wt: 03/05/2022 92.6 kg (204 lb 3.2 oz) 12/26/2021 91.3 kg (201 lb 3.2 oz) Last thyroid labs: TSH Date Value 12/26/2021 1.200 mIU/L 10/07/2021 5.120 mIU/L 11/12/2020 2.370 uU/mL 01/01/2020 0.098 uU/mL ) Chronic renal insufficiency, stage 3 (moderate) (hcc) CMP Latest Ref Rng & Units 06/15/2019 11/12/2020 10/07/2021 SODIUM 136 - 144 mmol/L 139 141 140 SODIUM, KARON 132 - 148 mmol/L - - - SODIUM, KARON 132 - 148 mmol/L - - - POTASSIUM 3.7 - 5.1 mmol/L 3.8 4.3 4.7 POTASSIUM, KARON 3.5 - 5.0 mmol/L - - - CHLORIDE 97 - 105 mmol/L 101 104 103 CHLORIDE, KARON 98 - 110 mmol/L - - - CO2 22 - 30 mmol/L 27 25 28 CO2, KARON 23.0 - 32.0 mmol/L - - - GLUCOSE 74 - 99 mg/dL 78 92 103(H) GLUCOSE (U), KARON NEGAT mg/dL - - - GLUCOSE, KARON 65 - 100 mg/dL - - - BUN 7 - 21 mg/dL 14 18 17 BUN, KARON 10 - 25 mg/dL - - - CREATININE 0.58 - 0.96 mg/dL 0.96 1.07(H) 1.24(H) CREATININE, KARON 0.7 - 1.4 mg/dL - - - EGFR >=60 mL/min/1.73m - - 48(L) EGFR-ALL OTHER RACES . 58 51 - EGFR- - >60 >60 - PROTEIN, TOTAL 6.3 - 8.0 g/dL 6.2(L) 6.7 6.8 TOTAL PROTEIN, KARON 6.0 - 8.4 g/dL - - - ALBUMIN 3.9 - 4.9 g/dL 4.0 4.2 4.3 ALBUMIN, KARON 3.5 - 5.0 g/dL - - - CALCIUM, KARON 8.5 - 10.5 mg/dL - - - CALCIUM, TOTAL 8.5 - 10.2 mg/dL 9.0 9.5 9.5 BILIRUBIN, TOTAL 0.2 - 1.3 mg/dL 0.3 0.4 0.4 AST 13 - 35 U/L 21 19 17 AST, KARON 7 - 40 U/L - - - ALT 7 - 38 U/L 12 9 11 ALT, KARON 0 - 45 U/L - - - ALKALINE PHOSPHATASE 34 - 123 U/L 84 78 76 Anxiety Current medications: Bupropion SR q12h Sertraline 50mg daily Very stressed with work environment, hearing loss. Feels people roll their eyes at her when she can't hear, walking away talking to her knowing she has loss. HISTORIES FAMILY HISTORY Problem Relation Age of Onset Cancer Mother bladder, esophageal,stomach/ Hypertension Mother Stroke Mother Heart Mother Coronary Artery Disease Father Emphysema Father Hypertension Father Heart Father Coronary Artery Disease Maternal Grandmother Coronary Artery Disease Maternal Grandfather Breast Cancer Other maternal cousins x3 Cancer Other maternal cousin stomach cancer Hypertension Brother Coronary Artery Disease Maternal Uncle Coronary Artery Disease Maternal Uncle Coronary Artery Disease Maternal Uncle Coronary Artery Disease Maternal Uncle Cancer Maternal Aunt Coronary Artery Disease Maternal Aunt Heart Brother Heart Sister PAST MEDICAL HISTORY Diagnosis Date Abdominal pain, epigastric Abdominal pain, left upper quadrant Arthritis Asthma CAD (coronary artery disease) coronary artery spasm - stress heart attch 04/13 Depression Fibromyalgia Hypertension Insomnia with sleep apnea, unspecified Malaise and fatigue Myalgia and myositis, unspecified Obesity, unspecified Obstructive sleep apnea cant use cpap Reflux esophagitis Right bundle branch block (RBBB) on electrocardiogram (ECG) Unspecified asthma, with status asthmaticus Unspecified hypothyroidism Hypothyroidism Variants of migraine, not elsewhere classified, without mention of intractable migraine without mention of status migrainosus PAST SURGICAL HISTORY Procedure Laterality Date ABDOMINAL SURGERY HX ADENOIDECTOMY PRIMARY <AGE 10 Adenoidectomy CHOLECYSTECTOMY 2008 COLONOSCOPY FLX DX W/COLLJ SPEC WHEN PFRMD 10/10/13 normal - 10 year follow up EGD 06/22/2016 esophagitis and gastritis, repeat in 2-3 years d/t family history EGD TRANSORAL BIOPSY SINGLE/MULTIPLE 10/11/09 EGD TRANSORAL BIOPSY SINGLE/MULTIPLE 10/10/13 mild duodenitis, gastritis, gastric polyp ESOPHAGOGASTRODUODENOSCOPY TRANSORAL DIAGNOSTIC 04/12/00 & 12/09/06 EGD HEART CATHETERIZATION 04/09/12 TONSILLECTOMY HX TONSILLECTOMY PRIMARY/SECONDARY <AGE 10 Tonsillectomy Social History Tobacco Use Smoking status: Never Smokeless tobacco: Never Vaping Use Vaping Use: Never used Substance Use Topics Alcohol use: Yes Comment: 2 drinks per week Drug use: No ACTIVE PROBLEM LIST OVERWEIGHT Fibromyalgia Other Malaise and Fatigue Adjustment Reaction With Prolonged Depressive Reaction Esophageal Reflux Hypothyroidism Unspecified Sleep Apnea HOARSENESS Asthma Other Specified Abnormal Findings of Blood Chemistry Intractable Migraine Without Aura Vitamin D Deficiency Osteoarthrosis, 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 240 tablet 0 levothyroxine (LEVOXYL) 125 mcg tablet Take 1 tablet by mouth once daily. Take on empty stomach. For thyroid. 30 tablet 2 traZODone (DESYREL) 100 mg tablet Take 1 tablet by mouth daily at bedtime. 90 tablet 3 buPROPion SR (ZYBAN SR; WELLBUTRIN SR) 150 mg 12 hr tablet Take 1 tablet by mouth twice daily. 180 tablet 3 sertraline (ZOLOFT) 50 mg tablet Take 1 tablet by mouth once daily. 90 tablet 3 estradiol (ESTRACE) 0.01 % (0.1 mg/gram) vaginal cream Use 1 g vaginally as directed. 1 gm vaginally every night at bedtime x 14 nights then twice weekly. 42.5 g 4 busPIRone (BUSPAR) 15 mg tablet Take 1 tablet by mouth twice daily. 60 tablet 3 miSOPROStol (CYTOTEC) 200 mcg tablet Insert 2 tablets vaginally night prior to endometrial biopsy and 2 tablets morning of procedure. Each dose should be in vagina for 6-8 hours. 4 tablet 0 clotrimazole-betamethasone (LOTRISONE) cream Apply 1 application to affected area twice daily. 30 g2 montelukast (SINGULAIR) 10 mg tablet Take 1 tablet by mouth daily at bedtime. 90 tablet 3 albuterol HFA (VENTOLIN HFA) 90 mcg/actuation inhaler Inhale 2 Puffs as instructed every 4 hours asneeded. 3 Inhaler 3 cyclobenzaprine (FLEXERIL) 5 mg tablet TAKE ONE TABLET BY MOUTH EVERY 8 HOURS NEEDED FOR MUSCLE SPASMS 30 tablet 3 ondansetron orally disintegrating (ZOFRAN ODT) 4 mg disintegrating tablet Take 1 tablet by mouth every 6 hours as needed for nausea/vomiting. 10 tablet 1 meclizine (ANTIVERT) 12.5 mg tab Take 1 tablet by mouth every 6 hours as needed (dizziness). 15 tablet 1 loratadine (ALLERGY RELIEF, LORATADINE,) 10 mg tablet Take 1 tablet by mouth once daily. 90 tablet 3 omeprazole (PRILOSEC) 20 mg capsule TAKE 2 CAPSULES BY MOUTH TWICE DAILY 1/2 HOUR BEFORE A MEAL 360capsule 3 sucralfate (CARAFATE) 1 gram tablet Take 1 tablet by mouth three times daily as needed. 270 tablet 0 fluticasone (FLONASE) 50 mcg/actuation nasal spray Use 1 Vega in each nostril daily at bedtime. 1 Bottle 6 lisinopril (ZESTRIL, PRINIVIL) 5 mg tablet Take 0.5 tablets by mouth once daily. (Patient taking differently: Take 10 mg by mouth once daily.) 90 tablet 5 fexofenadine (FARTUN) 180 mg tablet Take 1 tablet by mouth once daily. 30 tablet 3 L. RHAMNOSUS GG/INULIN (CULTURELLE PROBIOTICS ORAL) Take 1 tablet by mouth once daily. cyanocobalamin (VITAMIN B-12) 1,000 mcg tab Take 1 tablet by mouth once daily. 30 tablet 2 Cholecalciferol, Vitamin D3, 1,000 unit cap Take 1 capsule by mouth once daily. 0 Peak Flow Meter Monica Check peak flows as directed 1 Device 0 No current facility-administered medications for this visit. MAMMOGRAM due on 10/22/2016 BONE DENSITY Never done DEPRESSION ASSESSMENT Never done INFLUENZA(1) due on 01/01/2022 PNEUMOCOCCAL: 65+(3 - PPSV23 if available, else PCV20) due on 03/18/2022 EXAM: BP 128/72 Pulse 63 Resp 16 Wt 91.2 kg (201 lb) SpO2 99% BMI 37.95 kg/m Pleasant obese adult woman in no acute distress. Alert and oriented all spheres. Normal affect and cognition. Speech normal. Goal oriented. No deficits to learning or comprehension. Skin warm, dry, pink to lips and nailbeds. Normal turgor. Respirations regular and unlabored. HEENT: NCAT. No scleral icterus or conjunctival injection. TM's clear. Nose and oropharynx free from injection or lesion. Oral membranes moist and pink. No cervical lymph nodes. Thyroid non-tender, no masses, or enlargement. Carotids pulses 2+/4+ without bruits. No JVD with HOB at 30 degrees. Chest is normal shape. Lungs are clear to all davidson with good air exchange through out. HRRR without murmur or gallop. No lifts, heaves, or rubs. Abdomen: active bowel sounds throughout, soft, nontender, no masses or organomegaly. No CVAT. Extrem: no clubbing or cyanosis. Edema: none. Extremities are warm and pink with prompt capillary refill. Neuro: no changes. Gait is steady. Dizziness with cervical extension particular if in motion, briefnystagmus persists. ASSESSMENT/PLAN: 1. Takotsubo cardiomyopathy - ICD9: 429.83, ICD10: I51.81 (primary diagnosis) Stable without cardiac sx, continue meds 2. History of coronary vasospasm - ICD9: V12.59, ICD10: Z86.79 Stable, followed by cardiology 3. Coronary artery disease due to lipid rich plaque - ICD9: 414.00, 414.3, ICD10: I25.10, I25.83 As above - CBC 4. Hyperlipidemia, mixed - ICD9: 272.2, ICD10: E78.2 - good control - Continue current medication. - COMP METABOLIC PANEL - LIPID PANEL BASIC 5. Hyperglycemia - ICD9: 790.29, ICD10: R73.9 Continue without medication, monitor every 6 months. - HGB A1C - COMP METABOLIC PANEL 6. Acquired hypothyroidism - ICD9: 244.9, ICD10: E03.9 Stable for some time on medication, continue present dose - Instructed patient on importance of taking on an empty stomach either first thing in the morning or at bedtime. Stable - Behavioral intervention - CBC 7. Stage 2 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 (HCC) - ICD9: 250.40, 585.2, ICD10: E11.22, N18.2 Controlled. - Continue current medications Seems to be doing well on current regimen 8. Anxiety - ICD9: 300.00, ICD10: F41.9 Contemplating custodial We have discussed medications changes from past visit, patient does not wish to alter the current regimen presently but will continue evaluate. - BUSPIRONE 15 MG TABLET 9. Cervical spondylosis without myelopathy - ICD9: 721.0, ICD10: M47.812 Stable symptomatically, continue current meds 10. Fatigue, unspecified type - ICD9: 780.79, ICD10: R53.83 Reevaluate, chronic, we have discussed other medication options and trying to pare down her currentlist of overlapping psychiatric medications. We will revisit in the next office call. - VITAMIN D 25 HYDROXY - VITAMIN B12 BLOOD 11. Polyarthralgia - ICD9: 719.49, ICD10: M25.50 Persistent, stable 12. Gastroesophageal reflux disease without esophagitis - ICD9: 530.81, ICD10: K21.9 Controlled on medication, no current symptoms, continue medication. 13. Encounter for immunization - ICD9: V03.89, ICD10: Z23 - PNEUMOCOCCAL VACCINE (PREVNAR 20) - INFLUENZA SEASONAL QUADRIVALENT HIGH DOSE AGE 65+ 14. Vitamin D deficiency - ICD9: 268.9, ICD10: E55.9 Recheck levels, continue supplements. - VITAMIN D 25 HYDROXY 15. Chronic vertigo - ICD9: 780.4, ICD10: R42 16. Vertebro-basilar artery syndrome - ICD9: 435.3, ICD10: G45.0 Patient has difficulty driving, no one who is closely can drive her without extreme inconvenience. Patient did not want to go to a provider outside the clinic. Asking to be referred here. Think she can make it up to [place] successfully. We will schedule neurosurgery visit to evaluate for cereb rovascular issues causing her dizziness balance issues. - CONSULT TO VASCULAR SURGERY Steffen Petersen PA-C documented [facility] Miscellaneous Notes* Telephone Encounter - Tawana Busch Ma - 04/03/2022 12:43 PM EST Spoke to patient who is willing to travel Gave to PSR at front office attendant Tawana Busch Ma * Telephone Encounter - Papa Moser MD - 04/03/2022 12:15 PM EST I am wondering if she would be better seeing neurovascular given the mri. [facility] she is willing to [facility]. * Telephone Encounter - Aruna Green - 04/03/2022 9:55 AM EST Pt calling stating that she has made a Neurology appt with a provider [facility] based on the results of her MRI. That appointment is not until August 2022. She would like to know if she could possible have a referral to see Dr. Castellano if he would see for her diagnosis and possibly seehim or someone sooner if Dr. Moser thought it would be better. documented in this encounterDel[facility]11-04-2022 Miscellaneous Notes* Telephone Encounter - Donita Calixto RN - 03/06/2022 3:52 PM EDT Re-faxed Covid results to [phone] per patient request. Donita Calixto RN * Telephone Encounter - Zoye Mcnamara LPN - 03/06/2022 1:47 PM EDT Faxed as requested. * Telephone Encounter - Papa Moser MD - 03/06/2022 1:22 PM EDT written * Telephone Encounter - Kath Nolan RN - 03/06/2022 1:13 PM EDT Pt called in and reports she needs work excuse from her provider and positive Covid test faxed to her work. She works at the [employer], the fax # [phone]. documented in this encounterDel[facility]11-04-2022 Miscellaneous Notes* Telephone Encounter - Ingris Saul LPN - 03/06/2022 1:58 PM EDT ----- Message from Jael Medrano PA-C sent at 03/06/2022 7:40 AM EDT ----- Patient notified of positive COVID test. Please assist patient with scheduling a virtual visit withtheir Primary Care team or any available 4C provider within 5 days of symptom onset to discuss eligibility for COVID treatment options. documented in this encounterDel[facility]11-04-2022 Instructions* Patient Instructions* Papa Moser MD - 03/06/2022 11:53 AM EDT documented in this encounterDel[facility]11-04-2022 History of Present illness Narrative* Papa Moser MD - 03/06/2022 11:45 AM EDT Patient presents with: Covid Positive HPI:This Team Access Model visit is a virtual encounter. It required patient- provider interaction for the medical decision making as documented below. Patient was offered a virtual/telemedicine appointment in lieu of an office visit due to recommendations to reduce patient exposure to COVID-19. Patient is aware of limitations of performing the visit without a face to face visit in the office setting and agrees. Seen at urgent care yesterday and was covid positive. Began symptoms on 03/04 Started with runny nose and sore throat. Is coughing. Using delsym and cough drops. No shortness of breath. Is fatigued. Has been running a fever starting yesterday. Low grade. Some sinus congestion. No nausea or vomiting or diarrhea. No issues with taste or smell. Was positive in 04/21. Has had covid vaccines. Gfr is 48. MEDICATIONS: Current Outpatient Medications Medication Sig levothyroxine (LEVOXYL) 125 mcg tablet Take 1 tablet by mouth once daily. Take on empty stomach. For thyroid. traZODone (DESYREL) 100 mg tablet Take 1 tablet by mouth daily at bedtime. buPROPion SR (ZYBAN SR; WELLBUTRIN SR) 150 mg 12 hr tablet Take 1 tablet by mouth twice daily. sertraline (ZOLOFT) 50 mg tablet Take 1 tablet by mouth once daily. traMADol (ULTRAM) 50 mg tablet Take 2 tablets by mouth every 6 hours as needed for pain for up to 30 days. estradiol (ESTRACE) 0.01 % (0.1 mg/gram) vaginal cream Use 1 g vaginally as directed. 1 gm vaginally every night at bedtime x 14 nights then twice weekly. busPIRone (BUSPAR) 15 mg tablet Take 1 tablet by mouth twice daily. miSOPROStol (CYTOTEC) 200 mcg tablet Insert 2 tablets vaginally night prior to endometrial biopsy and 2 tablets morning of procedure. Each dose should be in vagina for 6-8 hours. clotrimazole-betamethasone (LOTRISONE) cream Apply 1 application to affected area twice daily. montelukast (SINGULAIR) 10 mg tablet Take 1 tablet by mouth daily at bedtime. albuterol HFA (VENTOLIN HFA) 90 mcg/actuation inhaler Inhale 2 Puffs as instructed every 4 hours asneeded. cyclobenzaprine (FLEXERIL) 5 mg tablet TAKE ONE TABLET BY MOUTH EVERY 8 HOURS NEEDED FOR MUSCLE SPASMS ondansetron orally disintegrating (ZOFRAN ODT) 4 mg disintegrating tablet Take 1 tablet by mouth every 6 hours as needed for nausea/vomiting. meclizine (ANTIVERT) 12.5 mg tab Take 1 tablet by mouth every 6 hours as needed (dizziness). loratadine (ALLERGY RELIEF, LORATADINE,) 10 mg tablet Take 1 tablet by mouth once daily. omeprazole (PRILOSEC) 20 mg capsule TAKE 2 CAPSULES BY MOUTH TWICE DAILY 1/2 HOUR BEFORE A MEAL sucralfate (CARAFATE) 1 gram tablet Take 1 tablet by mouth three times daily as needed. fluticasone (FLONASE) 50 mcg/actuation nasal spray Use 1 Vega in each nostril daily at bedtime. lisinopril (ZESTRIL, PRINIVIL) 5 mg tablet Take 0.5 tablets by mouth once daily. (Patient taking differently: Take 10 mg by mouth once daily.) fexofenadine (FARTUN) 180 mg tablet Take 1 tablet by mouth once daily. L. RHAMNOSUS GG/INULIN (CULTURELLE PROBIOTICS ORAL) Take 1 tablet by mouth once daily. cyanocobalamin (VITAMIN B-12) 1,000 mcg tab Take 1 tablet by mouth once daily. Cholecalciferol, Vitamin D3, 1,000 unit cap Take 1 capsule by mouth once daily. Peak Flow Meter Monica Check peak flows as directed No current facility-administered medications for this visit. ALLERGIES: ALLERGIES Allergen Reactions Adhesive Tape (Stephanie* Rash Augmentin [Amoxicil* GI Upset Hydrochlorothiazide Hives PAST MEDICAL HISTORY Diagnosis Date Abdominal pain, epigastric Abdominal pain, left upper quadrant Arthritis Asthma CAD (coronary artery disease) coronary artery spasm - stress heart attch 04/13 Depression Fibromyalgia Hypertension Insomnia with sleep apnea, unspecified Malaise and fatigue Myalgia and myositis, unspecified Obesity, unspecified Obstructive sleep apnea cant use cpap Reflux esophagitis Right bundle branch block (RBBB) on electrocardiogram (ECG) Unspecified asthma, with status asthmaticus Unspecified hypothyroidism Hypothyroidism Variants of migraine, not elsewhere classified, without mention of intractable migraine without mention of status migrainosus PAST SURGICAL HISTORY Procedure Laterality Date ABDOMINAL SURGERY HX ADENOIDECTOMY PRIMARY <AGE 10 Adenoidectomy CHOLECYSTECTOMY 2008 COLONOSCOPY FLX DX W/COLLJ SPEC WHEN PFRMD 10/10/13 normal - 10 year follow up EGD 06/22/2016 esophagitis and gastritis, repeat in 2-3 years d/t family history EGD TRANSORAL BIOPSY SINGLE/MULTIPLE 10/11/09 EGD TRANSORAL BIOPSY SINGLE/MULTIPLE 10/10/13 mild duodenitis, gastritis, gastric polyp ESOPHAGOGASTRODUODENOSCOPY TRANSORAL DIAGNOSTIC 04/12/00 & 12/09/06 EGD HEART CATHETERIZATION 04/09/12 TONSILLECTOMY HX TONSILLECTOMY PRIMARY/SECONDARY <AGE 10 Tonsillectomy FAMILY HISTORY Problem Relation Age of Onset Cancer Mother bladder, esophageal,stomach/ Hypertension Mother Stroke Mother Heart Mother Coronary Artery Disease Father Emphysema Father Hypertension Father Heart Father Coronary Artery Disease Maternal Grandmother Coronary Artery Disease Maternal Grandfather Breast Cancer Other maternal cousins x3 Cancer Other maternal cousin stomach cancer Hypertension Brother Coronary Artery Disease Maternal Uncle Coronary Artery Disease Maternal Uncle Coronary Artery Disease Maternal Uncle Coronary Artery Disease Maternal Uncle Cancer Maternal Aunt Coronary Artery Disease Maternal Aunt Heart Brother Heart Sister Social History Tobacco Use Smoking status: Never Smokeless tobacco: Never Vaping Use Vaping Use: Never used Substance Use Topics Alcohol use: Yes Comment: 2 drinks per week Drug use: No Reviewed current medications, allergies, past medical history, surgical history, family history andsocial history today. REVIEW OF SYSTEMS All other reviewed and negative other than HPI. VITALS: There were no vitals taken for this visit. Last 4 Encounter Wt Readings: Date: Wt: 03/05/2022 92.6 kg (204 lb 3.2 oz) 12/26/2021 91.3 kg (201 lb 3.2 oz) 12/03/2021 91.6 kg (202 lb) 11/20/2021 90.3 kg (199 lb) PHYSICAL EXAMINATION: Patient is alert and oriented during visit. Answers appropriately. ASSESSMENT/PLAN: 1. COVID-19 - ICD9: 079.89, ICD10: U07.1 - declines paxlovid after discussion. Red flags for re-assessment reviewed with patient in detail. -discussed quarantine. Papa Moesr MD I spent 15 minutes in the visit, with more than 50% of the total [id number] time of the visit in counseling / coordination of care. documented in this encounterDel[facility]11-01-2022 History of Present illness Narrative* Vandana Marx MA - 03/03/2022 1:05 PM EDT POPULATION HEALTH NAVIGATION OUTREACH Action/FYI PCP appointment needed: No HCC Gaps: No - Care Gaps to Address: Mammogram ordered on 02/25/2022 Flu Vaccine Needed Advance Directives Needed Outcomes: Left message on voice mail and sent [employer] message. Pt identified by name and : NO Outreach Outcome/Action Unable to reach patient: Left message MyChart message sent Did you use a PCP flex slot to schedule this appointment? N/A Reason for Outreach Care Gap or Scheduling/Wellness visits Payer: Payor: [facility] MEDIC[facility] / Plan: [facility] MEDICARE HMO / Product Type: HMO / Care Gap Reviewed:: Breast Cancer screening Flu vaccine Reminder: Reminder note to check Health Maintenance for items below Health Maintenance items due: MAMMOGRAM due on 10/22/2016 BONE DENSITY Never done DEPRESSION ASSESSMENT Never done INFLUENZA(1) due on 01/01/2022 PNEUMOCOCCAL: 65+(3 - PPSV23 if available, else PCV20) due on 03/18/2022 Message Sent to Practice: No Navigation Signature: Vandana Marx MA March 03, 2022 1:05 PM documented in this encounterDel[facility]10-24-2022 Miscellaneous Notes* Telephone Encounter - Bea Melendrez Ma - 02/23/2022 2:05 PM EDT Last office visit: 09/30/21 F/u scheduled: 04/07/22 Bae Melendrez Ma * Telephone Encounter - Aruna Marsh - 02/23/2022 12:30 PM EDT Pharmacy verified in [facility] Patient has been identified by name and date of : Yes Patient aware RX will be sent to pharmacy. No need to notify patient. Patient phones for refill(s): Requested Prescriptions Pending Prescriptions Disp Refills levothyroxine (LEVOXYL) 125 mcg tablet 30 tablet 2 Sig: Take 1 tablet by mouth once daily. Take on empty stomach. For thyroid. traZODone (DESYREL) 100 mg tablet 90 tablet 3 Sig: Take 1 tablet by mouth daily at bedtime. buPROPion SR (ZYBAN SR; WELLBUTRIN SR) 150 mg 12 hr tablet 180 tablet 3 Sig: Take 1 tablet by mouth twice daily. Date of last office visit : 09/30/2021 Date of next office visit : 04/07/2022 Last 2 Encounter Wt Readings: Date: Wt: 12/26/2021 91.3 kg (201 lb 3.2 oz) 12/03/2021 91.6 kg (202 lb) Please advise. Aruna Wade Pss documented in this encounterDel[facility] Hospital10-07-2022 Miscellaneous Notes* Telephone Encounter - Magen Platt LPN - 02/06/2022 8:54 AM EDT [place] 09/30/21 NOV 04/02/22 * [facility]/06/[facility]22 8:51 AM EDT Patient has been identified by name and date of : Yes Requested Prescriptions Pending Prescriptions Disp Refills sertraline (ZOLOFT) 50 mg tablet 90 tablet 3 Sig: Take 1 tablet by mouth once daily. RX INSTRUCTIONS: Patient aware RX will be sent to pharmacy. No need to notify patient. Jeannie Cleary [facility] documented in this encounterDel[facility] Hospital09-08-2022 Miscellaneous Notes* Telephone Encounter - Aspen Bailey Pss - 01/08/2022 9:56 AM EDT Patient has been identified by name and date of : Yes Requested Prescriptions Pending Prescriptions Disp Refills traMADol (ULTRAM) 50 mg tablet 240 tablet 0 Sig: Take 2 tablets by mouth every 6 hours as needed for pain for up to 30 days. RX INSTRUCTIONS: Patient aware RX will be sent to pharmacy. No need to notify patient. Aspen Bailey Pss documented in this encounterDelaware [facility] Hospital08-28-2022 Miscellaneous Notes* Telephone Encounter - Elvia Miller LPN - 12/28/2021 9:59 AM EDT Patient notified and verbalized understanding of instructions given.Elvia Miller LPN * Telephone Encounter - Juliocesar Santos APRN.CNP - 12/28/2021 9:42 AM EDT Please notify that the urine culture showed no infection. May continue taking the antibiotic if symptoms are improving. If symptoms persist/worsen f/u with primary care. Hematuria noted on ua, patient should have urine retested with pcp in 2-4 weeks to see if persisting. documented in this encounterDelaware [facility] Hospital08-26-2022 Instructions* Patient Instructions* Prisca Meyers APRN.CNP - 12/26/2021 6:00 PM EDT keflex for 7 days Tylenol/ibuprofen as needed for discomfort AZO otc Increase hydration -Follow up with PCP or return to clinic if symptoms not improving in 3 days or if you develop any new (or worsening) symptoms such as fever, chills or back pain go to ER. documented in this encounterDelaware [facility] Hospital08-26-2022 History of Present illness Narrative* Prisca Meyers APRN.CNP - 12/26/2021 5:46 PM EDT Subjective The history is provided by the patient. No speech and language assistant was used. HPI Miguelito Mari is a 66 year old female who presents today for CC of frequency of urination and lower abdominal pressure Positive for Increase in frequency of urination and Abdominal pain , Negative for Dysuria, Urgency,Sense of incomplete void, Fevers, Vomiting, Diarrhea, Back/Flank pain, Blood in urine, and Vaginal itch or discharge Chance of : No Last intercourse: n/a, postmenopausal Any self-treatment attempted: No Number of previous UTI's in last 6 months:1 Number of previous UTI's in last 12 months: 1 Aggravating Factors: voiding Alleviating Factors include Increasing fluids with no relief in symptoms. She recently had an endometrial biopsy, all was negative She denies any vaginal bleeding today. BP 132/78 Pulse 89 Temp 36.2 C (97.1 F) Resp 18 Wt 91.3 kg (201 lb 3.2 oz) SpO2 98% BMI37.99 kg/m Social History Tobacco Use Smoking status: Never Smokeless tobacco: Never Vaping Use Vaping Use: Never used Substance Use Topics Alcohol use: Yes Comment: 2 drinks per week Drug use: No PAST MEDICAL HISTORY Diagnosis Date Abdominal pain, epigastric Abdominal pain, left upper quadrant Arthritis Asthma CAD (coronary artery disease) coronary artery spasm - stress heart attch 04/13 Depression Fibromyalgia Hypertension Insomnia with sleep apnea, unspecified Malaise and fatigue Myalgia and myositis, unspecified Obesity, unspecified Obstructive sleep apnea cant use cpap Reflux esophagitis Right bundle branch block (RBBB) on electrocardiogram (ECG) Unspecified asthma, with status asthmaticus Unspecified hypothyroidism Hypothyroidism Variants of migraine, not elsewhere classified, without mention of intractable migraine without mention of status migrainosus I have confirmed and edited as necessary, the [facility] Review of Systems Constitutional: Negative for chills and fever. Gastrointestinal: Positive for abdominal pain. Diarrhea: pressure, suprapubic. Genitourinary: Positive for dysuria and frequency. Negative for flank pain, hematuria and urgency. Objective Physical Exam Vitals and nursing note reviewed. Constitutional: Appearance: Normal appearance. Abdominal: General: Bowel sounds are normal. There is no abdominal bruit. Palpations: Abdomen is not rigid. There is no mass or pulsatile mass. Tenderness: There is abdominal tenderness in the suprapubic area. There is no guarding or rebound. Negative signs include Cm's sign and McBurney's sign. Neurological: Mental Status: She is alert and oriented to person, place, and time. Psychiatric: Mood and Affect: Affect normal. Creatinine 1.24, calculated creatinine clearance 62ml/min ASSESSMENT/PLAN: 1. Urinary frequency - ICD9: 788.41, ICD10: R35.0 (primary diagnosis) - UA DIP, URINE (POC) - URINE CULTURE 2. UTI symptoms - ICD9: 788.99, ICD10: R39.9 Symptoms same as before Will start Keflex Send urine for culture - will call with results If urine negative, advise to follow up with urology for recheck Tylenol/ibuprofen prn Diagnosis and treatment plan were discussed and questions were answered to the patient's satisfaction. Pt acknowledged understanding of concepts and follow up plan. Specific signs and symptoms that would indicate the need for higher level of care were discussed indetail warranting prompt ER evaluation. Prisca Meyers APRN.CNP documented in this encounterDel[facility]08-16-2022 Miscellaneous Notes* Telephone Encounter - Billie Tellez APRN.CNP - 12/16/2021 12:45 PM EDT Pt unable to connect to virtual visit so telephone call was requested. Discussed normal pelvic ultrasound findings and endometrial biopsy pathology is benign. Patient hashad no further vaginal bleeding. Discussed treatment of vaginal atrophy with estrogen cream or Revaree hyaluronic acid vaginal suppositories. Patient prefers vaginal estrogen cream and prescription sent to pharmacy. Use of GoodRX explained if poor coverage. Use of vaginal estrogen explained to patient. She is to notify office with any further bleeding or complaints. All questions answered. Billie Tellez APRN.CNP documented in this encounterDelaware [facility]08-10-2022 Miscellaneous Notes* Telephone Encounter - Bhavana Marsh - 12/10/2021 4:46 PM EDT Patient has been identified by name and date of : Yes Requested Prescriptions Pending Prescriptions Disp Refills busPIRone (BUSPAR) 15 mg tablet 60 tablet 3 Sig: Take 1 tablet by mouth twice daily. GERALD-09/30/21 Labs-10/07/21 NOV-04/02/22 med filled 08/07/21 RX INSTRUCTIONS: Patient aware RX will be sent to pharmacy. No need to notify patient. Bhavana Saul Pss documented in this encounterDelaware [facility] Hospital08-03-2022 History of Present illness Narrative* Billei Tellez APRN.CNP - 12/03/2021 1:59 PM EDT [employer] offered: Patient declines. Miguelito is a 66 year old Female who presents today for an endometrial biopsy for post menopausal bleeding. test: n/a UNIVERSAL PROTOCOL / SAFETY CHECKLIST Procedure to be Performed: endometrial biopsy Sign In: A Moment of CARE was completed. Personnel directly involved with the procedure wore the appropriate PPE (Personal Protective Equipment). Patient/Surrogate Stated/Verified: PATIENT VERIFIED(optional for EMERGENT procedures): Patient name, Date of , Relevant allergies and The intended procedure Time Out Communication: Intended patient and procedure match the source documents. Consent documented and matches the intended procedure. Sign Out: SIGN OUT (optional for EMERGENT procedures): All specimen containers correctly labeled. All instruments, equipment, possible retained foreign bodies accounted for. Post-procedure follow-up management communicated and Plan of Care Visit completed when applicable. Billie Tellez APRN.CNP PROCEDURE: EXTERNAL GENITALIA: Normal in appearance without lesions VAGINA: Normal in appearance without lesions BIOPSY: Speculum placed into the vagina with excellent visualization of the cervix. Cervix cleaned with betadine. Anterior lip of cervix grasped with single toothed tenaculum. Uterus sounded to 6 cm.Pipelle inserted into the uterus without difficulty and endometrial biopsy obtained. Specimen labeled and sent to pathology. Hemostasis achieved. Procedure Summary: Patient tolerated procedure well. ASSESSMENT: post menopausal bleeding PLAN: Specimens labeled and sent to Pathology. Will notify patient of results in 1-2 weeks per virtual visit. Post-procedure instructions reviewed and written material given to the patient. Billie Tellez APRN.LESA documented in this encounterDelaware County Hospital08-03-2022 Instructions* Patient Instructions* Nichole Guzman LPN - 12/03/2021 1:59 PM EDT YOUR RECOVERY After your biopsy you may have: Vaginal bleeding (less than a normal menstrual period) Mild cramping Do NOT put anything in the vagina for 1 week after your endometrial biopsy. This includes: tampons douches and refraining from having sexual intercourse If you have any discomfort, you may take an over the counter pain medication (motrin, advil, ibuprofen, tylenol, etc). If this does not relieve your discomfort, contact the office. It is okay to wear a sanitary pad until the discharge and spotting stops. RISKS Although problems seldom occur with endometrial biopsies, there can be some complications. You may feel faint during and shortly after the procedure as well as have some bleeding after the procedure.There is also a risk of infection after the procedure. These complications are rare and can be easily treated. You should contact you doctor is you have any of the following: Heavy bleeding (more than your normal period) Bleeding with clots Severe abdominal pain Fever (more than 100.4F) Foul smelling vaginal discharge RESULTS We will have the results of your biopsy in 1-2 weeks. If you do not hear the results of your biopsyafter 2 weeks, please contact the office for the results. If you have any additional questions or concerns please do not hesitate to contact the office. documented in this encounterDelaware [facility] Hospital07-27-2022 Miscellaneous Notes* Telephone Encounter - Billie Tellez APRN.CNP - 11/26/2021 3:53 PM EDT Patient called per myself to discuss normal pelvic ultrasound results. She continues to have a small spot of bleeding every 1 to 2 days on her pad. She did notice that when she had a bowel movement she felt wet and when wiping noticed that she had bright red bleeding. She thinks that the blood was both rectal and vaginal but will pay close attention to it if it happens again. Discussed endometrial biopsy and patient agrees. Vaginal misoprostol sent to the pharmacy and use explained. Patient will call to schedule. Billie Tellez APRN.CNP documented in this encounterDelaware [facility] Hospital07-21-2022 History of Present illness Narrative* Billie Tellez APRN.CNP - 11/20/2021 3:22 PM EDT [employer] offered: Patient declines. Miguelito Mari is a 66 year old female who presents for problem visit Vaginal bleeding HPI: Pt noted quarter-size red blood when wiping twice yesterday - none since. No cramping. Finishes cephalexin for UTI this evening. Was having vulvar and inner vaginal burning when she was evaluated for UTI but no pelvic exam was done. No vaginal itching. Also had sensation of pulling around bladder but that is better. PMB 2013 - hysteroscopy pathology benign. 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 History Comments: Sexual Activity: Yes; Male Contraception: No contraception data on record PAST MEDICAL HISTORY Diagnosis Date Abdominal pain, epigastric Abdominal pain, left upper quadrant Arthritis Asthma CAD (coronary artery disease) coronary artery spasm - stress heart attch 04/13 Depression Fibromyalgia Hypertension Insomnia with sleep apnea, unspecified Malaise and fatigue Myalgia and myositis, unspecified Obesity, unspecified Obstructive sleep apnea cant use cpap Reflux esophagitis Right bundle branch block (RBBB) on electrocardiogram (ECG) Unspecified asthma, with status asthmaticus Unspecified hypothyroidism Hypothyroidism Variants of migraine, not elsewhere classified, without mention of intractable migraine without mention of status migrainosus PAST SURGICAL HISTORY Procedure Laterality Date ABDOMINAL SURGERY HX ADENOIDECTOMY PRIMARY <AGE 10 Adenoidectomy CHOLECYSTECTOMY 2008 COLONOSCOPY FLX DX W/COLLJ SPEC WHEN PFRMD 10/10/13 normal - 10 year follow up EGD 06/22/2016 esophagitis and gastritis, repeat in 2-3 years d/t family history EGD TRANSORAL BIOPSY SINGLE/MULTIPLE 10/11/09 EGD TRANSORAL BIOPSY SINGLE/MULTIPLE 10/10/13 mild duodenitis, gastritis, gastric polyp ESOPHAGOGASTRODUODENOSCOPY TRANSORAL DIAGNOSTIC 04/12/00 & 12/09/06 EGD HEART CATHETERIZATION 04/09/12 TONSILLECTOMY HX TONSILLECTOMY PRIMARY/SECONDARY <AGE 10 Tonsillectomy FAMILY HISTORY Problem Relation Age of Onset Cancer Mother bladder, esophageal,stomach/ Hypertension Mother Stroke Mother Heart Mother Coronary Artery Disease Father Emphysema Father Hypertension Father Heart Father Coronary Artery Disease Maternal Grandmother Coronary Artery Disease Maternal Grandfather Breast Cancer Other maternal cousins x3 Cancer Other maternal cousin stomach cancer Hypertension Brother Coronary Artery Disease Maternal Uncle Coronary Artery Disease Maternal Uncle Coronary Artery Disease Maternal Uncle Coronary Artery Disease Maternal Uncle Cancer Maternal Aunt Coronary Artery Disease Maternal Aunt Heart Brother Heart Sister Social History Tobacco Use Smoking status: Never Smoker Smokeless tobacco: Never Used Vaping Use Vaping Use: Never used Substance Use Topics Alcohol use: Yes Comment: 2 drinks per week Drug use: No Current Outpatient Medications Medication Sig cephALEXin (KEFLEX) 500 mg capsule Take 1 capsule by mouth twice daily for 7 days. traMADol (ULTRAM) 50 mg tablet Take 2 tablets by mouth every 6 hours as needed for pain for up to 30 days. montelukast (SINGULAIR) 10 mg tablet Take 1 tablet by mouth daily at bedtime. levothyroxine (LEVOXYL) 125 mcg tablet Take 1 tablet by mouth once daily. Take on empty stomach. For thyroid. albuterol HFA (VENTOLIN HFA) 90 mcg/actuation inhaler Inhale 2 Puffs as instructed every 4 hours asneeded. cyclobenzaprine (FLEXERIL) 5 mg tablet TAKE ONE TABLET BY MOUTH EVERY 8 HOURS NEEDED FOR MUSCLE SPASMS ondansetron orally disintegrating (ZOFRAN ODT) 4 mg disintegrating tablet Take 1 tablet by mouth every 6 hours as needed for nausea/vomiting. meclizine (ANTIVERT) 12.5 mg tab Take 1 tablet by mouth every 6 hours as needed (dizziness). busPIRone (BUSPAR) 15 mg tablet Take 1 tablet by mouth twice daily. loratadine (ALLERGY RELIEF, LORATADINE,) 10 mg tablet Take 1 tablet by mouth once daily. omeprazole (PRILOSEC) 20 mg capsule TAKE 2 CAPSULES BY MOUTH TWICE DAILY 1/2 HOUR BEFORE A MEAL buPROPion SR (ZYBAN SR; WELLBUTRIN SR) 150 mg 12 hr tablet Take 1 tablet by mouth twice daily. traZODone (DESYREL) 100 mg tablet Take 1 tablet by mouth daily at bedtime. sertraline (ZOLOFT) 50 mg tablet Take 1 tablet by mouth once daily. sucralfate (CARAFATE) 1 gram tablet Take 1 tablet by mouth three times daily as needed. fluticasone (FLONASE) 50 mcg/actuation nasal spray Use 1 Vega in each nostril daily at bedtime. lisinopril (ZESTRIL, PRINIVIL) 5 mg tablet Take 0.5 tablets by mouth once daily. (Patient taking differently: Take 10 mg by mouth once daily. ) fexofenadine (FARTUN) 180 mg tablet Take 1 tablet by mouth once daily. L. RHAMNOSUS GG/INULIN (CULTURELLE PROBIOTICS ORAL) Take 1 tablet by mouth once daily. cyanocobalamin (VITAMIN B-12) 1,000 mcg tab Take 1 tablet by mouth once daily. Cholecalciferol, Vitamin D3, 1,000 unit cap Take 1 capsule by mouth once daily. Peak Flow Meter Monica Check peak flows as directed No current facility-administered medications for this visit. Allergies As of Date: 11/20/2021 Allergen Noted Reaction ADHESIVE TAPE (ROSINS) 07/14/2010 Rash AUGMENTIN [AMOXICILLIN-POT CLAVUL*04/16/2014 GI Upset HYDROCHLOROTHIAZIDE 03/04/2005 Hives Fully Assessed 11/20/2021 REVIEW OF SYSTEMS Abdomen: No bloating, early satiety, indigestion, or increased flatulence. No abdominal pain, nausea, vomiting, diarrhea, or constipation. Bladder: No dysuria, gross hematuria, urinary frequency, urinary urgency, or incontinence. Allergies and current medication updated:Yes EXAM: BP 122/74 Wt 199 lb (90.3kg) GENERAL: pleasant, female in no apparent distress CHEST: Normal inspiratory effort ABDOMEN: soft, non-tender and no masses PELVIC: external genitalia normal, normal Bartholin's glands, urethra, [place]'s glands, no vulvar lesions, no cervical lesions, physiologic discharge present, normal appearing perineal body and perianal region. Inner vulva and posterior introitus erythematous. + atrophy BIMANUAL: uterus normal size, shape and consistency, no adnexal masses and non-tender NEURO: alert and oriented x3,exam grossly non-focal ASSESSMENT/PLAN: 1. PMB (postmenopausal bleeding) - ICD9: 627.1, ICD10: N95.0 (primary diagnosis) - no bleeding at os or in vaginal vault - US FEMALE PELVIS TRANSVAG - PAP FLUID CERVICAL DIAGNOSTIC - PELVIC US WHI 2. Vulvar burning - ICD9: 625.9, ICD10: N94.89 - erythema and irritation to inner vulva - BACT/RANDOLPH VAG GRAM STAIN - CLOTRIMAZOLE-BETAMETHASONE 1 %-0.05 % TOPICAL CREAM 3. Vaginal burning - ICD9: 625.8, ICD10: N94.9 - BACT/RANDOLPH VAG GRAM STAIN 4. Gross hematuria - ICD9: 599.71, ICD10: R31.0 - UA DIP, URINE (POC) - Finish antibiotic for UTI Will notify of results. Follow- up as needed. Billie Tellez APRN.ADMISSION SPECIALIST Medical Decision Making: Problems: Moderate: New problem with uncertain prognosis Data: Unique test result(s) reviewed: 1 Unique test(s) ordered: 3+ Risk: Moderate: Drug management Medical Decision Making Level: 4 - Moderate documented in this encounterDelaware [facility] Hospital07-21-2022 Miscellaneous Notes* Telephone Encounter - Melonie Gonzalez RN - 11/20/2021 1:52 PM EDT Triage protocol guidelines reviewed with patient. Verbalized understanding. Disposition: See PCP within two weeks. 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 Has appointment with Billie Tellez today. Melonie Gonzalez RN Reason for Disposition Postmenopausal vaginal bleeding Answer Assessment - Initial Assessment Questions 1. AMOUNT: Describe the bleeding that you are having. How much bleeding is there? - SPOTTING: spotting a few drops of red blood 2. ONSET: today 3. MENOPAUSE: 4. ABDOMINAL PAIN: Denies abdominal pain 5. BLOOD THINNERS: Does not take blood thinners 6. HORMONES: Does not take hormone medication 7. CAUSE: Unknown. Currently taking antibiotic for UTI 8. HEMODYNAMIC STATUS: No dizziness, weakness or lightheadedness 9. OTHER SYMPTOMS: No urinary symptoms, no other symptoms Protocols used: VAGINAL BLEEDING - [id number] documented in this encounterDelaware County Hospital07-14-2022 History of Present illness Narrative* Jael Medrano PA-C - 11/13/2021 4:43 PM EDT This note was created using [employer]. Subjective Miguelito Mari is a 66 year old female. HPI Patient presents with a chief complaint of urinary frequency, dysuria and urgency over the past 2 days. No back pain. She does have some suprapubic discomfort. No vomiting or fever. She states she has had a few UTIs previously. No blood in urine. Review of Systems HENT: Negative. Respiratory: Negative. Cardiovascular: Negative. Gastrointestinal: Negative. Genitourinary: Positive for dysuria, frequency, pelvic pain and urgency. Negative for hematuria. Musculoskeletal: Negative. Skin: Negative. All other systems reviewed and are negative. PAST MEDICAL HISTORY Diagnosis Date Abdominal pain, epigastric Abdominal pain, left upper quadrant Arthritis Asthma CAD (coronary artery disease) coronary artery spasm - stress heart attch 04/13 Depression Fibromyalgia Hypertension Insomnia with sleep apnea, unspecified Malaise and fatigue Myalgia and myositis, unspecified Obesity, unspecified Obstructive sleep apnea cant use cpap Reflux esophagitis Right bundle branch block (RBBB) on electrocardiogram (ECG) Unspecified asthma, with status asthmaticus Unspecified hypothyroidism Hypothyroidism Variants of migraine, not elsewhere classified, without mention of intractable migraine without mention of status migrainosus Current Outpatient Medications Medication Sig Dispense Refill traMADol (ULTRAM) 50 mg tablet Take 2 tablets by mouth every 6 hours as needed for pain for up to 30 days. 240 tablet 0 montelukast (SINGULAIR) 10 mg tablet Take 1 tablet by mouth daily at bedtime. 90 tablet 3 levothyroxine (LEVOXYL) 125 mcg tablet Take 1 tablet by mouth once daily. Take on empty stomach. For thyroid. 30 tablet 2 albuterol HFA (VENTOLIN HFA) 90 mcg/actuation inhaler Inhale 2 Puffs as instructed every 4 hours asneeded. 3 Inhaler 3 cyclobenzaprine (FLEXERIL) 5 mg tablet TAKE ONE TABLET BY MOUTH EVERY 8 HOURS NEEDED FOR MUSCLE SPASMS 30 tablet 3 ondansetron orally disintegrating (ZOFRAN ODT) 4 mg disintegrating tablet Take 1 tablet by mouth every 6 hours as needed for nausea/vomiting. 10 tablet 1 meclizine (ANTIVERT) 12.5 mg tab Take 1 tablet by mouth every 6 hours as needed (dizziness). 15 tablet 1 busPIRone (BUSPAR) 15 mg tablet Take 1 tablet by mouth twice daily. 60 tablet 3 loratadine (ALLERGY RELIEF, LORATADINE,) 10 mg tablet Take 1 tablet by mouth once daily. 90 tablet 3 omeprazole (PRILOSEC) 20 mg capsule TAKE 2 CAPSULES BY MOUTH TWICE DAILY 1/2 HOUR BEFORE A MEAL 360capsule 3 buPROPion SR (ZYBAN SR; WELLBUTRIN SR) 150 mg 12 hr tablet Take 1 tablet by mouth twice daily. 180 tablet 3 traZODone (DESYREL) 100 mg tablet Take 1 tablet by mouth daily at bedtime. 90 tablet 3 sertraline (ZOLOFT) 50 mg tablet Take 1 tablet by mouth once daily. 90 tablet 3 sucralfate (CARAFATE) 1 gram tablet Take 1 tablet by mouth three times daily as needed. 270 tablet 0 fluticasone (FLONASE) 50 mcg/actuation nasal spray Use 1 Vega in each nostril daily at bedtime. 1 Bottle 6 lisinopril (ZESTRIL, PRINIVIL) 5 mg tablet Take 0.5 tablets by mouth once daily. (Patient taking differently: Take 10 mg by mouth once daily. ) 90 tablet 5 fexofenadine (FARTUN) 180 mg tablet Take 1 tablet by mouth once daily. 30 tablet 3 L. RHAMNOSUS GG/INULIN (CULTURELLE PROBIOTICS ORAL) Take 1 tablet by mouth once daily. cyanocobalamin (VITAMIN B-12) 1,000 mcg tab Take 1 tablet by mouth once daily. 30 tablet 2 Cholecalciferol, Vitamin D3, 1,000 unit cap Take 1 capsule by mouth once daily. 0 Peak Flow Meter Monica Check peak flows as directed 1 Device 0 cephALEXin (KEFLEX) 500 mg capsule Take 1 capsule by mouth twice daily for 7 days. 14 capsule 0 No current facility-administered medications for this visit. PAST SURGICAL HISTORY Procedure Laterality Date ABDOMINAL SURGERY HX ADENOIDECTOMY PRIMARY <AGE 10 Adenoidectomy CHOLECYSTECTOMY 2008 COLONOSCOPY FLX DX W/COLLJ SPEC WHEN PFRMD 10/10/13 normal - 10 year follow up EGD 06/22/2016 esophagitis and gastritis, repeat in 2-3 years d/t family history EGD TRANSORAL BIOPSY SINGLE/MULTIPLE 10/11/09 EGD TRANSORAL BIOPSY SINGLE/MULTIPLE 10/10/13 mild duodenitis, gastritis, gastric polyp ESOPHAGOGASTRODUODENOSCOPY TRANSORAL DIAGNOSTIC 04/12/00 & 12/09/06 EGD HEART CATHETERIZATION 04/09/12 TONSILLECTOMY HX TONSILLECTOMY PRIMARY/SECONDARY <AGE 10 Tonsillectomy FAMILY HISTORY Problem Relation Age of Onset Cancer Mother bladder, esophageal,stomach/ Hypertension Mother Stroke Mother Heart Mother Coronary Artery Disease Father Emphysema Father Hypertension Father Heart Father Coronary Artery Disease Maternal Grandmother Coronary Artery Disease Maternal Grandfather Breast Cancer Other maternal cousins x3 Cancer Other maternal cousin stomach cancer Hypertension Brother Coronary Artery Disease Maternal Uncle Coronary Artery Disease Maternal Uncle Coronary Artery Disease Maternal Uncle Coronary Artery Disease Maternal Uncle Cancer Maternal Aunt Coronary Artery Disease Maternal Aunt Heart Brother Heart Sister Social History Tobacco Use Smoking status: Never Smoker Smokeless tobacco: Never Used Vaping Use Vaping Use: Never used Substance Use Topics Alcohol use: Yes Comment: 2 drinks per week Drug use: No Objective BP 140/90 Pulse 100 Temp 37.3 C (99.2 F) Resp 21 Wt 91.2 kg (201 lb) SpO2 100% BMI 37.95 kg/m Physical Exam Vitals reviewed. Constitutional: Appearance: Normal appearance. HENT: Head: Normocephalic and atraumatic. Cardiovascular: Rate and Rhythm: Normal rate and regular rhythm. Heart sounds: Normal heart sounds. Pulmonary: Effort: Pulmonary effort is normal. Breath sounds: Normal breath sounds. Abdominal: General: Abdomen is flat. Bowel sounds are normal. Palpations: Abdomen is soft. Tenderness: There is no abdominal tenderness. There is no right CVA tenderness or left CVA tenderness. Musculoskeletal: Cervical back: Neck supple. Skin: General: Skin is warm and dry. Neurological: General: No focal deficit present. Mental Status: She is alert and oriented to person, place, and time. Assessment and Plan ASSESSMENT/PLAN: 1. Acute cystitis with hematuria - ICD9: 595.0, ICD10: N30.01 UA positive for blood and leuks. I will start her on Keflex. Urine sent for culture. Red flags discussed. Patient agreeable. - UA DIP, URINE (POC) - URINE CULTURE Jael Medrano PA-C UA documented in this encounterDelaware [facility] Hospital07-11-2022 Miscellaneous Notes* Telephone Encounter - Bea Melendrez Ma - 11/10/2021 12:08 PM EDT Last office visit: 09/30/21 F/u scheduled: 04/02/22 Last refilled on: Tramadol #[id number] with 0 refill on 09/11/21 Bea Melendrez Ma documented in this encounterDelaware [facility] Hospital07-05-2022 Miscellaneous Notes* Telephone Encounter - Ny Truong RN - 11/04/2021 9:57 AM EDT Patient has been identified by name and date of : Yes Pharmacy phones for refill(s): Pending Prescriptions Disp Refills MONTELUKAST 10 MG TABLET 90 tablet 3 Sig: Take 1 tablet by mouth daily at bedtime. KAREN: No Date of last office visit in primary care: 09/30/21, NOV: 04/02/22 Last 2 Encounter Wt Readings: Date: Wt: 09/30/2021 90.7 kg (200 lb) 09/09/2021 90.7 kg (200 lb) Please advise. Thank you. Ny Truong RN documented in this encounterDelaware County Hospital06-16-2022 History of Present illness Narrative* Jada Calero RN - 10/16/2021 1:19 PM EDT PT ASSESSMENT - CASTING ROOM Miguelito presents for Application of powersteps. Applied powersteps to Bilateral foot Patient has been instructed in Care and proper application powersteps pt. verbalized understanding. Jada Calero RN * Ger Heard - 10/16/2021 1:03 PM EDT Images from the original note were not included. Consultation requested by Dr. Petersen for an opinion regarding foot pain. My final recommendations will be communicated back to the requesting physician by way of shared Medical record or letter to requesting physician via US mail. Initial Podiatric Office Visit: Chief Complaint: This 66 year old female who presents with chief complaint:b/l foot pain HPI Patient presents to clinic with complaint of b/l medial arch pain The pain is present in both feet x 8-12 months. She states the right foot is more bothersome than the left. The pain in both feet is much worse with standing or walking Patient has tried over the counter inserts which did help to provide some relief but she still has pain. She wants to discuss various options for shoes. PAIN EVALUATION 10/16/2021 1255 Pain Level: 8 Pain Location: Foot-Right bilateral Description: Shooting;Sharp Duration Amount of Time: 1 Duration Units: Years Frequency: Continuous Intervention/Comfort measure: Relaxation;Heat Comments: right foot worse than left. Pain increased when standing/ walking Hemoglobin A1C (%) Date Value 11/12/2020 5.3 10/24/2012 5.3 PCP: Papa Moser MD PAST MEDICAL HISTORY Diagnosis Date Abdominal pain, epigastric Abdominal pain, left upper quadrant Arthritis Asthma CAD (coronary artery disease) coronary artery spasm - stress heart attch 04/13 Depression Fibromyalgia Hypertension Insomnia with sleep apnea, unspecified Malaise and fatigue Myalgia and myositis, unspecified Obesity, unspecified Obstructive sleep apnea cant use cpap Reflux esophagitis Right bundle branch block (RBBB) on electrocardiogram (ECG) Unspecified asthma, with status asthmaticus Unspecified hypothyroidism Hypothyroidism Variants of migraine, not elsewhere classified, without mention of intractable migraine without mention of status migrainosus Current Outpatient Medications Medication Sig levothyroxine (LEVOXYL) 125 mcg tablet Take 1 tablet by mouth once daily. Take on empty stomach. For thyroid. albuterol HFA (VENTOLIN HFA) 90 mcg/actuation inhaler Inhale 2 Puffs as instructed every 4 hours asneeded. cyclobenzaprine (FLEXERIL) 5 mg tablet TAKE ONE TABLET BY MOUTH EVERY 8 HOURS NEEDED FOR MUSCLE SPASMS traMADol (ULTRAM) 50 mg tablet Take 2 tablets by mouth every 6 hours as needed for pain for up to 30 days. ondansetron orally disintegrating (ZOFRAN ODT) 4 mg disintegrating tablet Take 1 tablet by mouth every 6 hours as needed for nausea/vomiting. meclizine (ANTIVERT) 12.5 mg tab Take 1 tablet by mouth every 6 hours as needed (dizziness). busPIRone (BUSPAR) 15 mg tablet Take 1 tablet by mouth twice daily. loratadine (ALLERGY RELIEF, LORATADINE,) 10 mg tablet Take 1 tablet by mouth once daily. omeprazole (PRILOSEC) 20 mg capsule TAKE 2 CAPSULES BY MOUTH TWICE DAILY 1/2 HOUR BEFORE A MEAL buPROPion SR (ZYBAN SR; WELLBUTRIN SR) 150 mg 12 hr tablet Take 1 tablet by mouth twice daily. traZODone (DESYREL) 100 mg tablet Take 1 tablet by mouth daily at bedtime. sertraline (ZOLOFT) 50 mg tablet Take 1 tablet by mouth once daily. sucralfate (CARAFATE) 1 gram tablet Take 1 tablet by mouth three times daily as needed. montelukast (SINGULAIR) 10 mg tablet Take 1 tablet by mouth daily at bedtime. fluticasone (FLONASE) 50 mcg/actuation nasal spray Use 1 Vega in each nostril daily at bedtime. lisinopril (ZESTRIL, PRINIVIL) 5 mg tablet Take 0.5 tablets by mouth once daily. (Patient taking differently: Take 10 mg by mouth once daily. ) fexofenadine (FARTUN) 180 mg tablet Take 1 tablet by mouth once daily. L. RHAMNOSUS GG/INULIN (CULTURELLE PROBIOTICS ORAL) Take 1 tablet by mouth once daily. cyanocobalamin (VITAMIN B-12) 1,000 mcg tab Take 1 tablet by mouth once daily. Cholecalciferol, Vitamin D3, 1,000 unit cap Take 1 capsule by mouth once daily. Peak Flow Meter Monica Check peak flows as directed No current facility-administered medications for this visit. ALLERGIES Allergen Reactions Adhesive Tape (Stephanie* Rash Augmentin [Amoxicil* GI Upset Hydrochlorothiazide Hives PAST SURGICAL HISTORY Procedure Laterality Date ABDOMINAL SURGERY HX ADENOIDECTOMY PRIMARY <AGE 10 Adenoidectomy CHOLECYSTECTOMY 2008 COLONOSCOPY FLX DX W/COLLJ SPEC WHEN PFRMD 10/10/13 normal - 10 year follow up EGD 06/22/2016 esophagitis and gastritis, repeat in 2-3 years d/t family history EGD TRANSORAL BIOPSY SINGLE/MULTIPLE 10/11/09 EGD TRANSORAL BIOPSY SINGLE/MULTIPLE 10/10/13 mild duodenitis, gastritis, gastric polyp ESOPHAGOGASTRODUODENOSCOPY TRANSORAL DIAGNOSTIC 04/12/00 & 12/09/06 EGD HEART CATHETERIZATION 04/09/12 TONSILLECTOMY HX TONSILLECTOMY PRIMARY/SECONDARY <AGE 10 Tonsillectomy FAMILY HISTORY Problem Relation Age of Onset Cancer Mother bladder, esophageal,stomach/ Hypertension Mother Stroke Mother Heart Mother Coronary Artery Disease Father Emphysema Father Hypertension Father Heart Father Coronary Artery Disease Maternal Grandmother Coronary Artery Disease Maternal Grandfather Breast Cancer Other maternal cousins x3 Cancer Other maternal cousin stomach cancer Hypertension Brother Coronary Artery Disease Maternal Uncle Coronary Artery Disease Maternal Uncle Coronary Artery Disease Maternal Uncle Coronary Artery Disease Maternal Uncle Cancer Maternal Aunt Coronary Artery Disease Maternal Aunt Heart Brother Heart Sister Social History Tobacco Use Smoking status: Never Smoker Smokeless tobacco: Never Used Vaping Use Vaping Use: Never used Substance Use Topics Alcohol use: Yes Comment: 2 drinks per week Drug use: No REVIEW OF SYSTEMS GENERAL: Negative for Malaise, significant weight loss, fever RESPIRATORY: Negative for cough, wheezing and shortness of breath CARDIOVASCULAR: Negative for chest pain, leg swelling and palpitations GI: Negative for abdominal discomfort, blood in stools or black stools and change in bowel habits : Negative for dysuria, frequency and incontinence MUSCULOSKELETAL: Negative for joint pain or swelling, back pain, and muscle pain. SKIN: Negative for lesions, rash, and itching. HEMATOLOGY/LYMPHOLOGY Negative for prolonged bleeding, bruising easily, and swollen nodes. ENDOCRINE: Negative for cold or heat intolerance, polyuria, polydipsia and goiter. NEURO: negative Physical Exam: Constitutional: Pt is a well developed 66 year old female who is alert, oriented and cooperative Eyes: Following during examination. No redness or drainage. Respiratory: RR normal and nonlabored. Even breathing. No evidence of distress or shortness of breath. Psychology: Patient is engaged during conversation. Normal affect and mood. Does not appear depressed or anxious during encounter. Vascular: Dorsalis pedis and posterior tibial pulses palpable as b/l Capillary Fill time < 5 seconds to digits 1-5 b/l Skin temperature warm to warm proximal to distal b/l Hair growth present to digits Neurological: intact light touch/epicritic sensation b/l intact protective sensation no significant neurological deficits Dermatological: Nails 1-5 b/l appear normal. Webspaces clean and dry 1-4 b/l. Skin appears well hydrated and supple. good color, texture, turgor. No open lesions present. No callosities present. Musculoskeletal/Orthopaedic: Patient has pain to palpation of medial instep b/l .. Mild pain with dorsiflexion of b/l 1st mtpj Foot type is pronated structurally AJ ROM is full with knee extended and flexed 1st MPJ is decreased when loaded and no pain or crepitus are noted with ROM. MTJ, STJ are full and free of pain and crepitus. +5/5 muscle strength dorsiflexion, plantarflexion, inversion, eversion b/l Radiographs: 3 views b/l foot ordered October 16, 2021: I have personally reviewed and interpreted these XR myself: Right heel spur. There is midl arthritis of b/l 1st mtpj ASSESSMENT: (M76.829) Posterior tibial tendon dysfunction (primary encounter (M79.671, M79.672) Foot pain, bilateral (M20.5X9) Hallux limitus, acquired, unspecified laterality PLAN: 1. History and physical examination performed. 2. XR reviewed with patient and interpreted today 3. Discussed pain in b/l foot. Suspect component of both flatfoot and hallux limitus. Will dispensepowerstep inserts as I feel this will provide better support than her current Dr. Hubbard inserts. Efra feel however custom orthotics will be best option and will order custom orthotic with mckeon extension b/l. 4. F/u prn Ger Heard DPM Podiatry [address] [facility] [address] Dept: [phone] Dept * Jada Calero RN - 10/16/2021 12:54 PM EDT Patient presents with: Right Foot - New, Pain Left Foot - New, Pain AMB ROOMING INTAKE FLOWSHEET DATA Pain Pain Level: 8 Pain Location: Foot-Right (bilateral) Description: Shooting, Sharp Duration Amount of Time: 1 Duration Units: Years Frequency: Continuous Intervention/Comfort measure: Relaxation, Heat Comments: right foot worse than left. Pain increased when standing/ walking documented in this encounterDel[facility]06-16-2022 Instructions* Patient Instructions* Ger Heard - 10/16/2021 1:10 PM EDT Powerstep Original Full length. Can purchase at [employer] here in [place], [employer] in [place] or [place]. Also can find in [employer] in [facility]. Powersteps can also be purchased online, starting around $25.00 If you have a metatarsal or dancer pad for your feet apply the pad directly to the insole so you can interchange between your shoes. Find a shoe with a removable insole and take this out and replace with your powerstep insole. Always bring powersteps with you when shopping for shoes so that you can make sure that everything fits well together documented in this encounterDelaware [facility] Hospital06-16-2022 History of Present illness Narrative* RT Apple(R) - 10/16/2021 12:50 PM EDT Radiology Service Progress Note PATIENT NAME: Miguelito Mari DATE OF SERVICE: October 16, 2021 TIME: 12:43 PM PATIENT IDENTITY VERIFICATION COMPLETED USING TWO (2) IDENTIFIERS: Name and Date of confirmedby patient verbally. FALL SCREENING: Has the patient had 2 falls in the last year or 1 fall with injury or currently using an Ambulatory Assistive Device (Walker, Cane, Wheelchair, Crutches, etc.)? No PATIENT GENDER DATA: Female. status: : No status: NO. PATIENT RELEVANT IMPLANT DATA REVIEWED: Yes RADIOLOGY DEPARTMENT: General X-ray: Exam(s) Completed: Lower Extremity X- Ray(s): Foot, Bilateral and Wt. Bearing PERIPHERAL IV DATA: Not applicable SIGNED BY: RT Apple(R) October 16, 2021 12:43 PM documented in this encounterDelaware [facility] Hospital06-08-2022 Miscellaneous Notes* Telephone Encounter - Magen Platt LPN - 10/08/2021 6:00 PM EDT TC to pt, no answer, unable to leave message d/t voicemail box is full. Magen Platt LPN * Telephone Encounter - Steffen Petersen PA-C - 10/08/2021 4:38 PM EDT Please advise thyroid appears under replaced. She is to let me know if she has missed doses or been irregular with medication otherwise we will increase dose of levothyroxine to 125 MCG daily 1 hour empty stomach and recheck labs in 2 months. Telephone on 10/08/21 TSH BLD T4 FREE/FREE THYROX The following approved medication requests have been transmitted electronically. Signed Prescriptions Disp Refills levothyroxine (LEVOXYL) 125 mcg tablet 30 tablet 2 Sig: Take 1 tablet by mouth once daily. Take on empty stomach. For thyroid. Authorizing Provider: Steffen PETERSEN PA-C documented in this encounterDelaware [facility] Hospital05-10-2022 Instructions* Patient Instructions* Steffen Petersen PA-C - 09/09/2021 5:17 PM EDT Look into Deven exercises for vertigo prevention. [email or web address] documented in this encounterDelaware County Hospital05-10-2022 History of Present illness Narrative* Steffen Petersen PA-C - 09/09/2021 4:20 PM EDT 66 year old female with c/o vertigo sx 10-14 days dizzy and nauseated. First day was the worst with some rocking sensations, nausea but no vomiting. Did improve with rest. Reminds of vertigo but milder. Usually lasts a couple days and then better. Almost always after bending over and picking something up. + nausea, no vomiting. + rocking sensation. Grabs on to something and it goes away in about 5-10 seconds. Hearing is terrible over last year. No headache. + neck ache: new mattress, new pillow, seeing chiropractor Dr. Power. HISTORIES FAMILY HISTORY Problem Relation Age of Onset Cancer Mother bladder, esophageal,stomach/ Hypertension Mother Stroke Mother Heart Mother Coronary Artery Disease Father Emphysema Father Hypertension Father Heart Father Coronary Artery Disease Maternal Grandmother Coronary Artery Disease Maternal Grandfather Breast Cancer Other maternal cousins x3 Cancer Other maternal cousin stomach cancer Hypertension Brother Coronary Artery Disease Maternal Uncle Coronary Artery Disease Maternal Uncle Coronary Artery Disease Maternal Uncle Coronary Artery Disease Maternal Uncle Cancer Maternal Aunt Coronary Artery Disease Maternal Aunt Heart Brother Heart Sister PAST MEDICAL HISTORY Diagnosis Date Abdominal pain, epigastric Abdominal pain, left upper quadrant Arthritis Asthma CAD (coronary artery disease) coronary artery spasm - stress heart attch 04/13 Depression Fibromyalgia Hypertension Insomnia with sleep apnea, unspecified Malaise and fatigue Myalgia and myositis, unspecified Obesity, unspecified Obstructive sleep apnea cant use cpap Reflux esophagitis Right bundle branch block (RBBB) on electrocardiogram (ECG) Unspecified asthma, with status asthmaticus Unspecified hypothyroidism Hypothyroidism Variants of migraine, not elsewhere classified, without mention of intractable migraine without mention of status migrainosus PAST SURGICAL HISTORY Procedure Laterality Date ABDOMINAL SURGERY HX ADENOIDECTOMY PRIMARY <AGE 10 Adenoidectomy CHOLECYSTECTOMY 2008 COLONOSCOPY FLX DX W/COLLJ SPEC WHEN PFRMD 10/10/13 normal - 10 year follow up EGD 06/22/2016 esophagitis and gastritis, repeat in 2-3 years d/t family history EGD TRANSORAL BIOPSY SINGLE/MULTIPLE 10/11/09 EGD TRANSORAL BIOPSY SINGLE/MULTIPLE 10/10/13 mild duodenitis, gastritis, gastric polyp ESOPHAGOGASTRODUODENOSCOPY TRANSORAL DIAGNOSTIC 04/12/00 & 12/09/06 EGD HEART CATHETERIZATION 04/09/12 TONSILLECTOMY HX TONSILLECTOMY PRIMARY/SECONDARY <AGE 10 Tonsillectomy Social History Tobacco Use Smoking status: Never Smoker Smokeless tobacco: Never Used Vaping Use Vaping Use: Never used Substance Use Topics Alcohol use: Yes Comment: 2 drinks per week Drug use: No ACTIVE PROBLEM LIST OVERWEIGHT Fibromyalgia Other Malaise and Fatigue Adjustment Reaction With Prolonged Depressive Reaction Esophageal Reflux Hypothyroidism Unspecified Sleep Apnea HOARSENESS Asthma Other Specified Abnormal Findings of Blood Chemistry Intractable Migraine Without Aura Vitamin D Deficiency Osteoarthrosis, Hand Cervical Spondylosis Without Myelopathy Other and Unspecified Nonspecific Immunological Findings Cad (Coronary Artery Disease) Gerd (Gastroesophageal Reflux Disease) History of Coronary Vasospasm Migraine Memory Difficulties Anxiety Chronic Renal Insufficiency, Stage 3 (Moderate) (Hcc) Takotsubo Cardiomyopathy Hyperplastic Polyp of Stomach Bppv (Benign Paroxysmal Positional Vertigo), Unspecified Laterality Current Outpatient Medications Medication Sig Dispense Refill levothyroxine (LEVOXYL) 112 mcg tablet Take 1 tablet by mouth once daily. Take on empty stomach. For thyroid. 30 tablet 11 busPIRone (BUSPAR) 15 mg tablet Take 1 tablet by mouth twice daily. 60 tablet 3 loratadine (ALLERGY RELIEF, LORATADINE,) 10 mg tablet Take 1 tablet by mouth once daily. 90 tablet 3 omeprazole (PRILOSEC) 20 mg capsule TAKE 2 CAPSULES BY MOUTH TWICE DAILY 1/2 HOUR BEFORE A MEAL 360capsule 3 traMADol (ULTRAM) 50 mg tablet Take 2 tablets by mouth every 6 hours as needed for pain for up to 30 days. 240 tablet 0 cyclobenzaprine (FLEXERIL) 5 mg tablet TAKE ONE TABLET BY MOUTH EVERY 8 HOURS NEEDED FOR MUSCLE SPASMS 30 tablet 3 buPROPion SR (ZYBAN SR; WELLBUTRIN SR) 150 mg 12 hr tablet Take 1 tablet by mouth twice daily. 180 tablet 3 traZODone (DESYREL) 100 mg tablet Take 1 tablet by mouth daily at bedtime. 90 tablet 3 sertraline (ZOLOFT) 50 mg tablet Take 1 tablet by mouth once daily. 90 tablet 3 sucralfate (CARAFATE) 1 gram tablet Take 1 tablet by mouth three times daily as needed. 270 tablet 0 montelukast (SINGULAIR) 10 mg tablet Take 1 tablet by mouth daily at bedtime. 90 tablet 3 fluticasone (FLONASE) 50 mcg/actuation nasal spray Use 1 Vega in each nostril daily at bedtime. 1 Bottle 6 lisinopril (ZESTRIL, PRINIVIL) 5 mg tablet Take 0.5 tablets by mouth once daily. (Patient taking differently: Take 10 mg by mouth once daily. ) 90 tablet 5 albuterol HFA (VENTOLIN HFA) 90 mcg/actuation inhaler Inhale 2 Puffs as instructed every 4 hours asneeded. 3 Inhaler 3 fexofenadine (FARTUN) 180 mg tablet Take 1 tablet by mouth once daily. 30 tablet 3 L. RHAMNOSUS GG/INULIN (CULTURELLE PROBIOTICS ORAL) Take 1 tablet by mouth once daily. cyanocobalamin (VITAMIN B-12) 1,000 mcg tab Take 1 tablet by mouth once daily. 30 tablet 2 Cholecalciferol, Vitamin D3, 1,000 unit cap Take 1 capsule by mouth once daily. 0 Peak Flow Meter Monica Check peak flows as directed 1 Device 0 No current facility-administered medications for this visit. SPIROMETRY Never done DTAP,TDAP,TD(1 - Tdap) due on 01/02/2006 MAMMOGRAM due on 10/22/2016 BONE DENSITY Never done SHINGRIX VACCINE(2 of 2) due on 02/28/2020 DEPRESSION SCREENING due on 12/28/2020 ADVANCE DIRECTIVE DISCUSSION Never done COVID-19 VACCINE(4 - Booster for Pfizer series) due on 08/06/2021 EXAM: Resp 16 Wt 90.7 kg (200 lb) SpO2 98% BMI 36.58 kg/m BP w/Orthostatic Vitals Date and Time Orthostatic BP Orthostatic Pulse BP Pulse BP Position BP Site BP Cuff Size 09/09/21 1833 142/86 -- -- -- Sitting Left Arm Large Adult 09/09/21 1653 113/73 79 -- -- Standing -- -- 09/09/21 1635 129/82 83 -- -- Supine -- -- Peak Flow Date and Time PF Resp 09/09/21 1635 -- 16 EKG shows normal sinus rhythm, ventricular rate 67, left axis deviation with otherwise normal metrics. On comparison no significant changes from 12/14/2017 pending cardiology review. Pleasant overweight adult female in no acute distress. Alert and oriented all spheres. Normal affect and cognition. Speech normal. No deficits to learning or comprehension. Skin warm, dry, pink to lips and nailbeds. Normal turgor. Respirations regular and unlabored. HEENT: NCAT. PERRLA, EOMI. No scleral icterus or conjunctival injection. TM's clear. Nose and oropharynx free from injection or lesion. Oral membranes moist and pink. No cervical lymph nodes. Thyroidnon-tender, no masses, or enlargement. Carotids pulses 2+/4+ without bruits. Chest is normal shape. Lungs are clear to all davidson with good air exchange through out. HRRR without murmur or gallop. No lifts, heaves, or rubs. Extrem: no clubbing or cyanosis. Edema: none. Extremities are warm and pink with prompt capillary refill. Neuro: Gerardo-Hallpike maneuver showed no evidence of nystagmus and only brief seconds of patient sense of dizziness. No other symptoms exhibited. Romberg negative, able to walk heel-to-toe and tandem, no past-pointing on estunh-ss-xnor. No otherfocal deficits. ASSESSMENT/PLAN: 1. BPPV (benign paroxysmal positional vertigo), unspecified laterality - ICD9: 386.11, ICD10: H81.10 Patient has history of BPPV. Due to her history of Takotsubo cardiomyopathy we did EKG due to her sense of fatigue and weakness. Patient was provided with prescriptions for meclizine and ondansetron to use as needed in the hopesthat this will help her at work. Caution was given on meclizine and drowsiness. Try at home first. Cautions and warnings were reviewed medications. Patient has good we could do her routine problem review so she can cancel appointment in 2 weeks but we do not have time to schedule for today. - ECG COMPLETE - ONDANSETRON 4 MG DISINTEGRATING TABLET - MECLIZINE 12.5 MG TABLET Steffen Petersen PA-C documented in this encounterDelaware [facility]05-05-2022 Miscellaneous Notes* Telephone Encounter - Margie Saul LPN - 09/04/2021 3:42 PM EDT Patient has been identified by name and date of : Yes Pharmacy phones for refill(s): Pending Prescriptions Disp Refills LEVOTHYROXINE 112 MCG TABLET 30 tablet 11 Sig: Take 1 tablet by mouth once daily. Take on empty stomach. For thyroid. KAREN: No Date of last office visit in primary care: 04/03/21 next apt 09/30/21 Last 2 Encounter Wt Readings: Date: Wt: 04/03/2021 90.3 kg (199 lb) 12/26/2020 91.2 kg (201 lb) Previous labs/tests for medication: Thyroid: TSH (uU/mL) Date Value 11/12/2020 2.370 Please advise. Thank you. Margie Saul LPN documented in this encounterDelaware [facility] Hospital04-07-2022 Miscellaneous Notes* Telephone Encounter - Donita Calixto RN - 08/07/2021 12:30 PM EDT Patient has been identified by name and date of : Yes Pharmacy phones for refill(s): Pending Prescriptions Disp Refills BUSPIRONE 15 MG TABLET 60 tablet 3 Sig: Take 1 tablet by mouth twice daily. KAREN: No LORATADINE 10 MG TABLET 90 tablet 3 Sig: Take 1 tablet by mouth once daily. KAREN: No Date of last office visit with pcp: 06/11/2021 Future appt: 09/30/2021 Last 2 Encounter Wt Readings: Date: Wt: 04/03/2021 90.3 kg (199 lb) 12/26/2020 91.2 kg (201 lb) Previous labs/tests for medication: Blood Pressure: BUN (mg/dL) Date Value 11/12/2020 18 Sodium (mmol/L) Date Value 11/12/2020 141 Last 1 Encounter BP Readings: Date: BP: 04/03/2021 124/72 Liver Function: ALT (U/L) Date Value 11/12/2020 9 AST (U/L) Date Value 11/12/2020 19 Please advise. Thank you. Donita Calixto RN documented in this encounterDelaware [facility] Hospital09-23-2013 History of Past illness Narrative* Problem Noted Date Resolved Date Laryngitis 01/23/2013 08/25/2013 Osteoarthrosis, unspecified whether generalized or localized, ankle and foot 05/31/2012 05/01/2016 Abdominal pain, left upper quadrant 10/11/2009 08/25/2013 Abdominal pain, epigastric 10/11/200908/25 Other general medical examin ation for administrative purposes 02/26/2009 08/25/2013 documented as of this encounter (statuses as of 08/07/2021) [facility] of Past illness Narrative* Problem Noted Date Resolved Date Laryngitis 01/23/2013 08/25/2013 Osteoarthrosis, unspecified whether generalized or localized, ankle and foot 05/31/2012 05/01/2016 Abdominal pain, left upper quadrant 10/11/2009 08/25/2013 Abdominal pain, epigastric 10/11/200908/25 Other general medical examin ation for administrative purposes 02/26/2009 08/25/2013 documented as of this encounter (statuses as of 09/04/2021) [facility] of Past illness Narrative* Problem Noted Date Resolved Date Laryngitis 01/23/2013 08/25/2013 Osteoarthrosis, unspecified whether generalized or localized, ankle and foot 05/31/2012 05/01/2016 Abdominal pain, left upper quadrant 10/11/2009 08/25/2013 Abdominal pain, epigastric 10/11/200908/25 Other general medical examin ation for administrative purposes 02/26/2009 08/25/2013 documented as of this encounter (statuses as of 09/09/2021) [facility] of [facility] illness Narrative* Problem Noted Date Resolved Date Laryngitis 01/23/2013 08/25/2013 Osteoarthrosis, unspecified whether generalized or localized, ankle and foot 05/31/2012 05/01/2016 Abdominal pain, left upper quadrant 10/11/2009 08/25/2013 Abdominal pain, epigastric 10/11/200908/25 Other general medical examin ation for administrative purposes 02/26/2009 08/25/2013 documented as of this encounter (statuses as of 10/08/2021) [facility] of [facility] illness Narrative* Problem Noted Date Resolved Date Laryngitis 01/23/2013 08/25/2013 Osteoarthrosis, unspecified whether generalized or localized, ankle and foot 05/31/2012 05/01/2016 Abdominal pain, left upper quadrant 10/11/2009 08/25/2013 Abdominal pain, epigastric 10/11/200908/25 Other general medical examin ation for administrative purposes 02/26/2009 08/25/2013 documented as of this encounter (statuses as of 10/16/2021) [facility] of [facility] illness Narrative* Problem Noted Date Resolved Date Laryngitis 01/23/2013 08/25/2013 Osteoarthrosis, unspecified whether generalized or localized, ankle and foot 05/31/2012 05/01/2016 Abdominal pain, left upper quadrant 10/11/2009 08/25/2013 Abdominal pain, epigastric 10/11/200908/25 Other general medical examin ation for administrative purposes 02/26/2009 08/25/2013 documented as of this encounter (statuses as of 10/17/2021) [facility] [facility] Past illness Narrative* Problem Noted Date Resolved Date Laryngitis 01/23/2013 08/25/2013 Osteoarthrosis, unspecified whether generalized or localized, ankle and foot 05/31/2012 05/01/2016 Abdominal pain, left upper quadrant 10/11/2009 08/25/2013 Abdominal pain, epigastric 10/11/200908/25 Other general medical examin ation for administrative purposes 02/26/2009 08/25/2013 documented as of this encounter (statuses as of 11/04/2021) [facility]2013 History of Past illness Narrative* Problem Noted Date Resolved Date Laryngitis 01/23/2013 08/25/2013 Osteoarthrosis, unspecified whether generalized or localized, ankle and foot 05/31/2012 05/01/2016 Abdominal pain, left upper quadrant 10/11/2009 08/25/2013 Abdominal pain, epigastric 10/11/200908/25 Other general medical examin ation for administrative purposes 02/26/2009 08/25/2013 documented as of this encounter (statuses as of 11/10/2021) [facility] History of Past illness Narrative* Problem Noted Date Resolved Date Laryngitis 01/23/2013 08/25/2013 Osteoarthrosis, unspecified whether generalized or localized, ankle and foot 05/31/2012 05/01/2016 Abdominal pain, left upper quadrant 10/11/2009 08/25/2013 Abdominal pain, epigastric 10/11/200908/25 Other general medical examin ation for administrative purposes 02/26/2009 08/25/2013 documented as of this encounter (statuses as of 11/13/2021) [facility] History of Past illness Narrative* Problem Noted Date Resolved Date Laryngitis 01/23/2013 08/25/2013 Osteoarthrosis, unspecified whether generalized or localized, ankle and foot 05/31/2012 05/01/2016 Abdominal pain, left upper quadrant 10/11/2009 08/25/2013 Abdominal pain, epigastric 10/11/200908/25 Other general medical examin ation for administrative purposes 02/26/2009 08/25/2013 documented as of this encounter (statuses as of 11/20/2021) [facility] History of Past illness Narrative* Problem Noted Date Resolved Date Laryngitis 01/23/2013 08/25/2013 Osteoarthrosis, unspecified whether generalized or localized, ankle and foot 05/31/2012 05/01/2016 Abdominal pain, left upper quadrant 10/11/2009 08/25/2013 Abdominal pain, epigastric 10/11/200908/25 Other general medical examin ation for administrative purposes 02/26/2009 08/25/2013 documented as of this encounter (statuses as of 11/20/2021) [facility] History of Past illness Narrative* Problem Noted Date Resolved Date Laryngitis 01/23/2013 08/25/2013 Osteoarthrosis, unspecified whether generalized or localized, ankle and foot 05/31/2012 05/01/2016 Abdominal pain, left upper quadrant 10/11/2009 08/25/2013 Abdominal pain, epigastric 10/11/200908/25 Other general medical examin ation for administrative purposes 02/26/2009 08/25/2013 documented as of this encounter (statuses as of 11/24/2021) [facility] History of Past illness Narrative* Problem Noted Date Resolved Date Laryngitis 01/23/2013 08/25/2013 Osteoarthrosis, unspecified whether generalized or localized, ankle and foot 05/31/2012 05/01/2016 Abdominal pain, left upper quadrant 10/11/2009 08/25/2013 Abdominal pain, epigastric 10/11/200908/25 Other general medical examin ation for administrative purposes 02/26/2009 08/25/2013 documented as of this encounter (statuses as of 11/26/2021) [facility] History of Past illness Narrative* Problem Noted Date Resolved Date Laryngitis 01/23/2013 08/25/2013 Osteoarthrosis, unspecified whether generalized or localized, ankle and foot 05/31/2012 05/01/2016 Abdominal pain, left upper quadrant 10/11/2009 08/25/2013 Abdominal pain, epigastric 10/11/200908/25 Other general medical examin ation for administrative purposes 02/26/2009 08/25/2013 documented as of this encounter (statuses as of 12/03/2021) [place] [address]-23-2013 History of Past illness Narrative* Problem Noted Date Resolved Date Laryngitis 01/23/2013 08/25/2013 Osteoarthrosis, unspecified whether generalized or localized, ankle and foot 05/31/2012 05/01/2016 Abdominal pain, left upper quadrant 10/11/2009 08/25/2013 Abdominal pain, epigastric 10/11/200908/25 Other general medical examin ation for administrative purposes 02/26/2009 08/25/2013 documented as of this encounter (statuses as of 12/12/2021) [facility] History of Past illness Narrative* Problem Noted Date Resolved Date Laryngitis 01/23/2013 08/25/2013 Osteoarthrosis, unspecified whether generalized or localized, ankle and foot 05/31/2012 05/01/2016 Abdominal pain, left upper quadrant 10/11/2009 08/25/2013 Abdominal pain, epigastric 10/11/200908/25 Other general medical examin ation for administrative purposes 02/26/2009 08/25/2013 documented as of this encounter (statuses as of 12/16/2021) [facility] History of Past illness Narrative* Problem Noted Date Resolved Date Laryngitis 01/23/2013 08/25/2013 Osteoarthrosis, unspecified whether generalized or localized, ankle and foot 05/31/2012 05/01/2016 Abdominal pain, left upper quadrant 10/11/2009 08/25/2013 Abdominal pain, epigastric 10/11/200908/25 Other general medical examin ation for administrative purposes 02/26/2009 08/25/2013 documented as of this encounter (statuses as of 12/26/2021) [facility] History of Past illness Narrative* Problem Noted Date Resolved Date Laryngitis 01/23/2013 08/25/2013 Osteoarthrosis, unspecified whether generalized or localized, ankle and foot 05/31/2012 05/01/2016 Abdominal pain, left upper quadrant 10/11/2009 08/25/2013 Abdominal pain, epigastric 10/11/200908/25 Other general medical examin ation for administrative purposes 02/26/2009 08/25/2013 documented as of this encounter (statuses as of 12/28/2021) [facility] History of Past illness Narrative* Problem Noted Date Resolved Date Laryngitis 01/23/2013 08/25/2013 Osteoarthrosis, unspecified whether generalized or localized, ankle and foot 05/31/2012 05/01/2016 Abdominal pain, left upper quadrant 10/11/2009 08/25/2013 Abdominal pain, epigastric 10/11/200908/25 Other general medical examin ation for administrative purposes 02/26/2009 08/25/2013 documented as of this encounter (statuses as of 01/08/2022) [facility] History of Past illness Narrative* Problem Noted Date Resolved Date Laryngitis 01/23/2013 08/25/2013 Osteoarthrosis, unspecified whether generalized or localized, ankle and foot 05/31/2012 05/01/2016 Abdominal pain, left upper quadrant 10/11/2009 08/25/2013 Abdominal pain, epigastric 10/11/200908/25 Other general medical examin ation for administrative purposes 02/26/2009 08/25/2013 documented as of this encounter (statuses as of 02/06/2022) [facility] History of Past illness Narrative* Problem Noted Date Resolved Date Laryngitis 01/23/2013 08/25/2013 Osteoarthrosis, unspecified whether generalized or localized, ankle and foot 05/31/2012 05/01/2016 Abdominal pain, left upper quadrant 10/11/2009 08/25/2013 Abdominal pain, epigastric 10/11/200908/25 Other general medical examin ation for administrative purposes 02/26/2009 08/25/2013 documented as of this encounter (statuses as of 02/25/2022) [facility] History of Past illness Narrative* Problem Noted Date Resolved Date Laryngitis 01/23/2013 08/25/2013 Osteoarthrosis, unspecified whether generalized or localized, ankle and foot 05/31/2012 05/01/2016 Abdominal pain, left upper quadrant 10/11/2009 08/25/2013 Abdominal pain, epigastric 10/11/200908/25 Other general medical examin ation for administrative purposes 02/26/2009 08/25/2013 documented as of this encounter (statuses as of 03/02/2022) [facility] History of Past illness Narrative* Problem Noted Date Resolved Date Laryngitis 01/23/2013 08/25/2013 Osteoarthrosis, unspecified whether generalized or localized, ankle and foot 05/31/2012 05/01/2016 Abdominal pain, left upper quadrant 10/11/2009 08/25/2013 Abdominal pain, epigastric 10/11/200908/25 Other general medical examin ation for administrative purposes 02/26/2009 08/25/2013 documented as of this encounter (statuses as of 03/03/2022) [facility] History of Past illness Narrative* Problem Noted Date Resolved Date Laryngitis 01/23/2013 08/25/2013 Osteoarthrosis, unspecified whether generalized or localized, ankle and foot 05/31/2012 05/01/2016 Abdominal pain, left upper quadrant 10/11/2009 08/25/2013 Abdominal pain, epigastric 10/11/200908/25 Other general medical examin ation for administrative purposes 02/26/2009 08/25/2013 documented as of this encounter (statuses as of 03/06/2022) [facility] History of Past illness Narrative* Problem Noted Date Resolved Date Laryngitis 01/23/2013 08/25/2013 Osteoarthrosis, unspecified whether generalized or localized, ankle and foot 05/31/2012 05/01/2016 Abdominal pain, left upper quadrant 10/11/2009 08/25/2013 Abdominal pain, epigastric 10/11/200908/25 Other general medical examin ation for administrative purposes 02/26/2009 08/25/2013 documented as of this encounter (statuses as of 03/06/2022) [facility] History of Past illness Narrative* Problem Noted Date Resolved Date Laryngitis 01/23/2013 08/25/2013 Osteoarthrosis, unspecified whether generalized or localized, ankle and foot 05/31/2012 05/01/2016 Abdominal pain, left upper quadrant 10/11/2009 08/25/2013 Abdominal pain, epigastric 10/11/200908/25 Other general medical examin ation for administrative purposes 02/26/2009 08/25/2013 documented as of this encounter (statuses as of 03/19/2022) [facility] History of Past illness Narrative* Problem Noted Date Resolved Date Laryngitis 01/23/2013 08/25/2013 Osteoarthrosis, unspecified whether generalized or localized, ankle and foot 05/31/2012 05/01/2016 Abdominal pain, left upper quadrant 10/11/2009 08/25/2013 Abdominal pain, epigastric 10/11/200908/25 Other general medical examin ation for administrative purposes 02/26/2009 08/25/2013 documented as of this encounter (statuses as of 04/03/2022) [facility] History of Past illness Narrative* Problem Noted Date Resolved Date Laryngitis 01/23/2013 08/25/2013 Osteoarthrosis, unspecified whether generalized or localized, ankle and foot 05/31/2012 05/01/2016 Abdominal pain, left upper quadrant 10/11/2009 08/25/2013 Abdominal pain, epigastric 10/11/200908/25 Other general medical examin ation for administrative purposes 02/26/2009 08/25/2013 documented as of this encounter (statuses as of 04/08/2022) [facility] History of Past illness Narrative* Problem Noted Date Resolved Date Laryngitis 01/23/2013 08/25/2013 Osteoarthrosis, unspecified whether generalized or localized, ankle and foot 05/31/2012 05/01/2016 Abdominal pain, left upper quadrant 10/11/2009 08/25/2013 Abdominal pain, epigastric 10/11/200908/25 Other general medical examin ation for administrative purposes 02/26/2009 08/25/2013 documented as of this encounter (statuses as of 04/08/2022) [facility] History of Past illness Narrative* Problem Noted Date Resolved Date Laryngitis 01/23/2013 08/25/2013 Osteoarthrosis, unspecified whether generalized or localized, ankle and foot 05/31/2012 05/01/2016 Abdominal pain, left upper quadrant 10/11/2009 08/25/2013 Abdominal pain, epigastric 10/11/200908/25 Other general medical examin ation for administrative purposes 02/26/2009 08/25/2013 documented as of this encounter (statuses as of 04/15/2022) [facility] History of Past illness Narrative* Problem Noted Date Resolved Date Laryngitis 01/23/2013 08/25/2013 Osteoarthrosis, unspecified whether generalized or localized, ankle and foot 05/31/2012 05/01/2016 Abdominal pain, left upper quadrant 10/11/2009 08/25/2013 Abdominal pain, epigastric 10/11/200908/25 Other general medical examin ation for administrative purposes 02/26/2009 08/25/2013 documented as of this encounter (statuses as of 04/21/2022) [facility] History of Past illness Narrative* Problem Noted Date Resolved Date Laryngitis 01/23/2013 08/25/2013 Osteoarthrosis, unspecified whether generalized or localized, ankle and foot 05/31/2012 05/01/2016 Abdominal pain, left upper quadrant 10/11/2009 08/25/2013 Abdominal pain, epigastric 10/11/200908/25 Other general medical examin ation for administrative purposes 02/26/2009 08/25/2013 documented as of this encounter (statuses as of 04/21/2022) [facility] History of Past illness Narrative* Problem Noted Date Resolved Date Laryngitis 01/23/2013 08/25/2013 Osteoarthrosis, unspecified whether generalized or localized, ankle and foot 05/31/2012 05/01/2016 Abdominal pain, left upper quadrant 10/11/2009 08/25/2013 Abdominal pain, epigastric 10/11/200908/25 Other general medical examin ation for administrative purposes 02/26/2009 08/25/2013 documented as of this encounter (statuses as of 04/23/2022) [facility] History of Past illness Narrative* Problem Noted Date Resolved Date Laryngitis 01/23/2013 08/25/2013 Osteoarthrosis, unspecified whether generalized or localized, ankle and foot 05/31/2012 05/01/2016 Abdominal pain, left upper quadrant 10/11/2009 08/25/2013 Abdominal pain, epigastric 10/11/200908/25 Other general medical examin ation for administrative purposes 02/26/2009 08/25/2013 documented as of this encounter (statuses as of 05/03/2022) [facility] History of Past illness Narrative* Problem Noted Date Resolved Date Laryngitis 01/23/2013 08/25/2013 Osteoarthrosis, unspecified whether generalized or localized, ankle and foot 05/31/2012 05/01/2016 Abdominal pain, left upper quadrant 10/11/2009 08/25/2013 Abdominal pain, epigastric 10/11/200908/25 Other general medical examin ation for administrative purposes 02/26/2009 08/25/2013 documented as of this encounter (statuses as of 05/04/2022) [facility] History of Past illness Narrative* Problem Noted Date Resolved Date Laryngitis 01/23/2013 08/25/2013 Osteoarthrosis, unspecified whether generalized or localized, ankle and foot 05/31/2012 05/01/2016 Abdominal pain, left upper quadrant 10/11/2009 08/25/2013 Abdominal pain, epigastric 10/11/200908/25 Other general medical examin ation for administrative purposes 02/26/2009 08/25/2013 documented as of this encounter (statuses as of 05/07/2022) [facility] History of Past illness Narrative* Problem Noted Date Resolved Date Laryngitis 01/23/2013 08/25/2013 Osteoarthrosis, unspecified whether generalized or localized, ankle and foot 05/31/2012 05/01/2016 Abdominal pain, left upper quadrant 10/11/2009 08/25/2013 Abdominal pain, epigastric 10/11/200908/25 Other general medical examin ation for administrative purposes 02/26/2009 08/25/2013 documented as of this encounter (statuses as of 05/08/2022) [facility] History of Past illness Narrative* Problem Noted Date Resolved Date Laryngitis 01/23/2013 08/25/2013 Osteoarthrosis, unspecified whether generalized or localized, ankle and foot 05/31/2012 05/01/2016 Abdominal pain, left upper quadrant 10/11/2009 08/25/2013 Abdominal pain, epigastric 10/11/200908/25 Other general medical examin ation for administrative purposes 02/26/2009 08/25/2013 documented as of this encounter (statuses as of 05/12/2022) [facility] History of Past illness Narrative* Problem Noted Date Resolved Date Laryngitis 01/23/2013 08/25/2013 Osteoarthrosis, unspecified whether generalized or localized, ankle and foot 05/31/2012 05/01/2016 Abdominal pain, left upper quadrant 10/11/2009 08/25/2013 Abdominal pain, epigastric 10/11/200908/25 Other general medical examin ation for administrative purposes 02/26/2009 08/25/2013 documented as of this encounter (statuses as of 05/14/2022) [facility] History of Past illness Narrative* Problem Noted Date Resolved Date Laryngitis 01/23/2013 08/25/2013 Osteoarthrosis, unspecified whether generalized or localized, ankle and foot 05/31/2012 05/01/2016 Abdominal pain, left upper quadrant 10/11/2009 08/25/2013 Abdominal pain, epigastric 10/11/200908/25 Other general medical examin ation for administrative purposes 02/26/2009 08/25/2013 documented as of this encounter (statuses as of 05/19/2022) [facility] History of Past illness Narrative* Problem Noted Date Resolved Date Laryngitis 01/23/2013 08/25/2013 Osteoarthrosis, unspecified whether generalized or localized, ankle and foot 05/31/2012 05/01/2016 Abdominal pain, left upper quadrant 10/11/2009 08/25/2013 Abdominal pain, epigastric 10/11/200908/25 Other general medical examin ation for administrative purposes 02/26/2009 08/25/2013 documented as of this encounter (statuses as of 05/19/2022) [facility] History of Past illness Narrative* Problem Noted Date Resolved Date Laryngitis 01/23/2013 08/25/2013 Osteoarthrosis, unspecified whether generalized or localized, ankle and foot 05/31/2012 05/01/2016 Abdominal pain, left upper quadrant 10/11/2009 08/25/2013 Abdominal pain, epigastric 10/11/200908/25 Other general medical examin ation for administrative purposes 02/26/2009 08/25/2013 documented as of this encounter (statuses as of 05/21/2022) [facility] History of Past illness Narrative* Problem Noted Date Resolved Date Laryngitis 01/23/2013 08/25/2013 Osteoarthrosis, unspecified whether generalized or localized, ankle and foot 05/31/2012 05/01/2016 Abdominal pain, left upper quadrant 10/11/2009 08/25/2013 Abdominal pain, epigastric 10/11/200908/25 Other general medical examin ation for administrative purposes 02/26/2009 08/25/2013 documented as of this encounter (statuses as of 05/21/2022) [facility] History of Past illness Narrative* Problem Noted Date Resolved Date Laryngitis 01/23/2013 08/25/2013 Osteoarthrosis, unspecified whether generalized or localized, ankle and foot 05/31/2012 05/01/2016 Abdominal pain, left upper quadrant 10/11/2009 08/25/2013 Abdominal pain, epigastric 10/11/200908/25 Other general medical examin ation for administrative purposes 02/26/2009 08/25/2013 documented as of this encounter (statuses as of 05/22/2022) [facility] History of Past illness Narrative* Problem Noted Date Resolved Date Laryngitis 01/23/2013 08/25/2013 Osteoarthrosis, unspecified whether generalized or localized, ankle and foot 05/31/2012 05/01/2016 Abdominal pain, left upper quadrant 10/11/2009 08/25/2013 Abdominal pain, epigastric 10/11/200908/25 Other general medical examin ation for administrative purposes 02/26/2009 08/25/2013 documented as of this encounter (statuses as of 06/04/2022) [facility] History of Past illness Narrative* Problem Noted Date Resolved Date Laryngitis 01/23/2013 08/25/2013 Osteoarthrosis, unspecified whether generalized or localized, ankle and foot 05/31/2012 05/01/2016 Abdominal pain, left upper quadrant 10/11/2009 08/25/2013 Abdominal pain, epigastric 10/11/200908/25 Other general medical examin ation for administrative purposes 02/26/2009 08/25/2013 documented as of this encounter (statuses as of 06/17/2022) [facility] History of Past illness Narrative* Problem Noted Date Resolved Date Laryngitis 01/23/2013 08/25/2013 Osteoarthrosis, unspecified whether generalized or localized, ankle and foot 05/31/2012 05/01/2016 Abdominal pain, left upper quadrant 10/11/2009 08/25/2013 Abdominal pain, epigastric 10/11/200908/25 Other general medical examin ation for administrative purposes 02/26/2009 08/25/2013 documented as of this encounter (statuses as of 06/26/2022) [facility] History of Past illness Narrative* Problem Noted Date Resolved Date Laryngitis 01/23/2013 08/25/2013 Osteoarthrosis, unspecified whether generalized or localized, ankle and foot 05/31/2012 05/01/2016 Abdominal pain, left upper quadrant 10/11/2009 08/25/2013 Abdominal pain, epigastric 10/11/200908/25 Other general medical examin ation for administrative purposes 02/26/2009 08/25/2013 documented as of this encounter (statuses as of 07/15/2022) [facility] History of Past illness Narrative* Problem Noted Date Resolved Date Laryngitis 01/23/2013 08/25/2013 Osteoarthrosis, unspecified whether generalized or localized, ankle and foot 05/31/2012 05/01/2016 Abdominal pain, left upper quadrant 10/11/2009 08/25/2013 Abdominal pain, epigastric 10/11/200908/25 Other general medical examin ation for administrative purposes 02/26/2009 08/25/2013 documented as of this encounter (statuses as of 07/28/2022) [facility] History of Past illness Narrative* Problem Noted Date Resolved Date Laryngitis 01/23/2013 08/25/2013 Osteoarthrosis, unspecified whether generalized or localized, ankle and foot 05/31/2012 05/01/2016 Abdominal pain, left upper quadrant 10/11/2009 08/25/2013 Abdominal pain, epigastric 10/11/200908/25 Other general medical examin ation for administrative purposes 02/26/2009 08/25/2013 documented as of this encounter (statuses as of 08/04/2022) [facility] History of Past illness Narrative* Problem Noted Date Resolved Date Laryngitis 01/23/2013 08/25/2013 Osteoarthrosis, unspecified whether generalized or localized, ankle and foot 05/31/2012 05/01/2016 Abdominal pain, left upper quadrant 10/11/2009 08/25/2013 Abdominal pain, epigastric 10/11/200908/25 Other general medical examin ation for administrative purposes 02/26/2009 08/25/2013 documented as of this encounter (statuses as of 08/11/2022) [facility] History of Past illness Narrative* Problem Noted Date Resolved Date Laryngitis 01/23/2013 08/25/2013 Osteoarthrosis, unspecified whether generalized or localized, ankle and foot 05/31/2012 05/01/2016 Abdominal pain, left upper quadrant 10/11/2009 08/25/2013 Abdominal pain, epigastric 10/11/200908/25 Other general medical examin ation for administrative purposes 02/26/2009 08/25/2013 documented as of this encounter (statuses as of 08/28/2022) [facility] History of Past illness Narrative* Problem Noted Date Resolved Date Laryngitis 01/23/2013 08/25/2013 Osteoarthrosis, unspecified whether generalized or localized, ankle and foot 05/31/2012 05/01/2016 Abdominal pain, left upper quadrant 10/11/2009 08/25/2013 Abdominal pain, epigastric 10/11/200908/25 Other general medical examin ation for administrative purposes 02/26/2009 08/25/2013 documented as of this encounter (statuses as of 10/15/2022) [facility] History of Past illness Narrative* Problem Noted Date Resolved Date Laryngitis 01/23/2013 08/25/2013 Osteoarthrosis, unspecified whether generalized or localized, ankle and foot 05/31/2012 05/01/2016 Abdominal pain, left upper quadrant 10/11/2009 08/25/2013 Abdominal pain, epigastric 10/11/200908/25 Other general medical examin ation for administrative purposes 02/26/2009 08/25/2013 documented as of this encounter (statuses as of 10/30/2022) [facility] History of Past illness Narrative* Problem Noted Date Diagnosed Date Resolved Date Laryngitis 01/23/2013 08/25/2013 Osteoarthrosis, unspecified whether generalized or localized, ankle and foot 05/31/2012 05/01/2016 Abdominal pain, left upper quadrant 10/11/2009 08/25/2013 Abdominal pain, epigastric 10/11/2009 0 08/25/2013 Other general medical examin ation for administrative purposes 02/26/2009 08/25/2013 documented as of this encounter (statuses as of 12/28/2022) [facility] History of Past illness Narrative* Problem Noted Date Diagnosed Date Resolved Date Laryngitis 01/23/2013 08/25/2013 Osteoarthrosis, unspecified whether generalized or localized, ankle and foot 05/31/2012 05/01/2016 Abdominal pain, left upper quadrant 10/11/2009 08/25/2013 Abdominal pain, epigastric 10/11/2009 0 08/25/2013 Other general medical examin ation for administrative purposes 02/26/2009 08/25/2013 documented as of this encounter (statuses as of 12/31/2022) [facility]09-[facility]2013 History of Past illness Narrative* Problem Noted Date Diagnosed Date Resolved Date Laryngitis 01/23/2013 08/25/2013 Osteoarthrosis, unspecified whether generalized or localized, ankle and foot 05/31/2012 05/01/2016 Abdominal pain, left upper quadrant 10/11/2009 08/25/2013 Abdominal pain, epigastric 10/11/2009 0 08/25/2013 Other general medical examin ation for administrative purposes 02/26/2009 08/25/2013 documented as of this encounter (statuses as of 01/07/2023) [facility]2013 History of Past illness Narrative* Problem Noted Date Diagnosed Date Resolved Date Laryngitis 01/23/2013 08/25/2013 Osteoarthrosis, unspecified whether generalized or localized, ankle and foot 05/31/2012 05/01/2016 Abdominal pain, left upper quadrant 10/11/2009 08/25/2013 Abdominal pain, epigastric 10/11/2009 0 08/25/2013 Other general medical examin ation for administrative purposes 02/26/2009 08/25/2013 documented as of this encounter (statuses as of 01/13/2023) [facility] History of Past illness Narrative* Problem Noted Date Diagnosed Date Resolved Date Laryngitis 01/23/2013 08/25/2013 Osteoarthrosis, unspecified whether generalized or localized, ankle and foot 05/31/2012 05/01/2016 Abdominal pain, left upper quadrant 10/11/2009 08/25/2013 Abdominal pain, epigastric 10/11/2009 0 08/25/2013 Other general medical examin ation for administrative purposes 02/26/2009 08/25/2013 documented as of this encounter (statuses as of 01/22/2023) [facility] History of Past illness Narrative* Problem Noted Date Diagnosed Date Resolved Date Laryngitis 01/23/2013 08/25/2013 Osteoarthrosis, unspecified whether generalized or localized, ankle and foot 05/31/2012 05/01/2016 Abdominal pain, left upper quadrant 10/11/2009 08/25/2013 Abdominal pain, epigastric 10/11/2009 0 08/25/2013 Other general medical examin ation for administrative purposes 02/26/2009 08/25/2013 documented as of this encounter (statuses as of 01/22/2023) [facility] History of Past illness Narrative* Problem Noted Date Diagnosed Date Resolved Date Laryngitis 01/23/2013 08/25/2013 Osteoarthrosis, unspecified whether generalized or localized, ankle and foot 05/31/2012 05/01/2016 Abdominal pain, left upper quadrant 10/11/2009 08/25/2013 Abdominal pain, epigastric 10/11/2009 0 08/25/2013 Other general medical examin ation for administrative purposes 02/26/2009 08/25/2013 documented as of this encounter (statuses as of 02/02/2023) [facility] History of Past illness Narrative* Problem Noted Date Diagnosed Date Resolved Date Laryngitis 01/23/2013 08/25/2013 Osteoarthrosis, unspecified whether generalized or localized, ankle and foot 05/31/2012 05/01/2016 Abdominal pain, left upper quadrant 10/11/2009 08/25/2013 Abdominal pain, epigastric 10/11/2009 0 08/25/2013 Other general medical examin ation for administrative purposes 02/26/2009 08/25/2013 documented as of this encounter (statuses as of 02/17/2023) [facility] History of Past illness Narrative* Problem Noted Date Diagnosed Date Resolved Date Laryngitis 01/23/2013 08/25/2013 Osteoarthrosis, unspecified whether generalized or localized, ankle and foot 05/31/2012 05/01/2016 Abdominal pain, left upper quadrant 10/11/2009 08/25/2013 Abdominal pain, epigastric 10/11/2009 0 08/25/2013 Other general medical examin ation for administrative purposes 02/26/2009 08/25/2013 documented as of this encounter (statuses as of 02/26/2023) [facility] History of Past illness Narrative* Problem Noted Date Diagnosed Date Resolved Date Laryngitis 01/23/2013 08/25/2013 Osteoarthrosis, unspecified whether generalized or localized, ankle and foot 05/31/2012 05/01/2016 Abdominal pain, left upper quadrant 10/11/2009 08/25/2013 Abdominal pain, epigastric 10/11/2009 0 08/25/2013 Other general medical examin ation for administrative purposes 02/26/2009 08/25/2013 documented as of this encounter (statuses as of 03/07/2023) [facility] History of Past illness Narrative* Problem Noted Date Diagnosed Date Resolved Date Laryngitis 01/23/2013 08/25/2013 Osteoarthrosis, unspecified whether generalized or localized, ankle and foot 05/31/2012 05/01/2016 Abdominal pain, left upper quadrant 10/11/2009 08/25/2013 Abdominal pain, epigastric 10/11/2009 0 08/25/2013 Other general medical examin ation for administrative purposes 02/26/2009 08/25/2013 documented as of this encounter (statuses as of 03/15/2023) [facility] History of Past illness Narrative* Problem Noted Date Diagnosed Date Resolved Date Laryngitis 01/23/2013 08/25/2013 Osteoarthrosis, unspecified whether generalized or localized, ankle and foot 05/31/2012 05/01/2016 Abdominal pain, left upper quadrant 10/11/2009 08/25/2013 Abdominal pain, epigastric 10/11/2009 0 08/25/2013 Other general medical examin ation for administrative purposes 02/26/2009 08/25/2013 documented as of this encounter (statuses as of 04/14/2023) [facility] note* Diagnosis BPPV (benign paroxysmal positional vertigo), unspecified laterality- Primary [facility] Diagnosis Acquired hypothyroidism- Primary Unspecified hypothyroidism [facility] Diagnosis Posterior tibial tendon dysfunction- Primary Other disorders of synovium, tendon, and bursa Foot pain, bilateral Pain in limb Hallux limitus, acquired, unspecified laterality documented in this encounter [facility] note* Diagnosis Bilateral foot pain Pain in limb documented in this encounter [facility] note* Diagnosis Fibromyalgia Mylagia and myositis, unspecified Cervicalgia documented in this encounter [facility] note* Diagnosis Acute cystitis with hematuria- Primary Acute cystitis documented in this encounter [facility] note* Diagnosis PMB (postmenopausal bleeding)- Primary Postmenopausal bleeding Vulvar burning Unspecified symptom associated with female genital organs Vaginal burning Other specified symptom associated with female genital organs Gross hematuria documented in this encounter [facility] note* Diagnosis PMB (postmenopausal bleeding)- Primary Postmenopausal bleeding [facility] Diagnosis Abnormal uterine bleeding (AUB)- Primary [facility] Diagnosis Postmenopausal bleeding- Primary [facility]* Diagnosis Postmenopausal atrophic vaginitis- Primary [facility]* Diagnosis Urinary frequency- Primary UTI symptoms Other symptoms involving urinary system documented in this encounter [facility] note* Diagnosis Fibromyalgia Mylagia and myositis, unspecified Cervicalgia documented in this encounter [facility] note* Diagnosis Anxiety Anxiety state, unspecified documented in this encounter [facility] note* Diagnosis Acquired hypothyroidism Unspecified hypothyroidism documented in this encounter [facility] note* Diagnosis Encounter for screening mammogram for breast cancer documented in this encounter [facility] note* Diagnosis COVID-19- Primary documented in this encounter [facility] note* Diagnosis Vertigo- Primary Dizziness and giddiness documented in this encounter [facility] note* Diagnosis Vertebrobasilar artery insufficiency- Primary Vertebrobasilar artery syndrome [facility] Diagnosis Takotsubo cardiomyopathy- Primary Takotsubo syndrome History of coronary vasospasm Personal history of other diseases of circulatory system Coronary artery disease due to lipid rich plaque Hyperlipidemia, mixed Mixed hyperlipidemia Hyperglycemia Other abnormal glucose Acquired hypothyroidism Unspecified hypothyroidism Stage 2 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 (HCC) Type II or unspecified type diabetes mellitus with renal manifestations, not stated as uncontrolled Anxiety Anxiety state, unspecified Cervical spondylosis without myelopathy Fatigue, unspecified type Polyarthralgia Pain in joint, multiple sites Gastroesophageal reflux disease without esophagitis Esophageal reflux Encounter for immunization Need for other specified prophylactic vaccination against single bacterial disease Vitamin D deficiency Unspecified vitamin D deficiency Chronic vertigo Vertebro-basilar artery syndrome Vertebrobasilar artery syndrome [facility] Diagnosis Vertigo- Primary Dizziness and giddiness Abnormal finding on MRI of brain Nonspecific (abnormal) findings on radiological and other examination of skull and head VBI (vertebrobasilar insufficiency) Vertebrobasilar artery syndrome Nephropathy screen Screening for nephropathy [facility] Diagnosis BPPV (benign paroxysmal positional vertigo), unspecified laterality Cervicalgia Fibromyalgia Mylagia and myositis, unspecified [facility] Diagnosis Vertigo- Primary Dizziness and giddiness [facility]* Diagnosis Fibromyalgia Mylagia and myositis, unspecified Cervicalgia [facility]* Diagnosis Vertigo- Primary Dizziness and giddiness [facility]* Diagnosis Vertigo- Primary Dizziness and giddiness [facility] Diagnosis Vertigo- Primary Dizziness and giddiness VBI (vertebrobasilar insufficiency) Vertebrobasilar artery syndrome [facility] Diagnosis BPPV (benign paroxysmal positional vertigo), unspecified laterality [facility] Diagnosis Gastroesophageal reflux disease, unspecified whether esophagitis present- Primary Current use of proton pump inhibitor Encounter for long-term (current) use of other medications 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 Anxiety Anxiety state, unspecified Lipid screening Screening for lipoid disorders [facility]* Diagnosis Cervicalgia- Primary BPPV (benign paroxysmal positional vertigo), unspecified laterality Vertebrobasilar artery insufficiency Vertebrobasilar artery syndrome Fibromyalgia Mylagia and myositis, unspecified documented [facility] this [facility]* Diagnosis Cervicalgia- Primary Fibromyalgia Mylagia and myositis, unspecified Vertebrobasilar artery insufficiency Vertebrobasilar artery syndrome [facility]* Diagnosis Acquired hypothyroidism Unspecified hypothyroidism Anxiety Anxiety state, unspecified documented in this encounter [facility] note* Diagnosis Cervicalgia- Primary Fibromyalgia Mylagia and myositis, unspecified Vertebrobasilar artery insufficiency Vertebrobasilar artery syndrome documented in this encounter [facility] note* Diagnosis Cervicalgia- Primary Fibromyalgia Mylagia and myositis, unspecified Vertebrobasilar artery insufficiency Vertebrobasilar artery syndrome documented in this encounter [facility] note* Diagnosis Gastritis without bleeding, unspecified chronicity, unspecified gastritis type Mild intermittent asthma without complication Unspecified asthma Cervicalgia Fibromyalgia Mylagia and myositis, unspecified documented in this encounter [facility] note* Diagnosis Acquired hypothyroidism Unspecified hypothyroidism documented in this encounter [facility] note* Diagnosis Fibromyalgia Mylagia and myositis, unspecified Cervicalgia documented in this encounter [facility] note* Diagnosis Anxiety Anxiety state, unspecified documented in this encounter [facility] note* Diagnosis Cervicalgia Fibromyalgia Mylagia and myositis, unspecified documented in this encounter [facility] note* Diagnosis Acute rhinosinusitis- Primary Acute sinusitis, unspecified documented in this encounter [facility] note* Diagnosis Bronchitis- Primary Bronchitis, not specified as acute or chronic Mild intermittent asthma without complication Unspecified asthma documented in this encounter [facility] note* Diagnosis BPPV (benign paroxysmal positional vertigo), unspecified laterality documented in this encounter [facility] note* Diagnosis Vertigo Dizziness and giddiness Abnormal finding on MRI of brain Nonspecific (abnormal) findings on radiological and other examination of skull and head VBI (vertebrobasilar insufficiency) Vertebrobasilar artery syndrome documented in this encounter [facility] note* Diagnosis Acquired hypothyroidism Unspecified hypothyroidism Anxiety Anxiety state, unspecified documented in this encounter [facility] note* Diagnosis Acute sinusitis, recurrence not specified, unspecified location Anxiety Anxiety state, unspecified documented in this encounter [facility] note* Diagnosis Acute pain of left shoulder- Primary documented in this encounter [facility] note* Diagnosis Cervicalgia Fibromyalgia Mylagia and myositis, unspecified documented in this encounter [facility] note* Diagnosis Sinobronchitis- Primary Unspecified sinusitis (chronic) Mild intermittent asthma with acute exacerbation Unspecified asthma, with exacerbation documented in this encounter [facility] note* Diagnosis Mild intermittent asthma with acute exacerbation Unspecified asthma, with exacerbation [facility]* Diagnosis Mild intermittent asthma with acute exacerbation- Primary Unspecified asthma, with exacerbation [facility]* Diagnosis Cervicalgia Fibromyalgia Mylagia and myositis, unspecified documented in this encounter [facility] for referral (narrative)* Diagnostic Procedure Only (Routine) - Closed Specialty Diagnoses / Procedures Referred By Contac t Referred To Contact XR IMAGING Diagnoses Bilateral foot pain Procedures XR FOOT GENERAL 3V AP/LAT/OBL BILATERAL RADEX FOOT COMPLETE MINIMUM 3 VIEWS Ger Heard [address] [place] [address] Xr Imaging Referral ID Status Reason Start Date Expiration Date V isits Requested Visits Authorized [id number] Closed Auto-Generate d Referral 10/16/2021 05/02/2022 1 1 [facility] for referral (narrative)* Diagnostic Procedure Only (Routine) - Pending Review Specialty Diagnoses / Procedures Referred By Contac t Referred To Contact US IMAGING Diagnoses PMB (postmenopausal bleeding) Procedures US FEMALE PELVIS TRANSVAG US TRANSVAGINAL Billie Tellez APRN.CNP [address] [place] [address] Us Imaging Referral ID Status Reason Start Date Expiration Date Visits Requested Visits Authorized [id number] Pending Review Auto-Generat ed Referral 11/20/2021 12/20/2022 1 1 * Diagnostic Procedure Only (Routine) - Authorized Specialty Diagnoses / Procedures Referred By Contac t Referred To Contact [facility] Diagnoses Gross hematuria Procedures PELVIC US WHI US PELVIC NONOBSTETRIC REAL-TIME IMAGE COMPLETE Billie Tellez APRN.CNP [address] [place] [address] [facility] [address] [place] [address] Referral ID Status Reason Start Date Expiration Date Visits Requested Visits Authorized [id number] Authorized Auto-Generat ed Referral 11/24/2021 05/02/2022 1 1 [facility] for referral (narrative)* Outpatient Procedure (Routine) - Pending Review Specialty Diagnoses / Procedures Referred By Contac t Referred To Contact [facility] Diagnoses Abnormal uterine bleeding (AUB) Procedures ENDOMETRIAL BIOPSY ENDOMETRIAL BX W/WO ENDOCERVIX BX W/O DILAT SPX Billie Tellez APRN.ADMISSION SPECIALIST [address] [place] [address] [facility] [address] [id number] Referral ID Status Reason Start Date Expiration Date Visits Requested Visits Authorized [id number] Pending Review Auto-Generat ed Referral 11/26/2021 11/26/2022 1 1 [facility] for referral (narrative)* Outpatient Procedure (Routine) - Pending Review Specialty Diagnoses / Procedures Referred By Contac t Referred To Contact [facility] Diagnoses Postmenopausal bleeding Procedures ENDOMETRIAL BIOPSY ENDOMETRIAL BX W/WO ENDOCERVIX BX W/O DILAT SPX Billie Tellez APRN.ADMISSION SPECIALIST [address] [place] [address] [facility] [address] [id number] Referral ID Status Reason Start Date Expiration Date Visits Requested Visits Authorized [id number] Pending Review Auto-Generat ed Referral 12/03/2021 12/03/2022 1 1 [facility] for referral (narrative)* Diagnostic Procedure Only (Routine) - Pending Review Specialty Diagnoses / Procedures Referred By Contac t Referred To Contact [facility] Diagnoses Encounter for screening mammogram for breast cancer Procedures KARLEY SCREENING SCREENING MAMMOGRAPHY BI 2-VIEW BREAST INC CAD Papa Moser MD [address] [place] [address] [facility] [address] [place] [address] Referral ID Status Reason Start Date Expiration Date Visits Requested Visits Authorized [id number] Pending Review Auto-Generat ed Referral 03/27/2023 1 1 [facility] for visit Narrative* Diagnostic Procedure Only (Routine) - Closed Specialty Diagnoses / Procedures Referred By Contac t Referred To Contact XR IMAGING Diagnoses Bilateral foot pain Procedures XR FOOT GENERAL 3V AP/LAT/OBL BILATERAL RADEX FOOT COMPLETE MINIMUM [address] [place] [address] Xr Imaging Referral ID Status Reason Start Date Expiration Date V isits Requested Visits Authorized [id number] Closed Auto-Generate d Referral 10/16/2021 05/02/2022 1 1 [facility] Summary Purpose Family History No Family History Records FoundNo Family History Records FoundNo Family History Records Found Advance Directives Documents on File Type Date 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 Advance Directive(s) 12/05/2020 10:21 AM Advance Directive(s) 06/22/2016 11:14 AM Documents on File Type Date Recorded 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 Advance Directive(s) 12/05/2020 10:21 AM Advance Directive(s) 06/22/2016 11:14 AM Reason for Referral Specialty Diagnoses / Procedures Referred By Contac t Referred To Contact Diagnoses BPPV (benign paroxysmal positional vertigo), unspecified laterality Steffen Petersen PA-C [address] [place] [address] Referral ID Status Reason Start Date Expiration Date Visits Re quested Visits Authorized [id number] Closed 1 1 Specialty Diagnoses / Procedures Referred By Contac t Referred To Contact [facility] Diagnoses BPPV (benign paroxysmal positional vertigo), unspecified laterality Procedures ECG COMPLETE ECG ROUTINE ECG W/LEAST 12 LDS W/I&R Steffen Petersen PA-C [address] [place] [address] [facility] [address] [place] [address] Referral ID Status Reason Start Date Expiration Date V isits Requested Visits Authorized [id number] Closed Auto-Generate d Referral 09/09/2021 09/09/2022 1 1 Specialty Diagnoses / Procedures Referred By Contac t Referred To Contact Neurology Diagnoses Vertigo Procedures CONSULT TO NEUROLOGY OFFICE/OUTPATIENT [facility] 60-74 MINUTES Papa Moser MD [address] [place] [address] Referral ID Status Reason Start Date Expiration Date Visits Requested Visits Authorized [id number] Pending Review PCP Requested Referral 04/03/2022 04/03/2023 1 1 Specialty Diagnoses / Procedures Referred By Contac t Referred To Contact Neurology Diagnoses Vertebrobasilar artery insufficiency Procedures CONSULT TO NEUROLOGY OFFICE/OUTPATIENT [facility] 60-74 MINUTES Papa Moser MD [address] [place] [address] Referral ID Status Reason Start Date Expiration Date Visits Requested Visits Authorized [id number] Pending Review PCP Requested Referral 04/08/2022 04/08/2023 1 1 Specialty Diagnoses / Procedures Referred By Contac t Referred To Contact Vascular Surgery Diagnoses Vertebro-basilar artery syndrome Procedures CONSULT TO VASCULAR SURGERY OFFICE/OUTPATIENT [facility] 60-74 MINUTES Steffen Petersen PA-C [address] [place] [address] Referral ID Status Reason Start Date Expiration Date Visits Requested Visits Authorized [id number] Pending Review PCP Requested Referral 04/08/2022 04/08/2023 1 1 Specialty Diagnoses / Procedures Referred By Contac t Referred To Contact CT IMAGING Diagnoses Vertigo Abnormal finding on MRI of brain VBI (vertebrobasilar insufficiency) Procedures CTA NECK W IVCON CT ANGIOGRAPHY NECK W/CONTRAST/NONCONTRAST Papa Castellano Jr., MD [address] [facility] [address] [place] [address] Ct Imaging Referral ID Status Reason Start Date Expiration Date Visits Requested Visits Authorized [id number] Authorized Auto-Generat ed Referral 2 05/15/2023 1 1 Specialty Diagnoses / Procedures Referred By Contac t Referred To Contact CT IMAGING Diagnoses Vertigo Abnormal finding on MRI of brain VBI (vertebrobasilar insufficiency) Procedures CTA HEAD WO/W IVCON CT ANGIOGRAPHY HEAD W/CONTRAST/NONCONTRAST Papa Castellano Jr[place] [address] [address] [address] Imaging Referral ID Status Reason Start Date Expiration Date Visits Requested Visits Authorized [id number] Authorized Auto-Generat ed Referral 2 05/15/2023 1 1 Referral ID Status Reason Start Date Expiration Date Visits Re quested Visits Authorized [id number] Closed 1 1 Specialty Diagnoses / Procedures Referred By Contac t Referred To Contact [facility] Diagnoses Vertigo Procedures PT REHAB FOLLOW UP ORDER THERAPEUTIC EXERCISES RE, EA 15 MIN. Paige Lopez, PT [facility] [address] [place] [address] Referral ID Status Reason Start Date Expiration Date Visits Requested Visits Authorized [id number] Pending Review PCP Requested Referral Auto-Generate d Referral 2 07/27/2022 1 1 Specialty Diagnoses / Procedures Referred By Contac t Referred To Contact Ent - Otolaryngology Diagnoses Vertigo Procedures CONSULT TO ENT OFFICE/OUTPATIENT [facility] 60-74 MINUTES Melany Adair PA-C [address] [place], [place] [id number] Referral ID Status Reason Start Date Expiration Date Visits Requested Visits Authorized [id number] Pending Review PCP Requested Referral 05/12/2022 05/12/2023 1 1 Specialty Diagnoses / Procedures Referred By Contac t Referred To Contact Neurology Diagnoses Vertigo Procedures CONSULT TO NEUROLOGY OFFICE/OUTPATIENT [facility] 60-74 MINUTES Melany Adair PA-C [address] [place] [address] Owen Hamilton MD [address] [place] [address] Referral ID Status Reason Start Date Expiration Date Visits Requested Visits Authorized [id number] Pending Review PCP Requested Referral 05/19/2022 05/19/2023 1 1 Specialty Diagnoses / Procedures Referred By Contac t Referred To Contact Neurology Diagnoses VBI (vertebrobasilar insufficiency) Procedures CONSULT TO NEUROLOGY OFFICE/OUTPATIENT [facility] [facility] MDM 60-74 MINUTES Melany Adair PA-C [address] [address] Referral ID Status Reason Start Date Expiration Date Visits Requested Visits Authorized [id number] Pending Review PCP Requested Referral 05/19/2022 05/19/2023 1 1 Specialty Diagnoses / Procedures Referred By Contac t Referred To Contact [facility] Diagnoses Cervicalgia Vertebrobasilar artery insufficiency Fibromyalgia Procedures CONSULT TO PHYSICAL THERAPY PHYSICAL THERAPY EVALUATION [facility] COM[facility] 45 MINS Steffen Petersen PA-C [address] [place] [address] [facility] [place] [address] [place] [address] Referral ID Status Reason Start Date Expiration Date V isits Requested Visits Authorized [id number] Closed Auto-Generate d Referral 07/14/2022 07/14/2022 0 0 Specialty Diagnoses / Procedures Referred By Contac t Referred To Contact [facility] Diagnoses Cervicalgia Fibromyalgia Vertebrobasilar artery insufficiency Procedures PT REHAB FOLLOW UP ORDER THERAPEUTIC EXERCISES RE, EA 15 MIN. Merrill Donovan, PT [address] [place] [address] [facility] [place] [address] [place] [address] Referral ID Status Reason Start Date Expiration Date Visits Requested Visits Authorized [id number] Pending Review PCP Requested Referral Auto-Generate d Referral 08/28/2022 11/26/2022 1 1 Specialty Diagnoses / Procedures Referred By Contac t Referred To Contact CT IMAGING Diagnoses Vertigo Abnormal finding on MRI of brain VBI (vertebrobasilar insufficiency) Procedures CTA NECK W IVCON CT ANGIOGRAPHY NECK W/CONTRAST/NONCONTRAST Papa Castellano Jr., MD [address] [address] [place] [address] Referral ID Status Reason Start Date Expiration Date V isits Requested Visits Authorized [id number] Closed Auto-Generate d Referral 04/15/2022 05/15/2023 1 1 Specialty Diagnoses / Procedures Referred By Contac t Referred To Contact CT IMAGING Diagnoses Vertigo Abnormal finding on MRI of brain VBI (vertebrobasilar insufficiency) Procedures CTA HEAD WO/W IVCON CT ANGIOGRAPHY HEAD W/CONTRAST/NONCONTRAST Papa Castellano Jr., MD [address] [facility] [address] [place] [address] [place] [address] Referral ID Status Reason Start Date Expiration Date V isits Requested Visits Authorized [id number] Closed Auto-Generate d Referral 04/15/2022 05/15/2023 1 1 Specialty Diagnoses / Procedures Referred By Contac t Referred To Contact Dermatology Diagnoses Atypical mole Procedures CONSULT TO DERMATOLOGY Steffen Petersen PA-C [address] [place] [address] Referral ID Status Reason Start Date Expiration Date Visits Requested Visits Authorized [id number] Ref Not Required PCP Requested Referral 06/21/2023 06/20/2024 1 1 Health Concerns Infection Onset Date Last Indicated Resolved Time COVID-19 Confirmed 03/05/2022 03/05/2022 Infection Onset Date Last Indicated Resolved Time COVID-19 Confirmed 03/05/2022 03/05/2022 8:51 PM EST Additional Source Comments INFORMATION SOURCE (unrecogn ized section and content) DATE CREATED AUTHOR AUTHOR'S ORGANIZ ATION 05/21/2022 [facility] DATE CREATED AUTHOR AUTHOR'S ORGANIZ ATION 07/01/2023 [facility] Source Comments (unrecognize d section and content) In the event this informatio n is protected by the Federal Confidentiality of Alcohol and Drug Abuse Patient Records regulations: The Federal rules restrict any use of the information to criminally investigate or prosecute any alcohol or drug abuse patient.[facility] the event this information is protected by the Federal Confidentiality of Alcohol and Drug Abuse Patient Records regulations: The Federal rules restrict any use of the information to criminally investigate or prosecute any alcohol or drug abuse patient.[facility]In the event this information is protected by the Federal Confidentiality of Alcohol and Drug Abuse Patient Records regulations: The Federal rules restrict any use of the information to criminally investigate or prosecute any alcohol or drug abuse patient.[facility]In the event this information is protected by the Federal Confidentiality of Alcohol and Drug Abuse Patient Records regulations: The Federal rules restrict any use of the information to criminally investigate or prosecute any alcohol or drug abuse patient.[facility] HospitalIn the event this information is protected by the Federal Confidentiality of Alcohol and Drug Abuse Patient Records regulations: The Federal rules restrict any use of the information to criminally investigate or prosecute any alcohol or drug abuse patient.[facility] HospitalIn the event this information is protected by the Federal Confidentiality of Alcohol and Drug Abuse Patient Records regulations: The Federal rules restrict any use of the information to criminally investigate or prosecute any alcohol or drug abuse patient.[facility] HospitalIn the event this information is protected by the Federal Confidentiality of Alcohol and Drug Abuse Patient Records regulations: The Federal rules restrict any use of the information to criminally investigate or prosecute any alcohol or drug abuse patient.[facility] HospitalIn the event this information is protected by the Federal Confidentiality of Alcohol and Drug Abuse Patient Records regulations: The Federal rules restrict any use of the information to criminally investigate or prosecute any alcohol or drug abuse patient.[facility] HospitalIn the event this information is protected by the Federal Confidentiality of Alcohol and Drug Abuse Patient Records regulations: The Federal rules restrict any use of the information to criminally investigate or prosecute any alcohol or drug abuse patient.[facility] HospitalIn the event this information is protected by the Federal Confidentiality of Alcohol and Drug Abuse Patient Records regulations: The Federal rules restrict any use of the information to criminally investigate or prosecute any alcohol or drug abuse patient.[facility] HospitalIn the event this information is protected by the Federal Confidentiality of Alcohol and Drug Abuse Patient Records regulations: The Federal rules restrict any use of the information to criminally investigate or prosecute any alcohol or drug abuse patient.[facility] HospitalIn the event this information is protected by the Federal Confidentiality of Alcohol and Drug Abuse Patient Records regulations: The Federal rules restrict any use of the information to criminally investigate or prosecute any alcohol or drug abuse patient.[facility] HospitalIn the event this information is protected by the Federal Confidentiality of Alcohol and Drug Abuse Patient Records regulations: The Federal rules restrict any use of the information to criminally investigate or prosecute any alcohol or drug abuse patient.[facility] the event this information is protected by the Federal Confidentiality of Alcohol and Drug Abuse Patient Records regulations: The Federal rules restrict any use of the information to criminally investigate or prosecute any alcohol or drug abuse patient.[facility] HospitalIn the event this information is protected by the Federal Confidentiality of Alcohol and Drug Abuse Patient Records regulations: The Federal rules restrict any use of the information to criminally investigate or prosecute any alcohol or drug abuse patient.[facility] HospitalIn the event this information is protected by the Federal Confidentiality of Alcohol and Drug Abuse Patient Records regulations: The Federal rules restrict any use of the information to criminally investigate or prosecute any alcohol or drug abuse patient.[facility] the event this information is protected by the Federal Confidentiality of Alcohol and Drug Abuse Patient Records regulations: The Federal rules restrict any use of the information to criminally investigate or prosecute any alcohol or drug abuse patient.[facility] HospitalIn the event this information is protected by the Federal Confidentiality of Alcohol and Drug Abuse Patient Records regulations: The Federal rules restrict any use of the information to criminally investigate or prosecute any alcohol or drug abuse patient.[facility] HospitalIn the event this information is protected by the Federal Confidentiality of Alcohol and Drug Abuse Patient Records regulations: The Federal rules restrict any use of the information to criminally investigate or prosecute any alcohol or drug abuse patient.[facility] HospitalIn the event this information is protected by the Federal Confidentiality of Alcohol and Drug Abuse Patient Records regulations: The Federal rules restrict any use of the information to criminally investigate or prosecute any alcohol or drug abuse patient.[facility] HospitalIn the event this information is protected by the Federal Confidentiality of Alcohol and Drug Abuse Patient Records regulations: The Federal rules restrict any use of the information to criminally investigate or prosecute any alcohol or drug abuse patient.[facility] HospitalIn the event this information is protected by the Federal Confidentiality of Alcohol and Drug Abuse Patient Records regulations: The Federal rules restrict any use of the information to criminally investigate or prosecute any alcohol or drug abuse patient.[facility] HospitalIn the event this information is protected by the Federal Confidentiality of Alcohol and Drug Abuse Patient Records regulations: The Federal rules restrict any use of the information to criminally investigate or prosecute any alcohol or drug abuse patient.[facility] HospitalIn the event this information is protected by the Federal Confidentiality of Alcohol and Drug Abuse Patient Records regulations: The Federal rules restrict any use of the information to criminally investigate or prosecute any alcohol or drug abuse patient.[facility] HospitalIn the event this information is protected by the Federal Confidentiality of Alcohol and Drug Abuse Patient Records regulations: The Federal rules restrict any use of the information to criminally investigate or prosecute any alcohol or drug abuse patient.[facility] HospitalIn the event this information is protected by the Federal Confidentiality of Alcohol and Drug Abuse Patient Records regulations: The Federal rules restrict any use of the information to criminally investigate or prosecute any alcohol or drug abuse patient.[facility] HospitalIn the event this information is protected by the Federal Confidentiality of Alcohol and Drug Abuse Patient Records regulations: The Federal rules restrict any use of the information to criminally investigate or prosecute any alcohol or drug abuse patient.[facility] HospitalIn the event this information is protected by the Federal Confidentiality of Alcohol and Drug Abuse Patient Records regulations: The Federal rules restrict any use of the information to criminally investigate or prosecute any alcohol or drug abuse patient.[facility] HospitalIn the event this information is protected by the Federal Confidentiality of Alcohol and Drug Abuse Patient Records regulations: The Federal rules restrict any use of the information to criminally investigate or prosecute any alcohol or drug abuse patient.[facility] HospitalIn the event this information is protected by the Federal Confidentiality of Alcohol and Drug Abuse Patient Records regulations: The Federal rules restrict any use of the information to criminally investigate or prosecute any alcohol or drug abuse patient.[facility] HospitalIn the event this information is protected by the Federal Confidentiality of Alcohol and Drug Abuse Patient Records regulations: The Federal rules restrict any use of the information to criminally investigate or prosecute any alcohol or drug abuse patient.[facility] HospitalIn the event this information is protected by the Federal Confidentiality of Alcohol and Drug Abuse Patient Records regulations: The Federal rules restrict any use of the information to criminally investigate or prosecute any alcohol or drug abuse patient.[facility] HospitalIn the event this information is protected by the Federal Confidentiality of Alcohol and Drug Abuse Patient Records regulations: The Federal rules restrict any use of the information to criminally investigate or prosecute any alcohol or drug abuse patient.[facility] HospitalIn the event this information is protected by the Federal Confidentiality of Alcohol and Drug Abuse Patient Records regulations: The Federal rules restrict any use of the information to criminally investigate or prosecute any alcohol or drug abuse patient.[facility] HospitalIn the event this information is protected by the Federal Confidentiality of Alcohol and Drug Abuse Patient Records regulations: The Federal rules restrict any use of the information to criminally investigate or prosecute any alcohol or drug abuse patient.[facility] HospitalIn the event this information is protected by the Federal Confidentiality of Alcohol and Drug Abuse Patient Records regulations: The Federal rules restrict any use of the information to criminally investigate or prosecute any alcohol or drug abuse patient.[facility] HospitalIn the event this information is protected by the Federal Confidentiality of Alcohol and Drug Abuse Patient Records regulations: The Federal rules restrict any use of the information to criminally investigate or prosecute any alcohol or drug abuse patient.[facility] HospitalIn the event this information is protected by the Federal Confidentiality of Alcohol and Drug Abuse Patient Records regulations: The Federal rules restrict any use of the information to criminally investigate or prosecute any alcohol or drug abuse patient.[facility] HospitalIn the event this information is protected by the Federal Confidentiality of Alcohol and Drug Abuse Patient Records regulations: The Federal rules restrict any use of the information to criminally investigate or prosecute any alcohol or drug abuse patient.[facility] HospitalIn the event this information is protected by the Federal Confidentiality of Alcohol and Drug Abuse Patient Records regulations: The Federal rules restrict any use of the information to criminally investigate or prosecute any alcohol or drug abuse patient.[facility] HospitalIn the event this information is protected by the Federal Confidentiality of Alcohol and Drug Abuse Patient Records regulations: The Federal rules restrict any use of the information to criminally investigate or prosecute any alcohol or drug abuse patient.[facility] HospitalIn the event this information is protected by the Federal Confidentiality of Alcohol and Drug Abuse Patient Records regulations: The Federal rules restrict any use of the information to criminally investigate or prosecute any alcohol or drug abuse patient.[facility] HospitalIn the event this information is protected by the Federal Confidentiality of Alcohol and Drug Abuse Patient Records regulations: The Federal rules restrict any use of the information to criminally investigate or prosecute any alcohol or drug abuse patient.[facility] HospitalIn the event this information is protected by the Federal Confidentiality of Alcohol and Drug Abuse Patient Records regulations: The Federal rules restrict any use of the information to criminally investigate or prosecute any alcohol or drug abuse patient.[facility] HospitalIn the event this information is protected by the Federal Confidentiality of Alcohol and Drug Abuse Patient Records regulations: The Federal rules restrict any use of the information to criminally investigate or prosecute any alcohol or drug abuse patient.[facility] HospitalIn the event this information is protected by the Federal Confidentiality of Alcohol and Drug Abuse Patient Records regulations: The Federal rules restrict any use of the information to criminally investigate or prosecute any alcohol or drug abuse patient.[facility] HospitalIn the event this information is protected by the Federal Confidentiality of Alcohol and Drug Abuse Patient Records regulations: The Federal rules restrict any use of the information to criminally investigate or prosecute any alcohol or drug abuse patient.[facility] HospitalIn the event this information is protected by the Federal Confidentiality of Alcohol and Drug Abuse Patient Records regulations: The Federal rules restrict any use of the information to criminally investigate or prosecute any alcohol or drug abuse patient.[facility] HospitalIn the event this information is protected by the Federal Confidentiality of Alcohol and Drug Abuse Patient Records regulations: The Federal rules restrict any use of the information to criminally investigate or prosecute any alcohol or drug abuse patient.[facility] HospitalIn the event this information is protected by the Federal Confidentiality of Alcohol and Drug Abuse Patient Records regulations: The Federal rules restrict any use of the information to criminally investigate or prosecute any alcohol or drug abuse patient.[facility] HospitalIn the event this information is protected by the Federal Confidentiality of Alcohol and Drug Abuse Patient Records regulations: The Federal rules restrict any use of the information to criminally investigate or prosecute any alcohol or drug abuse patient.[facility] HospitalIn the event this information is protected by the Federal Confidentiality of Alcohol and Drug Abuse Patient Records regulations: The Federal rules restrict any use of the information to criminally investigate or prosecute any alcohol or drug abuse patient.[facility] HospitalIn the event this information is protected by the Federal Confidentiality of Alcohol and Drug Abuse Patient Records regulations: The Federal rules restrict any use of the information to criminally investigate or prosecute any alcohol or drug abuse patient.[facility] HospitalIn the event this information is protected by the Federal Confidentiality of Alcohol and Drug Abuse Patient Records regulations: The Federal rules restrict any use of the information to criminally investigate or prosecute any alcohol or drug abuse patient.[facility] HospitalIn the event this information is protected by the Federal Confidentiality of Alcohol and Drug Abuse Patient Records regulations: The Federal rules restrict any use of the information to criminally investigate or prosecute any alcohol or drug abuse patient.[facility] HospitalIn the event this information is protected by the Federal Confidentiality of Alcohol and Drug Abuse Patient Records regulations: The Federal rules restrict any use of the information to criminally investigate or prosecute any alcohol or drug abuse patient.[facility] HospitalIn the event this information is protected by the Federal Confidentiality of Alcohol and Drug Abuse Patient Records regulations: The Federal rules restrict any use of the information to criminally investigate or prosecute any alcohol or drug abuse patient.[facility] HospitalIn the event this information is protected by the Federal Confidentiality of Alcohol and Drug Abuse Patient Records regulations: The Federal rules restrict any use of the information to criminally investigate or prosecute any alcohol or drug abuse patient.[facility] HospitalIn the event this information is protected by the Federal Confidentiality of Alcohol and Drug Abuse Patient Records regulations: The Federal rules restrict any use of the information to criminally investigate or prosecute any alcohol or drug abuse patient.[facility] HospitalIn the event this information is protected by the Federal Confidentiality of Alcohol and Drug Abuse Patient Records regulations: The Federal rules restrict any use of the information to criminally investigate or prosecute any alcohol or drug abuse patient.[facility] HospitalIn the event this information is protected by the Federal Confidentiality of Alcohol and Drug Abuse Patient Records regulations: The Federal rules restrict any use of the information to criminally investigate or prosecute any alcohol or drug abuse patient.[facility] HospitalIn the event this information is protected by the Federal Confidentiality of Alcohol and Drug Abuse Patient Records regulations: The Federal rules restrict any use of the information to criminally investigate or prosecute any alcohol or drug abuse patient.[facility] HospitalIn the event this information is protected by the Federal Confidentiality of Alcohol and Drug Abuse Patient Records regulations: The Federal rules restrict any use of the information to criminally investigate or prosecute any alcohol or drug abuse patient.[facility] the event this information is protected by the Federal Confidentiality of Alcohol and Drug Abuse Patient Records regulations: The Federal rules restrict any use of the information to criminally investigate or prosecute any alcohol or drug abuse patient.[facility] HospitalIn the event this information is protected by the Federal Confidentiality of Alcohol and Drug Abuse Patient Records regulations: The Federal rules restrict any use of the information to criminally investigate or prosecute any alcohol or drug abuse patient.[facility] HospitalIn the event this information is protected by the Federal Confidentiality of Alcohol and Drug Abuse Patient Records regulations: The Federal rules restrict any use of the information to criminally investigate or prosecute any alcohol or drug abuse patient.[facility]In the event this information is protected by the Federal Confidentiality of Alcohol and Drug Abuse Patient Records regulations: The Federal rules restrict any use of the information to criminally investigate or prosecute any alcohol or drug abuse patient.[facility] HospitalIn the event this information is protected by the Federal Confidentiality of Alcohol and Drug Abuse Patient Records regulations: The Federal rules restrict any use of the information to criminally investigate or prosecute any alcohol or drug abuse patient.[facility] HospitalIn the event this information is protected by the Federal Confidentiality of Alcohol and Drug Abuse Patient Records regulations: The Federal rules restrict any use of the information to criminally investigate or prosecute any alcohol or drug abuse patient.[facility] HospitalIn the event this information is protected by the Federal Confidentiality of Alcohol and Drug Abuse Patient Records regulations: The Federal rules restrict any use of the information to criminally investigate or prosecute any alcohol or drug abuse patient.[facility] HospitalIn the event this information is protected by the Federal Confidentiality of Alcohol and Drug Abuse Patient Records regulations: The Federal rules restrict any use of the information to criminally investigate or prosecute any alcohol or drug abuse patient.[facility] HospitalIn the event this information is protected by the Federal Confidentiality of Alcohol and Drug Abuse Patient Records regulations: The Federal rules restrict any use of the information to criminally investigate or prosecute any alcohol or drug abuse patient.[facility] HospitalIn the event this information is protected by the Federal Confidentiality of Alcohol and Drug Abuse Patient Records regulations: The Federal rules restrict any use of the information to criminally investigate or prosecute any alcohol or drug abuse patient.[facility] HospitalIn the event this information is protected by the Federal Confidentiality of Alcohol and Drug Abuse Patient Records regulations: The Federal rules restrict any use of the information to criminally investigate or prosecute any alcohol or drug abuse patient.[facility] [facility] the event this information is protected by the Federal Confidentiality of Alcohol and Drug Abuse Patient Records regulations: The Federal rules restrict any use of the information to criminally investigate or prosecute any alcohol or drug abuse patient.[facility] the event this information is protected by the Federal Confidentiality of Alcohol and Drug Abuse Patient Records regulations: The Federal rules restrict any use of the information to criminally investigate or prosecute any alcohol or drug abuse patient.[facility] the event this information is protected by the Federal Confidentiality of Alcohol and Drug Abuse Patient Records regulations: The Federal rules restrict any use of the information to criminally investigate or prosecute any alcohol or drug abuse patient.[facility] Reason for Visit (unrecogniz ed section and content) Specialty Diagnoses / Procedures Referred By Diana t Referred To Contact Physical Therapy / PHYSICAL THERAPY Diagnoses Dizziness Procedures EST RS PT ORTH Papa Burnham MD [address] [place] [address] Paige oLpez, PT Referral ID Status Reason Start Date Expiration Date V isits Requested Visits Authorized [id number] Authorized 05/03/2022 05/02/2023 99 99 Reason Onset Date Comments Refill Request 08/07/2021 Reason Onset Date Comments Refill Request 09/04/2021 Reason Comments Dizziness intermittently 7-10 days Nausea & Vomiting Fatigue Specialty Diagnoses / Procedures Referred By Contac t Referred To Contact FAMILY MEDICINE Diagnoses Dizziness Nausea Dizziness Dizziness,nausea and fatigue /offered sooner patient declined Procedures OFFICE/OUTPATIENT ESTABLISHED MOD MDM 30-39 MIN Dizziness,nausea and fatigue /offered sooner patient declined Steffen Petersen PA-C [address] [place] [address] [facility] [address] [place] [address] Referral ID Status Reason Start Date Expiration Date V isits Requested Visits Authorized [id number] Closed OON/Self Pay Override 09/08/2021 05/02/2022 1 1 Reason Comments Thyroid Associated Orbitopathy Evaluatio n Reason Comments New Pain Specialty Diagnoses / Procedures Referred By Contac t Referred To Contact Podiatry Diagnoses Foot pain, bilateral Heel spur, unspecified laterality Procedures CONSULT TO PODIATRY OFFICE/OUTPATIENT NEW HIGH MDM 60-74 MINUTES Steffen Petersen PA-C [address] [place] [address] [place] [address] Referral ID Status Reason Start Date Expiration Date V isits Requested Visits Authorized [id number] Closed PCP Requested Referral 10/16/2021 05/02/2022 1 1 Reason Onset Date Comments Refill Request 11/04/2021 Reason Onset Date Comments Refill Request 11/07/2021 Reason Comments UTI pressure and burning with urination x 2 days Specialty Diagnoses / Procedures Referred By Contac t Referred To Contact Gynecology / YARDER ENGINEER Diagnoses bleeding Procedures [facility] PATIENT Self, Billie Hudson, DESIGN COORDINATOR.ADMISSION SPECIALIST [address] [place] [address] Referral ID Status Reason Start Date Expiration Date V isits Requested Visits Authorized [id number] Closed OON/Self Pay Override 11/20/2021 05/02/2022 1 1 Reason Comments Vaginal Bleeding Reason Comments DUB Specialty Diagnoses / Procedures Referred By Contac t Referred To Contact YARDER ENGINEER Diagnoses READ Procedures US PELVIC NONOBSTETRIC IMAGE DCMTN LIMITED/F/U PELVIC ULTRASOUND Billie Tellez APRN.ADMISSION SPECIALIST [address] [place] [address] Kari Mast MD [address] [place] [address] Referral ID Status Reason Start Date Expiration Date Visits Re quested Visits Authorized [id number] Closed 11/24/2021 05/02/2022 1 1 Reason Comments Results Endometrial Biopsy New Medication Reason Comments Endometrial Biopsy Specialty Diagnoses / Procedures [facility] To Contact [facility] Diagnoses Abnormal uterine bleeding (AUB) Procedures ENDOMETRIAL BIOPSY ENDOMETRIAL BX W/WO ENDOCERVIX BX W/O DILAT SPX Billie Tellez DESIGN COORDINATOR.ADMISSION SPECIALIST [address] [place] [address] [facility] [address] [place] [address] Referral ID Status Reason Start Date Expiration Date V isits Requested Visits Authorized [id number] Closed Benefit Check 11/27/2021 05/02/2022 1 1 Reason Comments Refill Request Reason Comments Results New Medication Reason Comments Urinary Problem Burning, pressure wi th urination x1 day. Reason Comments Results Reason Onset Date Comments Refill Request 01/08/2022 Reason Onset Date Comments Refill Request 02/23/2022 Reason Onset Date Comments Population Health Navigation Outreach 03/03/2022 [facility] Reason Comments Covid Positive Reason Comments Work excuse Reason Comments Patient Question Reason Comments Scheduling Cerebrovascular/neur ology consult Reason Comments Follow Up Reason Comments New Patient Vertigo Reason Onset Date Comments Refill Request 04/22/2022 Reason Comments Appointment Work excuse Reason Comments PT Eval Specialty Diagnoses / Procedures Referred By Contac t Referred To Contact Physical Therapy / PHYSICAL THERAPY Diagnoses Vertigo [R42] Procedures NEW RS PT VESTIBULAR VERTIGO Papa Castellano Jr., MD [address] [facility] [address] [place] [address] Paige Lopez, PT Referral ID Status Reason Start Date Expiration Date Visits Re quested Visits Authorized [id number] Closed 05/03/2021 05/02/2022 1 1 Reason Onset Date Comments Refill Request 05/05/2022 Specialty Diagnoses / Procedures Referred By Contac t Referred To Contact [facility] Diagnoses Vertigo Procedures PT REHAB FOLLOW UP ORDER THERAPEUTIC EXERCISES RE, EA 15 MIN. Paige Lopez PT [facility] [address] [place] [address] Referral ID Status Reason Start Date Expiration Date Visits Requested Visits Authorized [id number] Pending Review PCP Requested Referral Auto-Generate d Referral 2 07/27/2022 1 1 Reason Comments Patient Question Reason Comments medication request/patient update Reason Comments Patient Request Reason Comments Prescription Clarification Reason Comments Orders Reason Comments Appointment Reason Comments Vertigo Follow up Results Review labs Reason Onset Date Comments Refill Request 08/03/2022 Reason Comments PT Progress Note Specialty Diagnoses / Procedures Referred By Contac t Referred To Contact Physical Therapy / PHYSICAL THERAPY Diagnoses Dizziness Procedures EST RS PT ORTH Papa Burnham MD [address] [place] [address] Paige Lopez PT Reason Onset Date Comments Refill Request 10/15/2022 Reason Onset Date Comments Refill Request 10/30/2022 Reason Onset Date Comments Refill Request 12/31/2022 Reason Onset Date Comments Population Health Navigation Outreach 01/13/2023 [facility] care gaps Reason Onset Date Comments Refill Request 01/21/2023 Reason Onset Date Comments Refill Request 01/22/2023 Reason Comments Cough Head Congestion Reason Comments Asthma Reason Onset Date Comments Refill Request 02/25/[address] Specialty Diagnoses / Procedures Referred By Contac t Referred To Contact CT IMAGING Diagnoses Vertigo Abnormal finding on MRI of brain VBI (vertebrobasilar insufficiency) Procedures CTA NECK W IVCON CT ANGIOGRAPHY NECK W/CONTRAST/NONCONTRAST Papa Castellano Jr., MD [address] [facility] [address] [place] [address] [place] [address] Referral ID Status Reason Start Date Expiration Date V isits Requested Visits Authorized [id number] Closed Auto-Generate d Referral 04/15/2022 05/15/2023 1 1 Reason Onset Date Comments Refill Request 03/15/2023 Reason Onset Date Comments Refill Request 04/13/2023 Reason Comments Pain (Shoulder Pain) left Reason Onset Date Comments Refill Request 06/10/2023 Reason Comments Physical Reason Comments Cough Reason Comments cough/asthma States was seen [place] by Dr. Decker was given steroids but as soon as finished came back Reason Onset Date Comments Refill Request 06/25/2023 Reason Comments need correct order for nebulizer please. Reason Onset Date Comments Refill Request 07/12/2023 Care Teams (unrecognized sec tion and content) Jewelry Coater Relationship Specialty Start Date End Date Papa Moser MD [address] [place] [address] PCP - General Family Practice 10/24/12 Jewelry Coater Relationship Specialty Start Date End Date Papa Moser MD [address] [place] [address] PCP - General Family Practice 10/24/12 Jewelry Coater Relationship Specialty Start Date End Date Papa Moser MD [address] [place] [address] PCP - General Family Practice 10/24/12 Jewelry Coater Relationship Specialty Start Date End Date Papa Moser MD [address] [place] [address] PCP - General Family Practice 10/24/12 Jewelry Coater Relationship Specialty Start Date End Date Papa Moser MD [address] [place] [address] PCP - General Family Practice 10/24/12 Jewelry Coater Relationship Specialty Start Date End Date Papa Moser MD [address] [place] [address], [place] [address] PCP - General Family Practice 10/24/12 Jewelry Coater Relationship Specialty Start Date End Date Papa Moser MD [address] [place] [address] PCP - General Family Practice 10/24/12 Jewelry Coater Relationship Specialty Start Date End Date Papa Moser MD [address] [place] [address] PCP - General Family Practice 10/24/12 Jewelry Coater Relationship Specialty Start Date End Date Papa Moser MD [address] [place] [address], [place] [address] PCP - General Family Practice 10/24/12 Jewelry Coater Relationship Specialty Start Date End Date Papa Moser MD [facility] [address] PCP - General Family Practice 10/24/12 Jewelry Coater Relationship Specialty Start Date End Date Papa Moser MD [address] [place] [address] PCP - General Family Practice 10/24/12 Jewelry Coater Relationship Specialty Start Date End Date Papa Moser MD [address] [place] [address] PCP - General Family Practice 10/24/12 Jewelry Coater Relationship Specialty Start Date End Date Papa Moser MD [address] [place] [address] PCP - General Family Practice 10/24/12 Jewelry Coater Relationship Specialty Start Date End Date Papa Moser MD [address] [place] [address], [place] [address] PCP - General Family Medicine 10/24/12 Jewelry Coater Relationship Specialty Start Date End Date Papa Moser MD [address] [place] [address] PCP - General Family Medicine 10/24/12 Jewelry Coater Relationship Specialty Start Date End Date Papa Moser MD [address] [place] [address] PCP - General Family Medicine 10/24/12 Jewelry Coater Relationship Specialty Start Date End Date Papa Moser MD [address] [place] [address] PCP - General Family Medicine 10/24/12 Jewelry Coater Relationship Specialty Start Date End Date Papa Moser MD [address] [place] [address] PCP - General Family Medicine 10/24/12 Jewelry Coater Relationship Specialty Start Date End Date Papa Moser MD [address] [place] [address] PCP - General Family Medicine 10/24/12 Jewelry Coater Relationship Specialty Start Date End Date Papa Moser MD [address] [place] [address] PCP - General Family Medicine 10/24/12 Jewelry Coater Relationship Specialty Start Date End Date Papa Moser MD [address] [place] [address] PCP - General Family Medicine 10/24/12 Jewelry Coater Relationship Specialty Start Date End Date Papa Moser MD [address] [place] [address] PCP - General Family Medicine 10/24/12 Jewelry Coater Relationship Specialty Start Date End Date Papa Moser MD [address] [place] [address] PCP - General Family Medicine 10/24/12 Jewelry Coater Relationship Specialty Start Date End Date Papa Moser MD [address] [place] [address] PCP - General Family Medicine 10/24/12 Jewelry Coater Relationship Specialty Start Date End Date Papa Moser MD [address] [place] [address] PCP - General Family Medicine 10/24/12 Jewelry Coater Relationship Specialty Start Date End Date Papa Moser MD [address] [place] [address] PCP - General Family Medicine 10/24/12 Jewelry Coater Relationship Specialty Start Date End Date Papa Moser MD [address] [place] [address] PCP - General Family Medicine 10/24/12 Jewelry Coater Relationship Specialty Start Date End Date Papa Moser MD [address] [place] [address] PCP - General Family Medicine 10/24/12 Jewelry Coater Relationship Specialty Start Date End Date Papa Moser MD [address] [place] [address] PCP - General Family Medicine 10/24/12 Jewelry Coater Relationship Specialty Start Date End Date Papa Moser MD [address] [facility] [place] [address] PCP - General Family Medicine 10/24/12 Jewelry Coater Relationship Specialty Start Date End Date Papa Moser MD [address] [place] [address] PCP - General Family Medicine 10/24/12 Jewelry Coater Relationship Specialty Start Date End Date Papa Moser MD [address] [place] [address] PCP - General Family Medicine 10/24/12 Jewelry Coater Relationship Specialty Start Date End Date Papa Moser MD [address] [place] [address] PCP - General Family Medicine 10/24/12 Jewelry Coater Relationship Specialty Start Date End Date Papa Moser MD [address] [place] [address] PCP - General Family Medicine 10/24/12 Jewelry Coater Relationship Specialty Start Date End Date Papa Moser MD [address] [place] [address] PCP - General Family Medicine 10/24/12 Jewelry Coater Relationship Specialty Start Date End Date Papa Moser MD [address] [place] [address] PCP - General Family Medicine 10/24/12 Jewelry Coater Relationship Specialty Start Date End Date Papa Moser MD [address] [place] [address] PCP - General Family Medicine 10/24/12 Jewelry Coater Relationship Specialty Start Date End Date Papa Moser MD [address] [place] [address] PCP - General Family Medicine 10/24/12 Jewelry Coater Relationship Specialty Start Date End Date Papa Moser MD [address] [place], [place] [address] PCP - General Family Medicine 10/24/12 Jewelry Coater Relationship Specialty Start Date End Date Papa Moser MD [address] [place] [address] PCP - General Family Medicine 10/24/12 Jewelry Coater Relationship Specialty Start Date End Date Papa Moser MD [address] [place] [address] PCP - General Family Medicine 10/24/12 Jewelry Coater Relationship Specialty Start Date End Date Papa Moser MD [address] [place] [address] PCP - General Family Medicine 10/24/12 Jewelry Coater Relationship Specialty Start Date End Date Papa Moser MD [address] [place] [address] PCP - General Family Medicine 10/24/12 Jewelry Coater Relationship Specialty Start Date End Date Papa Moser MD [address] [place] [address] PCP - General Family Medicine 10/24/12 Jewelry Coater Relationship Specialty Start Date End Date Papa Moser MD [address] [place] [address] PCP - General Family Medicine 10/24/12 Jewelry Coater Relationship Specialty Start Date End Date Papa Moser MD [address] [place] [address] PCP - General Family Medicine 10/24/12 Jewelry Coater Relationship Specialty Start Date End Date Papa Moser MD [address] [place], [place] [address] PCP - General Family Medicine 10/24/12 FOR RECORDS PERTAINING TO PATIENTS WHO ARE OR HAVE BEEN ENROLLED IN A CHEMICAL DEPENDENCY/SUBSTANCEABUSE PROGRAM, SOME INFORMATION MAY BE OMITTED. This clinical summary was aggregated from multiple sources. Caution should be exercised in using it in the provision of clinical care. This summary normalizes information from multiple sources, and as a consequence, information in this document may materially change the coding, format and clinical context of patient data. In addition, data may be omitted in some cases. CLINICAL DECISIONS SHOULD BE BASED ON THE PRIMARY CLINICAL RECORDS. [facility] [employer] [facility]. provides no warranty or guarantee of the accuracy or completeness of information in this document.
== END 2023-07-14 17:58 | disposition home or self-care (01) ==
PROVIDERS: Emergency Provider Emergency Medicine; PCP Family Medicine; Visit Provider Emergency Medicine
DX: J45.901 Unspecified asthma with (acute) exacerbation (principal); I25.10 Atherosclerotic heart disease of native coronary artery without angina pectoris; G47.33 Obstructive sleep apnea (adult) (pediatric); I25.2 Old myocardial infarction; Z79.899 Other long term (current) drug therapy; Z79.51 Long term (current) use of inhaled steroids
CPT/HCPCS: 94640; 99283

== ENCOUNTER 2023-10-07 22:48 | Emergency (ER) | payer MEDICARE, SELFPAY ==
[2023-10-07 22:49] VITALS: BP 166/106; PULSE 67; RESP 18; TEMP 36.1; O2SAT 99; BMI 38.7
--- NOTE | 2023-10-07 23:33 | EDS_ITS ---
HPI History of Present Illness Chief Complaint: Dental Informant: patient Onset/Context/Timing Onset: Days Context: Gradual Onset Timing: Waxes and wanes Narrative Narrative: Patient presents secondary to right upper dental pain. She states for the past several months she will have intermittent pain along the right upper teeth. When she saw her dentist a couple months ago she mentioned it but was not having pain at the time. X-rays were unremarkable. Earlier this week she called him stating that she was having severe pain again. She went in and x-rays were performed. He thinks there may be an infection and started her on penicillin. She has been on penicillin on the last 2 days. She has been alternating Tylenol and ibuprofen for pain. She presents tonight because of increased pain and concern that the antibiotics are not working. [facility] Medical History History of non-ST elevation myocardial infarction (NSTEMI) (11/16/19) Acute sinusitis, unspecified Right bundle branch block (RBBB) Vitamin D deficiency Atherosclerosis of coronary artery of [place] heart without angina pectoris Anxiety Fibromyalgia Insomnia Asthma Hypothyroidism Depression GERD (gastroesophageal reflux disease) TADEO (obstructive sleep apnea) Essential hypertension Takotsubo cardiomyopathy Difficulty balancing Fatigue Heart disease Home Medications ?Medication ?Instructions ?Recorded ?Last Taken ?Type bupropion HCl 150 mg tablet,12 hr 1 tab PO BID 03/11/19 Unknown History sustained-release cyclobenzaprine 5 mg tablet 5 mg PO TID PRN Muscle Spasm 03/11/19 Unknown History loratadine 10 mg tablet 10 mg PO DAILY 03/11/19 Unknown History albuterol sulfate 90 mcg/actuation 2 puff inhalation Q4H PRN Wheezing 12/05/19 Unknown History aerosol inhaler buspirone 15 mg tablet 15 mg PO BID 12/05/19 Unknown History cholecalciferol (vitamin D3) 25 25 mcg PO DAILY 12/05/19 Unknown History mcg (1,000 unit) tablet cyanocobalamin (vitamin B-12) 1,000 mcg PO DAILY 12/05/19 Unknown History 1,000 mcg capsule fluticasone propionate 50 1 spray intranasal DAILY 12/05/19 Unknown History mcg/actuation nasal spray,suspension (Allergy Relief (fluticasone)) montelukast 10 mg tablet 10 mg PO QHS 12/05/19 Unknown History sertraline 50 mg tablet 50 mg PO DAILY 12/05/19 Unknown History sucralfate 1 gram tablet 1 g PO TID PRN Heartburn 12/05/19 Unknown History tramadol 50 mg tablet 100 mg PO Q6H PRN Pain 12/05/19 Unknown History omeprazole 20 mg capsule,delayed 20 mg PO BID 12/06/19 Unknown History release sennosides 8.6 mg capsule (senna) 8.6 mg PO DAILY #7 caps 09/21/20 Unknown Rx levothyroxine 112 mcg tablet 112 mcg PO DAILY 11/19/20 Unknown History trazodone 100 mg tablet 100 mg PO DAILY 11/19/20 Unknown History diazepam 2 mg tablet (Valium) 2.5 mg (1.25 x 2 mg) PO BID PRN 05/15/22 Unknown Rx vertigo #6 tabs lisinopril 10 mg tablet 10 mg PO DAILY #90 tabs 12/01/22 Unknown Rx fluticasone propionate 44 1 inh inhalation BID #10.6 grams 07/14/23 Unknown Rx mcg/actuation HFA aerosol inhaler ipratropium 0.5 mg-albuterol 3 mg 3 ml inhalation Q4H PRN shortness 07/14/23 Unknown Rx (2.5 mg base)/3 mL nebulization of breath or wheezing #90 mL soln clindamycin HCl 150 mg capsule 300 mg (2 x 150 mg) PO 4X/DAY #80 10/07/23 Unknown Rx CAPSULES oxycodone 5 mg tablet 5 mg PO Q8H PRN pain 3 days #10 10/07/23 Unknown Rx tabs Allergy/AdvReac Type Severity Reaction Status Date / Time adhesive tape Allergy Intermediate rash Verified 10/07/23 22:49 amoxicillin (From Augmentin) Allergy Intermediate Unknown Verified 10/07/23 22:49 carvedilol Allergy Intermediate Intense Verified 10/07/23 22:49 itching all over clavulanic acid (From Allergy Intermediate Unknown Verified 10/07/23 22:49 Augmentin) hydrochlorothiazide AdvReac Nausea/Vom/ Verified 10/07/23 22:49 Diarrhea Family History Mother Heart disease Father CAD (coronary artery disease) Heart disease Hypertension Emphysema, unspecified Grandmother CAD (coronary artery disease) Grandfather CAD (coronary artery disease) Brother Hypertension Heart disease Sister Heart disease Surgical History History of left heart catheterization (11/17/19) History of tonsillectomy and adenoidectomy History of cholecystectomy Social History household members: none Smoking Status: Never smoker alcohol intake: current alcohol intake frequency: a few times a week substance use type: does not use ROS ROS ED Constitutional Constitutional ED: Denies chills or fever(s) Eyes Eyes: Denies discharge from eye(s) ENT ENT ED: Reports other Details: Right upper dental pain ; Denies discharge from eye(s), rhinorrhea or sore throat Cardiovascular Cardiovascular: Denies chest pain Respiratory/Chest Respiratory/Chest: Denies cough or dyspnea Gastrointestinal Gastrointestinal: Denies abdominal pain, nausea or vomiting Musculoskeletal Musculoskeletal: Denies back pain or extremity pain Integumentary Denies Abrasions or rash Neurologic Neurologic: Denies headache(s) or weakness Psychiatric Psychiatric: Denies anxiety or depression Allergic/Immunologic Allergic/Immunologic ED: Denies lip swelling or urticaria EXAM Physical Exam Const Vital Signs: 10/07/23 22:49 Temperature 97 F L Temperature Source Temporal Pulse Rate 67 Respiratory Rate 18 Blood Pressure 166/106 H Blood Pressure Mean 126 Pulse Ox 99 Oxygen Delivery Method Room Air Positive well nourished and well developed General Appearance ED: well developed HEENT HEENT Narrative: No appreciable facial edema or erythema. Intraoral examination reveals reproducible tenderness over the right maxillary premolars. No significant gum edema. Slight discoloration is noted at the base of the first premolar. Posterior pharynx exam unremarkable. Eyes EOMs intact bilaterally Chest Wall inspection of chest normal and palpation of chest normal Resp normal respiratory effort and clear to auscultation bilaterally Cardio regular rate and regular rhythm GI normal to inspection, nondistended, normoactive bowel sounds Extremity normal to inspection Neuro oriented x3 and moves all extremities MDM MDM MDM Narrative Medical decision making narrative: Patient does have reproducible dental pain. We discussed switching her antibiotics to clindamycin instead of penicillin. She would like to stay on penicillin another couple days, however is open to me writing her prescription for clindamycin that she can fill over the weekend if she is not improving. She is currently alternating Tylenol and ibuprofen appropriately. I will write her prescription for oxycodone that she can take for breakthrough pain. Patient is chronically on tramadol. I discussed with her she could take tramadol or oxycodone, but she cannot take them together. She voices understanding and agreement. She is to follow-up with her dentist next week. Discharge Plan Triage Chief Complaint: Dental ED Provider: Aruna Yen Dx/Rx/DC Orders Clinical Impression: Pain, dental Instructions: ED Dental Pain Prescriptions: New oxycodone 5 mg tablet 5 mg PO Q8H PRN (Reason: pain) 3 Days Qty: 10 0RF clindamycin HCl 150 mg capsule 300 mg PO 4X/DAY Qty: 80 0RF No Action omeprazole 20 mg capsule,delayed release(DR/EC) 20 mg PO BID tramadol 50 mg tablet 100 mg PO Q6H PRN (Reason: Pain) sucralfate 1 gram tablet 1 g PO TID PRN (Reason: Heartburn) buspirone 15 mg tablet 15 mg PO BID fluticasone propionate [Allergy Relief (fluticasone)] 50 mcg/actuation spray,suspension 1 spray INTRANASAL DAILY Rx Instructions: administer into each nostril montelukast 10 mg tablet 10 mg PO QHS albuterol sulfate 90 mcg/actuation HFA aerosol inhaler 2 puff INHALATION Q4H PRN (Reason: Wheezing) cyanocobalamin (vitamin B-12) 1,000 mcg capsule 1,000 mcg PO DAILY cholecalciferol (vitamin D3) 25 mcg (1,000 unit) tablet 25 mcg PO DAILY sertraline 50 mg tablet 50 mg PO DAILY levothyroxine 112 mcg tablet 112 mcg PO DAILY trazodone 100 mg tablet 100 mg PO DAILY bupropion HCl 150 MG tablet sustained-release 12 hr 1 tab PO BID Patient Comments: Take 1 tablet by mouth twice daily. loratadine 10 MG tablet 10 mg PO DAILY Patient Comments: TAKE 1 TABLET EVERY DAY cyclobenzaprine 5 MG tablet 5 mg PO TID PRN (Reason: Muscle Spasm) senna 8.6 mg capsule 8.6 mg PO DAILY Qty: 7 0RF diazepam [Valium] 2 mg tablet 2.5 mg PO BID PRN (Reason: vertigo) Qty: 6 0RF fluticasone propionate 44 mcg/actuation HFA aerosol inhaler 1 inh inhalation BID Qty: 10.6 0RF Rx Instructions: administer with spacer ipratropium-albuterol 0.5 mg-3 mg(2.5 mg base)/3 mL solution for nebulization 3 ml inhalation Q4H PRN (Reason: shortness of breath or wheezing) Qty: 90 0RF Rx Instructions: until breathing returns to target peak flow/parameters lisinopril 10 mg tablet 10 mg PO DAILY Qty: 90 3RF Primary Care Provider: Papa Johnson Referrals: Papa Johnson MD [Primary Care Provider] - Activity Restrictions/Additional Instructions: Follow-up with your dentist next week. You can take oxycodone OR tramadol for pain, please do not take them together. Print Language: [place] Disposition Disposition: Home, Self Care
[2023-10-08] MEDS: oxyCODONE 5 MG Tablet PO (00:03)
[2023-10-08 00:10] VITALS: BP 149/75; PULSE 67; RESP 18; TEMP 36.7; O2SAT 97
== END 2023-10-08 00:12 | disposition home or self-care (01) ==
PROVIDERS: Emergency Provider Emergency Medicine; PCP Family Medicine; Visit Provider Emergency Medicine
DX: K08.89 Other specified disorders of teeth and supporting structures (principal); J45.909 Unspecified asthma, uncomplicated; I25.10 Atherosclerotic heart disease of native coronary artery without angina pectoris; K21.9 Gastro-esophageal reflux disease without esophagitis; I10 Essential (primary) hypertension
CPT/HCPCS: 99282

== ENCOUNTER 2025-03-01 13:00 | Outpatient (RCR) | payer MEDICARE, SELFPAY ==
--- NOTE | 2025-02-07 15:00 | HP.PTEVAL_ITS ---
Patient's Visit Information Visit Information Visit Information: LYNETTE CASAS is a 69 year old F referred to Physical Therapy by ANKUR Arango with a diagnosis of Acute LBP. Date of Evaluation: 02/07/25 Physical Therapist: Simon Ferreira, DPT, OCS, CSCS Visit Plan Frequency: 2x /Week Duration: 4-6 Weeks Plan: 2x/week for 4-6 weeks IE HEP: pelvic tilts x20, trunk rotation x 20, flex sitting x 10 all 3x/day and avoid aggravating activity and long lever arm with LB. treat with mat based core strength progressing to HEP, hip strength, eventual general body strength to HEP. may use TENs and MH, STM to LB as neeeded. Subjective Subjective: LBP brings me here. maybe part of FM? Doctor said it is sciatica. It started a month ago insidious mild and worsening. pain is across LB and lateeral L hip sometimes B ITB. Feels OK sitting today but hurts at home to sit. Worse with putting things on line clothes wallpaper hanger, bending to pick objects off floor. Activities: avoids vaccuming and sweeping. Feels better in am. Sleep Is OK(has muscle relaxer) Retired. Spnds day: taking care of house, grocery store, hurts after shopping. No regular ex. Short walks 2-3 blocks prior to this, one block now. Pain LBP: Pain Intensity (Out of 10): 0 Pain Intensity Range: 0 and 8 Comment: 8 with clothes hanging and doing dishes Objective Objective: Walks into PT slowly but I, transfers bed adn chair I. Steps reciprocal with one rail and no c/o pain. Lumb ar AROM ext painful centrally, flexion stretchy pain L SI area, both mod limited, SB not painful. Posture is forward head and kyphotic t/s. weakness in core evident with UE strength testing and hip flexion testing needing UE to stabilize trunk. hips streength abd and xt 3, flexion 3+ B, knees 4- B and ankles 4 B . reflexes 2/3 patella adn achilles B. sensation LE to gross lgiht touch WNL B. Able to heel raise adn toe raise, does c/o neuroapthjy but not obvious to my testing. Balance/Special Test Scores Oswestry Low Back Score: 24 Goals Goal 1:: I appropriate HEP to limit futurer problems with sedentarism and LBP Goal Time Frame: 4-6 Weeks Goal 2:: LBP 1/10 at worst adn 90% back to normal Goal Time Frame: 4-6 Weeks Goal 3:: Slee p without waking without need for sleep meds. Goal Time Frame: 4-6 Weeks Goal 4:: hang cloths on line without feeling LBP Goal Time Frame: 4-6 Weeks Rehabilitation Potential Physical Therapy Diagnosis: Pain and weakness limiting compfrotabl funciton. Rehabilitation Potential: Fair Anticipated Interventions Patient/Client Instruction: Educate patient on: Condition and Plan of Care For the Purpose of:: To decrease pain, To increase ROM, To improve nutrient delivery to tissue and To increase tolerance to activity/condition/position Therapeutic Exercise to Include: Strength training, Postural training and Dynamic Lumbar Stabilization For the Purpose of:: To decrease pain, To increase ROM, To improve nutrient delivery to tissue, To increase tolerance to activity/condition/position and To improve ability of physical actions for home/community/work/leisure Manual Therapy Techniques to Include: Soft tissue mobilization For the Purpose of:: To decrease pain, To increase ROM and To improve nutrient delivery to tissue TENS: Yes Thermo therapy (hot pack): Yes For the Purpose of:: To decrease pain Text: Thank you for the opportunity to evaluate your patient. For Medicare and Medicare HMO plans, please review the plan of care and approve it. It will need to be FAXED BACK to us at [phone] for Medicare purposes. For Medicare only, by signing this I certify the plan of care. Please let me know if there are questions or concerns regarding this plan of care. Physician Signature:___ Date:
--- NOTE | 2025-04-09 15:41 | HP.PT.NRP ---
Patient Information Patient Information: LYNETTE CASAS was seen in my office for initial evaluation on 02/07/25. The following Plan of Care was established for this patient: POC Established Initial Frequency: 2x /Week Initial Duration: 4-6 Weeks Anticipated Interventions Patient/Client Instruction: Educate patient on: Condition and Plan of Care For the Purpose of:: To decrease pain, To increase ROM, To improve nutrient delivery to tissue and To increase tolerance to activity/condition/position Therapeutic Exercise to Include: Strength training, Postural training and Dynamic Lumbar Stabilization For the Purpose of:: To decrease pain, To increase ROM, To improve nutrient delivery to tissue, To increase tolerance to activity/condition/position and To improve ability of physical actions for home/community/work/leisure Manual Therapy Techniques to Include: Soft tissue mobilization For the Purpose of:: To decrease pain, To increase ROM and To improve nutrient delivery to tissue TENS: Yes Thermo therapy (hot pack): Yes For the Purpose of:: To decrease pain Last Seen Last Seen: This patient was last seen in our office 02/22/25. Pertinent comments regarding their Physical therapy will appear below: Pt seen for 3 visits of POC ayush cancelled the rest. At this point, it has been oveer 6 weeks and i will disocntinue due to nonattendance. At this point I will be discontinuing this patient from physical therapy. I would be happy to see this patient again in the future if found appropriate by the physician. Thank you! Simon Ferreira, DPT, OCS, CSCS Balance/Gait/Functional tests Balance/Special Test Scores Oswestry Low Back Score: 24
== END 2025-03-01 19:00 | disposition home or self-care (01) ==
LOC: PT 13:00
PROVIDERS: PCP Family Medicine; Referring Provider Registered Nurse; Visit Provider Registered Nurse
DX: M54.50 Low back pain, unspecified (principal)
CPT/HCPCS: 97110; 97161